=== PATIENT | female | born 1955 | race Caucasian/White ===

== ENCOUNTER 2019-10-23 09:40 | Emergency (ER) | payer OTHER, SELFPAY ==
[2019-10-23] VITALS (7 sets, daily range): BP systolic 103–131; BP diastolic 60–71; PULSE 76–98; RESP 13–20; TEMP 36.6; O2SAT 94–98; BMI 39.9
--- NOTE | 2019-10-23 09:49 | ED_ITS ---
Entered by Isatu Rivera, acting as scribe for HPI - General Adult General: Chief complaint: General Medical, Adult Stated complaint: WEIGHT GAIN Time Seen by Provider: 10/23/19 10:07 History of Present Illness: HPI narrative: 64 yo female presents with weight gain. pt states that she can't lay flat without becoming short of breath. Pt states that she has double vision that started this morning. Pt is a half-way resident at [facility]. Pt states that she has had hallucinations and that has been going on for quite awhile. Pt states that she is seeing people. Pt states that she had an increase in her lasix. Onset (ago): day(s) Associated symptoms: Reports dyspnea, malaise, nausea and short of breath; Deny chest pain, confusion, diaphoresis, headache(s), rash or vomiting Review of Systems Const: Reports: fever and malaise; Denies: chills, body aches, change in appetite, night sweats or diaphoresis Eyes: Reports: change in vision and blurry vision; Denies: eye discomfort or eye redness ENMT: Denies: throat pain, painful swallowing, hoarseness, swelling of lips /tongue, dental pain, nasal congestion, post nasal drip or facial/sinus pain Card: Reports: swelling of feet/ankles; Denies: chest pain or edema Resp: Reports: shortness of breath and productive cough; Denies: wheezing, change in phlegm color or chest congestion GI: Reports: abdominal pain and nausea; Denies: vomiting, vomiting blood, coffee grounds in vomit, difficulty swallowing, diarrhea, painful bowel movements, blood in stool or black tarry stool : Denies: flank pain, difficulty urinating, painful urination, urinary frequency, urinary urgency or blood in urine Musc: Reports: extremity swelling; Denies: neck pain, back pain, extremity pain, joint pain or joint swelling Skin/Breast: Denies: rash, itching or redness Neuro: Denies: headache, numbness in extremities, weakness in extremities, difficulty walking, frequent falls, dizziness, vertigo, confusion, slurred speech or restless legs Psych: Reports: anxiety; Denies: depression or mood swings Endo: Denies: excessive urination or excessive thirst Kristian/Lymph: Denies: easy bruising, easy bleeding or enlarged lymph nodes All/Imm: Denies: hives, throat swelling or tongue swelling PFSH ED PFSH: Statuses (acute, chronic, etc) shown below reflect problem list status as previously entered and may not be historically accurate Social History Smoking and tobacco status: former smoker Physical Exam Const: COMMON NORMALS: no apparent distress GENERAL APPEARANCE: cooperative and well kempt; not in distress ORIENTATION/CONSCIOUSNESS: Yes awake, Yes oriented to person, Yes oriented to place and Yes oriented to time HENMT: COMMON NORMALS: normocephalic, head/scalp atraumatic and hearing grossly normal bilaterally HEAD & SCALP: normocephalic and atraumatic Eye: COMMON NORMALS: PERRL and conjunctivae normal GENERAL EYE: normal appearance of both eyes VISUAL LOPEZ: Yes peripheral vision loss ALIGNMENT: Yes alignment normal PERIORBITAL: periorbital findings normal CONJUNCTIVA: Yes conjunctivae normal SCLERA: sclerae normal CORNEA: Yes corneas normal PUPIL: Yes PERRL Neck/C-Spine: COMMON NORMALS: full ROM, no lymphadenopathy, supple, no JVD and thyroid normal THYROID: thyroid normal Lymph: LYMPHATIC: no lymphadenopathy noted and no lymphedema noted Chest: COMMONS NORMALS: inspection of chest normal, palpation of chest normal and inspection of breasts normal Resp: COMMON NORMALS: normal respiratory effort, no retractions and no use of accessory muscles Cardio: COMMON NORMALS: no JVD, regular rate, regular rhythm, S1 normal heart sound and S2 normal heart sound RATE: regular rate RHYTHM: regular rhythm HEART SOUNDS: S1 normal and S2 normal GI: COMMON NORMALS: normal to inspection, nondistended, normoactive bowel sounds : COMMON NORMALS: Yes no CVA tenderness BLADDER/KIDNEY EXAM: Yes no CVA tenderness Back/Pelvis: COMMON NORMALS: no CVA tenderness THORACIC SPINE/UPPER BACK: Yes normal to inspection LUMBAR SPINE/LOWER BACK: Yes normal to inspection Extremity: COMMON NORMALS: negative for normal to inspection GENERAL: Yes edema Neuro: COMMON NORMALS: moves all extremities SENSORIUM/ORIENTATION: Yes oriented to person, Yes oriented to place and Yes oriented to time Psych: COMMON NORMALS: mental status grossly normal, thought process normal, cooperative, affect normal, speech normal and activity/motor behavior normal APPEARANCE: Yes well kempt SPEECH: Yes normal speech THOUGHT PROCESS: nor mal thought process Skin: COMMON NORMALS: no rashes or lesions noted GENERAL SKIN EXAM: no rashes or lesions noted Course ED course: Patient has significant edema and even some anasarca. In talking to her family's RN and calling Dr. Robertson her primary care doctor she has a history of some liver cirrhosis and they have been working on that he had ordered some spironolactone and metolazone this morning did not want to go up on her Lasix. She does not have any signs of congestive heart failure. Her liver enzymes are elevated but this is a known issue and is been evaluated when she was at [place] after her GI bleed and it Dr. Robertson is aware and has been following. Discussed with him he would like her to continue the spironolactone and metolazone as he recommended this morning at the half-way and recommends no other changes at this time we reviewed the labs including the hemoglobin. Per Dr. Robertson's request we will get another set set of labs ordered. She also has a mild cystitis restarted on Macrobid for [address] Robertson a follow-up with a culture. Chest x-ray shows diffuse pulmonary edema appearance. I suspect this is from her fluid overload but she is not real symptomatic of it she is actually able to lay down completely flat without significant hypoxia or shortness of breath. She is going to be started on the metolazone and spironolactone I think this will improve this. Her white count is normal and h er sats are good additionally her oxygen saturation is normal. Vital Signs: Vital signs: Vital Signs Temperature 98 F 10/23/19 09:41 Pulse Rate 80 10/23/19 13:49 Respiratory Rate 13 10/23/19 13:49 Blood Pressure 114/65 10/23/19 13:49 Pulse Oximetry 97 10/23/19 13:49 [facility] - General Adult Lab Data: Labs: Lab Results 10/23/19 10/23/19 10/23/19 Range/Units 10:02 10:02 10:02 WBC 5.6 (4.0-10.0) 10^3/ uL RBC 2.59 L (4.1-5.3) 10^6/u L Hgb 7.6 L (11.5-15.3) g/dL Hct 25.3 L (37.0-47.0) % MCV 97.7 (81-99) fL MCH 29.3 (28.0-34.0) pg MCHC 30.0 (30.0-36.0) g/dL RDW 20.7 H (12.1-15.1) % Plt Count 140 (130-400) 10^3/c mm MPV 8.7 (7.4-10.4) fL Neut % (Auto) 57.6 % Lymph % (Auto) 17.2 % [place] % (Auto) 14.7 % Eos % (Auto) 8.2 % Baso % (Auto) 1.4 % Neut # (Auto) 3.2 (1.8-7.7) 10^3/u L Lymph # (Auto) 1.0 (0.8-4.8) 10^3/u L [place] # (Auto) 0.8 (0.2-0.9) 10^3/u L Eos # (Auto) 0.5 (0.0-0.8) 10^3/u L Baso # (Auto) 0.1 (0.0-0.1) 10^3/u L Nucleated RBC % (a uto) 0 % Nucleated RBCs # 0.0 /100WBC PT (10.5-13.3) SECO NDS INR (0.8-1.2) Sodium 133 L (136-145) mmol/L Potassium 4.4 (3.5-5.1) mmol/L Chloride 95 L (98-107) mmol/L Carbon Dioxide 29 (22-29) mmol/L Anion Gap 13.4 (5-19) BUN 12 (8-23) mg/dL Creatinine 0.7 (0.5-0.9) mg/dL GFR Calculation 84.2 L (90-130) mL/min Glucose 146 H (74-106) mg/dL Lactate (0.5-2.2) mmol/L Calcium 9.3 (8.8-10.2) mg/Dl Phosphorus 2.8 (2.5-4.5) mg/dL Magnesium 1.9 (1.7-2.3) mg/dL Total Bilirubin 1.4 H (0.15-1.2) mg/dL AST 78 H (0-32) U/L ALT 36 H (0-33) U/L Alkaline Phosphata se 625 H (35-105) IU/L Ammonia (11-51) umol/L Creatine Kinase 32 (26-192) U/L Troponin T Baselin e (0-10) ng/mL Troponin T 120 Min [place] (0-10) ng/mL Delta Troponin T (0-10) ABS# NT-Pro-B Natriuret Pep 218 H (0-125) pg/mL Total Protein 6.6 (6.6-8.7) g/dL Albumin 3.2 L (3.5-5.2) g/dL Globulin 3.4 (1.3-4.6) g/dL Urine Color Yellow (Yellow) Urine Appearance Sl hazy A (CLEAR) Urine pH 5.0 (5-7) Ur Specific Gravit y 1.020 (1.005-1.030) Urine Protein Trace (Negative) Urine Glucose (UA) Norm (Normal) Urine Ketones Negative (Negative) Urine Occult Blood 3+ H (Negative) Urine Nitrate Positive H (Negative) Urine Bilirubin Neg (NEGATIVE) Urine Urobilinogen Norm (Negative) mg/dL Ur Leukocyte Adnnielle ase 2+ H (Negative) Urine RBC 10-15 H (0-2) /hpf Urine WBC 55-80 H (0-5) /hpf Ur Squamous Epith Cells 0-4 H (0-5) Calcium Oxalate Cr ystal 0-4 H /hpf Urine Bacteria 2+ H (NONE) Hyaline Casts 0-4 H Urine Mucus Trace 10/23/19 10/23/19 10/23/19 Range/Units 10:02 10:02 10:25 WBC (4.0-10.0) 10^3/ uL RBC (4.1-5.3) 10^6/u L Hgb (11.5-15.3) g/dL Hct (37.0-47.0) % MCV (81-99) fL MCH (28.0-34.0) pg MCHC (30.0-36.0) g/dL RDW (12.1-15.1) % Plt Count (130-400) 10^3/c mm MPV (7.4-10.4) fL Neut % (Auto) % Lymph % (Auto) % [place] % (Auto) % Eos % (Auto) % Baso % (Auto) % Neut # (Auto) (1.8-7.7) 10^3/u L Lymph # (Auto) (0.8-4.8) 10^3/u L [place] # (Auto) (0.2-0.9) 10^3/u L Eos # (Auto) (0.0-0.8) 10^3/u L Baso # (Auto) (0.0-0.1) 10^3/u L Nucleated RBC % (a uto) % Nucleated RBCs # /100WBC PT 15.40 H (10.5-13.3) SECO NDS INR 1.18 (0.8-1.2) Sodium (136-145) mmol/L Potassium (3.5-5.1) mmol/L Chloride (98-107) mmol/L Carbon Dioxide (22-29) mmol/L Anion Gap (5-19) BUN (8-23) mg/dL Creatinine (0.5-0.9) mg/dL GFR Calculation (90-130) mL/min Glucose (74-106) mg/dL Lactate 2.1 (0.5-2.2) mmol/L Calcium (8.8-10.2) mg/Dl Phosphorus (2.5-4.5) mg/dL Magnesium (1.7-2.3) mg/dL Total Bilirubin (0.15-1.2) mg/dL AST (0-32) U/L ALT (0-33) U/L Alkaline Phosphata se (35-105) IU/L Ammonia (11-51) umol/L Creatine Kinase (26-192) U/L Troponin T Baselin e 24 H (0-10) ng/mL Troponin T 120 Min [place] (0-10) ng/mL Delta Troponin T (0-10) ABS# NT-Pro-B Natriuret Pep (0-125) pg/mL Total Protein (6.6-8.7) g/dL Albumin (3.5-5.2) g/dL Globulin (1.3-4.6) g/dL Urine Color (Yellow) Urine Appearance (CLEAR) Urine pH (5-7) Ur Specific Gravit y (1.005-1.030) Urine Protein (Negative) Urine Glucose (UA) (Normal) Urine Ketones (Negative) Urine Occult Blood (Negative) Urine Nitrate (Negative) Urine Bilirubin (NEGATIVE) Urine Urobilinogen (Negative) mg/dL Ur Leukocyte Dannielle ase (Negative) Urine RBC (0-2) /hpf Urine WBC (0-5) /hpf Ur Squamous Epith Cells (0-5) Calcium Oxalate Cr ystal /hpf Urine Bacteria (NONE) Hyaline Casts Urine Mucus 10/23/19 10/23/19 10/23/19 Range/Units 12:13 12:13 14:10 WBC (4.0-10.0) 10^3/ uL RBC (4.1-5.3) 10^6/u L Hgb (11.5-15.3) g/dL Hct (37.0-47.0) % MCV (81-99) fL MCH (28.0-34.0) pg MCHC (30.0-36.0) g/dL RDW (12.1-15.1) % Plt Count (130-400) 10^3/c mm MPV (7.4-10.4) fL Neut % (Auto) % Lymph % (Auto) % [place] % (Auto) % Eos % (Auto) % Baso % (Auto) % Neut # (Auto) (1.8-7.7) 10^3/u L Lymph # (Auto) (0.8-4.8) 10^3/u L [place] # (Auto) (0.2-0.9) 10^3/u L Eos # (Auto) (0.0-0.8) 10^3/u L Baso # (Auto) (0.0-0.1) 10^3/u L Nucleated RBC % (a uto) % Nucleated RBCs # /100WBC PT (10.5-13.3) SECO NDS INR (0.8-1.2) Sodium (136-145) mmol/L Potassium (3.5-5.1) mmol/L Chloride (98-107) mmol/L Carbon Dioxide (22-29) mmol/L Anion Gap (5-19) BUN (8-23) mg/dL Creatinine (0.5-0.9) mg/dL GFR Calculation (90-130) mL/min Glucose (74-106) mg/dL Lactate (0.5-2.2) mmol/L Calcium (8.8-10.2) mg/Dl Phosphorus (2.5-4.5) mg/dL Magnesium (1.7-2.3) mg/dL Total Bilirubin (0.15-1.2) mg/dL AST (0-32) U/L ALT (0-33) U/L Alkaline Phosphata se (35-105) IU/L Ammonia 63 H (11-51) umol/L Creatine Kinase (26-192) U/L Troponin T Baselin e Cancelled (0-10) ng/mL Troponin T 120 Min [place] 24 H (0-10) ng/mL Delta Troponin T 0 (0-10) ABS# NT-Pro-B Natriuret Pep (0-125) pg/mL Total Protein (6.6-8.7) g/dL Albumin (3.5-5.2) g/dL Globulin (1.3-4.6) g/dL Urine Color (Yellow) Urine Appearance (CLEAR) Urine pH (5-7) Ur Specific Gravit y (1.005-1.030) Urine Protein (Negative) Urine Glucose (UA) (Normal) Urine Ketones (Negative) Urine Occult Blood (Negative) Urine Nitrate (Negative) Urine Bilirubin (NEGATIVE) Urine Urobilinogen (Negative) mg/dL Ur Leukocyte Dannielle ase (Negative) Urine RBC (0-2) /hpf Urine WBC (0-5) /hpf Ur Squamous Epith Cells (0-5) Calcium Oxalate Cr ystal /hpf Urine Bacteria (NONE) Hyaline Casts Urine Mucus Imaging Data^: Portable AP upright chest, 10/23/2019 Clinical Data: dyspnea Comparison: Portable chest, 09/06/2019. Findings: Patchy opacities are seen throughout both lungs which may represent diffuse pneumonia or unusual pulmonary edema. No nodules, masses or effusions are seen. The heart is normal. No pneumothorax is seen. Monitor leads are on the chest wall. Small opacities adjacent to the left side of the T12 vertebral body could be from surgery. XR/XR chest 1V portable [id number] Impression: 1. Patchy opacities throughout both lungs which could represent an unusual pulmonary edema or diffuse pneumonia. 2. Atherosclerosis. Dictated By: Lynda Ashley MD : Radiologist's impression: Portable AP upright chest, 10/23/2019 Clinical Data: dyspnea Comparison: Portable chest, 09/06/2019. Findings: Patchy opacities are seen throughout both lungs which may represent diffuse pneumonia or unusual pulmonary edema. No nodules, masses or effusions are seen. The heart is normal. No pneumothorax is seen. Monitor leads are on the chest wall. Small opacities adjacent to the left side of the T12 vertebral body could be from surgery. XR/XR chest 1V portable [id number] Impression: 1. Patchy opacities throughout both lungs which could represent an unusual pulmonary edema or diffuse pneumonia. 2. Atherosclerosis. Dictated By: Lynda Ashley MD CT Head: Radiologist's impression: CT scan of the head, 10/23/2019 Clinical Data: AMS/hallucinations Comparison: None. DLP: 772.[address] scans at [facility] use at least one of these dose optimization techniques: automated exposure control; mA and/or kV adjustment per patient size (includes targeted exams where dose is matched to clinical indication); or iterative reconstruction. Findings: The ventricular system is normal without shift. No recent infarct or hemorrhage is seen. There are no abnormal intracerebral masses. The cerebellum and brainstem are not remarkable. Bony windows of the skull and skull base show no fractures or erosions. The mastoid air cells, internal auditory canals, sella turcica, intraorbital contents, and paranasal sinuses are unremarka ble. CT/CT head wo con* [id number] Impression: Negative CT scan of the head The report was called to the emergency room at 1045 hours. Dictated By: Lynda Ashley MD CXR: My impression: Portable AP upright chest, 10/23/2019 Clinical Data: dyspnea Comparison: Portable chest, 09/06/2019. Findings: Patchy opacities are seen throughout both lungs which may represent diffuse pneumonia or unusual pulmonary edema. No nodules, masses or effusions are seen. The heart is normal. No pneumothorax is seen. Monitor leads are on the chest wall. Small opacities adjacent to the left side of the T12 vertebral body could be from surgery. XR/XR chest 1V portable [id number] Impression: 1. Patchy opacities throughout both lungs which could represent an unusual pulmonary edema or diffuse pneumonia. 2. Atherosclerosis. Dictated By: Lynda Ashley MD US: Radiologist's impression: Gallbladder ultrasound, 10/23/2019 Clinical Data: elevated LFTs Comparison: CT abdomen and pelvis, 09/06/2019. Findings: The gallbladder is absent. There is a small right pleural effusion. The common bile duct is 0.46 cm and there are no intrahepatic ductal abnormalities. Liver shows no cysts, masses or dilated intrahepatic ducts. It measures 16.21 cm. with slight increased density. The pancreas is obscured by overlying bowel gas but no cyst, pseudocyst, or evidence of pancreatitis is noted. Right kidney measures 4.32 x 4.93 cm and no cyst or masses can be seen. There is mild right renal pelvic dilatation The aorta was not seen but the inferior vena cava shows no vascular abnormalities. US/US gall bladder [id number] Impression: 1. Small right pleural effusion 2. Minimal right renal pelvic dilatation. 3. Minimal increased density in the liver. Dictated By: Lynda Ashley MD Discharge Plan Discharge Patient Disposition: [facility] Clinical Impression: Cirrhosis of liver, Cystitis, Anemia, Edema, peripheral, Pulmonary edema Condition: Stable Discharge Orders: Discharge Order (Routine); Ordered 10/23/19 Ordered By: Saul Anthony Referrals: Josafat Robertson MD [Primary Care Provider] - Discharge Diet: Usual diet Discharge Activity: Resume usual activity Interventions: ED Discharge Assessment Last Done: 10/23/19 13:08 Discharge Date/Time: 10/23/19 16:11 Coding Level of Care Code ED Vp [employer] for Chg Fwd Exam Problem Focused The documentation recorded by the Miguel dhillon Kialy, accurately reflects the service I personally performed and the decisions made by Gabrielle cornejo Curtis L, DO Oct 23, 2019 09:40
--- NOTE | 2019-10-23 10:07 | CT_ITS ---
WS: [id number] CT scan of the head, 10/23/2019 Clinical Data: AMS/hallucinations Comparison: None. DLP: 772.[address] scans at [facility] use at least one of these dose optimization techniques: automat ed exposure control; mA and/or kV adjustment per patient size (includes targeted exams where dose is matched to clinical indication); or iterative reconstruction. Findings: The ventricular system is normal without shift. No recent infarct or hemorrhage is seen. There are no abnormal intracerebral masses. The cerebellum and brainstem are not remarkable. Bony windows of the skull and skull base show no fractures or erosions. The mastoid air cells, investigator internal revenue al auditory canals, sella turcica, intraorbital contents, and paranasal sinuses are unremarkable. CT/CT head wo con* [id number] Impression: Negative CT scan of the head The report was called to the emergency room at 1045 hours.
--- NOTE | 2019-10-23 10:07 | XR_ITS ---
WS: [id number] Portable AP upright chest, 10/23/2019 Clinical Data: dyspnea Comparison: Portable chest, 09/06/2019. Findings: Patchy opacities are seen throughout both lungs which may represent diffuse pneumonia or un usual pulmonary edema. No nodules, masses or effusions are seen. The heart is normal. No pneumothora x is seen. Monitor leads are on the chest wall. Small opacities adjacent to the left side of the T12 vertebral body could be from surgery. XR/XR chest 1V portable [id number] Impression: 1. Patchy opacities throughout both lungs which could represent an unusual pulm onary edema or diffuse pneumonia. 2. Atherosclerosis.
[2019-10-23 10:27] LABS: Basophils # 0.1 10^3/uL (0.0-0.1); Basophils % 1.4 %; Eosinophils # 0.5 10^3/uL (0.0-0.8); Eosinophils % 8.2 %; Hematocrit 25.3 % (37.0-47.0); Hemoglobin 7.6 g/dL (11.5-15.3); Lymphocytes % 17.2 %; Mean Corpuscular Hemoglobin 29.3 pg (28.0-34.0); Mean Corpuscular Volume 97.7 fL (81-99); Mean Platelet Volume 8.7 fL (7.4-10.4); Monocytes # 0.8 10^3/uL (0.2-0.9); Monocytes % 14.7 %; Neutrophils # 3.2 10^3/uL (1.8-7.7); Neutrophils % 57.6 %; Nucleated Red Blood Cells % 0 %; Platelet Count 140 10^3/cmm (130-400); Red Blood Count 2.59 10^6/uL (4.1-5.3); Red Cell Distribution Width 20.7 % (12.1-15.1); White Blood Count 5.6 10^3/uL (4.0-10.0)
[2019-10-23 10:34] LABS: Glucose Urine UA Norm (Normal); Protein Urine Trace (Negative); Urine Appearance SL Hazy (CLEAR); Urine Color Yellow (Yellow)
[2019-10-23 10:35] LABS: Add Urine Culture? Yes; Bacteria Urine 2+; Bilirubin Urine Neg (NEGATIVE); Blood Urine 3+ (Negative); Calcium Oxalate Crystals Urine 0-4 /hpf; Hyaline Casts Urine 0-4; Ketones Urine Negative (Negative); Leukocyte Esterase Urine 2+ (Negative); Mucus Urine TRACE; Nitrate Urine Positive (Negative); Squamous Epithelial Cell Urine 0-4 (0-5); Urobilinogen Urine Norm (Negative); WBC Urine 55-80 /hpf (0-5)
[2019-10-23 10:39] LABS: Alanine Aminotransferase 36 U/L (0-33); Albumin Level 3.2 g/dL (3.5-5.2); Alkaline Phosphatase 625 IU/L (35-105); Anion Gap 13.4 (5-19); Aspartate Amino Transferase 78 U/L (0-32); Blood Urea Nitrogen 12 mg/dL (8-23); Calcium 9.3 mg/Dl (8.8-10.2); Carbon Dioxide 29 mmol/L (22-29); Chloride 95 mmol/L (98-107); Creatine Phosphokinase 32 U/L (26-192); Globulin 3.4 g/dL (1.3-4.6); Glomerular Filtration Rate 84.2 mL/min (90-130); Glucose 146 mg/dL (74-106); Magnesium 1.9 mg/dL (1.7-2.3); NT Pro B Type Natriuretic Pept 218 pg/mL (0-125); Phosphorus 2.8 mg/dL (2.5-4.5); Potassium 4.4 mmol/L (3.5-5.1); Sodium 133 mmol/L (136-145); Total Bilirubin 1.4 mg/dL (0.15-1.2); Total Protein 6.6 g/dL (6.6-8.7)
[2019-10-23 11:02] LABS: Lactate (Lactic Acid level) 2.1 mmol/L (0.5-2.2)
--- NOTE | 2019-10-23 12:20 | US_ITS ---
WS: [id number] Gallbladder ultrasound, 10/23/2019 Clinical Data: elevated LFTs Comparison: CT abdomen and pelvis, 09/06/2019. Findings: The gallbladder is absent. There is a small right pleural effusion. The common bile duct is 0.46 cm and there are no intrahepatic ductal abnormalities. Liver shows no cysts, masses or dilated intrahepatic ducts. It measures 16.21 cm. with slight increas ed density. The pancreas is obscured by overlying bowel gas but no cyst, pseudocyst, or evidence of pancreatitis is noted. Right kidney measures 4.32 x 4.93 cm and no cyst or masses can be seen. There is mild right renal pel danyel dilatation The aorta was not seen but the inferior vena cava shows no vascular abnormalities. US/US gall bladder [id number] Impression: 1. Small right pleural effusion 2. Minimal right renal pelvic dilatation. 3. Minimal increased density in the liver.
[2019-10-23 12:33] LABS: INR 1.18 (0.8-1.2)
[2019-10-23 13:41] LABS: Troponin(5th) Baseline 24 ng/mL (0-10)
[2019-10-23 13:54] LABS: Troponin 5 2HR 24 ng/mL (0-10); Troponin 5 2HR Delta 0 ABS# (0-10)
[2019-10-23 14:37] LABS: Ammonia 63 umol/L (11-51)
== END 2019-10-23 16:11 ==
PROVIDERS: Emergency Provider Family Medicine; Family Provider Family Medicine; PCP Family Medicine
DX: K74.60 Unspecified cirrhosis of liver (principal); N30.90 Cystitis, unspecified without hematuria; D64.9 Anemia, unspecified; J81.1 Chronic pulmonary edema; Z87.891 Personal history of nicotine dependence
CPT/HCPCS: 36415; 70450; 71045; 76705; 80053; 81001; 82140; 82550; 83605; 83735; 83880; 84100; 84484; 85025; 85610; 87086; 99283

== ENCOUNTER 2019-12-11 19:33 | Inpatient (IN) | payer OTHER, SELFPAY ==
[2019-12-11 19:36] VITALS: BP 116/64; PULSE 84; RESP 12; TEMP 36.3; BMI 30.9
--- NOTE | 2019-12-11 19:39 | ED_ITS ---
Entered by Zoey Mcdonald, acting as scribe for Paula Kolb MD, [facility] HPI - General Adult General: Chief complaint: Altered Mental Status Stated complaint: lethargic Time Seen by Provider: 12/11/19 19:38 Source: family Mode of arrival: wheelchair Limitations: altered mental status History of Present Illness: HPI narrative: 64 yo Female presents to ED with co mplaint of altered mental status and lethargy. Pt's caregiver states that the patient is normally able to converse but this episode started around 1400 today. Pt's caregiver states that the patient had a previous episode in August and was diagnosed with cirrhosis with bleeding varices. Pt's caregiver states that the patient doesn't drink alcohol. Pt's caregiver states that the patient is diabetic and her blood sugar was 410 earlier today when this started. Pt's caregiver states that the patient hasn't had any fever but did have vomiting starting at about 0200 this morning. Pt is able to answer questions with yes and no answers. complaint: Altered Mental Status Onset (ago): hour(s) Associated symptoms: Reports confusion, nausea, vomiting and weakness; Deny chest pain, dyspnea, fevers/chills, rash or palpitations Review of Systems General: Reports: 10 or more systems reviewed and unremarkable except in HPI and below Const: Denies: fever, chills or body aches Eyes: Denies: change in vision or blurry vision ENMT: Denies: throat pain, enlarged tonsils, painful swallowing, hoarseness, mouth pain or swelling of lips/tongue Card: Denies: chest pain, palpitations, irregular heart rhythm, edema or swelling of feet/ankles Resp: Denies: shortness of breath, productive cough or non-productive cough GI: Reports: nausea and vomiting : Denies: flank pain, difficulty urinating, painful urination, urinary frequency, urinary urgency or urinary hesitancy Musc: Denies: neck pain, back pain or extremity swelling Skin/Breast: Denies: rash, itching or redness Neuro: Reports: confusion Endo: Denies: excessive urination, excessive thirst or tired all the time PFS ED PFSH: Social History Smoking and tobacco status: former smoker Physical Exam Const: COMMON NORMALS: no apparent distress, average body habitus, no limitations, healthy appearing and well nourished HENMT: COMMON NORMALS: normocephalic, head/scalp atraumatic and moist oral mucous membranes HEAD & SCALP: normocephalic and atraumatic Eye: COMMON NORMALS: PERRL, EOMs intact bilaterally, conjunctivae normal and no scleral icterus CONJUNCTIVA: Yes conjunctivae normal PUPIL: Yes PERRL Neck/C-Spine: COMMON NORMALS: full ROM, supple, no meningeal signs, no JVD and no carotid bruits Chest: COMMONS NORMALS: inspection of chest normal and palpation of chest normal Resp: COMMON NORMALS: normal respiratory effort, no retractions, no use of accessory muscles, clear to auscultation bilaterally and percussion normal AUSCULTATION: clear to auscultation bilaterally PERCUSSION: percussion normal Cardio: COMMON NORMALS: no JVD, regular rate, regular rhythm, S1 normal heart sound, S2 normal heart sound, no gallops, no clicks, no rub and peripheral pulses 2+ throughout RATE: regular rate RHYTHM: regular rhythm HEART SOUNDS: S1 normal, S2 normal and murmur PERIPHERAL PULSES: pulses 2+ throughout GI: COMMON NORMALS: soft to palpation, no hepatosplenomegaly, no masses and no bruits PALPATION: Yes soft, Yes tender, Yes no hepatosplenomegaly and Yes hernia : COMMON NORMALS: Yes no CVA tenderness BLADDER/KIDNEY EXAM: Yes no CVA tenderness EXTERNAL FEMALE EXAM: Yes hernia Back/Pelvis: COMMON NORMALS: no CVA tenderness Extremity: COMMON NORMALS: normal to inspection, full ROM, normal capillary refill, no calf tenderness and no pedal edema Neuro: COMMON NORMALS: moves all extremities and no focal motor deficits SENSORIUM/ORIENTATION: Yes somnolent MENINGEAL SIGNS: Yes no meningeal signs Skin: COMMON NORMALS: no rashes or lesions noted, no wounds, skin turgor normal, no jaundice, no petechiae and no mottling GENERAL SKIN EXAM: no rashes or lesions noted and turgor normal Course Consultations: Consultation #1: Dr. Romano, hospitalist. She kindly accepted the patient to her service. Time: 23:30 Vital Signs: Vital signs: Vital Signs Temperature 97.4 F L 12/11/19 19:36 Pulse Rate 109 H 12/11/19 23:00 Respiratory Rate 16 12/11/19 20:00 Blood Pressure 109/54 12/11/19 23:00 Pulse Oximetry 96 12/11/19 23:00 MDM - General Adult MDM Narrative: Medical decision making narrative: Patient with a history of liver cirrhosis who presented to the ED with AMS. Evaluation in the ED showed an elevated ammonia level consistent with hepatic encephalopathy, lactic acidosis, and possible pneumonia. She is admitted to the hospital for further management and evaluation. Medical Records: Attestation: I reviewed the patient's medical records. Lab Data: Attestation: I reviewed the patient's lab results. Labs: Lab Results 12/11/19 12/11/19 12/11/19 Range/Units 19:45 19:45 20:16 WBC 7.5 (4.0-10.0) 10^3/ uL RBC 4.04 L (4.1-5.3) 10^6/u L Hgb 12.6 (11.5-15.3) g/dL Hct 38.7 (37.0-47.0) % MCV 95.8 (81-99) fL MCH 31.2 (28.0-34.0) pg MCHC 32.6 (30.0-36.0) g/dL RDW 18.4 H (12.1-15.1) % Plt Count 149 (130-400) 10^3/c mm MPV 8.9 (7.4-10.4) fL Neut % (Auto) 70.5 % Lymph % (Auto) 18.1 % Isabela % (Auto) 8.5 % Eos % (Auto) 1.6 % Baso % (Auto) 0.4 % Neut # (Auto) 5.3 (1.8-7.7) 10^3/u L Lymph # (Auto) 1.4 (0.8-4.8) 10^3/u L Isabela # (Auto) 0.6 (0.2-0.9) 10^3/u L Eos # (Auto) 0.1 (0.0-0.8) 10^3/u L Baso # (Auto) 0.0 (0.0-0.1) 10^3/u L Nucleated RBC % (a uto) 0 % Nucleated RBCs # 0.0 /100WBC Sodium 136 (136-145) mmol/L Potassium 4.3 (3.5-5.1) mmol/L Chloride 98 (98-107) mmol/L Carbon Dioxide 25 (22-29) mmol/L Anion Gap 17.3 (5-19) BUN 22 (8-23) mg/dL Creatinine 1.0 H (0.5-0.9) mg/dL GFR Calculation 55.8 L (90-130) mL/min Glucose 387 H (65-115) mg/dL Lactate 4.1 H* (0.5-2.2) mmol/L Calcium 10.8 H (8.5-10.5) mg/dL Total Bilirubin 1.3 H (0.15-1.2) mg/dL AST 59 H (0-32) U/L ALT 51 H (0-33) U/L Alkaline Phosphata se 308 H (35-105) IU/L Ammonia (11-51) umol/L Total Protein 9.1 H (6.6-8.7) g/dL Albumin 3.4 L (3.5-5.2) g/dL Globulin 5.7 H (1.3-4.6) g/dL Urine Color (Yellow) Urine Appearance (CLEAR) Urine pH (5-7) Ur Specific Gravit y (1.005-1.030) Urine Protein (Negative) Urine Glucose (UA) (Normal) Urine Ketones (Negative) Urine Blood (Negative) Urine Nitrate (Negative) Urine Bilirubin (NEGATIVE) Urine Urobilinogen (Negative) mg/dL Ur Leukocyte Dannielle ase (Negative) Urine RBC (0-2) /hpf Urine WBC (0-5) /hpf Ur Squamous Epith Cells (0-5) Urine Bacteria (NONE) 12/11/19 12/11/19 Range/Units 20:16 21:20 WBC (4.0-10.0) 10^3/ uL RBC (4.1-5.3) 10^6/u L Hgb (11.5-15.3) g/dL Hct (37.0-47.0) % MCV (81-99) fL MCH (28.0-34.0) pg MCHC (30.0-36.0) g/dL RDW (12.1-15.1) % Plt Count (130-400) 10^3/c mm MPV (7.4-10.4) fL Neut % (Auto) % Lymph % (Auto) % Isabela % (Auto) % Eos % (Auto) % Baso % (Auto) % Neut # (Auto) (1.8-7.7) 10^3/u L Lymph # (Auto) (0.8-4.8) 10^3/u L Isabela # (Auto) (0.2-0.9) 10^3/u L Eos # (Auto) (0.0-0.8) 10^3/u L Baso # (Auto) (0.0-0.1) 10^3/u L Nucleated RBC % (a uto) % Nucleated RBCs # /100WBC Sodium (136-145) mmol/L Potassium (3.5-5.1) mmol/L Chloride (98-107) mmol/L Carbon Dioxide (22-29) mmol/L Anion Gap (5-19) BUN (8-23) mg/dL Creatinine (0.5-0.9) mg/dL GFR Calculation (90-130) mL/min Glucose (65-115) mg/dL Lactate (0.5-2.2) mmol/L Calcium (8.5-10.5) mg/dL Total Bilirubin (0.15-1.2) mg/dL AST (0-32) U/L ALT (0-33) U/L Alkaline Phosphata se (35-105) IU/L Ammonia 174 H (11-51) umol/L Total Protein (6.6-8.7) g/dL Albumin (3.5-5.2) g/dL Globulin (1.3-4.6) g/dL Urine Color Dark yellow (Yellow) Urine Appearance Hazy A (CLEAR) Urine pH 5 (5-7) Ur Specific Gravit y 1.030 (1.005-1.030) Urine Protein Neg (Negative) Urine Glucose (UA) 1+ (Normal) Urine Ketones Negative (Negative) Urine Blood Trace H (Negative) Urine Nitrate Negative (Negative) Urine Bilirubin Neg (NEGATIVE) Urine Urobilinogen Norm (Negative) mg/dL Ur Leukocyte Dannielle ase Negative (Negative) Urine RBC None (0-2) /hpf Urine WBC 25-40 H (0-5) /hpf Ur Squamous Epith Cells None (0-5) Urine Bacteria 4+ H (NONE) Imaging Data^: CT Head: Radiologist's impression: [address] [address] [address] Scan Report Signed Patient: Sharon Kwan #: [id number] : 5Acct#:[id number] Age/Sex: 64 / FADM Date: 12/11/19 Loc: ERRoom/Bed: Attending Dr: Ordering Provider/Ordering MD: Paula Kolb MD, [facility] Date of Service: 12/11/19 Procedure(s): CT head wo con* [id number] Accession Number(s): [id number] Report Number: [id number] PROCEDURE INFORMATION: Exam: CT Head Without Contrast Exam date and time: 12/11/2019 8:28 PM Age: 64 years old Clinical indication: Altered mental status/memory loss; Additional info: AMS TECHNIQUE: Imaging protocol: Computed tomography of the head without contrast. Total DLP: 987.55 mGy-cm Radiation optimization: All CT scans at this facility use at least one of these dose optimization techniques: automated exposure control; mA and/or kV adjustment per patient size (includes targeted exams where dose is matched to clinical indication); or iterative reconstruction. COMPARISON: CT head wo con* [id number] 10/23/2019 10:30 AM FINDINGS: Brain: Mild atrophy and mild white matter chronic microvascular changes are noted. No hemorrhage or CT evidence of acute infarction is seen. Ventricles: Normal. No ventriculomegaly. Bones/joints: Unremarkable. No acute fracture. Sinuses: Visualized sinuses are unremarkable. No fluid levels. Mastoid air cells: Visualized mastoid air cells are well aerated. Soft tissues: Unremarkable. CT/CT head wo con* [id number] IMPRESSION: No acute intracranial abnormality. Radiation Dose CTDIVOL = (mGy): DLP = 987.55 (mGy-cm) Dictated By:Coleman Baltazar MD Signed By:Coleman Baltazar MDSigned Date/Time:12/11/192149 DD/ 47 Discharge Plan Discharge Patient Disposition: Admitted As Inpatient Clinical Impression: Acute hepatic encephalopathy, Altered mental status, Pneumonia Condition: Stable Prescriptions: No Action Zofran 4 mg Tablet 4 mg PO Q8H PRN (Reason: Nausea) RF: 0 spironolactone 25 mg Tablet 25 mg PO BID RF: 0 MagOx 400 mg (241.3 mg magnesium) Tablet 400 mg PO DAILY RF: 0 ferrous sulfate 325 mg (65 mg iron) Tablet 325 mg PO BID RF: 0 furosemide [Lasix] 40 mg Tablet 60 mg PO BID RF: 0 potassium chloride 10 mEq Tablet Extended Release 20 meq PO DAILY RF: 0 tramadol [Ultram] 50 mg Tablet 50 mg PO Q6H PRN (Reason: Pain) RF: 0 levothyroxine 50 mcg Tablet 75 mcg PO DAILY RF: 0 pantoprazole [Protonix] 40 mg Tablet,Delayed Release (Dr/Ec) 40 mg PO BID RF: 0 Humalog U-100 Insulin 100 unit/mL Cartridge See Rx Instructions .ROUTE .COMPLEX RF: 0 lactulose 10 gram/15 mL Solution 30 ml PO BID RF: 0 Xifaxan 550 mg Tablet 550 mg PO BID RF: 0 insulin detemir U-100 10 units SUBCUT BEDTIME RF: 0 Referrals: Josafat Robertson MD [Primary Care Provider] - Coding Level of Care Code ED Biology Specimen Technician for Chg Fwd Exam Comprehensive The documentation recorded by the Harry dhillon Carmen, accurately reflects the service I personally performed and the decisions made by Kennedi cornejo Adegoke I, MD, [facility] Dec 11, 2019 19:33
--- NOTE | 2019-12-11 19:53 | PC.NURSE ---
Blood glucose per finger stick upon arrival was 352
--- NOTE | 2019-12-11 19:57 | CTR_ITS ---
PROCEDURE INFORMATION: Exam: CT Head Without Contrast Exam date and time: 12/11/2019 8:28 PM Age: 64 years old Clinical indication: Altered mental status/memory loss; Additional info: AMS TECHNIQUE: Imaging protocol: Computed tomography of the head without contrast. Total DLP: 987.55 mGy-cm Radiation optimization: All CT scans at this facility use at least one of these dose optimization techniques: automated exposure control; mA and/or kV adjustment per patient size (includes targeted exams where dose is matched to clinical indication); or iterative reconstruction. COMPARISON: CT head wo con* [id number] 10/23/2019 10:30 AM FINDINGS: Brain: Mild atrophy and mild white matter chronic microvascular changes are noted. No hemorrhage or CT evidence of acute infarction is seen. Ventricles: Normal. No ventriculomegaly. Bones/joints: Unremarkable. No acute fracture. Sinuses: Visualized sinuses are unremarkable. No fluid levels. Mastoid air cells: Visualized mastoid air cells are well aerated. Soft tissues: Unremarkable. CT/CT head wo con* [id number] IMPRESSION: No acute intracranial abnormality. Radiation Dose CTDIVOL = (mGy): DLP = 987.55 (mGy-cm)
[2019-12-11 20:00] VITALS: BP 137/73; PULSE 83; RESP 16; O2SAT 97
--- NOTE | 2019-12-11 20:06 | PC.NURSE ---
bedside blood glucose 352 at time of triage
[2019-12-11 20:10] LABS: Basophils % 0.4 %; Eosinophils # 0.1 10^3/uL (0.0-0.8); Eosinophils % 1.6 %; Hematocrit 38.7 % (37.0-47.0); Hemoglobin 12.6 g/dL (11.5-15.3); Lymphocytes # 1.4 10^3/uL (0.8-4.8); Lymphocytes % 18.1 %; Mean Corpuscular HGB Conc 32.6 g/dL (30.0-36.0); Mean Corpuscular Hemoglobin 31.2 pg (28.0-34.0); Mean Corpuscular Volume 95.8 fL (81-99); Mean Platelet Volume 8.9 fL (7.4-10.4); Monocytes # 0.6 10^3/uL (0.2-0.9); Monocytes % 8.5 %; Neutrophils # 5.3 10^3/uL (1.8-7.7); Neutrophils % 70.5 %; Nucleated Red Blood Cells % 0 %; Platelet Count 149 10^3/cmm (130-400); Red Blood Count 4.04 10^6/uL (4.1-5.3); Red Cell Distribution Width 18.4 % (12.1-15.1); White Blood Count 7.5 10^3/uL (4.0-10.0)
[2019-12-11] MEDS: sodium chloride 0.9% 1,000 ML 999 ML IV (20:13)
[2019-12-11 20:21] LABS: Alanine Aminotransferase 51 U/L (0-33); Albumin Level 3.4 g/dL (3.5-5.2); Alkaline Phosphatase 308 IU/L (35-105); Anion Gap 17.3 (5-19); Aspartate Amino Transferase 59 U/L (0-32); Blood Urea Nitrogen 22 mg/dL (8-23); Calcium 10.8 mg/dL (8.5-10.5); Carbon Dioxide 25 mmol/L (22-29); Chloride 98 mmol/L (98-107); Globulin 5.7 g/dL (1.3-4.6); Glomerular Filtration Rate 55.8 mL/min (90-130); Glucose 387 mg/dL (65-115); Potassium 4.3 mmol/L (3.5-5.1); Sodium 136 mmol/L (136-145); Total Bilirubin 1.3 mg/dL (0.15-1.2); Total Protein 9.1 g/dL (6.6-8.7)
[2019-12-11] MEDS: ondansetron 2 mg/ML SDV 2 mL 4 MG IVP (20:45)
[2019-12-11 20:51] LABS: Lactate (Lactic Acid level) 4.1 mmol/L (0.5-2.2)
--- NOTE | 2019-12-11 20:53 | CTR_ITS ---
PROCEDURE INFORMATION: Exam: CT Chest With Contrast Exam date and time: 12/11/2019 9:54 PM Age: 64 years old Clinical indication: Fever; Other: AMS; Prior surgery; Surgery type: Gb, hysto, colon, kidney stone; Additional info: Sepsis TECHNIQUE: Imaging protocol: Computed tomography of the chest with intravenous contrast. Total DLP: 2327.88 mGy-cm Radiation optimization: All CT scans at this facility use at least one of these dose optimization techniques: automated exposure control; mA and/or kV adjustment per patient size (includes targeted exams where dose is matched to clinical indication); or iterative reconstruction. Contrast material: VISI 320; Contrast volume: 95 ml; Contrast route: IV; COMPARISON: CR XR chest 1V portable [id number] 10/23/2019 10:17 AM FINDINGS: Lungs: Bilateral diffuse scattered areas of ground-glass and interstitial opacities are noted. Subsegmental atelectasis is also seen in both lungs. A small calcified granuloma is present in the right upper lobe. Pleural space: Unremarkable. No pneumothorax. No pleural effusion. Heart: The heart is normal in size. Mitral annulus and coronary artery calcifications are appreciated. Mediastinum: A small hiatal hernia is noted. Aorta: Unremarkable. No aortic aneurysm. Lymph nodes: Unremarkable. No enlarged lymph nodes. Bones/joints: Unremarkable. No acute fracture. Soft tissues: Unremarkable. IMPRESSION: 1. Bilateral ground-glass and interstitial lung opacities which may be secondary to infectious (atypical, i.e. viral pneumonia) or inflammatory process. 2. Small hiatal hernia. 3. Coronary artery disease. PROCEDURE INFORMATION: Exam: CT Abdomen And Pelvis With Contrast Exam date and time: 12/11/2019 9:54 PM Age: 64 years old Clinical indication: Fever; Other: AMS; Prior surgery; Surgery type: Gb, hysto, colon, kidney stone; Additional info: Sepsis TECHNIQUE: Imaging protocol: Computed tomography of the abdomen and pelvis with intravenous contrast. Total DLP: 2327.88 mGy-cm Radiation optimization: All CT scans at this facility use at least one of these dose optimization techniques: automated exposure control; mA and/or kV adjustment per patient size (includes targeted exams where dose is matched to clinical indication); or iterative reconstruction. Contrast material: VISI 320; Contrast volume: 95 ml; Contrast route: IV; COMPARISON: CR XR chest 1V portable [id number] 10/23/2019 10:17 AM FINDINGS: Tubes, catheters and devices: A catheter is present in the urinary bladder. Liver: Normal. No mass. Gallbladder and bile ducts: The gallbladder is absent. No biliary ductal dilatation. Pancreas: Normal. No ductal dilation. Spleen: Normal. No splenomegaly. Adrenals: Normal. No mass. Kidneys and ureters: A small renal stone is present in the right kidney. The left kidney appears normal. No ureteral stone is seen. Mild right hydronephrosis is appreciated. Stomach and bowel: Multiple loops of small bowel are mildly distended in the mid to lower abdomen with apparent transition in the right lower quadrant. No intestinal wall thickening is visualized. A large amount of stool is present in the colon. Surgical changes of sigmoidectomy with anastomosis are noted. Diverticulosis coli is seen, without evidence of diverticulitis. Appendix: No evidence of appendicitis. Intraperitoneal space: Unremarkable. No free air. No significant fluid collection. Vasculature: Vascular coils are seen along the left hemidiaphragm. Mild atherosclerotic calcific changes are observed in the abdominal aorta. No aneurysm. A small calcified nonocclusive chronic thrombus is seen in the main portal vein. Multiple dilated collateral veins are seen in the retroperitoneum and in the perirectal region. Lymph nodes: Unremarkable. No enlarged lymph nodes. Bladder: Unremarkable as visualized. Reproductive: Unremarkable as visualized. Bones/joints: Bilateral L5 spondylolysis is noted. Mild anterolisthesis of L5 over S1 is appreciated. Mild to moderate degenerative changes are discovered in the lumbar spine. No acute fracture. Soft tissues: Surgical changes of a hernia repair are seen in the supraumbilical region. CT/CT chest abd pel w con* IMPRESSION: 1. Ileus versus partial small bowel obstruction. 2. Diverticulosis coli. 3. Constipation. 4. Nonobstructing right kidney renal stone. No ureteral stone is seen. Mild right hydronephrosis is noted, of undetermined cause. 5. Nonocclusive chronic portal vein thrombus. Multiple dilated collateral veins are seen in the retroperitoneum and perirectal region. Radiation Dose CTDIVOL = (mGy): DLP = 2327.88~2327.88 (mGy-cm)
[2019-12-11 20:57] LABS: Ammonia 174 umol/L (11-51)
[2019-12-11 21:00] VITALS: BP 120/69; PULSE 83; O2SAT 97
[2019-12-11] MEDS: piperacillin-tazobactam 3.375 GM in sodium chloride 0.9% (plus) 50 ML IV (21:23)
[2019-12-11 22:00] VITALS: BP 92/68; PULSE 81; O2SAT 96
[2019-12-11 22:13] LABS: Add Urine Microscopic? YES; Bilirubin Urine Neg (NEGATIVE); Blood Urine Trace (Negative); Glucose Urine UA 1+ (Normal); Ketones Urine Negative (Negative); Leukocyte Esterase Urine Negative (Negative); Nitrate Urine Negative (Negative); Protein Urine Neg (Negative); Urine Appearance Hazy (CLEAR); Urine Color Dark Yellow (Yellow); Urobilinogen Urine Norm (Negative); pH Urine 5 (5-7)
[2019-12-11 22:19] LABS: Add Urine Culture? Yes; Bacteria Urine 4+; WBC Urine 25-40 /hpf (0-5)
[2019-12-11] MEDS: iodixanol 320 mg/mL 100mL Btl 95 ML IV (22:24)
[2019-12-11 23:00] VITALS: BP 109/54; PULSE 109; O2SAT 96
[2019-12-11] MEDS: vancomycin 1,000 MG in sodium chloride 0.9% 250 ML 250 MG IV (23:00)
--- NOTE | 2019-12-11 23:04 | PC.NURSE ---
mentioned that patient does have bed at [facility] if she needs readmitted upon discharge and will provide papers if needed
[2019-12-12] VITALS (9 sets, daily range): BP systolic 105–125; BP diastolic 55–72; PULSE 61–88; RESP 16–18; TEMP 36.4–37.1; O2SAT 94–97
--- NOTE | 2019-12-12 01:00 | PC.NURSE ---
Patient arrived to the floor at this time. Patient is unresponsive except to painful stimuli. Messaged Dr. Rivera regarding patient's level of consciousness. Dr. Rivera states that is how the patient was in the ER. I am unable to complete the admission questions at this time as no family came up stairs with her.
[2019-12-12 01:28] LABS: Glucose Point of Care 278 mg/dL (70-110)
[2019-12-12] MEDS: FUROsemide 10 mg/mL SDV 2mL 20 MG IVP ×2 (01:49→14:01)
[2019-12-12] MEDS: glycerin adult supp 1 EACH PR (01:52)
[2019-12-12 02:16] LABS: Basophils % 0.5 %; Eosinophils # 0.2 10^3/uL (0.0-0.8); Eosinophils % 1.9 %; Hematocrit 33.4 % (37.0-47.0); Hemoglobin 10.8 g/dL (11.5-15.3); Lymphocytes # 1.2 10^3/uL (0.8-4.8); Mean Corpuscular HGB Conc 32.3 g/dL (30.0-36.0); Mean Platelet Volume 9.2 fL (7.4-10.4); Monocytes # 0.7 10^3/uL (0.2-0.9); Monocytes % 9.2 %; Neutrophils # 5.7 10^3/uL (1.8-7.7); Neutrophils % 73.1 %; Nucleated Red Blood Cells % 0 %; Platelet Count 130 10^3/cmm (130-400); Red Blood Count 3.48 10^6/uL (4.1-5.3); Red Cell Distribution Width 18.6 % (12.1-15.1); White Blood Count 7.7 10^3/uL (4.0-10.0)
[2019-12-12 02:31] LABS: Anion Gap 15.9 (5-19); Blood Urea Nitrogen 17 mg/dL (8-23); Calcium 10.3 mg/dL (8.5-10.5); Carbon Dioxide 26 mmol/L (22-29); Chloride 102 mmol/L (98-107); Glomerular Filtration Rate 55.8 mL/min (90-130); Glucose 296 mg/dL (65-115); Lactic Sepsis W/Reflex 3.4 mmol/L (0.5-2.2); Osmolality Calculated 297 mOsm/kg (285-295); Potassium 3.9 mmol/L (3.5-5.1); Sodium 140 mmol/L (136-145)
[2019-12-12 02:41] LABS: Thyroid Stimulating Hormone 4.42 uIU/mL (0.27-4.20)
[2019-12-12] MEDS: lactulose oral liq 20 gm/30 mL UDC 200 GM PR ×3 (03:19→19:20)
--- NOTE | 2019-12-12 03:20 | PC.NURSE ---
200 gm of Lactulose mixed in 700 mls of warm water given to patient at this time by enema. Patient tolerated well.
--- NOTE | 2019-12-12 03:43 | PM.HP ---
Providers/Chief Complaint Admitting Physician: Nicole Romano MD Primary Care Provider: Josafat Robertson MD Chief Complaint: lethargic History of Present Illness History is obtained by talking to ER physician Dr. Kolb and review of prior records. Patient is completely obtunded so unable to participate. Her family is no longer present at her bedside at the time of my evaluation. I placed multiple phone calls but did not get a response. Sharon Kwan is a 64 year old female with a past medical history of what appears to be portal hypertension and portal vein thrombosis of unclear cause, variceal bleeding in August 2019 with severe blood loss anemia and hemorrhagic shock, hypothyroidism, hypertension, bilateral lower extremity edema, diabetes mellitus, obstructive sleep apnea recommended CPAP at home, hydronephrosis, nephrolithiasis with history of urinary stenting in the past who was brought to the emergency room by her with complaints of altered mental status starting at 2 PM in the afternoon. Her blood sugar was 410 earlier today when this started. She had also been experiencing nausea and vomiting. She has a history of presumably hepatic encephalopathy has a C lactulose and rifaximin listed on her home medication list. Per report her bowel movement last may have been earlier today. Diagnostic work-up in the ED has shown a negative head CT. Hemoglobin of 12.6, significantly improved over 3.5 in August 2019, glucose of 387 improved to 296, lactate 4.1, elevated transaminases, T bili at 1.3 and ammonia levels at 174. UA is with negative nitrite negative leuk esterase 25-[address] of the chest abdomen pelvis shows ileus versus partial small bowel obstruction with apparent transition in the right lower quadrant. Large amount of stool is seen to be impacted in the colon. No intestinal wall thickening is visualized. There is nonobstructing right kidney renal stone with mild right hydronephrosis and a nonocclusive chronic portal vein thrombus with multiple dilated collateral veins in the retroperitoneum and perirectal region. CT of the chest shows bilateral groundglass interstitial lung opacities and a small hiatal hernia. She is hemodynamically stable with blood pressure of 120/70, heart rate 88, breathing comfortably at 16 bpm with O2 saturation 96% on room air. She is afebrile and has not had any history of reported fevers at home. Review of Systems General: Reports: ROS unobtainable due to medical condition and ROS unobtainable due to mental status Medications/Allergies Home Medications Medication Instructions Recorded Confirmed Last Taken Type ferrous sulfate 325 mg PO BID 12/11/19 12/11/19 Unknown History magnesium oxide [MagOx] 400 mg PO DAILY 12/11/19 12/11/19 Unknown History ondansetron HCl [Zofran] 4 mg PO Q8H PRN 12/11/19 12/11/19 Unknown History spironolactone 25 mg PO BID 12/11/19 12/11/19 Unknown History Allergies Allergy/AdvReac Type Severity Reaction Status Date / Time prednisone Allergy Unknown Verified 10/23/19 09:51 PFSH Acute PFSH: Medical History (Updated 12/12/19 @ 03:58 by Nicole Romano MD) Diabetes Hydronephrosis Hypertension Hypothyroid Nephrolithiasis Obesity Portal hypertension due to obstruction of extrahepatic portal vein Sleep apnea Transaminitis Surgical History (Updated 12/12/19 @ 03:58 by Nicole Romano MD) H/O hernia repair H/O lithotripsy History of cholecystectomy History of oophorectomy, unilateral Social History Smoking and tobacco status: former smoker Vitals/I&O/Wt Last Vital Signs Temp 97.6 F 12/12/19 01:01 Pulse 88 12/12/19 01:01 Resp 16 12/12/19 01:01 BP 120/70 12/12/19 01:01 Pulse Ox 96 12/12/19 01:01 12/11/19 12/11/19 12/12/19 14:59 22:59 06:59 Intake Total 1050 / 1050 250 / 1300 Output Total 300 / 300 Balance 1050 / 1050 -50 / 1000 Weight last 48 hrs Weight 84.368 kg Physical Exam Narrative: EXAM NARRATIVE: GEN: Lethargic, obtunded, only winces to abdominal palpation but otherwise does not respond. HEENT currently on room air breathing comfortably CVS: S1S2 N RS: CTA B/L anteriorly. Not auscultated posteriorly. 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 Urinary Catheter Management^: Bryant: Cath Placed During This Visit: yes Urethral Indwelling: Yes Reason for Continuing Indwelling Catheter: Chronic Indwelling Urinary Catheter on Admission Urinary Catheter Date of Insertion: 12/11/19 Urinary Catheter Time of Insertion: 21:28 Data : 12/12/19 02:05 12/12/19 02:05 A&P Assessment and plan (1) Sleep apnea: Status: Acute Code(s): G47.30 - Sleep apnea, unspecified (2) Obesity: Status: Acute Code(s): E66.9 - Obesity, unspecified (3) Diabetes: Status: Acute Code(s): E11.9 - Type 2 diabetes mellitus without complications (4) Hypothyroid: Status: Acute Code(s): E03.9 - Hypothyroidism, unspecified (5) Hypertension: Status: Acute Code(s): I10 - Essential (primary) hypertension (6) Transaminitis: Status: Acute Code(s): R74.0 - Nonspecific elevation of levels of transaminase and lactic acid dehydrogenase [LDH] (7) Portal hypertension due to obstruction of extrahepatic portal vein: Status: Acute Code(s): K76.6 - Portal hypertension; I81 - Portal vein thrombosis (8) Acute hepatic encephalopathy: Status: Acute Code(s): K72.00 - Acute and subacute hepatic failure without coma (9) Altered mental status: Status: Acute Qualifiers: Altered mental status type: somnolence Qualified Code(s): R40.0 - Somnolence Code(s): R41.82 - Altered mental status, unspecified Additional A&P Information Admit to [facility] as inpatient #1 altered mental status most likely secondary to hepatic encephalopathy given consistent history and elevated ammonia levels to 174. These are more than patient's previous baseline of around 60. Her home medication list includes lactulose and rifaximin however it is unclear if the patient was having bowel movements prior to arrival. There is significant impacted stool noted on her CAT scan and this makes me suspect that she was not moving her bowels well prior to coming in which may have precipitated her hepatic encephalopathy at this time. We will start her on lactulose enemas every 4 hours since she will not be able to tolerate p.o. intake given her obtunded status. Glycerin suppository now. Rifaximin 550 twice daily to resume once patient is more alert and awake and able to take p.o. intake. N.p.o. for now with aspiration precautions. Check TSH CT head negative #2 ileus versus partial SBO as noted on CT abdomen. In discussion with ER physician patient was last known to have a bowel movement this morning. She again has had minimal passage of stools after being moved to the floor. Given that she does have some degree of bowel function today continue enemas as noted above and avoid placement of NG tube at this time, however she may require down the line if ileus does not improve. #3 elevated lactate levels may be related to liver dysfunction. Will repeat in a.m. Gentle IV hydration with 50 cc/h of normal saline for now to avoid fluid overload and further third spacing. 4. Patient has been wincing on palpation of the abdomen, but given her altered mental status I am unable to a certain if this is just related to discomfort or actual pain. No significant ascites is noted on CT of the abdomen, therefore doubt spontaneous bacterial peritonitis. There is a note made of bilateral interstitial infiltrates likely to represent atypical pneumonia versus inflammatory changes on CT of her chest. In the absence of any history at this time I do not know if she has been having respiratory symptoms. At time of my examination she is not noted to be in any respiratory distress and is saturating 96% on room air. UA is without +nitrite or LA. No leukocytosis. While pursuing a sepsis work-up will start empiric antibiotic regimen with ceftriaxone and azithromycin. Hopefully once patient is more awake or her family is at bedside will be able to obtain more history to determine if sepsis is potentially a concern. 5. Diabetes mellitus: Sliding scale for now 6. Portal HTN: lasix converted to 20mg iv q12h, on hold until next lactate trend. Continue spirinolactone 7. hypothyroidism, continue levothyroxine wehen able to take po DVT ppx: SCDs, not on a/c due to extensive varices noted on CT Full code- will need to be discussed when family arrives Attestations Medical Necessity Statement*: >2MN admission for hepatic encephaolpathy Coding Level of Care Code Acute [employer] As[employer] for Chg Fwd Diagnoses Sleep apnea G47.30 Obesity E66.9 Diabetes E11.9 Hypothyroid E03.9 Hypertension I10 Transaminitis R74.0 Portal hypertension due to obstruction of extrahepatic portal vein K76.6; I81 Acute hepatic encephalopathy K72.00 Altered mental status R40.0 Altered mental status type: somnolence
[2019-12-12 03:58] LABS: Reflex Lactate Order REFLEX LACTIC ORDERD
[2019-12-12] MEDS: sodium chloride 0.9% 1,000 ML 50 ML IV ×2 (04:37→22:05)
[2019-12-12] MEDS: cefTRIAXone 1,000 MG in sodium chloride 0.9% (plus) 50 ML 100 MG IV (04:42)
[2019-12-12] MEDS: azithromycin 500 MG in sodium chloride 0.9% 250 ML 250 MG IV (06:26)
[2019-12-12 06:39] LABS: Glucose Point of Care 235 mg/dL (70-110)
[2019-12-12 06:41] LABS: Lactic Acid level (Lactate) 2.6 mmol/L (0.5-2.2)
--- NOTE | 2019-12-12 10:33 | P.PN_ITS ---
Subjective Subjective: Interval history: Chart reviewed, minimal information on record. Patient remains obtunded though hemodynamically stable. at bedside during my assessment, states that patient has been taking her lactulose and rifaximin as prescribed, last bowel movement was yesterday, has had change in mental status for approximately 2 days. She was discharged from [facility] on 12/04 and seemed to be doing well until about 2 days ago. She has had prior episodes of hepatic encephalopathy since August 2019, had a prolonged hospitalization at [facility] in [place] and [facility] in [place] for variceal bleed. 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 Unclear etiology for her liver cirrhosis as she has no history of chronic alcohol abuse or hepatitis C. Medications: Reviewed: Yes Medication Review Details: Active Medications Generic Name Dose Route Start Last Admin Trade Name Freq PRN Reason Stop Dose Admin Dextrose 25 ml 12/12/19 01:11 D50w IVP ONCE PRN hypoglycemia prot ocol Protocol Dextrose 50 ml 12/12/19 01:11 D50w IVP PRN PRN hypoglycemia prot ocol Protocol Furosemide 20 mg 12/12/19 01:11 12/12/19 01:49 Lasix IVP 20 mg Q12H GRETCHEN Administration Glucagon 1 mg 12/12/19 01:11 Glucagen IM ONCE PRN Adult Acute Hypog lycemia Prot. Protocol Dextrose 500 mls @ 100 mls /hr 12/12/19 01:11 D5w IV ONCE PRN Adult Acute Hypog lycemia Prot Protocol Ceftriaxone Sodium 1,000 mg/ 50 mls @ 100 mls/ hr 12/12/19 04:15 12/12/19 04:42 Sodium Chloride IV 100 mls/hr Q24H GRETCHEN Administration Protocol Azithromycin 500 m g/ Sodium 250 mls @ 250 mls /hr 12/12/19 04:15 12/12/19 06:26 Chloride IV 12/14/19 23:59 250 mls/hr Q24H GRETCHEN Administration Protocol Sodium Chloride 1,000 mls @ 50 ml s/hr 12/12/19 04:15 12/12/19 04:37 Sodium Chloride 0.9% IV 50 mls/hr .Q20H GRETCHEN Administration Insulin Aspart 0 unit 12/12/19 08:00 12/12/19 09:26 Novolog SUBCUT 10 unit WM&BEDTIME GRETCHEN Administration Protocol Insulin Detemir 10 unit 12/12/19 21:00 Levemir SUBCUT BEDTIME GRETCHEN Lactulose 200 gm 12/12/19 01:11 12/12/19 03:19 Constulose MN 200 gm Q6H GRETCHEN Administration Levothyroxine Sodi um 75 mcg 12/12/19 09:00 12/12/19 09:14 Synthroid PO Not Given DAILY GRETCHEN Ondansetron HCl 4 mg 12/12/19 01:11 Zofran IVP Q8H PRN vomiting, or N/V if npo Pantoprazole Sodiu m 40 mg 12/12/19 09:00 12/12/19 09:16 Protonix PO Not Given BID GRETCHEN Spironolactone 25 mg 12/12/19 09:00 12/12/19 09:18 Aldactone PO Not Given BID GRETCHEN prednisone Allergy (Verified 10/23/19 09:51) Unknown Vitals/I&O/Wt Last Vital Signs Temp 98.3 F 12/12/19 08:00 Pulse 83 12/12/19 08:51 Resp 18 12/12/19 08:00 BP 105/55 12/12/19 08:00 Pulse Ox 94 12/12/19 08:51 12/11/19 12/12/19 12/12/19 22:59 06:59 14:59 Intake Total 1050 / 1050 250 / 1300 Output Total 300 / 300 Balance 1050 / 1050 -50 / 1000 Weight last 48 hrs Weight 84.368 kg Physical Exam Const: COMMON NORMALS: no apparent distress GENERAL APPEARANCE: not in distress NUTRITIONAL APPEARANCE: obese morbidly obese ORIENTATION/CONSCIOUSNESS: Yes obtunded HENMT: COMMON NORMALS: normocephalic, head/scalp atraumatic and hearing grossly normal bilaterally HEAD & SCALP: normocephalic and atraumatic MOUTH: moist mucous membranes abnormal Details: parched Eye: COMMON NORMALS: PERRL, EOMs intact bilaterally and conjunctivae normal CONJUNCTIVA: Yes conjunctivae normal PUPIL: Yes PERRL Neck/C-Spine: COMMON NORMALS: full ROM GENERAL: Yes normal visual inspection and Yes trachea midline Resp: COMMON NORMALS: normal respiratory effort, no retractions, no use of accessory muscles and clear to auscultation bilaterally EFFORT & INSPECTION: Yes able to speak in complete sentences, Yes symmetric chest movement and No tachypneic AUSCULTATION: clear to auscultation bilaterally Cardio: COMMON NORMALS: regular rate, regular rhythm, S1 normal heart sound, S 2 normal heart sound and no murmurs RATE: regular rate RHYTHM: regular rhythm HEART SOUNDS: S1 normal and S2 normal GI: COMMON NORMALS: normal to inspection, nondistended, normoactive bowel sounds, soft to palpation and non-tender INSPECTION: Yes central obesity PALPATION: Yes soft : BLADDER/KIDNEY EXAM: Yes catheter in place Catheter type (Female): urethra l Extremity: COMMON NORMALS: normal to inspection and no clubbing, cyanosis or edema; negative for no pedal edema Neuro: OTHER: -Unable to assess due to being obtunded Psych: OTHER: Unable to assess due to obtundation Skin: COMMON NORMALS: no rashes or lesions noted, no jaundice, no petechiae and no mottling GENERAL SKIN EXAM: no rashes or lesions noted Urinary Catheter Management^: Bryant: Cath Placed During This Visit: yes Urethral Indwelling: Yes Reason for Continuing Indwelling Catheter: Chronic Indwelling Urinary Catheter on Admission Urinary Catheter Date of Insertion: 12/11/19 Urinary Catheter Time of Insertion: 21:28 Data : 12/12/19 02:05 12/12/19 02:05 Micro: Microbiology 12/12/19 05:44 Blood Culture - Preliminary Blood SPECIMEN COLLECTED 12/12/19 05:44 Blood Culture - Preliminary Blood SPECIMEN COLLECTED A&P Assessment and plan (1) Acute hepatic encephalopathy: -Noted to have altered mental status likely secondary to acute hepatic encephalopathy as evidenced by significantly increased ammonia-174. May consider NG tube placement for continued lactulose therapy to optimize response -Trend ammonia levels -Remains obtunded, continue to monitor neurological status -Fall/aspiration/seizure precautions -Continue lactulose enemas until more consistently awake Status: Acute Code(s): K72.00 - Acute and subacute hepatic failure without coma (2) Pneumonia: -evidence of lateral diffuse scattered areas of groundglass and interstitial opacities noted on CT chest, could be inflammatory versus infectious process -Continue ceftriaxone and azithromycin -No leukocytosis, afebrile, not currently requiring supplemental oxygen -Continue to monitor respiratory status Status: Acute Qualifiers: Laterality: unspecified laterality Lung location: unspecified part of lung Pneumonia type: due to unspecified organism Qualified Code(s): J18.9 - Pneumonia, unspecified organism Code(s): J18.9 - Pneumonia, unspecified organism (3) Altered mental status: -Patient presented with altered mental status, is currently obtunded, no collateral history available at this time -likely multifactorial -CT head unremarkable -noted to have elevated ammonia as noted above, abnormal UA, possible PNA on CT -neuro checks Status: Acute Qualifiers: Altered mental status type: somnolence Qualified Code(s): R40.0 - Somnolence Code(s): R41.82 - Altered mental status, unspecified (4) Transaminitis: -noted chronic transaminitis, trending down -likely secondary to liver cirrhosis -continue to monitor Status: Acute Code(s): R74.0 - Nonspecific elevation of levels of transaminase and lactic acid dehydrogenase [LDH] Additional A&P Information -Obesity: BMI-31 kg/m2 -HTN; normotensive -Chronic portal vein thrombosis; noted on imaging; no AC -hx of variceal bleed in 08/2019, presented to ED, was transferred to [facility] -Chronic macrocytic anemia; baseline Hg -Lactic acidosis; trending down (4.1->2.6) -Abnormal UA: positive for bacteria and pyuria; already on abx -Hypothyroidism -GRETTA -IDDM type II; accucheks, hypoglycemia precautions -hx of nephrolithiasis, hydronephrosis with prior ureteral stenting -hold oral meds until more consistently awake -NPO -GI ppx with PPI -DVT ppx with SCDs, no AC due to bleeding risk -Dispo: came from home; discharged from [facility] on 12/04/19 -Code status: FULL code Attestations 2 Medical Necessity Statement*: Patient requires hospitalization for continued management of acute hepatic encephalopathy, pneumonia, pending improvement in mental status. Time Spent in Patient Care: Greater than 35 minutes (>than 50% of time spent in counselling and/or direct pt care on unit) . 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
[2019-12-12 11:01] LABS: Glucose Point of Care 205 mg/dL (70-110)
[2019-12-12 16:52] LABS: Glucose Point of Care 151 mg/dL (70-110)
[2019-12-12 21:30] LABS: Glucose Point of Care 106 mg/dL (70-110)
--- NOTE | 2019-12-12 23:30 | PC.NURSE ---
Levemir bedtime does not given as patient's blood sugar is only 106 and she is only getting Normal Saline at 50mls an hour. Patient is not taking anything by mouth at this time.
[2019-12-13] VITALS (7 sets, daily range): BP systolic 121–149; BP diastolic 62–81; PULSE 63–92; RESP 8–18; TEMP 36.3–37.2; O2SAT 92–99
[2019-12-13] MEDS: FUROsemide 10 mg/mL SDV 2mL 20 MG IVP ×2 (01:16→13:25)
[2019-12-13] MEDS: lactulose oral liq 20 gm/30 mL UDC 200 GM PR ×2 (01:42→11:11)
[2019-12-13] MEDS: cefTRIAXone 1,000 MG in sodium chloride 0.9% (plus) 50 ML 100 MG IV (03:44)
[2019-12-13] MEDS: azithromycin 500 MG in sodium chloride 0.9% 250 ML 250 MG IV (04:42)
[2019-12-13 05:55] LABS: Basophils % 0.8 %; Eosinophils # 0.2 10^3/uL (0.0-0.8); Eosinophils % 4.6 %; Hematocrit 34.6 % (37.0-47.0); Hemoglobin 10.7 g/dL (11.5-15.3); Lymphocytes # 1.3 10^3/uL (0.8-4.8); Lymphocytes % 26.5 %; Mean Corpuscular HGB Conc 30.9 g/dL (30.0-36.0); Mean Corpuscular Hemoglobin 30.6 pg (28.0-34.0); Mean Corpuscular Volume 98.9 fL (81-99); Mean Platelet Volume 9.2 fL (7.4-10.4); Monocytes # 0.6 10^3/uL (0.2-0.9); Monocytes % 12.3 %; Neutrophils # 2.8 10^3/uL (1.8-7.7); Neutrophils % 55.2 %; Nucleated Red Blood Cells % 0 %; Platelet Count 112 10^3/cmm (130-400); Red Cell Distribution Width 19.2 % (12.1-15.1); White Blood Count 5.1 10^3/uL (4.0-10.0)
[2019-12-13 06:15] LABS: Alanine Aminotransferase 33 U/L (0-33); Albumin Level 2.8 g/dL (3.5-5.2); Alkaline Phosphatase 241 IU/L (35-105); Anion Gap 16.3 (5-19); Aspartate Amino Transferase 40 U/L (0-32); Blood Urea Nitrogen 22 mg/dL (8-23); Calcium 9.2 mg/dL (8.5-10.5); Carbon Dioxide 23 mmol/L (22-29); Chloride 112 mmol/L (98-107); Globulin 4.7 g/dL (1.3-4.6); Glucose 175 mg/dL (65-115); Potassium 3.3 mmol/L (3.5-5.1); Sodium 148 mmol/L (136-145); Total Bilirubin 1.1 mg/dL (0.15-1.2); Total Protein 7.5 g/dL (6.6-8.7)
[2019-12-13 06:16] LABS: Ammonia 49 umol/L (11-51)
[2019-12-13 06:33] LABS: Glucose Point of Care 154 mg/dL (70-110)
--- NOTE | 2019-12-13 12:56 | PM.PN ---
Subjective Subjective: Interval history: Had 900 mL urine output overnight. Ammonia down to 49, is more awake, LFTs improved as well. present at bedside during my assessment, patient is awake, alert, conversant, passed bedside swallow without any difficulty. Per her she is getting closer to her baseline mental status. Medications: Reviewed: Yes Medication Review Details: Active Medications Generic Name Dose Route Start Last Admin Trade Name Freq PRN Reason Stop Dose Admin Dextrose 25 ml 12/12/19 01:11 D50w IVP ONCE PRN hypoglycemia prot ocol Protocol Dextrose 50 ml 12/12/19 01:11 D50w IVP PRN PRN hypoglycemia prot ocol Protocol Furosemide 20 mg 12/12/19 01:11 12/13/19 01:16 Lasix IVP 20 mg Q12H GRETCHEN Administration Glucagon 1 mg 12/12/19 01:11 Glucagen IM ONCE PRN Adult Acute Hypog lycemia Prot. Protocol Dextrose 500 mls @ 100 mls /hr 12/12/19 01:11 D5w IV ONCE PRN Adult Acute Hypog lycemia Prot Protocol Ceftriaxone Sodium 1,000 mg/ 50 mls @ 100 mls/ hr 12/12/19 04:15 12/13/19 03:44 Sodium Chloride IV 100 mls/hr Q24H GRETCHEN Administration Protocol Azithromycin 500 m g/ Sodium 250 mls @ 250 mls /hr 12/12/19 04:15 12/13/19 04:42 Chloride IV 12/14/19 23:59 250 mls/hr Q24H GRETCHEN Administration Protocol Sodium Chloride 1,000 mls @ 50 ml s/hr 12/12/19 04:15 12/12/19 22:05 Sodium Chloride 0.9% IV 50 mls/hr .Q20H GRETCHEN Administration Insulin Aspart 0 unit 12/12/19 08:00 12/13/19 09:34 Novolog SUBCUT 6 unit WM&BEDTIME GRETCHEN Administration Protocol Insulin Detemir 10 unit 12/12/19 21:00 12/13/19 00:01 Levemir SUBCUT Not Given BEDTIME GRETCHEN Lactulose 200 gm 12/12/19 01:11 12/13/19 11:11 Constulose KS 200 gm Q6H GRETCHEN Administration Lanolin 1 applic 12/13/19 02:25 Lanolin Oint TOPICAL PRN PRN DRYNESS Levothyroxine Sodi um 75 mcg 12/12/19 09:00 12/13/19 09:36 Synthroid PO Not Given DAILY [facility] Ondansetron HCl 4 mg 12/12/19 01:11 Zofran IVP Q8H PRN vomiting, or N/V if npo Pantoprazole Sodiu m 40 mg 12/12/19 09:00 12/13/19 09:37 Protonix PO Not Given BID [facility] Spironolactone 25 mg 12/12/19 09:00 12/13/19 09:37 Aldactone PO Not Given BID [facility] prednisone Allergy (Verified 10/23/19 09:51) Unknown Vitals/I&O/Wt Last Vital Signs Temp 97.4 F L 12/13/19 08:00 Pulse 85 12/13/19 08:00 Resp 18 12/13/19 08:00 BP 145/75 12/13/19 08:00 Pulse Ox 99 12/13/19 08:00 12/12/19 12/13/19 12/13/19 22:59 06:59 14:59 Intake Total 873.333 / 1123.333 Output Total 1300 / 1300 801 / 2101 Balance -426.667 / -176.667 -801 / -977.667 Weight last 48 hrs Weight 84.368 kg Physical Exam Const: COMMON NORMALS: no apparent distress, oriented x3 and alert GENERAL APPEARANCE: not in distress NUTRITIONAL APPEARANCE: obese morbidly obese HENMT: COMMON NORMALS: normocephalic, head/scalp atraumatic and hearing grossly normal bilaterally HEAD & SCALP: normocephalic and atraumatic MOUTH: moist mucous membranes abnormal Details: parched Eye: COMMON NORMALS: PERRL, EOMs intact bilaterally and conjunctivae normal CONJUNCTIVA: Yes conjunctivae normal PUPIL: Yes PERRL Neck/C-Spine: COMMON NORMALS: full ROM GENERAL: Yes normal visual inspection and Yes trachea midline Resp: COMMON NORMALS: normal respiratory effort, no retractions, no use of accessory muscles and clear to auscultation bilaterally EFFORT & INSPECTION: Yes able to speak in complete sentences, Yes symmetric chest movement and No tachypneic AUSCULTATION: clear to auscultation bilaterally Cardio: COMMON NORMALS: regular rate, regular rhythm, S1 normal heart sound, S2 normal heart sound and no murmurs RATE: regular rate RHYTHM: regular rhythm HEART SOUNDS: S1 normal and S2 normal GI: COMMON NORMALS: normal to inspection, nondistended, normoactive bowel sounds, soft to palpation and non-tender INSPECTION: Yes central obesity PALPATION: Yes soft : BLADDER/KIDNEY EXAM: Yes catheter in place Catheter type (Female): urethral Extremity: COMMON NORMALS: normal to inspection and no clubbing, cyanosis or edema; negative for no pedal edema Neuro: COMMON NORMALS: oriented x3, moves all extremities, no focal motor deficits and no sensory deficits noted SENSORIUM/ORIENTATION: Yes alert Psych: COMMON NORMALS: mental status grossly normal, thought process normal, cooperative, affect normal and speech normal SPEECH: Yes normal speech THOUGHT PROCESS: normal thought process Skin: COMMON NORMALS: no rashes or lesions noted, no jaundice, no petechiae and no mottling GENERAL SKIN EXAM: no rashes or lesions noted Urinary Catheter Management^: Bryant: Cath Placed During This Visit: yes Urethral Indwelling: Yes Reason for Continuing Indwelling Catheter: Chronic Indwelling Urinary Catheter on Admission Urinary Catheter Date of Insertion: 12/11/19 Urinary Catheter Time of Insertion: 21:28 Data : 12/13/19 05:45 12/13/19 05:45 Micro: Microbiology 12/12/19 05:44 Blood Culture - Preliminary Blood NEGATIVE TO DATE 12/12/19 05:44 Blood Culture - Preliminary Blood NEGATIVE TO DATE A&P Assessment and plan (1) Acute hepatic encephalopathy: -Noted to have altered mental status likely secondary to acute hepatic encephalopathy as evidenced by significantly increased ammonia-174. Ammonia has normalized-49 -Is more consistently awake, alert, oriented with some intermittent grogginess, continue to monitor mental status -Fall/aspiration/seizure precautions -Will switch to oral lactulose, titrate to allow 3-4 soft BMs per day Status: Acute Code(s): K72.00 - Acute and subacute hepatic failure without coma (2) Pneumonia: -evidence of lateral diffuse scattered areas of groundglass and interstitial opacities noted on CT chest, could be inflammatory versus infectious process -Continue ceftriaxone and azithromycin -No leukocytosis, afebrile, not currently requiring supplemental oxygen -Continue to monitor respiratory status Status: Acute Qualifiers: Laterality: unspecified laterality Lung location: unspecified part of lung Pneumonia type: due to unspecified organism Qualified Code(s): J18.9 - Pneumonia, unspecified organism Code(s): J18.9 - Pneumonia, unspecified organism (3) Altered mental status: -Patient presented with altered mental status, is currently obtunded, no collateral history available at this time -likely multifactorial -CT head unremarkable -noted to have elevated ammonia as noted above, abnormal UA, possible PNA on CT -neuro checks Status: Acute Qualifiers: Altered mental status type: somnolence Qualified Code(s): R40.0 - Somnolence Code(s): R41.82 - Altered mental status, unspecified (4) Transaminitis: -noted chronic transaminitis, trending down -likely secondary to liver cirrhosis -continue to monitor Status: Acute Code(s): R74.0 - Nonspecific elevation of levels of transaminase and lactic acid dehydrogenase [LDH] Additional A&P Information -Obesity: BMI-31 kg/m2 -HTN; normotensive -Chronic portal vein thrombosis; noted on imaging; no AC -hx of variceal bleed in 08/2019, presented to ED, was transferred to [facility] -Chronic macrocytic anemia; baseline Hg -Lactic acidosis; trending down (4.1->2.6) -Abnormal UA: positive for bacteria and pyuria; already on abx -Hypothyroidism -GRETTA -IDDM type II; accucheks, hypoglycemia precautions -hx of nephrolithiasis, hydronephrosis with prior ureteral stenting -resume oral meds as more consistently awake -Passed bedside swallow, will start on GI soft diet -GI ppx with PPI -DVT ppx with SCDs, no AC due to bleeding risk -Dispo: came from home; discharged from [facility] on 12/04/19 -Code status: FULL code Attestations Medical Necessity Statement*: Patient requires hospitalization for continued treatment of acute hepatic encephalopathy, ammonia levels decreasing pending improvement in mental status and PO intake. Time Spent in Patient Care: Greater than 35 minutes (>than 50% of time spent in counselling and/or direct pt care on unit). Coding Level of Care Code Acute [facility]ile Coach for [facility] Fwd Exam Comprehensive Diagnoses Acute hepatic encephalopathy K72.00 Pneumonia J18.9 Laterality: unspecified laterality Lung location: unspecified part of lung Pneumonia type: due to unspecified organism Altered mental status R40.0 Altered mental status type: somnolence Transaminitis R74.0
[2019-12-13] MEDS: FUROsemide 40 mg Tablet PO (16:54)
--- NOTE | 2019-12-13 17:26 | XR_ITS ---
WS: [id number] XR chest 1V portable [id number] REASON FOR EXAM: follow up on progression of pneumonia FINDINGS: The patchy pneumonia throughout both lung clemente have cleared now there is increased bronch ial*markings suggesting interstitial residue. The heart is not enlarged. The hilum and apices normal. XR/XR chest 1V portable [id number] IMPRESSION: Resolved bilateral pneumonia . Diffuse reticular nodular pattern consistent with interstitial disease.
[2019-12-13] MEDS: spironolactone 25 mg Tablet PO (17:44)
[2019-12-13] MEDS: pantoprazole DR 40 mg Tablet PO (17:45)
[2019-12-13] MEDS: lactulose oral liq 20 gm/30 mL UDC PO (17:50)
[2019-12-13 17:59] LABS: Glucose Point of Care 199 mg/dL (70-110)
[2019-12-13 20:41] LABS: Glucose Point of Care 238 mg/dL (70-110)
[2019-12-14] VITALS: BP 123/70; PULSE 89; RESP 18; TEMP 37.2; O2SAT 95
[2019-12-14] MEDS: lactulose oral liq 20 gm/30 mL UDC PO ×4 (00:38→17:38)
[2019-12-14 04:00] VITALS: BP 112/63; PULSE 77; RESP 18; TEMP 37.4; O2SAT 96
[2019-12-14] MEDS: cefTRIAXone 1,000 MG in sodium chloride 0.9% (plus) 50 ML 100 MG IV (04:25)
[2019-12-14] MEDS: azithromycin 500 MG in sodium chloride 0.9% 250 ML 250 MG IV (05:08)
[2019-12-14 06:49] LABS: Glucose Point of Care 132 mg/dL (70-110)
[2019-12-14 08:00] VITALS: BP 127/68; PULSE 91; RESP 18; TEMP 37.1; O2SAT 95
[2019-12-14] MEDS: FUROsemide 40 mg Tablet PO ×2 (08:00)
[2019-12-14] MEDS: levothyroxine 150 mcg Tablet 75 MCG PO ×2 (09:00→11:54)
[2019-12-14] MEDS: pantoprazole DR 40 mg Tablet PO ×2 (09:00→11:56)
[2019-12-14] MEDS: spironolactone 25 mg Tablet PO ×2 (09:00→11:58)
--- NOTE | 2019-12-14 09:59 | PM.PN ---
Subjective Subjective: Interval history: Had 950 mL urine output overnight. Repeat CXR shows resolution of bilateral pneumonia so will d/c Azithromycin. Continue Ceftriaxone for UTI treatment, urine cx-GNRs. Patient seen and examined, resting in bed, alert, oriented to place, able to give me her date of correctly, remembers our conversation from yesterday. Has not had any bowel movements today. No complaints currently. Will discontinue Bryant catheter. Medications: Reviewed: Yes Medication Review Details: Active Medications Generic Name Dose Route Start Last Admin Trade Name Freq PRN Reason Stop Dose Admin Dextrose 25 ml 12/12/19 01:11 D50w IVP ONCE PRN hypoglycemia prot ocol Protocol Dextrose 50 ml 12/12/19 01:11 D50w IVP PRN PRN hypoglycemia prot ocol Protocol Furosemide 40 mg 12/13/19 16:00 12/13/19 16:54 Lasix PO 40 mg BID@08,16 GRETCHEN Administration Glucagon 1 mg 12/12/19 01:11 Glucagen IM ONCE PRN Adult Acute Hypog lycemia Prot. Protocol Dextrose 500 mls @ 100 mls /hr 12/12/19 01:11 D5w IV ONCE PRN Adult Acute Hypog lycemia Prot Protocol Ceftriaxone Sodium 1,000 mg/ 50 mls @ 100 mls/ hr 12/12/19 04:15 12/14/19 04:55 Sodium Chloride IV Infused Q24H GRETCHEN Infusion Protocol Insulin Aspart 0 unit 12/12/19 08:00 12/13/19 21:27 Novolog SUBCUT 10 unit WM&BEDTIME GRETCHEN Administration Protocol Insulin Detemir 10 unit 12/12/19 21:00 12/13/19 21:27 Levemir SUBCUT 10 unit BEDTIME GRETCHEN Administration Lactulose 20 gm 12/13/19 15:15 12/14/19 06:08 Constulose PO 20 gm Q6H GRETCHEN Administration Lanolin 1 applic 12/13/19 02:25 Lanolin Oint TOPICAL PRN PRN DRYNESS Levothyroxine Sodi um 75 mcg 12/12/19 09:00 12/13/19 09:36 Synthroid PO Not Given DAILY GRETCHEN Ondansetron HCl 4 mg 12/12/19 01:11 Zofran IVP Q8H PRN vomiting, or N/V if npo Pantoprazole Sodiu m 40 mg 12/12/19 09:00 12/13/19 17:45 Protonix PO 40 mg BID GRETCHEN Administration Spironolactone 25 mg 12/12/19 09:00 12/13/19 17:44 Aldactone PO 25 mg BID GRETCHEN Administration prednisone Allergy (Verified 10/23/19 09:51) Unknown Vitals/I&O/Wt Last Vital Signs Temp 98.8 F 12/14/19 08:00 Pulse 91 12/14/19 08:00 Resp 18 12/14/19 08:00 BP 127/68 12/14/19 08:00 Pulse Ox 95 12/14/19 08:00 12/13/19 12/14/19 12/14/19 22:59 06:59 14:59 Intake Total 352.5 / 1425.0 300 / 1725.0 480 / 480 Output Total 1750 / 1750 450 / 2200 Balance -1397.5 / -325.0 -150 / -475.0 480 / 480 Physical Exam Const: COMMON NORMALS: no apparent distress, oriented x3 and alert GENERAL APPEARANCE: not in distress NUTRITIONAL APPEARANCE: obese morbidly obese ORIENTATION/CONSCIOUSNESS: Yes obtunded HENMT: COMMON NORMALS: normocephalic, head/scalp atraumatic and hearing grossly normal bilaterally HEAD & SCALP: normocephalic and atraumatic MOUTH: moist mucous membranes abnormal Details: parched Eye: COMMON NORMALS: PERRL, EOMs intact bilaterally and conjunctivae normal CONJUNCTIVA: Yes conjunctivae normal PUPIL: Yes PERRL Neck/C-Spine: COMMON NORMALS: full ROM GENERAL: Yes normal visual inspection and Yes trachea midline Resp: COMMON NORMALS: normal respiratory effort, no retractions, no use of accessory muscles and clear to auscultation bilaterally EFFORT & INSPECTION: Yes able to speak in complete sentences, Yes symmetric chest movement and No tachypneic AUSCULTATION: clear to auscultation bilaterally Cardio: COMMON NORMALS: regular rate, regular rhythm, S1 normal heart sound, S2 normal heart sound and no murmurs RATE: regular rate RHYTHM: regular rhythm HEART SOUNDS: S1 normal and S2 normal GI: COMMON NORMALS: normal to inspection, nondistended, normoactive bowel sounds, soft to palpation and non-tender INSPECTION: Yes central obesity PALPATION: Yes soft : BLADDER/KIDNEY EXAM: Yes catheter in place Catheter type (Female): urethral Extremity: COMMON NORMALS: normal to inspection and no clubbing, cyanosis or edema; negative for no pedal edema Neuro: COMMON NORMALS: oriented x3, moves all extremities, no focal motor deficits and no sensory deficits noted SENSORIUM/ORIENTATION: Yes alert Psych: COMMON NORMALS: mental status grossly normal, thought process normal, cooperative, affect normal and speech normal SPEECH: Yes normal speech THOUGHT PROCESS: normal thought process Skin: COMMON NORMALS: no rashes or lesions noted, no jaundice, no petechiae and no mottling GENERAL SKIN EXAM: no rashes or lesions noted Urinary Catheter Management^: Bryant: Cath Placed During This Visit: yes Urethral Indwelling: Yes Reason for Continuing Indwelling Catheter: Chronic Indwelling Urinary Catheter on Admission Urinary Catheter Date of Insertion: 12/11/19 Urinary Catheter Time of Insertion: 21:28 Data : 12/13/19 05:45 12/13/19 05:45 Micro: Microbiology 12/11/19 21:20 Urine Culture - Preliminary Urine,Clean Catch Gram Negative Rods 12/12/19 05:44 Blood Culture - Preliminary Blood NEGATIVE TO DATE 12/12/19 05:44 Blood Culture - Preliminary Blood NEGATIVE TO DATE A&P Assessment and plan (1) Acute hepatic encephalopathy: -Noted to have altered mental status likely secondary to acute hepatic encephalopathy as evidenced by significantly increased ammonia-174. Ammonia has normalized-49 -Is more consistently awake, alert, oriented with some intermittent grogginess, continue to monitor mental status -Fall/aspiration/seizure precautions -On oral lactulose, titrate to allow 3-4 soft BMs per day Status: Acute Code(s): K72.00 - Acute and subacute hepatic failure without coma (2) Pneumonia: -evidence of lateral diffuse scattered areas of groundglass and interstitial opacities noted on CT chest, could be inflammatory versus infectious process -repeat CXR (12/13): resolution of bilateral pneumonia -Continue ceftriaxone and d/c azithromycin -No leukocytosis, afebrile, not currently requiring supplemental oxygen -Continue to monitor respiratory status Status: Resolved Qualifiers: Laterality: unspecified laterality Lung location: unspecified part of lung Pneumonia type: due to unspecified organism Qualified Code(s): J18.9 - Pneumonia, unspecified organism Code(s): J18.9 - Pneumonia, unspecified organism (3) Altered mental status: -Patient presented with altered mental status, with improving mental status following resolution of hyperammonemia -CT head unremarkable -noted to have elevated ammonia which has since normalized as noted above, abnormal UA, possible PNA on CT -can d/c neuro checks Status: Resolved Qualifiers: Altered mental status type: somnolence Qualified Code(s): R40.0 - Somnolence Code(s): R41.82 - Altered mental status, unspecified (4) Transaminitis: -noted chronic transaminitis, trending down -likely secondary to liver cirrhosis -continue to monitor Status: Acute Code(s): R74.0 - Nonspecific elevation of levels of transaminase and lactic acid dehydrogenase [LDH] Additional A&P Information -Obesity: BMI-31 kg/m2 -HTN; normotensive -Chronic portal vein thrombosis; noted on imaging; no AC -hx of variceal bleed in 08/2019, presented to ED, was transferred to [facility] -Chronic macrocytic anemia; baseline Hg -Lactic acidosis; trending down (4.1->2.6) -Abnormal UA: positive for bacteria and pyuria; already on abx. urine cx-GNRs, pending ID & sensitivity -Hypothyroidism; on levothyroxine -GRETTA -IDDM type II; accucheks, hypoglycemia precautions -hx of nephrolithiasis, hydronephrosis with prior ureteral stenting -Passed bedside swallow, tolerating GI soft diet -GI ppx with PPI -DVT ppx with SCDs, no AC due to bleeding risk -change activity level to up with assist, PT eval ordered -Dispo: came from home; discharged from [facility] on 12/04/19 -Code status: FULL code Attestations Medical Necessity Statement*: Patient requires hospitalization for continued IV antibiotic treatment pending urine culture results as well as PT evaluation now that she is more alert. Time Spent in Patient Care: Greater than 35 minutes (>than 50% of time spent in counselling and/or direct pt care on unit). Coding Level of Care Code Acute Hand Iii Cutter for [facility] Fwd Diagnoses Acute hepatic encephalopathy K72.00 Pneumonia J18.9 Laterality: unspecified laterality Lung location: unspecified part of lung Pneumonia type: due to unspecified organism Altered mental status R40.0 Altered mental status type: somnolence Transaminitis R74.0
[2019-12-14 12:00] VITALS: BP 116/67; PULSE 80; RESP 18; TEMP 36.8; O2SAT 96
[2019-12-14 16:00] VITALS: BP 110/54; PULSE 90; RESP 18; TEMP 36.8; O2SAT 98
[2019-12-14 16:53] LABS: Glucose Point of Care 493 mg/dL (70-110)
--- NOTE | 2019-12-14 19:03 | PC.NURSE ---
Pt up in chair x2 assist to bsc and back to bed. cont of urine per care per staff.
[2019-12-14 19:59] VITALS: BP 130/64; PULSE 92; RESP 20; TEMP 37.3; O2SAT 98
[2019-12-14 20:24] LABS: Glucose Point of Care 440 mg/dL (70-110)
--- NOTE | 2019-12-14 21:13 | PC.NURSE ---
up to bsc x1 assist voided without difficulty and tiny amount of stool soft formed.
[2019-12-14 23:05] LABS: Glucose Point of Care 249 mg/dL (70-110)
[2019-12-15] VITALS: BP 121/69; PULSE 96; RESP 24; TEMP 37.4; O2SAT 95
[2019-12-15] MEDS: lactulose oral liq 20 gm/30 mL UDC PO ×5 (00:02→23:55)
[2019-12-15 04:00] VITALS: BP 104/63; PULSE 92; RESP 20; TEMP 37.9; O2SAT 94
[2019-12-15 05:46] LABS: Anion Gap 13.4 (5-19); Blood Urea Nitrogen 16 mg/dL (8-23); Calcium 8.8 mg/dL (8.5-10.5); Carbon Dioxide 25 mmol/L (22-29); Chloride 105 mmol/L (98-107); Creatinine Clr Calc Pharmacy 76.2047; Glomerular Filtration Rate 72.2 mL/min (90-130); Glucose 136 mg/dL (65-115); Osmolality Calculated 288 mOsm/kg (285-295); Potassium 3.4 mmol/L (3.5-5.1); Sodium 140 mmol/L (136-145)
--- NOTE | 2019-12-15 06:28 | PC.NURSE ---
pt with small soft formed bm up to bcs
[2019-12-15 06:36] LABS: Glucose Point of Care 131 mg/dL (70-110)
[2019-12-15 08:00] VITALS: BP 94/63; PULSE 85; RESP 16; TEMP 36.9; O2SAT 93
[2019-12-15] MEDS: FUROsemide 40 mg Tablet PO ×2 (08:43→16:05)
[2019-12-15] MEDS: pantoprazole DR 40 mg Tablet PO ×2 (08:43→17:34)
[2019-12-15] MEDS: spironolactone 25 mg Tablet PO ×2 (08:43→17:34)
[2019-12-15] MEDS: ciprofloxacin 500 mg Tablet 250 MG PO ×2 (08:43→17:34)
[2019-12-15 11:17] VITALS: BP 104/64; PULSE 82; RESP 18; TEMP 36.9; O2SAT 94
[2019-12-15 11:20] LABS: Glucose Point of Care 332 mg/dL (70-110)
--- NOTE | 2019-12-15 11:34 | PM.PN ---
Subjective Subjective: Interval history: Patient seen and examined, sitting in chair, no apparent distress, no acute overnight events reported. Has had multiple BMs and has been voiding without difficulty since removal of Bryant catheter. She is ok with either going home with HH vs. SNF. Will discuss this further with her . Medications: Reviewed: Yes Medication Review Details: Active Medications Generic Name Dose Route Start Last Admin Trade Name Freq PRN Reason Stop Dose Admin Ciprofloxacin HCl 250 mg 12/15/19 09:00 12/15/19 08:43 Cipro PO 250 mg BID GRETCHEN Administration Protocol Dextrose 25 ml 12/12/19 01:11 D50w IVP ONCE PRN hypoglycemia prot ocol Protocol Dextrose 50 ml 12/12/19 01:11 D50w IVP PRN PRN hypoglycemia prot ocol Protocol Furosemide 40 mg 12/13/19 16:00 12/15/19 08:43 Lasix PO 40 mg BID@08,16 GRETCHEN Administration Glucagon 1 mg 12/12/19 01:11 Glucagen IM ONCE PRN Adult Acute Hypog lycemia Prot. Protocol Dextrose 500 mls @ 100 mls /hr 12/12/19 01:11 D5w IV ONCE PRN Adult Acute Hypog lycemia Prot Protocol Insulin Aspart 0 unit 12/12/19 08:00 12/15/19 08:42 Novolog SUBCUT Not Given WM&BEDTIME GRETCHEN Protocol Insulin Detemir 10 unit 12/12/19 21:00 12/13/19 21:27 Levemir SUBCUT 10 unit BEDTIME GRETCHEN Administration Insulin Detemir 10 unit 12/14/19 21:00 12/14/19 20:59 Levemir SUBCUT 10 unit BEDTIME GRETCHEN Administration Lactulose 20 gm 12/13/19 15:15 12/15/19 06:16 Constulose PO 20 gm Q6H GRETCHEN Administration Lanolin 1 applic 12/13/19 02:25 Lanolin Oint TOPICAL PRN PRN DRYNESS Levothyroxine Sodi um 75 mcg 12/12/19 09:00 12/14/19 11:54 Synthroid PO 75 mcg DAILY GRETCHEN Administration Ondansetron HCl 4 mg 12/12/19 01:11 Zofran IVP Q8H PRN vomiting, or N/V if npo Pantoprazole Sodiu m 40 mg 12/12/19 09:00 12/15/19 08:43 Protonix PO 40 mg BID GRETCHEN Administration Spironolactone 25 mg 12/12/19 09:00 12/15/19 08:43 Aldactone PO 25 mg BID GRETCHEN Administration prednisone Allergy (Verified 10/23/19 09:51) Unknown Vitals/I&O/Wt Last Vital Signs Temp 98.4 F 12/15/19 11:17 Pulse 82 12/15/19 11:17 Resp 18 12/15/19 11:17 BP 104/64 12/15/19 11:17 Pulse Ox 94 12/15/19 11:17 12/14/19 12/15/19 12/15/19 22:59 06:59 14:59 Intake Total 150 / 870 240 / 1110 480 / 480 Output Total 700 / 700 500 / 1200 Balance -550 / 170 -260 / -90 480 / 480 Physical Exam Const: COMMON NORMALS: no apparent distress, oriented x3 and alert GENERAL APPEARANCE: not in distress NUTRITIONAL APPEARANCE: obese morbidly obese ORIENTATION/CONSCIOUSNESS: Yes obtunded HENMT: COMMON NORMALS: normocephalic, head/scalp atraumatic and hearing grossly normal bilaterally HEAD & SCALP: normocephalic and atraumatic MOUTH: moist mucous membranes abnormal Details: parched Eye: COMMON NORMALS: PERRL, EOMs intact bilaterally and conjunctivae normal CONJUNCTIVA: Yes conjunctivae normal PUPIL: Yes PERRL Neck/C-Spine: COMMON NORMALS: full ROM GENERAL: Yes normal visual inspection and Yes trachea midline Resp: COMMON NORMALS: normal respiratory effort, no retractions, no use of accessory muscles and clear to auscultation bilaterally EFFORT & INSPECTION: Yes able to speak in complete sentences, Yes symmetric chest movement and No tachypneic AUSCULTATION: clear to auscultation bilaterally Cardio: COMMON NORMALS: regular rate, regular rhythm, S1 normal heart sound, S2 normal heart sound and no murmurs RATE: regular rate RHYTHM: regular rhythm HEART SOUNDS: S1 normal and S2 normal GI: COMMON NORMALS: normal to inspection, nondistended, normoactive bowel sounds, soft to palpation and non-tender INSPECTION: Yes central obesity PALPATION: Yes soft : BLADDER/KIDNEY EXAM: Yes catheter in place Catheter type (Female): urethral Extremity: COMMON NORMALS: normal to inspection and no clubbing, cyanosis or edema; negative for no pedal edema Neuro: COMMON NORMALS: oriented x3, moves all extremities, no focal motor deficits and no sensory deficits noted SENSORIUM/ORIENTATION: Yes alert Psych: COMMON NORMALS: mental status grossly normal, thought process normal, cooperative, affect normal and speech normal SPEECH: Yes normal speech THOUGHT PROCESS: normal thought process Skin: COMMON NORMALS: no rashes or lesions noted, no jaundice, no petechiae and no mottling GENERAL SKIN EXAM: no rashes or lesions noted Urinary Catheter Management^: Bryant: Cath Placed During This Visit: yes, but has since been removed by the nurse Urethral Indwelling: Yes Reason for Continuing Indwelling Catheter: Decision to DC Catheter Urinary Catheter Date of Insertion: 12/11/19 Urinary Catheter Time of Insertion: 21:28 Date Urinary Catheter Removed: 12/14/19 Time Urinary Catheter Discontinued: 10:20 Data : 12/13/19 05:45 12/15/19 05:07 Micro: Microbiology 12/11/19 21:20 Urine Culture - Final Urine,Clean Catch Klebsiella oxytoca A&P Assessment and plan (1) Acute hepatic encephalopathy: -Noted to have altered mental status likely secondary to acute hepatic encephalopathy as evidenced by significantly increased ammonia-174. Ammonia has normalized-49 -Is more consistently awake, alert, oriented, continue to monitor mental status -Fall/aspiration/seizure precautions -On oral lactulose, titrate to allow 3-4 soft BMs per day Status: Resolved Code(s): K72.00 - Acute and subacute hepatic failure without coma (2) Pneumonia: -evidence of lateral diffuse scattered areas of groundglass and interstitial opacities noted on CT chest, could be inflammatory versus infectious process -repeat CXR (12/13): resolution of bilateral pneumonia -off ceftriaxone and azithromycin -No leukocytosis, afebrile, not currently requiring supplemental oxygen -Continue to monitor respiratory status Status: Resolved Qualifiers: Laterality: unspecified laterality Lung location: unspecified part of lung Pneumonia type: due to unspecified organism Qualified Code(s): J18.9 - Pneumonia, unspecified organism Code(s): J18.9 - Pneumonia, unspecified organism (3) Altered mental status: -Patient presented with altered mental status, with improving mental status following resolution of hyperammonemia -CT head unremarkable -noted to have elevated ammonia which has since normalized as noted above, abnormal UA, possible PNA on CT -can d/c neuro checks Status: Resolved Qualifiers: Altered mental status type: somnolence Qualified Code(s): R40.0 - Somnolence Code(s): R41.82 - Altered mental status, unspecified (4) Transaminitis: -noted chronic transaminitis, trending down -likely secondary to liver cirrhosis -continue to monitor Status: Acute Code(s): R74.0 - Nonspecific elevation of levels of transaminase and lactic acid dehydrogenase [LDH] Additional A&P Information -Obesity: BMI-31 kg/m2 -HTN; normotensive -Chronic portal vein thrombosis; noted on imaging; no AC -hx of variceal bleed in 08/2019, presented to ED, was transferred to [facility] -Chronic macrocytic anemia; baseline Hg -Lactic acidosis; trending down (4.1->2.6) -Abnormal UA: positive for bacteria and pyuria; urine cx-Klebsiella oxytoca, on Ciprofloxacin per sensitivity profile -Hypothyroidism; on levothyroxine -GRETTA -IDDM type II; accucheks, hypoglycemia precautions -hx of nephrolithiasis, hydronephrosis with prior ureteral stenting -Passed bedside swallow, tolerating GI soft diet -GI ppx with PPI -DVT ppx with SCDs, no AC due to bleeding risk -change activity level to up with assist, PT eval appreciated: HH vs. SNF -Dispo: came from home; discharged from [facility] on 12/04/19; home with vs. SNF -Code status: FULL code Attestations Medical Necessity Statement*: Patient requires hospitalization for continued treatment of UTI, hepatic encephalopathy, pending appropriate disposition. Time Spent in Patient Care: Greater than 35 minutes (>than 50% of time spent in counselling and/or direct pt care on unit). Coding Level of Care Code Acute [employer] for [facility] Fwd Diagnoses Acute hepatic encephalopathy K72.00 Pneumonia J18.9 Laterality: unspecified laterality Lung location: unspecified part of lung Pneumonia type: due to unspecified organism Altered mental status R40.0 Altered mental status type: somnolence Transaminitis R74.0
[2019-12-15 15:32] VITALS: BP 110/58; PULSE 74; RESP 16; TEMP 36.8; O2SAT 95
[2019-12-15 16:47] LABS: Glucose Point of Care 317 mg/dL (70-110)
[2019-12-15 20:00] VITALS: BP 112/67; PULSE 75; RESP 20; TEMP 36.8; O2SAT 96
[2019-12-15 21:01] LABS: Glucose Point of Care 369 mg/dL (70-110)
[2019-12-16] VITALS: BP 119/55; PULSE 95; RESP 20; TEMP 37.3; O2SAT 96
[2019-12-16 03:50] VITALS: BP 111/66; PULSE 79; RESP 28; TEMP 37.5; O2SAT 79
--- NOTE | 2019-12-16 05:25 | PC.NURSE ---
has not voided at 5 am this morning
[2019-12-16] MEDS: lactulose oral liq 20 gm/30 mL UDC PO ×3 (06:17→17:34)
[2019-12-16 06:59] LABS: Glucose Point of Care 226 mg/dL (70-110)
[2019-12-16 07:59] VITALS: BP 110/62; PULSE 77; RESP 18; TEMP 37.9; O2SAT 95
[2019-12-16] MEDS: ciprofloxacin 500 mg Tablet 250 MG PO ×2 (09:04→17:34)
[2019-12-16] MEDS: levothyroxine 150 mcg Tablet 75 MCG PO (09:04)
[2019-12-16] MEDS: spironolactone 25 mg Tablet PO ×2 (09:05→17:34)
[2019-12-16] MEDS: pantoprazole DR 40 mg Tablet PO ×2 (09:05→17:34)
[2019-12-16] MEDS: FUROsemide 40 mg Tablet PO ×2 (09:07→17:35)
[2019-12-16 10:00] VITALS: BMI 34.8
[2019-12-16 11:11] LABS: Glucose Point of Care 331 mg/dL (70-110)
[2019-12-16 11:45] VITALS: BP 112/64; PULSE 90; RESP 16; TEMP 37.1; O2SAT 94
[2019-12-16 15:40] VITALS: BP 116/70; PULSE 72; RESP 16; TEMP 36.5; O2SAT 97
[2019-12-16 17:12] LABS: Glucose Point of Care 335 mg/dL (70-110)
--- NOTE | 2019-12-16 17:49 | P.PN_ITS ---
Subjective Subjective: Interval history: Continues to have 2-3 BMs/day. Waiting on insurance approval for transition to [facility]. Had low grade temp of 100.2 F overnight and this AM. Sitting up in bed, no complaints, no acute overnight events reported, angeline Lin Medications: Reviewed: Yes Medication Review Details: Active Medications Generic Name Dose Route Start Last Admin Trade Name Freq PRN Reason Stop Dose Admin Ciprofloxacin HCl 250 mg 12/15/19 09:00 12/16/19 17:34 Cipro PO 250 mg BID GRETCHEN Administration Protocol Dextrose 25 ml 12/12/19 01:11 D50w IVP ONCE PRN hypoglycemia prot ocol Protocol Dextrose 50 ml 12/12/19 01:11 D50w IVP PRN PRN hypoglycemia prot ocol Protocol Furosemide 40 mg 12/13/19 16:00 12/16/19 17:35 Lasix PO 40 mg BID@08,16 GRETCHEN Administration Glucagon 1 mg 12/12/19 01:11 Glucagen IM ONCE PRN Adult Acute Hypog lycemia Prot. Protocol Dextrose 500 mls @ 100 mls /hr 12/12/19 01:11 D5w IV ONCE PRN Adult Acute Hypog lycemia Prot Protocol Insulin Aspart 0 unit 12/12/19 08:00 12/16/19 17:35 Novolog SUBCUT 14 unit WM&BEDTIME GRETCHEN Administration Protocol Insulin Detemir 10 unit 12/12/19 21:00 12/15/19 21:24 Levemir SUBCUT 10 unit BEDTIME GRETCHEN Administration Insulin Detemir 10 unit 12/14/19 21:00 12/15/19 22:09 Levemir SUBCUT Not Given BEDTIME GRETCHEN Lactulose 20 gm 12/13/19 15:15 12/16/19 17:34 Constulose PO 20 gm Q6H GRETCHEN Administration Lanolin 1 applic 12/13/19 02:25 Lanolin Oint TOPICAL PRN PRN DRYNESS Levothyroxine Sodi um 75 mcg 12/12/19 09:00 12/16/19 09:04 Synthroid PO 75 mcg DAILY GRETCHEN Administration Ondansetron HCl 4 mg 12/12/19 01:11 Zofran IVP Q8H PRN vomiting, or N/V if npo Pantoprazole Sodiu m 40 mg 12/12/19 09:00 12/16/19 17:34 Protonix PO 40 mg BID GRETCHEN Administration Spironolactone 25 mg 12/12/19 09:00 12/16/19 17:34 Aldactone PO 25 mg BID GRETCHEN Administration prednisone Allergy (Verified 10/23/19 09:51) Unknown Vitals/I&O/Wt Last Vital Signs Temp 97.7 F 12/16/19 15:40 Pulse 72 12/16/19 15:40 Resp 16 12/16/19 15:40 BP 116/70 12/16/19 15:40 Pulse Ox 97 12/16/19 15:40 12/16/19 12/16/19 12/16/19 06:59 14:59 22:59 Intake Total 600 / 600 Balance 600 / 600 Weight last 48 hrs Weight 94.886 kg Weight 94.886 kg Physical Exam Const: COMMON NORMALS: no apparent distress, oriented x3 and alert GENERAL APPEARANCE: not in distress NUTRITIONAL APPEARANCE: obese morbidly obese ORIENTATION/CONSCIOUSNESS: Yes obtunded HENMT: COMMON NORMALS: normocephalic, head/scalp atraumatic and hearing grossly normal bilaterally HEAD & SCALP: normocephalic and atraumatic MOUTH: moist mucous membranes abnormal Details: parched Eye: COMMON NORMALS: PERRL, EOMs intact bilaterally and conjunctivae normal CONJUNCTIVA: Yes conjunctivae normal PUPIL: Yes PERRL Neck/C-Spine: COMMON NORMALS: full ROM GENERAL: Yes normal visual inspection and Yes trachea midline Resp: COMMON NORMALS: normal respiratory effort, no retractions, no use of accessory muscles and clear to auscultation bilaterally EFFORT & INSPECTION: Yes able to speak in complete sentences, Yes symmetric chest movement and No tachypneic AUSCULTATION: clear to auscultation bilaterally Cardio: COMMON NORMALS: regular rate, regular rhythm, S1 normal heart sound, S2 normal heart sound and no murmurs RATE: regular rate RHYTHM: regular rhythm HEART SOUNDS: S1 normal and S2 normal GI: COMMON NORMALS: normal to inspection, nondistended, normoactive bowel soun ds, soft to palpation and non-tender INSPECTION: Yes central obesity PALPATION: Yes soft : BLADDER/KIDNEY EXAM: Yes catheter in place Catheter type (Female): urethral Extremity: COMMON NORMALS: normal to inspection and no clubbing, cyanosis or edema; negative for no pedal edema Neuro: COMMON NORMALS: oriented x3, moves all extremities, no focal motor deficits and no sensory deficits noted SENSORIUM/ORIENTATION: Yes alert Psych: COMMON NORMALS: mental status grossly normal, thought process normal, cooperative, affect normal and speech normal SPEECH: Yes normal speech THOUGHT PROCESS: normal thought process Skin: COMMON NORMALS: no rashes or lesions noted, no jaundice, no petechiae and no mottling GENERAL SKIN EXAM: no rashes or lesions noted Urinary Catheter Management^: Bryant: Cath Placed During This Visit: yes, but has since been removed by the nurse Urethral Indwelling: Yes Reason for Continuing Indwelling Catheter: Decision to DC Catheter Urinary Catheter Date of Insertion: 12/11/19 Urinary Catheter Time of Insertion: 21:28 Date Urinary Catheter Removed: 12/14/19 Time Urinary Catheter Discontinued: 10:20 Data : 12/13/19 05:45 12/15/19 05:07 A&P Assessment and plan (1) Acute hepatic encephalopathy: -Noted to have altered mental status likely secondary to acute hepatic encephalopathy as evidenced by significantly increased ammonia-174. Ammonia has normalized-49 -Is more consistently awake, alert, oriented, continue to monitor mental status -Fall/aspiration/seizure precautions -On oral lactulose, titrate to allow 3-4 soft BMs per day Status: Resolved Code(s): K72.00 - Acute and subacute hepatic failure without coma (2) Pneumonia: -evidence of lateral diffuse scattered areas of groundglass and interstitial opacities noted on CT chest, could be inflammatory versus infectious process -repeat CXR (12/13): resolution of bilateral pneumonia -off ceftriaxone and azithromycin -No leukocytosis, afebrile, not currently requiring supplemental oxygen -Continue to monitor respiratory status Status: Resolved Qualifiers: Laterality: unspecified laterality Lung location: unspecified part of lung Pneumonia type: due to unspecified organism Qualified Code(s): J18.9 - Pneumonia, unspecified organism Code(s): J18.9 - Pneumonia, unspecified organism (3) Altered mental status: -Patient presented with altered mental status, with improving mental status following resolution of hyperammonemia -CT head unremarkable -noted to have elevated ammonia which has since normalized as noted above, abnormal UA, possible PNA on CT -can d/c neuro checks Status: Resolved Qualifiers: Altered mental status type: somnolence Qualified Code(s): R40.0 - Somnolence Code(s): R41.82 - Altered mental status, unspecified (4) Transaminitis: -noted chronic transaminitis, trending down -likely secondary to liver cirrhosis -continue to monitor Status: Acute Code(s): R74.0 - Nonspecific elevation of levels of transaminase and lactic acid dehydrogenase [LDH] Additional A&P Information -Obesity: BMI-31 kg/m2 -HTN; normotensive -Chronic portal vein thrombosis; noted on imaging; no AC -hx of variceal bleed in 08/2019, presented to ED, was transferred to [facility] -Chronic macrocytic anemia; baseline Hg -Lactic acidosis; trending down (4.1->2.6) -Abnormal UA: positive for bacteria and pyuria; urine cx-Klebsiella oxytoca, on Ciprofloxacin per sensitivity profile -Hypothyroidism; on levothyroxine -GRETTA -IDDM type II; accucheks, hypoglycemia precautions -hx of nephrolithiasis, hydronephrosis with prior ureteral stenting -Passed bedside swallow, tolerating GI soft diet -GI ppx with PPI -DVT ppx with SCDs, no AC due to bleeding risk -change activity level to up with assist, PT eval appreciated: HH vs. SNF -Dispo: came from home; discharged from [facility] on 12/04/19; would like to return there, waiting on insurance approval. She needs 14/05 supervision and works full-time so cannot provide appropriate care at home at this time. -Code status: FULL code Attestations Medical Necessity Statement*: Patient requires hospitalization for continued care pending appropriate disposition. 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
[2019-12-16 19:13] VITALS: BP 97/61; PULSE 88; RESP 20; TEMP 36.9; O2SAT 97
[2019-12-16 21:31] LABS: Glucose Point of Care 361 mg/dL (70-110)
--- NOTE | 2019-12-16 21:31 | P.EN_ITS ---
Event Note Event Note: Called to clarify levemir dosing. Had 2 orders for 10units subq at bedtime ordered on different days. Suspect duplication in orders. I stopped on. On review of blood sugars, and in case the intention was to increase levemir dosing, I increased to 12 units at hs. Sugars have been 226- 369 since 12/15 midday. I also changed the sliding scale to include a bedtime scale a bit lower given lower range bs in the mornings.
[2019-12-17] VITALS: BP 109/56; PULSE 93; RESP 20; TEMP 37.3; O2SAT 95
[2019-12-17] MEDS: lactulose oral liq 20 gm/30 mL UDC PO (00:24)
[2019-12-17 04:00] VITALS: BP 115/64; PULSE 97; RESP 20; TEMP 37.3; O2SAT 94
[2019-12-17] MEDS: ondansetron 2 mg/ML SDV 2 mL 4 MG IVP (04:48)
[2019-12-17 04:59] LABS: Glucose Point of Care 214 mg/dL (70-110)
[2019-12-17 06:29] LABS: Glucose Point of Care 255 mg/dL (70-110)
[2019-12-17 07:44] VITALS: BP 125/68; PULSE 80; RESP 18; TEMP 37.1; O2SAT 94
[2019-12-17] MEDS: ciprofloxacin 500 mg Tablet 250 MG PO (08:25)
[2019-12-17] MEDS: spironolactone 25 mg Tablet PO (08:26)
[2019-12-17] MEDS: FUROsemide 40 mg Tablet PO (08:26)
[2019-12-17] MEDS: pantoprazole DR 40 mg Tablet PO (08:27)
[2019-12-17] MEDS: levothyroxine 150 mcg Tablet 75 MCG PO (08:27)
--- NOTE | 2019-12-17 08:35 | P.DS_ITS ---
Discharge Providers Date of Admission: 12/11/19 23:27 Date of Discharge: December 17, 2019 Attending Provider at Admission: Nicole Romano MD Attending Provider at Discharge: Brea Watkins MD Primary Care Provider: Josafat Robertson MD Diagnoses at Discharge Discharge Diagnosis (1) Acute hepatic encephalopathy: Status: Resolved Problem details: -Noted to have altered mental status likely secondary to acute hepatic encephalopathy as evidenced by significantly increased ammonia-174. Ammonia has normalized-49 -Is more consistently awake, alert, oriented, continue to monitor mental status -Fall/aspiration/seizure precautions -On oral lactulose, titrate to allow 3-4 soft BMs per day (2) Pneumonia: Status: Resolved Problem details: -evidence of lateral diffuse scattered areas of groundglass and interstitial opacities noted on CT chest, could be inflammatory versus infectious process -repeat CXR (12/13): resolution of bilateral pneumonia -off ceftriaxone and azithromycin -No leukocytosis, afebrile, not currently requiring supplemental oxygen -Continue to monitor respiratory status Qualifiers: Laterality: unspecified laterality Lung location: unspecified part of lung Pneumonia type: due to unspecified organism Qualified Code(s): J18.9 - Pneumonia, unspecified organism (3) Altered mental status: Status: Resolved Problem details: -Patient presented with altered mental status, with improving mental status following resolution of hyperammonemia -CT head unremarkable -noted to have elevated ammonia which has since normalized as noted above, abnormal UA, possible PNA on CT -can d/c neuro checks Qualifiers: Altered mental status type: somnolence Qualified Code(s): R40.0 - Somnolence (4) Transaminitis: Status: Acute Problem details: -noted chronic transaminitis, trending down -likely secondary to liver cirrhosis -continue to monitor Other Information Additional DC diagnoses/information: -Morbid obesity: BMI-34 kg/m2 -HTN; normotensive -Chronic portal vein thrombosis; noted on imaging; no AC -hx of variceal bleed in 08/2019, presented to ED, was transferred to [facility] -Chronic macrocytic anemia; baseline Hg -Lactic acidosis; trending down (4.1->2.6) -Abnormal UA: positive for bacteria and pyuria; urine cx-Klebsiella oxytoca, on Ciprofloxacin per sensitivity profile -Hypothyroidism; on levothyroxine -GRETTA -IDDM type II; accucheks, hypoglycemia precautions -hx of nephrolithiasis, hydronephrosis with prior ureteral stenting Reason for Visit 2 Reason for Visit: Reason For Visit: lethargic Hospital Course Hospital Course: Patient was initially admitted to the medical surgical floor and started on lactulose enemas given elevated ammonia levels. She was completely obtunded for the first 24 hours. She had a Bryant catheter placed in the ER secondary to mental status changes. She gradually improved and once more consistently awake was switched to lactulose by mouth. Ammonia has normalized and she has continued to have soft bowel movements. Mentation has returned to baseline. She was also found to have a UTI secondary to Enterococcus faecalis. She had initially been started on broad-spectrum antibiotics due to concern for pneumonia on initial imaging. Follow-up chest x-ray showed resolution so broad- spectrum antibiotics were discontinued and I started her on ciprofloxacin per sensitivity profile from urine cultures. With improvement in her mental status and ability to meet with assistance a Bryant catheter was discontinued and she has been able to void independently without difficulty. [facility] and agreed to [facility], and had recently been discharged from the same facility. She requires 24/7 supervision which has been is unable to provide at home at this time. She has been hemodynamically stable, afebrile and tolerating oral intake without difficulty. She will be discharged to [facility] this afternoon. Discharge Summary: -Patient to follow up with primary care provider within 1 week Physical Exam Const: COMMON NORMALS: no apparent distress, oriented x3 and alert GENERAL APPEARANCE: not in distress NUTRITIONAL APPEARANCE: obese morbidly obese ORIENTATION/CONSCIOUSNESS: Yes awake HENMT: COMMON NORMALS: normocephalic, head/scalp atraumatic, hearing grossly normal bilaterally and moist oral mucous membranes HEAD & SCALP: normocephalic and atraumatic MOUTH: moist mucous membranes abnormal Details: parched Eye: COMMON NORMALS: PERRL, EOMs intact bilaterally and conjunctivae normal CONJUNCTIVA: Yes conjunctivae normal PUPIL: Yes PERRL Neck/C-Spine: COMMON NORMALS: full ROM GENERAL: Yes normal visual inspection and Yes trachea midline Resp: COMMON NORMALS: normal respiratory effort, no retractions, no use of accessory muscles and clear to auscultation bilaterally EFFORT & INSPECTION: Yes able to speak in complete sentences, Yes symmetric chest movement and No tachypneic AUSCULTATION: clear to auscultation bilaterally Cardio: COMMON NORMALS: regular rate, regular rhythm, S1 normal heart sound, S2 normal heart sound and no murmurs RATE: regular rate RHYTHM: regular rhythm HEART SOUNDS: S1 normal and S2 normal GI: COMMON NORMALS: normal to inspection, nondistended, normoactive bowel sounds, soft to palpation and non-tender INSPECTION: Yes central obesity PALPATION: Yes soft Extremity: COMMON NORMALS: normal to inspection and no clubbing, cyanosis or edema; negative for no pedal edema Neuro: COMMON NORMALS: oriented x3, moves all extremities, no focal motor deficits and no sensory deficits noted SENSORIUM/ORIENTATION: Yes alert Psych: COMMON NORMALS: mental status grossly normal, thought process normal, cooperative, affect normal and speech normal SPEECH: Yes normal speech THOUGHT PROCESS: normal thought process Skin: COMMON NORMALS: no rashes or lesions noted, no jaundice, no petechiae and no mottling GENERAL SKIN EXAM: no rashes or lesions noted Urinary Catheter Management^: Bryant: Cath Placed During This Visit: yes, but has since been removed by the nurse Urethral Indwelling: Yes Reason for Continuing Indwelling Catheter: Decision to DC Catheter Urinary Catheter Date of Insertion: 12/11/19 Urinary Catheter Time of Insertion: 21:28 Date Urinary Catheter Removed: 12/14/19 Time Urinary Catheter Discontinued: 10:20 Discharge Data Data Completed and Pending: Completed Studies During Hospitalization Category Date Time Status CT chest abd pel w con* Urgent Cat Scan 12/11/19 20:[address] head wo con* 7 0450 Urgent Cat Scan 12/11/19 19:57 Completed XR chest 1V george ble 21200 Routine Exams 12/13/19 17:26 Completed Labs from last 24 hours 12/17/19 12/17/19 12/16/19 06:24 04:56 21:28 POC Glucose 255 214 361 12/16/19 12/16/19 16:57 11:06 POC Glucose 335 331 Vitals: Last Vital Signs Temp 98.7 F 12/17/19 07:44 Pulse 80 12/17/19 07:44 Resp 18 12/17/19 07:44 BP 125/68 12/17/19 07:44 Pulse Ox 94 12/17/19 07:44 Discharge Plan Discharge Patient Disposition: [facility] Condition: Stable Prescriptions: New ciprofloxacin HCl 500 mg Tablet 250 mg PO BID 5 Days Qty: 5 RF: 0 Levemir U-100 Insulin 100 unit/mL Solution 12 unit SUBCUT BEDTIME Qty: 1 RF: 0 lactulose 20 gram/30 mL Solution 20 g PO Q6H Qty: 237 RF: 0 Continued Zofran 4 mg Tablet 4 mg PO Q8H PRN (Reason: Nausea) Qty: 30 RF: 0 potassium chloride 10 mEq Tablet Extended Release 20 meq PO DAILY 30 Days Qty: 60 RF: 0 Ultram 50 mg Tablet 50 mg PO Q6H PRN (Reason: Pain) Qty: 30 RF: 0 spironolactone 25 mg Tablet 25 mg PO BID 30 Days Qty: 60 RF: 0 MagOx 400 mg (241.3 mg magnesium) Tablet 400 mg PO DAILY 30 Days Qty: 30 RF: 0 levothyroxine 50 mcg Tablet 75 mcg PO DAILY 30 Days Qty: 30 RF: 0 Protonix 40 mg Tablet,Delayed Release (Dr/Ec) 40 mg PO BID 30 Days Qty: 60 RF: 0 ferrous sulfate 325 mg (65 mg iron) Tablet 325 mg PO BID 30 Days Qty: 60 RF: 0 Humalog U-100 Insulin 100 unit/mL Cartridge See Rx Instructions .ROUTE .COMPLEX Qty: 1 RF: 0 Xifaxan 550 mg Tablet 550 mg PO BID 30 Days Qty: 60 RF: 0 Changed Lasix 40 mg Tablet 40 mg PO BID 30 Days Qty: 60 RF: 0 Discontinued lactulose 10 gram/15 mL Solution 30 ml PO BID RF: 0 insulin detemir U-100 10 units SUBCUT BEDTIME RF: 0 Discharge Orders: Discharge Order (Routine); Ordered 12/17/19 Ordered By: Brea Watkins Referrals: Josafat Robertson MD [Primary Care Provider] - 12/23/19 9:45 am (Post-hospital discharge follow up. Treated for acute hepatic encephalopathy and UTI. ) Discharge Diet: Regular Discharge Activity: Increase activity as tolerated Discharge Attestations Time Spent in Discharge Care*: greater than 30 min Specific Discharge Activities: Specific discharge activities: educating patient, educating and/or supporting family/caregiver, discussing with field case manager/social workers/dc planners, documenting/other paperwork and evaluating patient/reviewing data Status at Discharge: Cognitive status at discharge: cognitively intact , Behavioral status at discharge: cooperative , Functional status at discharge: other assisted ambulation Overall status at discharge: patient is back to [facility] Quality Metrics Clinical Quality Measures During this hospital stay, did patient experience: None Coding Level of Care Code Acute Director Speech for [facility] Fwd Diagnoses Acute hepatic encephalopathy K72.00 Pneumonia J18.9 Laterality: unspecified laterality Lung location: unspecified part of lung Pneumonia type: due to unspecified organism Altered mental status R40.0 Altered mental status type: somnolence Transaminitis R74.0
[2019-12-17 11:29] VITALS: BP 110/69; PULSE 75; RESP 19; TEMP 36.6; O2SAT 96
[2019-12-17 11:31] LABS: Glucose Point of Care 273 mg/dL (70-110)
[2019-12-17 12:56] VITALS: BP 110/69; PULSE 75; RESP 19; TEMP 36.6; O2SAT 96
== END 2019-12-17 12:00 | disposition skilled nursing facility (03) | DRG 441 ==
LOC: ER 23:41 → MEDSURG 12-12 00:02
PROVIDERS: Admitting Provider Student in an Organized Health Care Education/Training Program; Emergency Provider Family Medicine; Family Provider Family Medicine; PCP Family Medicine; Visit Provider Family Medicine
DX: K72.00 Acute and subacute hepatic failure without coma (principal); I81 Portal vein thrombosis; J18.9 Pneumonia, unspecified organism; K76.6 Portal hypertension; N13.2 Hydronephrosis with renal and ureteral calculous obstruction; E87.2 Acidosis; N39.0 Urinary tract infection, site not specified; E03.9 Hypothyroidism, unspecified; I10 Essential (primary) hypertension; E11.649 Type 2 diabetes mellitus with hypoglycemia without coma; G47.33 Obstructive sleep apnea (adult) (pediatric); Z87.442 Personal history of urinary calculi; K44.9 Diaphragmatic hernia without obstruction or gangrene; E66.9 Obesity, unspecified; Z68.34 Body mass index [BMI] 34.0-34.9, adult; Z87.891 Personal history of nicotine dependence; R41.82 Altered mental status, unspecified; K74.60 Unspecified cirrhosis of liver; Z79.4 Long term (current) use of insulin; B96.1 Klebsiella pneumoniae [K. pneumoniae] as the cause of diseases classified elsewhere; D64.9 Anemia, unspecified
CPT/HCPCS: 12345; 36415; 36416; 51702; 70450; 71045; 71260; 74177; 80048; 80053; 81001; 82140; 82962; 83605; 84443; 85025; 87040; 87077; 87086; 87186; 96372; 96375; 97110; 97116; 97162; 97530; 99283; J0456; J0696; J1815; J1940; J2405; J2543; J3370; J7030; J7050; Q9967

== ENCOUNTER 2020-04-16 08:23 | Inpatient (IN) | payer OTHER, SELFPAY ==
[2020-04-16] VITALS (14 sets, daily range): BP systolic 98–121; BP diastolic 35–66; PULSE 62–85; RESP 14–20; TEMP 36.4–36.8; O2SAT 95–98
--- NOTE | 2020-04-16 08:41 | ED_ITS ---
Documented by User: Jaqueline Sims 04/16/20 14:45 HPI - Altered Mental Status General: Chief Complaint: Altered Mental Status Stated Complaint: AMS Time Seen by Provider: 04/16/20 08:26 Source: EMS Mode of arrival: EMS Limitations: altered mental status History of Present Illness: HPI narrative: pt is altered; family found at home in floor. No trauma to report but pt is confused to place and time. MD complaint: altered mental status and confusion Onset (ago): unknown Review of Systems General: Reports: ROS unobtainable due to mental status Neuro: Reports: confusion and difficulty communicating thoughts PFSH ED PFSH: Medical History Diabetes Hydronephrosis Hypertension Hypothyroid Nephrolithiasis Obesity Portal hypertension due to obstruction of extrahepatic portal vein Sleep apnea Transaminitis -noted chronic transaminitis, trending down -likely secondary to liver cirrhosis -continue to monitor Surgical History H/O hernia repair H/O lithotripsy History of cholecystectomy History of oophorectomy, unilateral Social History Smoking and tobacco status: former smoker Physical Exam Const: COMMON NORMALS: alert GENERAL APPEARANCE: cooperative and comfortable ORIENTATION/CONSCIOUSNESS: Yes oriented to person HENMT: COMMON NORMALS: normocephalic, atraumatic, external ears normal, EAC's normal, TM's normal bilaterally and Normal external nose present HEAD & SCALP: normal to inspection, normocephalic and atraumatic FACE & SINUS: normal facial exam, sinuses nontender and face symmetric NOSE: Normal external nose present, Normal nares present and No nasal discharge present EXTERNAL EAR: Yes external ears normal EXTERNAL AUDITORY CANAL: EAC's normal TYMPANIC MEMBRANE: TM's normal bilaterally MOUTH: Normal oral and palatal mucosa present, lip normal and tongue normal THROAT: posterior oropharynx normal, tonsils normal and uvula midline Eye: COMMON NORMALS: Equal, round and reactive pupils present, EOMs intact bilaterally and conjunctivae normal GENERAL EYE: appearance normal, both eyes and all related structures and normal light reflex EYELID: eyelids normal CONJUNCTIVA: Yes conjunctivae normal PUPIL: Yes Equal, round and reactive pupils present EOM: Yes EOM abnormal DIRECT OPHTHALMOSCOPY: Yes normal light reflex Neck/C-Spine: COMMON NORMALS: full ROM, no lymphadenopathy, supple, no meningeal signs, no JVD and Thyroid normal GENERAL: Yes normal visual inspection THYROID: Thyroid normal CERVICAL SPINE: Yes cervical ROM normal and Yes normal cervical lordosis Lymph: LYMPHATIC: no lymphadenopathy noted Chest: COMMONS NORMALS: normal inspection of the chest and normal palpation of entire chest wall Resp: COMMON NORMALS: normal respiratory effort, No retractions and clear to auscultation bilaterally AUSCULTATION: clear to auscultation bilaterally Cardio: COMMON NORMALS: no JVD, regular rate, regular rhythm, S1 normal heart sound present, S2 normal heart sound present, No gallops present (Cardio), No clicks present (Cardio), No murmurs present (Cardio), No rub (Cardio) and Peripheral pulses 2+ throughout RATE: regular rate RHYTHM: regular rhythm HEART SOUNDS: S1 normal heart sound present and S2 normal heart sound present PERIPHERAL PULSES: Peripheral pulses 2+ throughout GI: COMMON NORMALS: Normal to inspection, nondistended, normoactive bowel sounds present, Soft to palpation, non-tender and no masses PALPATION: Yes Soft to palpation : COMMON NORMALS: Yes no CVA tenderness and Yes normal external appearance BLADDER/KIDNEY EXAM: Yes no CVA tenderness Back/Pelvis: COMMON NORMALS: no CVA tenderness, thoracic and lumbar spine normal to inspection, no thoracic nor lumbar tenderness and thoraco-lumbar ROM normal Extremity: COMMON NORMALS: full ROM GENERAL: Yes edema (bilateral 2+) Neuro: [place] COMA SCALE: document GCS findings [place] coma scale eye opening: Spontaneous [place] coma scale verbal response: Confused [place] coma scale motor response: Normal flexion [place] coma scale total score: 12 COMMON NORMALS: moves all extremities SENSORIUM/ORIENTATION: Yes alert, Yes oriented to person and Yes Orientation impaired MENINGEAL SIGNS: Yes no meningeal signs CRANIAL NERVES: Yes pupillary reactivity/size GAIT: Yes Unable to assess gait PUPIL EXAM: Normal pupillary reactivity/response: bilateral and Pinpoint: bilateral Psych: COMMON NORMALS: mental status grossly normal, Normal thought process present, cooperative, normal affect, speech normal and activity/motor behavior normal SPEECH: Yes normal speech THOUGHT PROCESS: Normal thought process present Skin: COMMON NORMALS: no rashes or lesions noted, no wounds and turgor normal GENERAL SKIN EXAM: no rashes or lesions noted and turgor normal LESIONS: lesion noted (right ear lobe ; erythema surrounding small pin point lesion) Course ED course: Pt presents to ER via EMS after being found by family in floor for unknown amount of time. She is disoriented to place and time. She is aware of person. She does not have any notable deformities. Pt has hx of liver failure and this presentation is usually indicative of her ammonia levels being elevated. CT head ordered as head trauma is not able to be ruled out Reevaluation(s): Reevaluation #1: Pt labs resulted and discussed with Dr. Anthony. Further testing advised with ABG and CPK. Unremarkable. Care transferred to Dr. Anthony and CXR was ordered; pt has pneumonia and will be admitted to hospital. Time: 12:45 Vital Signs: Vital signs: Vital Signs Temperature 97.6 F 04/16/20 15:41 Pulse Rate 72 04/16/20 16:32 Respiratory Rate 16 04/16/20 16:32 Blood Pressure 100/58 04/16/20 15:41 Pulse Oximetry 98 04/16/20 16:32 MDM - Altered Mental Status Lab Data: Labs: Lab Results 04/16/20 04/16/20 04/16/20 Range/Units 08:55 09:06 09:06 WBC 4.4 (4.0-10.0) 10^3/ uL RBC 3.26 L (4.1-5.3) 10^6/u L Hgb 11.0 L (11.5-15.3) g/dL Hct 33.8 L (37.0-47.0) % MCV 103.7 H (81-99) fL MCH 33.7 (28.0-34.0) pg MCHC 32.5 (30.0-36.0) g/dL RDW 13.8 (12.1-15.1) % Plt Count 108 L (130-400) 10^3/c mm MPV 8.8 (7.4-10.4) fL Neut % (Auto) 61.4 % Lymph % (Auto) 13.1 % [place] % (Auto) 10.6 % Eos % (Auto) 13.3 % Baso % (Auto) 0.9 % Neut # (Auto) 2.7 (1.8-7.7) 10^3/u L Lymph # (Auto) 0.6 L (0.8-4.8) 10^3/u L [place] # (Auto) 0.5 (0.2-0.9) 10^3/u L Eos # (Auto) 0.6 (0.0-0.8) 10^3/u L Baso # (Auto) 0.0 (0.0-0.1) 10^3/u L Nucleated RBC % (a uto) 0 % Nucleated RBCs # 0.0 /100WBC Specimen Type Sample Site ABG pH (7.35-7.45) ABG pCO2 (35-45) mmHg ABG pO2 (80.0-100.0) mmH g ABG HCO3 (22-26) mmol/L ABG O2 Saturation ABG Base Excess (-2.0-2.0) mmol/ L Waqar Test A-a O2 Gradient (5-10) mmHg Hematocrit (37-47) % Hgb O2 Saturation (95-100) % Carboxyhemoglobin (0.4-20.1) %THgb Methemoglobin (0.4-1.5) % Total Hemoglobin (12-16) g/dL Ionized Calcium (1.1-1.4) mmol/L O2 Delivery Device FiO2 % Hoop Maker Helper Machine ID Sodium 135 L (136-145) mmol/L Potassium 3.9 (3.5-5.1) mmol/L Chloride 96 L (98-107) mmol/L Carbon Dioxide 24 (22-29) mmol/L Anion Gap 18.9 (5-19) BUN 38 H (8-23) mg/dL Creatinine 1.2 H (0.5-0.9) mg/dL GFR Calculation 45.2 L (90-130) mL/min Glucose 209 H (65-115) mg/dL Calculated Osmolal ity 284 L (285-295) mOsm/k g Calcium 10.4 (8.5-10.5) mg/dL Total Bilirubin 1.0 (0.15-1.2) mg/dL AST 49 H (0-32) U/L ALT 48 H (0-33) U/L Alkaline Phosphata se 226 H (35-105) IU/L Ammonia (11-51) umol/L Creatine Kinase (26-192) U/L Total Protein 7.6 (6.6-8.7) g/dL Albumin 4.0 (3.5-5.2) g/dL Globulin 3.6 (1.3-4.6) g/dL Urine Color Yellow (Yellow) Urine Appearance Sl hazy (CLEAR) Urine pH 5 (5-7) Ur Specific Gravit y 1.015 (1.005-1.030) Urine Protein Neg (Negative) Urine Glucose (UA) Norm (Normal) Urine Ketones Negative (Negative) Urine Blood Neg (Negative) Urine Nitrate Negative (Negative) Urine Bilirubin Neg (NEGATIVE) Urine Urobilinogen Norm (Negative) mg/dL Ur Leukocyte Dannielle ase Negative (Negative) Urine RBC None (0-2) /hpf Urine WBC Rare (0-5) /hpf Ur Squamous Epith Cells 5-10 H (0-5) Amorphous Sediment Not Reportable Urine Bacteria 1+ H (NONE) 04/16/20 04/16/20 04/16/20 Range/Units 09:06 09:06 11:21 WBC (4.0-10.0) 10^3/ uL RBC (4.1-5.3) 10^6/u L Hgb (11.5-15.3) g/dL Hct (37.0-47.0) % MCV (81-99) fL MCH (28.0-34.0) pg MCHC (30.0-36.0) g/dL RDW (12.1-15.1) % Plt Count (130-400) 10^3/c mm MPV (7.4-10.4) fL Neut % (Auto) % Lymph % (Auto) % [place] % (Auto) % Eos % (Auto) % Baso % (Auto) % Neut # (Auto) (1.8-7.7) 10^3/u L Lymph # (Auto) (0.8-4.8) 10^3/u L [place] # (Auto) (0.2-0.9) 10^3/u L Eos # (Auto) (0.0-0.8) 10^3/u L Baso # (Auto) (0.0-0.1) 10^3/u L Nucleated RBC % (a uto) % Nucleated RBCs # /100WBC Specimen Type Arterial Sample Site Radial, right ABG pH 7.42 (7.35-7.45) ABG pCO2 38.0 (35-45) mmHg ABG pO2 93.2 (80.0-100.0) mmH g ABG HCO3 24.6 (22-26) mmol/L ABG O2 Saturation 98.0 ABG Base Excess 0.2 (-2.0-2.0) mmol/ L Waqar Test Pos A-a O2 Gradient 8.7 (5-10) mmHg Hematocrit 35.2 L (37-47) % Hgb O2 Saturation 95.9 (95-100) % Carboxyhemoglobin 1.4 (0.4-20.1) %THgb Methemoglobin 0.7 (0.4-1.5) % Total Hemoglobin 11.5 L (12-16) g/dL Ionized Calcium 1.2 (1.1-1.4) mmol/L O2 Delivery Device None FiO2 21.0 % Hoop Maker Helper Machine ID ed Sodium 141.0 (136-145) mmol/L Potassium 4.0 (3.5-5.1) mmol/L Chloride (98-107) mmol/L Carbon Dioxide (22-29) mmol/L Anion Gap (5-19) BUN (8-23) mg/dL Creatinine (0.5-0.9) mg/dL GFR Calculation (90-130) mL/min Glucose 199.0 H (65-115) mg/dL Calculated Osmolal ity (285-295) mOsm/k g Calcium (8.5-10.5) mg/dL Total Bilirubin (0.15-1.2) mg/dL AST (0-32) U/L ALT (0-33) U/L Alkaline Phosphata se (35-105) IU/L Ammonia 69 H (11-51) umol/L Creatine Kinase 69 (26-192) U/L Total Protein (6.6-8.7) g/dL Albumin (3.5-5.2) g/dL Globulin (1.3-4.6) g/dL Urine Color (Yellow) Urine Appearance (CLEAR) Urine pH (5-7) Ur Specific Gravit y (1.005-1.030) Urine Protein (Negative) Urine Glucose (UA) (Normal) Urine Ketones (Negative) Urine Blood (Negative) Urine Nitrate (Negative) Urine Bilirubin (NEGATIVE) Urine Urobilinogen (Negative) mg/dL Ur Leukocyte Dannielle ase (Negative) Urine RBC (0-2) /hpf Urine WBC (0-5) /hpf Ur Squamous Epith Cells (0-5) Amorphous Sediment Urine Bacteria (NONE) Imaging Data^: CT Head: Radiologist's impression: [facility] [address] [place] [address] CT Scan Report Signed Patient: Sharon Kwan Unit #: [id number] : [id number] Age/Sex: 64 / F ADM Date: 04/16/20 Loc: ER Room/Bed: Attending Dr: Ordering Provider/Ordering MD: Jaqueline Sims NP Date of Service: 04/16/20 Procedure(s): CT head wo con* [id number] Accession Number(s): [id number] Report Number: [id number] WS: [id number] CT HEAD NONCONTRAST HISTORY: confusion TECHNIQUE: Contiguous axial imaging performed through the brain in 2.5 mm imaging. Bone and soft tissue windows. Sagittal and coronal reformats reviewed. All CT scans at [facility] use at least one of these dose optimization techniques: automated exposure control; mA and/or kV adjustment per patient size (includes targeted exams where dose is matched to clinical indication); or iterative reconstruction. DLP: 636.18 mGy.cm COMPARISON: 12/11/2019 No acute intracranial hemorrhage, midline shift or mass effect. Mild atrophy and mild chronic microvascular ischemic disease. No progression since the prior examination. Small lacunar infarct posterior limb of the RIGHT internal capsule. Ventricles: Normal size with no hydrocephalus. Mild atherosclerosis of the intracranial carotid arteries. Paranasal sinuses: As visualized are clear. Mastoid air cells: Well pneumatized. Calvarium and scalp: Skull is intact with no soft tissue edema or swelling. CT/CT head wo con* [id number] IMPRESSION: 1. No acute intracranial hemorrhage. 2. Mild atrophy and mild chronic microvascular ischemic disease. Dictated By: Lyric Lucas DO Signed By: Lyric Lucas DO Signed Date/Time: 04/16/20 1002 DD/ 0927 Discharge Plan Discharge Patient Disposition: Admitted As Inpatient Admit Provider: Adam Suarez Clinical Impression: Hepatic encephalopathy, Portal vein thrombosis, Transaminitis, Left lower lobe pneumonia, Delirium due to general medical condition Condition: Stable Interventions: ED Discharge Assessment Last Done: 04/16/20 14:59 ED Charges Last Done: 04/16/20 14:59 Discharge Date/Time: 04/16/20 15:08 Coding Level of Care Code ED Delivery Rn for Chg Fwd Exam Comprehensive Documented by User: Saul Anthony DO 04/16/20 17:56 HPI - Altered Mental Status 2 General: Chief Complaint: Altered Mental Status Stated Complaint: AMS Time Seen by Provider: 04/16/20 08:26 History of Present Illness: HPI narrative: 64-year-old female initially seen by the midlevel. She has some dried blood on the lips she is somnolent I come in the room I get her to answer a few questions she knows where she is at she really is not oriented to person or time. Cannot really get much history from her at all she denies any chest pain or dyspnea denies any abdominal pain denies any shortness of breath denies any dysuria urgency or frequency. There is no family here with the patient report through the nurse from EMS was that she was found at home with her who is her caregiver had slid out of the chair last known well seem to be yesterday. She does have a history of hepatic encephalopathy. He also has a history of hydronephrosis urosepsis and GI bleed from esophageal varices. She is not had any vomiting of bloody emesis here in the emergency room. MD complaint: altered mental status and confusion Onset (ago): hour(s) Timing confirmed by: spouse and caregiver Severity: severe Consistency of symptoms: Getting Worse Context: history of similar presentation and liver disease Associated symptoms: Reports no associated symptoms; Deny auditory hallucinations, visual hallucinations, depression, homicidal ideation or suicidal ideation Review of Systems General: Reports: ROS unobtainable due to mental status (This time I seen the patient she is able to give very minimal review of systems see above. Reviewing the PA she did give a little more full review of systems.) Const: Denies: fever(s), chills, body aches, change in appetite, fatigue or malaise Eyes: Denies: change in vision or blurry vision ENMT: Denies: throat pain, ear or mastoid pain, nasal discharge or nasal congestion Card: Denies: chest pain, edema, dyspnea on exertion or orthopnea Resp: Denies: dyspnea, productive cough or non-productive cough GI: Denies: abdominal pain, nausea, vomiting, hematemesis, coffee ground emesis, diarrhea, constipation, bloating, hematochezia or melena : Denies: flank pain, difficulty voiding, dysuria, urinary frequency or urinary urgency Musc: Denies: neck pain, back pain, extremity pain, extremity swelling, joint pain or joint swelling Skin/Breast: Denies: rash or pruritus Psych: Denies: anxiety, depression, loss of interest, visual hallucinations, a uditory hallucinations, suicidal ideation or homicidal ideation Endo: Denies: polyuria, polydipsia, tired all the time or cold intolerance Kristian/Lymph: Denies: easy bruising, easy bleeding, petechiae, enlarged lymph nodes or tender lymph nodes PFSH ED PFSH: Medical History Diabetes Hydronephrosis Hypertension Hypothyroid Nephrolithiasis Obesity Portal hypertension due to obstruction of extrahepatic portal vein Sleep apnea Transaminitis -noted chronic transaminitis, trending down -likely secondary to liver cirrhosis -continue to monitor Surgical History H/O hernia repair H/O lithotripsy History of cholecystectomy History of oophorectomy, unilateral Social History Smoking and tobacco status: former smoker Physical Exam Const: COMMON NORMALS: no acute distress GENERAL APPEARANCE: cooperative and comfortable HENMT: COMMON NORMALS: normocephalic, atraumatic, hearing grossly normal bilaterally and external ears normal HEAD & SCALP: normocephalic and atraumatic EXTERNAL EAR: Yes external ears normal Eye: COMMON NORMALS: Equal, round and reactive pupils present, EOMs intact bilaterally, conjunctivae normal and no scleral icterus CONJUNCTIVA: Yes conjunctivae normal PUPIL: Yes Equal, round and reactive pupils present Neck/C-Spine: COMMON NORMALS: full ROM, no lymphadenopathy, supple and no JVD Lymph: LYMPHATIC: no lymphadenopathy noted and no lymphedema noted Resp: COMMON NORMALS: normal respiratory effort, No retractions, No use of accessory muscles and clear to auscultation bilaterally AUSCULTATION: clear to auscultation bilaterally Cardio: COMMON NORMALS: no JVD, regular rate, regular rhythm and No murmurs present (Cardio) RATE: regular rate RHYTHM: regular rhythm GI: COMMON NORMALS: Soft to palpation and No hepatosplenomegaly present AUSCULTATION: Yes normoactive bowel sounds PALPATION: Yes Soft to palpation, No Tenderness to palpation present (GI), No Guarding due to palpation present (GI) and Yes No hepatosplenomegaly present Extremity: COMMON NORMALS: normal to inspection, capillary refill normal, no clubbing, cyanosis or edema, no calf tenderness and no pedal edema Skin: COMMON NORMALS: no rashes or lesions noted GENERAL SKIN EXAM: no rashes or lesions noted Course Vital Signs: Vital signs: Vital Signs Temperature 97.6 F 04/16/20 15:41 Pulse Rate 72 04/16/20 16:32 Respiratory Rate 16 04/16/20 16:32 Blood Pressure 100/58 04/16/20 15:41 Pulse Oximetry 98 04/16/20 16:32 MDM - Altered Mental Status MDM Narrative: Medical decision making narrative: Chart chest x-ray reviewed and patient has a left lower lobe pneumonia. She is not having a sign of upper GI bleeds her abdominal abdomen is nontender is mildly anemic her ammonia level is slightly elevated but very minimally so. Discussed with Dr. Young he asked for a CT of the abdomen will admit for the pneumonia and encephalopathy. Her respiratory rate and sats are normal I do not think that that is the cause of her encephalopathy at this time. Lab Data: Attestation: I reviewed the patient's lab results. Labs: Lab Results 04/16/20 04/16/20 04/16/20 Range/Units 08:55 09:06 09:06 WBC 4.4 (4.0-10.0) 10^3/ uL RBC 3.26 L (4.1-5.3) 10^6/u L Hgb 11.0 L (11.5-15.3) g/dL Hct 33.8 L (37.0-47.0) % MCV 103.7 H (81-99) fL MCH 33.7 (28.0-34.0) pg MCHC 32.5 (30.0-36.0) g/dL RDW 13.8 (12.1-15.1) % Plt Count 108 L (130-400) 10^3/c mm MPV 8.8 (7.4-10.4) fL Neut % (Auto) 61.4 % Lymph % (Auto) 13.1 % [place] % (Auto) 10.6 % Eos % (Auto) 13.3 % Baso % (Auto) 0.9 % Neut # (Auto) 2.7 (1.8-7.7) 10^3/u L Lymph # (Auto) 0.6 L (0.8-4.8) 10^3/u L [place] # (Auto) 0.5 (0.2-0.9) 10^3/u L Eos # (Auto) 0.6 (0.0-0.8) 10^3/u L Baso # (Auto) 0.0 (0.0-0.1) 10^3/u L Nucleated RBC % (a uto) 0 % Nucleated RBCs # 0.0 /100WBC Specimen Type Sample Site ABG pH (7.35-7.45) ABG pCO2 (35-45) mmHg ABG pO2 (80.0-100.0) mmH g ABG HCO3 (22-26) mmol/L ABG O2 Saturation ABG Base Excess (-2.0-2.0) mmol/ L Waqar Test A-a O2 Gradient (5-10) mmHg Hematocrit (37-47) % Hgb O2 Saturation (95-100) % Carboxyhemoglobin (0.4-20.1) %THgb Methemoglobin (0.4-1.5) % Total Hemoglobin (12-16) g/dL Ionized Calcium (1.1-1.4) mmol/L O2 Delivery Device FiO2 % Hoop Maker Helper Machine ID Sodium 135 L (136-145) mmol/L Potassium 3.9 (3.5-5.1) mmol/L Chloride 96 L (98-107) mmol/L Carbon Dioxide 24 (22-29) mmol/L Anion Gap 18.9 (5-19) BUN 38 H (8-23) mg/dL Creatinine 1.2 H (0.5-0.9) mg/dL GFR Calculation 45.2 L (90-130) mL/min Glucose 209 H (65-115) mg/dL Calculated Osmolal ity 284 L (285-295) mOsm/k g Calcium 10.4 (8.5-10.5) mg/dL Total Bilirubin 1.0 (0.15-1.2) mg/dL AST 49 H (0-32) U/L ALT 48 H (0-33) U/L Alkaline Phosphata se 226 H (35-105) IU/L Ammonia (11-51) umol/L Creatine Kinase (26-192) U/L Total Protein 7.6 (6.6-8.7) g/dL Albumin 4.0 (3.5-5.2) g/dL Globulin 3.6 (1.3-4.6) g/dL Urine Color Yellow (Yellow) Urine Appearance Sl hazy (CLEAR) Urine pH 5 (5-7) Ur Specific Gravit y 1.015 (1.005-1.030) Urine Protein Neg (Negative) Urine Glucose (UA) Norm (Normal) Urine Ketones Negative (Negative) Urine Blood Neg (Negative) Urine Nitrate Negative (Negative) Urine Bilirubin Neg (NEGATIVE) Urine Urobilinogen Norm (Negative) mg/dL Ur Leukocyte Dannielle ase Negative (Negative) Urine RBC None (0-2) /hpf Urine WBC Rare (0-5) /hpf Ur Squamous Epith Cells 5-10 H (0-5) Amorphous Sediment Not Reportable Urine Bacteria 1+ H (NONE) 04/16/20 04/16/20 04/16/20 Range/Units 09:06 09:06 11:21 WBC (4.0-10.0) 10^3/ uL RBC (4.1-5.3) 10^6/u L Hgb (11.5-15.3) g/dL Hct (37.0-47.0) % MCV (81-99) fL MCH (28.0-34.0) pg MCHC (30.0-36.0) g/dL RDW (12.1-15.1) % Plt Count (130-400) 10^3/c mm MPV (7.4-10.4) fL Neut % (Auto) % Lymph % (Auto) % [place] % (Auto) % Eos % (Auto) % Baso % (Auto) % Neut # (Auto) (1.8-7.7) 10^3/u L Lymph # (Auto) (0.8-4.8) 10^3/u L [place] # (Auto) (0.2-0.9) 10^3/u L Eos # (Auto) (0.0-0.8) 10^3/u L Baso # (Auto) (0.0-0.1) 10^3/u L Nucleated RBC % (a uto) % Nucleated RBCs # /100WBC Specimen Type Arterial Sample Site Radial, right ABG pH 7.42 (7.35-7.45) ABG pCO2 38.0 (35-45) mmHg ABG pO2 93.2 (80.0-100.0) mmH g ABG HCO3 24.6 (22-26) mmol/L ABG O2 Saturation 98.0 ABG Base Excess 0.2 (-2.0-2.0) mmol/ L Waqar Test Pos A-a O2 Gradient 8.7 (5-10) mmHg Hematocrit 35.2 L (37-47) % Hgb O2 Saturation 95.9 (95-100) % Carboxyhemoglobin 1.4 (0.4-20.1) %THgb Methemoglobin 0.7 (0.4-1.5) % Total Hemoglobin 11.5 L (12-16) g/dL Ionized Calcium 1.2 (1.1-1.4) mmol/L O2 Delivery Device None FiO2 21.0 % Hoop Maker Helper Machine ID ed Sodium 141.0 (136-145) mmol/L Potassium 4.0 (3.5-5.1) mmol/L Chloride (98-107) mmol/L Carbon Dioxide (22-29) mmol/L Anion Gap (5-19) BUN (8-23) mg/dL Creatinine (0.5-0.9) mg/dL GFR Calculation (90-130) mL/min Glucose 199.0 H (65-115) mg/dL Calculated Osmolal ity (285-295) mOsm/k g Calcium (8.5-10.5) mg/dL Total Bilirubin (0.15-1.2) mg/dL AST (0-32) U/L ALT (0-33) U/L Alkaline Phosphata se (35-105) IU/L Ammonia 69 H (11-51) umol/L Creatine Kinase 69 (26-192) U/L Total Protein (6.6-8.7) g/dL Albumin (3.5-5.2) g/dL Globulin (1.3-4.6) g/dL Urine Color (Yellow) Urine Appearance (CLEAR) Urine pH (5-7) Ur Specific Gravit y (1.005-1.030) Urine Protein (Negative) Urine Glucose (UA) (Normal) Urine Ketones (Negative) Urine Blood (Negative) Urine Nitrate (Negative) Urine Bilirubin (NEGATIVE) Urine Urobilinogen (Negative) mg/dL Ur Leukocyte Dannielle ase (Negative) Urine RBC (0-2) /hpf Urine WBC (0-5) /hpf Ur Squamous Epith Cells (0-5) Amorphous Sediment Urine Bacteria (NONE) Discharge Plan Discharge Patient Disposition: Admitted As Inpatient Admit Provider: Adam Suarez Clinical Impression: Hepatic encephalopathy, Portal vein thrombosis, Transaminitis, Left lower lobe pneumonia, Delirium due to general medical condition Condition: Stable Interventions: ED Discharge Assessment Last Done: 04/16/20 14:59 ED Charges Last Done: 04/16/20 14:59 Discharge Date/Time: 04/16/20 15:08 Coding Level of Care Code ED Delivery Rn for g Fwd Exam Comprehensive
--- NOTE | 2020-04-16 08:47 | CT_ITS ---
WS: [id number] CT HEAD NONCONTRAST HISTORY: confusion TECHNIQUE: Contiguous axial imaging performed through the brain in 2.5 mm imaging. Bone and soft tiss ue windows. Sagittal and coronal reformats reviewed. All CT scans at [facility] use at ast one of these dose optimization techniques: automated exposure control; mA and/or kV adjustment pe r patient size (includes targeted exams where dose is matched to clinical indication); or iterative r econstruction. DLP: 636.18 mGy.cm COMPARISON: 12/11/2019 No acute intracranial hemorrhage, midline shift or mass effect. Mild atrophy and mild chronic microvascular ischemic disease. No progression since the prior examinat ion. Small lacunar infarct posterior limb of the RIGHT internal capsule. Ventricles: Normal size with no hydrocephalus. Mild atherosclerosis of the intracranial carotid arteries. Paranasal sinuses: As visualized are clear. Mastoid air cells: Well pneumatized. Calvarium and scalp: Skull is intact with no soft tissue edema or swelling. CT/CT head wo con* [id number] IMPRESSION: 1. No acute intracranial hemorrhage. 2. Mild atrophy and mild chronic microvascular ischemic disease.
--- NOTE | 2020-04-16 08:47 | ECG_ITS ---
[facility] Test Date: 2020-04-16 Pat Name: Sharon Kwan Department: Room: Gender: Female [employer]: : 1955 Requested By: Jaqueline Sims Order Number: [id number] Aurelio MD: Ning Celaya M.D. Measurements Intervals [place] Rate: 69 P: 59 UT: 172 QRS: -3 QRSD: 149 T: 24 QT: 463 QTc: 496 Interpretive Statements SINUS RHYTHM WITH SINUS ARRHYTHMIA INTRAVENTRICULAR CONDUCTION DELAY [130+ ms QRS DURATION] ANTEROLATERAL MYOCARDIAL INFARCTION , PROBABLY OLD [40+ ms Q WAVE IN I/aVL/V3-V6] Compared to ECG 09/06/2019 17:22:32 Short UT interval no longer present Myocardial infarct finding still present Electronically Signed On 04-16-2020 21:51:12 CDT by Ning Celaya M.D. [id number]
[2020-04-16 09:17] LABS: Basophils % 0.9 %; Eosinophils # 0.6 10^3/uL (0.0-0.8); Eosinophils % 13.3 %; Hematocrit 33.8 % (37.0-47.0); Lymphocytes # 0.6 10^3/uL (0.8-4.8); Lymphocytes % 13.1 %; Mean Corpuscular HGB Conc 32.5 g/dL (30.0-36.0); Mean Corpuscular Hemoglobin 33.7 pg (28.0-34.0); Mean Corpuscular Volume 103.7 fL (81-99); Mean Platelet Volume 8.8 fL (7.4-10.4); Monocytes # 0.5 10^3/uL (0.2-0.9); Monocytes % 10.6 %; Neutrophils # 2.7 10^3/uL (1.8-7.7); Neutrophils % 61.4 %; Nucleated Red Blood Cells % 0 %; Platelet Count 108 10^3/cmm (130-400); Red Blood Count 3.26 10^6/uL (4.1-5.3); Red Cell Distribution Width 13.8 % (12.1-15.1); White Blood Count 4.4 10^3/uL (4.0-10.0)
[2020-04-16 09:23] LABS: Add Urine Microscopic? YES; Bilirubin Urine Neg (NEGATIVE); Blood Urine Neg (Negative); Glucose Urine UA Norm (Normal); Ketones Urine Negative (Negative); Leukocyte Esterase Urine Negative (Negative); Nitrate Urine Negative (Negative); Protein Urine Neg (Negative); Specific Gravity, Urine 1.015 (1.005-1.030); Urine Appearance SL Hazy (CLEAR); Urine Color Yellow (Yellow); Urobilinogen Urine Norm (Negative); pH Urine 5 (5-7)
[2020-04-16 09:24] LABS: Add Urine Culture? No; Bacteria Urine 1+; WBC Urine RARE /hpf (0-5)
[2020-04-16 09:30] LABS: Alanine Aminotransferase 48 U/L (0-33); Alkaline Phosphatase 226 IU/L (35-105); Ammonia 69 umol/L (11-51); Anion Gap 18.9 (5-19); Aspartate Amino Transferase 49 U/L (0-32); Blood Urea Nitrogen 38 mg/dL (8-23); Calcium 10.4 mg/dL (8.5-10.5); Carbon Dioxide 24 mmol/L (22-29); Chloride 96 mmol/L (98-107); Globulin 3.6 g/dL (1.3-4.6); Glomerular Filtration Rate 45.2 mL/min (90-130); Glucose 209 mg/dL (65-115); Osmolality Calculated 284 mOsm/kg (285-295); Potassium 3.9 mmol/L (3.5-5.1); Sodium 135 mmol/L (136-145); Total Protein 7.6 g/dL (6.6-8.7)
[2020-04-16] MEDS: sodium chloride 0.9% 1,000 ML 100 ML IV ×2 (09:31→23:39)
[2020-04-16 11:32] LABS: ABG PH Result 7.42 (7.35-7.45); Alveolar-Arterial Oxygen Gradi 8.7 mmHg (5-10); Arterial Blood Gas Hematocrit 35.2 % (37-47); Base Excess ABG 0.2 mmol/L (-2.0-2.0); Blood Gas Allen Test Pos; Blood Gas Sample Site Radial, right; Blood Gas Sample Type Arterial; Carboxyhemoglobin 1.4 %THgb (0.4-20.1); HCO3 ABG 24.6 mmol/L (22-26); HGB O2 Sat 95.9 % (95-100); Ionized Calcium Level - ABG 1.2 mmol/L (1.1-1.4); Methemoglobin 0.7 % (0.4-1.5); PO2 ABG 93.2 mmHg (80.0-100.0); Total Hemoglobin 11.5 g/dL (12-16)
[2020-04-16 11:48] LABS: Creatine Phosphokinase 69 U/L (26-192)
--- NOTE | 2020-04-16 12:59 | XRR_ITS ---
PROCEDURE INFORMATION: Exam: XR Chest, 1 View Exam date and time: 04/16/2020 1:15 PM Age: 64 years old Clinical indication: Condition or disease; Other: Ams/found on floor; Additional info: Dyspnea/cough TECHNIQUE: Imaging protocol: XR of the chest Views: 1 view. COMPARISON: CR XR chest 1V portable [id number] 12/13/2019 6:18 PM FINDINGS: Lungs: Patchy parenchymal densities are seen in the left lower lobe consistent with pneumonia. This finding is new since prior examination. Pleural space: Unremarkable. No pleural effusion. No pneumothorax. Heart/Mediastinum: Unremarkable. No cardiomegaly. Bones/joints: Unremarkable. XR/XR chest 1V portable [id number] IMPRESSION: 1. Left lower lobe pneumonia 2. Otherwise negative chest examination
--- NOTE | 2020-04-16 13:00 | CTR_ITS ---
PROCEDURE INFORMATION: Exam: CT Abdomen And Pelvis With Contrast Exam date and time: 04/16/2020 1:58 PM Age: 64 years old Clinical indication: Prior surgery; Surgery type: Gb. Hysterectomy. Colon. ; Patient HX: AMS. History of liver disease. ; Additional info: Abd pain TECHNIQUE: Imaging protocol: Computed tomography of the abdomen and pelvis with intravenous contrast. Radiation optimization: All CT scans at this facility use at least one of these dose optimization techniques: automated exposure control; mA and/or kV adjustment per patient size (includes targeted exams where dose is matched to clinical indication); or iterative reconstruction. Contrast material: VISI 320; Contrast volume: 95 ml; Contrast route: INTRAVENOUS (IV); COMPARISON: CT chest abd pel w con* 12/11/2019 10:35 PM RADIATION DOSE METRICS: Total DLP (mGy-cm): 1759.06 FINDINGS: Liver: Normal. No mass. Gallbladder and bile ducts: Normal. No calcified stones. No ductal dilation. Pancreas: Normal. No ductal dilation. Spleen: Calcified splenic granulomas. Adrenals: Normal. No mass. Kidneys and ureters: Stable [id number] right hydronephrosis with dilated proximal right ureter with no ureteral stone. Stomach and bowel: Probable anastomosis near the junction of the rectum and sigmoid colon with moderate retained feces in the rectosigmoid colon. Moderate focal diverticulosis the left lower quadrant near the junction of the descending colon and sigmoid colon. Appendix: No evidence of appendicitis. Intraperitoneal space: Unremarkable. No free air. No significant fluid collection. Vasculature: Stable metallic coiling of aneurysm or metallic postoperative change near the left debbie, between the left renal vein and the left adrenal gland. Calcification of the abdominal aorta and/or iliac arteries consistent with atherosclerotic vessel disease. Lymph nodes: Unremarkable. No enlarged lymph nodes. Bladder: Bryant balloon catheter in the urinary bladder. Reproductive: Air within the vaginal cavity and endometrial cavity suggesting possible infectious process versus other etiology. I cannot exclude occult fistula between the rectum and vagina . Bones/joints: Grade 1 anterior spondylolytic spondylolisthesis of L5 on S1. Soft tissues: Anterior abdominal wall mesh consistent with previous surgery. Other findings: Levoscoliosis. CT/CT abdomen pelvis w con* [id number] IMPRESSION: 1. Anterior abdominal wall mesh consistent with previous surgery. 2. Bryant balloon catheter in the urinary bladder. 3. Probable anastomosis near the junction of the rectum and sigmoid colon with moderate retained feces in the rectosigmoid colon. 4. Moderate focal diverticulosis the left lower quadrant near the junction of the descending colon and sigmoid colon. 5. Stable ddkw-sa-llapahol right hydronephrosis with dilated proximal right ureter with no ureteral stone. 6. Air within the vaginal cavity and endometrial cavity suggesting possible infectious process versus other etiology. I cannot exclude occult fistula between the rectum and vagina . Radiation Dose CTDIVOL = (mGy): DLP = 1759.06 (mGy-cm)
[2020-04-16] MEDS: iodixanol 320 mg/mL 100mL Btl IV (14:21)
--- NOTE | 2020-04-16 14:48 | PC.NURSE ---
Tried to call and give report. 2nd floor reported there was no nurse available to accept report from ER.
--- NOTE | 2020-04-16 15:13 | P.HP_ITS ---
Providers/Chief Complaint Admitting Physician: Adam Suarez MD Primary Care Provider: Josafat Robertson MD Chief Complaint: ams/ found on floor History of Present Illness Sharon Kwan is a 64 year old female with a past medical history of liver cirrhosis, hepatic encephalopathy on lactulose and rifaximin, portal hypertension, incomplete portal vein thrombosis, variceal bleed, history of severe blood loss anemia and hemorrhagic shock associated with variceal bleed, insulin-dependent type 2 diabetes mellitus, hypothyroidism, hypertension, bilateral extreme edema, obstructive sleep apnea, history of right-sided hydronephrosis, history of nephrolithiasis status post stenting, who presents to [facility] due to complaints of altered mental status. When asked patient why she is here she states that my old man brought me here then proceeded to [facility], she has no complaints, she does not know she is here, has no complaints, no complaints of chest pain, no shortness of breath, no lightheadedness, dizziness, no cough, no fevers, no abdominal pain, no diarrhea, no falls, no injury, no back pain, no joint pain, does complain of a headache, no blurry vision, no complaints of slurring of her speech, no facial droop, no focal neurologic deficits reported. I spoke to patient's over the phone, patient has a history of liver cirrhosis and hepatic encephalopathy, he says that typically when her ammonia levels get this high, she becomes confused, and that is why he brought her to the hospital. No recent fevers, cough, chills, no exposure to COVID-19, no recent travel, no chest pain complaints, no shortness of breath complaints, no recent falls, no recent injuries, no head trauma, no facial droop, no paralysis, slurring of her speech, no focal neur ologic deficits. Patient has been states that she has history of portal hypertension, she sees a Dr. Soto at [facility], the etiology of her cirrhosis is unclear, she is set to see a physician in [place] on May 08. Currently patient is alert oriented x2, knows her name, knows date and time, does not know where she is, remembers all her kids names, grandkids names, follows instructions. Review of Systems Const: Denies: fever(s), chills, fatigue or malaise Eyes: Denies: change in vision or blurry vision ENMT: Denies: nasal congestion Resp: Denies: dyspnea, productive cough, non-productive cough or wheezing GI: Denies: abdominal pain, nausea, vomiting, hematemesis, diarrhea, constipation, hematochezia or melena : Denies: flank pain, dysuria or urinary frequency Musc: Denies: neck pain or back pain Skin/Breast: Denies: rash Neuro: Denies: headache(s), dizziness or vertigo Psych: Denies: anxiety or depression Endo: Denies: polyuria or polydipsia Medications/Allergies Home Medications Medication Instructions Recorded Confirmed Last Taken Type Humalog U-100 Insulin See Rx Instructions .ROUTE 12/17/19 04/16/20 04/15/20 Rx .COMPLEX #1 ml Xifaxan 550 mg PO BID 30 Days #60 tab 12/17/19 04/16/20 04/15/20 Rx ferrous sulfate 325 mg PO BID 30 Days #60 tab 12/17/19 04/16/20 04/15/20 Rx insulin detemir U-100 [Levemir 12 unit SUBCUT BEDTIME #1 ml 12/17/19 04/16/20 04/15/20 Rx U-100 Insulin] lactulose 20 g PO Q6H #237 ml 12/17/19 04/16/20 04/16/20 Rx magnesium oxide [MagOx] 400 mg PO DAILY 30 Days #30 tab 12/17/19 04/16/20 04/15/20 Rx ondansetron HCl [Zofran] 4 mg PO Q8H PRN #30 tab 12/17/19 04/16/20 Unknown Rx pantoprazole [Protonix] 40 mg PO BID 30 Days #60 tab 12/17/19 04/16/20 04/15/20 Rx potassium chloride 20 meq PO DAILY 30 Days #60 tab 12/17/19 04/16/20 04/15/20 Rx tramadol [Ultram] 50 mg PO Q6H PRN #30 tab 12/17/19 04/16/20 Unknown Rx Lasix 60 mg PO BID 04/16/20 04/16/20 04/15/20 History levothyroxine 88 mcg PO DAILY 04/16/20 04/16/20 04/15/20 History metolazone 2.5 mg PO DAILY 04/16/20 04/16/20 04/15/20 History spironolactone 50 mg PO BID 04/16/20 04/16/20 04/16/20 History Allergies Allergy/AdvReac Type Severity Reaction Status Date / Time prednisone Allergy Unknown Verified 10/23/19 09:51 PFSH Acute PFSH: Medical History Diabetes Hydronephrosis Hypertension Hypothyroid Nephrolithiasis Obesity Portal hypertension due to obstruction of extrahepatic portal vein Sleep apnea Transaminitis -noted chronic transaminitis, trending down -likely secondary to liver cirrhosis -continue to monitor Surgical History H/O hernia repair H/O lithotripsy History of cholecystectomy History of oophorectomy, unilateral Social History Smoking and tobacco status: former smoker Vitals/I&O/Wt Last Vital Signs Temp 98 F 04/16/20 08:26 Pulse 73 04/16/20 14:59 Resp 18 04/16/20 14:59 BP 116/43 04/16/20 14:59 Pulse Ox 96 04/16/20 14:59 Weight last 48 hrs Weight 112.491 kg Physical Exam Const: COMMON NORMALS: no acute distress and alert GENERAL APPEARANCE: cooperative and comfortable NUTRITIONAL APPEARANCE: obese HENMT: COMMON NORMALS: normocephalic HEAD & SCALP: normocephalic Eye: COMMON NORMALS: Equal, round and reactive pupils present and EOMs intact bilaterally GENERAL EYE: appearance normal, both eyes and all related structures PUPIL: Yes Equal, round and reactive pupils present DIRECT OPHTHALMOSCOPY: Yes no papilledema Neck/C-Spine: COMMON NORMALS: full ROM, no lymphadenopathy, no JVD and Thyroid normal THYROID: Thyroid normal Lymph: LYMPHATIC: no lymphadenopathy noted Resp: COMMON NORMALS: normal respiratory effort, No retractions, No use of accessory muscles and clear to auscultation bilaterally AUSCULTATION: clear to auscultation bilaterally Cardio: COMMON NORMALS: no JVD, regular rate, regular rhythm, S1 normal heart sound present, S2 normal heart sound present, No gallops present (Cardio), No clicks present (Cardio) and No murmurs present (Cardio) RATE: regular rate RHYTHM: regular rhythm HEART SOUNDS: S1 normal heart sound present and S2 normal heart sound present GI: COMMON NORMALS: Normal to inspection, nondistended, normoactive bowel sounds present, Soft to palpation, non-tender and No hepatosplenomegaly present PALPATION: Yes Soft to palpation and Yes No hepatosplenomegaly present Extremity: COMMON NORMALS: normal to inspection, full ROM and no pedal edema Neuro: COMMON NORMALS: CN's II-XII intact bilaterally, moves all extremities and no focal motor deficits SENSORIUM/ORIENTATION: Yes alert, Yes oriented to person and Yes oriented to time Psych: COMMON NORMALS: mental status grossly normal, Normal thought process present and cooperative THOUGHT PROCESS: Normal thought process present Urinary Catheter Management^: Bryant: Cath Placed During This Visit: yes Urinary Catheter Date of Insertion: 04/16/20 Urinary Catheter Time of Insertion: 11:10 Data : 04/16/20 09:06 04/16/20 09:06 A&P Assessment and plan (1) Hepatic encephalopathy: -Ammonia levels 69 -Patient is already on lactulose, and Xifaxan, according to patient's she takes it religiously -Continue lactulose and Xifaxan, monitor lactate levels, neurochecks, aspiration precautions seizure precautions Status: Acute (2) Left lower lobe pneumonia: -No fevers, no chills, no significant leukocytosis, pro-Ronnie, CRP pending -Chest x-ray showed left lower lobe infiltrate concerning for pneumonia -Given concerns for altered mental status, started on Rocephin azithromycin, urine cultures, blood cultures, sputum cultures Status: Acute (3) Hydronephrosis: -X-ray shows stable mild to moderate right hydronephrosis with a dilated proximal right ureter with no ureteral stone Status: Acute (4) Sleep apnea: Status: Acute (5) Obesity: Status: Acute (6) Insulin dependent type 2 diabetes mellitus: -Continue home Levemir 12 units at bedtime, insulin sliding scale low-dose Status: Acute (7) Transaminitis: -AST 49, ALT 48, alk phos 226, about at baseline -Liver normal, no mass, gallbladder normal, no stones, no ductal dilatation, pancreas normal, no ductal dilatation -Continue to monitor Status: Acute (8) Portal hypertension due to obstruction of extrahepatic portal vein: Status: Acute (9) Portal vein thrombosis: Status: Acute Additional A&P Information CT scan does show air within the vaginal cavity and endometrial cavity suggesting possible infectious process versus other etiology? 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
[2020-04-16] MEDS: acetaminophen 325 mg Tablet 650 MG PO (16:04)
[2020-04-16] MEDS: lactulose oral liq 20 gm/30 mL UDC PO ×2 (16:05→21:45)
[2020-04-16] MEDS: cefTRIAXone 1,000 MG in sodium chloride 0.9% (plus) 50 ML 100 MG IV (16:05)
[2020-04-16 16:06] LABS: INR 1.25 (0.8-1.2)
[2020-04-16 16:17] LABS: Chol HDL Ratio 2.69 mg/dL (0.0-4.40); Cholesterol 202 mg/dL (0-200); HDL Cholesterol 75 mg/dL (60-100); LDL Cholesterol Calculated 116 mg/dL (50-129); LDL HDL Ratio 1.55 RATIO (0.00-3.22); Triglycerides 55 mg/dL (0-150)
[2020-04-16 16:28] LABS: Procalcitonin 0.26 ng/mL (0-0.5)
[2020-04-16] MEDS: ipratropium-albuterol 3 mL Neb INHALATION (16:30)
[2020-04-16 16:39] LABS: C Reactive Protein 3.5 mg/L (0.0-4.9)
[2020-04-16 16:42] LABS: Estmated Average Glucose 157; Hemoglobin A1C 7.1 % (4.0-6.0)
[2020-04-16] MEDS: azithromycin 500 MG in sodium chloride 0.9% 250 ML 250 MG IV (16:58)
[2020-04-16 17:30] LABS: Glucose Point of Care 203 mg/dL (70-110)
[2020-04-16] MEDS: pantoprazole DR 40 mg Tablet PO (17:45)
[2020-04-16] MEDS: ferrous sulfate EC 325 mg Tablet PO (17:45)
[2020-04-16] MEDS: ondansetron 2 mg/ML SDV 2 mL 4 MG IVP (17:51)
[2020-04-16] MEDS: TRAMadol 50 mg Tablet PO (17:52)
--- NOTE | 2020-04-16 17:53 | PC.NURSE ---
physician notified due to pt blood pressure 100/52 with lasix and spironalactone due at 1800. Dr Suarez ordered for meds to be held this dose.
[2020-04-16 21:10] LABS: Thyroid Stimulating Hormone 6.91 uIU/mL (0.27-4.20)
[2020-04-16 21:24] LABS: Glucose Point of Care 169 mg/dL (70-110)
[2020-04-17] VITALS (7 sets, daily range): BP systolic 107–130; BP diastolic 58–72; PULSE 62–80; RESP 17–20; TEMP 36.8–37.1; O2SAT 94–95
[2020-04-17] MEDS: lactulose oral liq 20 gm/30 mL UDC PO ×2 (04:08→09:04)
--- NOTE | 2020-04-17 06:00 | USR_ITS ---
PROCEDURE INFORMATION: Exam: US Pelvis Complete, Transabdominal and US Pelvis, Transvaginal Exam date and time: 04/17/2020 9:00 AM Age: 64 years old Clinical indication: Abnormal findings; Abnormal imaging test; Additional info: Air in vaginal cavity and enometrial cavity TECHNIQUE: Imaging protocol: Real-time transabdominal and transvaginal pelvic ultrasound (complete) with image documentation. Transvaginal imaging was used for better evaluation of the endometrium and adnexa. COMPARISON: CT abdomen pelvis w con* [id number] 04/16/2020 2:11 PM FINDINGS: Limitations: Technically limited study due to patient discomfort. Uterus/cervix: The uterus measures 5.8 x 4.1 x 4.6 cm. Bulky contour of the uterus. Exophytic fibroid in the anterior myometrium measuring 1.8 x 1.8 x 2.3 cm. Limited visualization of the endometrium. Echogenic foci with posterior shadowing in the endometrium. There are echogenic foci with posterior shadowing in the endometrium, likely corresponding to air noted on the previous CT scan (previous CT scan also showed air within the vaginal canal). Right adnexa: The right ovary is not definitely visualized, not an expected in a postmenopausal female. This is likely due to ovarian atrophy. No abnormal adnexal masses. Left adnexa: The left ovary is not definitely visualized, not an expected in a postmenopausal female. This is likely due to ovarian atrophy. No abnormal adnexal masses. Free fluid: No free fluid in the pelvis. Bladder: Bladder is partially decompressed by a Bryant catheter. US/US pelvic with transvaginal IMPRESSION: 1. Limited visualization of the endometrium. Echogenic foci with posterior shadowing the endometrium. There are echogenic foci with posterior shadowing in the endometrium, likely corresponding to air noted on the previous CT scan (previous CT scan also showed air within the vaginal canal). Differential diagnosis includes endometritis/vaginitis versus air secondary to recent pelvic exam. Recommend clinical correlation. 2. Exophytic fibroid in the anterior myometrium. 3. Incidental/nonacute findings are listed in the report.
[2020-04-17 07:15] LABS: Glucose Point of Care 134 mg/dL (70-110)
[2020-04-17 07:20] LABS: Basophils # 0.1 10^3/uL (0.0-0.1); Eosinophils # 0.7 10^3/uL (0.0-0.8); Eosinophils % 13.8 %; Hematocrit 31.4 % (37.0-47.0); Hemoglobin 10.1 g/dL (11.5-15.3); Lymphocytes # 0.7 10^3/uL (0.8-4.8); Lymphocytes % 13.4 %; Mean Corpuscular HGB Conc 32.2 g/dL (30.0-36.0); Mean Corpuscular Hemoglobin 34.1 pg (28.0-34.0); Mean Corpuscular Volume 106.1 fL (81-99); Monocytes # 0.5 10^3/uL (0.2-0.9); Monocytes % 10.8 %; Neutrophils % 60.8 %; Nucleated Red Blood Cells % 0 %; Platelet Count 110 10^3/cmm (130-400); Red Blood Count 2.96 10^6/uL (4.1-5.3); Red Cell Distribution Width 14.2 % (12.1-15.1)
[2020-04-17 07:44] LABS: Ammonia 68 umol/L (11-51)
[2020-04-17 07:51] LABS: Magnesium 2.6 mg/dL (1.7-2.3); Phosphorus 4.2 mg/dL (2.5-4.5)
[2020-04-17 07:52] LABS: Alanine Aminotransferase 42 U/L (0-33); Albumin Level 3.5 g/dL (3.5-5.2); Alkaline Phosphatase 203 IU/L (35-105); Anion Gap 18.6 (5-19); Aspartate Amino Transferase 45 U/L (0-32); Blood Urea Nitrogen 34 mg/dL (8-23); Calcium 9.6 mg/dL (8.5-10.5); Carbon Dioxide 24 mmol/L (22-29); Chloride 103 mmol/L (98-107); Globulin 3.3 g/dL (1.3-4.6); Glucose 122 mg/dL (65-115); Osmolality Calculated 291 mOsm/kg (285-295); Potassium 4.6 mmol/L (3.5-5.1); Sodium 141 mmol/L (136-145); Total Bilirubin 0.9 mg/dL (0.15-1.2); Total Protein 6.8 g/dL (6.6-8.7)
[2020-04-17] MEDS: FUROsemide 40 mg Tablet 60 MG PO (09:03)
[2020-04-17] MEDS: potassium chloride ER 10 mEq Tablet 20 MEQ PO (09:03)
[2020-04-17] MEDS: ferrous sulfate EC 325 mg Tablet PO (09:03)
[2020-04-17] MEDS: pantoprazole DR 40 mg Tablet PO (09:03)
[2020-04-17] MEDS: magnesium oxide 400 mg tablet PO (09:03)
[2020-04-17] MEDS: spironolactone 25 mg Tablet 50 MG PO (09:03)
[2020-04-17] MEDS: metOLazone 5 MG Tablet 2.5 MG PO (09:03)
[2020-04-17] MEDS: sodium chloride 0.9% 1,000 ML 100 ML IV (09:04)
[2020-04-17] MEDS: levothyroxine 88 mcg Tablet PO (09:04)
[2020-04-17 10:41] LABS: Glucose Point of Care 199 mg/dL (70-110)
[2020-04-17] MEDS: ondansetron 2 mg/ML SDV 2 mL 4 MG IVP (10:54)
--- NOTE | 2020-04-17 12:38 | PM.DCS ---
Discharge Providers Date of Admission: 04/16/20 13:07 Date of Discharge: April 17, 2020 Attending Provider at Admission: Adam Suarez MD Attending Provider at Discharge: Adam Suarez MD Primary Care Provider: Josafat Robertson MD Diagnoses at Discharge Discharge Diagnosis (1) Hepatic encephalopathy: Status: Acute (2) Left lower lobe pneumonia: Status: Acute (3) Hydronephrosis: Status: Acute (4) Sleep apnea: Status: Acute (5) Obesity: Status: Acute (6) Insulin dependent type 2 diabetes mellitus: Status: Acute (7) Transaminitis: Status: Acute Problem details: -noted chronic transaminitis, trending down -likely secondary to liver cirrhosis -continue to monitor (8) Portal hypertension due to obstruction of extrahepatic portal vein: Status: Acute (9) Portal vein thrombosis: Status: Acute Reason for Visit Reason for Visit: ams/ found on floor Hospital Course Discharge Summary: Sharon Kwan is a 64 year old female with a past medical history of liver cirrhosis, hepatic encephalopathy on lactulose and rifaximin, portal hypertension, incomplete portal vein thrombosis, variceal bleed, history of severe blood loss anemia and hemorrhagic shock associated with variceal bleed, insulin-dependent type 2 diabetes mellitus, hypothyroidism, hypertension, bilateral extreme edema, obstructive sleep apnea, history of right-sided hydronephrosis, history of nephrolithiasis status post stenting, who presents to [facility] due to complaints of altered mental status. Patient was admitted to [facility] for altered mental status secondary to hepatic encephalopathy, ammonia on admission was 69, immediately when I arrived in the emergency room, patient was alert oriented x3, answering most questions appropriately, during her inpatient stay she received lactulose and rifaximin, her mentation was back to baseline, had no significant complaints. Patient was discharged on increased dose of lactulose to 30 g every 6 hours, to titrate to 2-3 bowel movements a day. Discharged to home rifaximin. In addition patient was advised to follow-up with her primary teacher for schedule appointment in [place] in April Also on admission, patient was found to have a possible left lower lobe infiltrate concerning for pneumonia, no fevers, no significant leukocytosis, pro-Ronnie within normal limits, she was afebrile, did not require any oxygen. Given her altered mental status, she was treated with azithromycin and Rocephin Rocephin, and discharged on Levaquin for 5 remaining days. Patient was advised to follow-up with her primary care physician in 1 week. Physical Exam Const: COMMON NORMALS: no acute distress and patient oriented x3 HENMT: COMMON NORMALS: normocephalic HEAD & SCALP: normocephalic Neck/C-Spine: COMMON NORMALS: no JVD Resp: COMMON NORMALS: normal respiratory effort, No retractions, No use of accessory muscles and clear to auscultation bilaterally AUSCULTATION: clear to auscultation bilaterally Cardio: COMMON NORMALS: no JVD, regular rate, regular rhythm, S1 normal heart sound present and S2 normal heart sound present RATE: regular rate RHYTHM: regular rhythm HEART SOUNDS: S1 normal heart sound present and S2 normal heart sound present GI: COMMON NORMALS: Normal to inspection, nondistended, normoactive bowel sounds present, Soft to palpation, non-tender, No hepatosplenomegaly present, no masses and no bruits PALPATION: Yes Soft to palpation and Yes No hepatosplenomegaly present Extremity: COMMON NORMALS: capillary refill normal, no clubbing, cyanosis or edema, no calf tenderness and no pedal edema Neuro: COMMON NORMALS: patient oriented x3 Psych: COMMON NORMALS: mental status grossly normal Urinary Catheter Management^: Bryant: Cath Placed During This Visit: yes Reason for Continuing Indwelling Catheter: Other Urinary Catheter Date of Insertion: 04/16/20 Urinary Catheter Time of Insertion: 11:10 Discharge Data Data Completed and Pending: Completed Studies During Hospitalization Category Date Time Status CT abdomen pelvis w con* [id number] Stat Cat Scan 04/16/20 13:[address] head wo con* [id number] Urgent Cat Scan 04/16/20 08:47 Completed XR chest 1V george ble [id number] Stat Exams 04/16/20 12:59 Completed US pelvic with tr ansvaginal Routine Ultrasound 04/17/20 06:00 Completed Pending at discharge Category Date Time Status Ammonia AM LABS Lab 04/18/20 04:00 Ordered Ammonia AM LABS Lab 04/19/20 04:00 Ordered Blood Culture Sta t Lab 04/16/20 15:36 Results Magnesium AM LABS Lab 04/18/20 04:00 Ordered Magnesium AM LABS Lab 04/19/20 04:00 Ordered Phosphorus AM LAB S Lab 04/18/20 04:00 Ordered Phosphorus AM LAB S Lab 04/19/20 04:00 Ordered Sputum Culture an d Gram Stain Stat Lab 04/16/20 15:18 Uncollected Urine Culture Sta t Lab 04/16/20 15:18 Received Labs from last 24 hours 04/17/20 04/17/20 04/17/20 10:29 07:08 06:58 WBC RBC Hgb Hct MCV MCH MCHC RDW Plt Count MPV Neut % (Auto) Lymph % (Auto) [place] % (Auto) Eos % (Auto) Baso % (Auto) Neut # (Auto) Lymph # (Auto) [place] # (Auto) Eos # (Auto) Baso # (Auto) Nucleated RBC % (a uto) Nucleated RBCs # PT INR Sodium Potassium Chloride Carbon Dioxide Anion Gap BUN Creatinine GFR Calculation Glucose POC Glucose 199 134 Estimat Average Gl ucose Hemoglobin A1c Calculated Osmolal ity Calcium Phosphorus Magnesium Total Bilirubin AST ALT Alkaline Phosphata se Ammonia 68 H C-Reactive Protein Total Protein Albumin Globulin Triglycerides Cholesterol LDL Cholesterol, C alc HDL Cholesterol LDL/HDL Ratio Cholesterol/HDL Ra elvis Procalcitonin TSH 04/17/20 04/17/20 04/17/20 06:58 06:58 06:58 WBC 5.0 RBC 2.96 L Hgb 10.1 L Hct 31.4 L MCV 106.1 H MCH 34.1 H MCHC 32.2 RDW 14.2 Plt Count 110 L MPV 9.0 Neut % (Auto) 60.8 Lymph % (Auto) 13.4 [place] % (Auto) 10.8 Eos % (Auto) 13.8 Baso % (Auto) 1.0 Neut # (Auto) 3.0 Lymph # (Auto) 0.7 L [place] # (Auto) 0.5 Eos # (Auto) 0.7 Baso # (Auto) 0.1 Nucleated RBC % (a uto) 0 Nucleated RBCs # 0.0 PT INR Sodium 141 Potassium 4.6 Chloride 103 Carbon Dioxide 24 Anion Gap 18.6 BUN 34 H Creatinine 1.1 H GFR Calculation 50.0 L Glucose 122 H POC Glucose Estimat Average Gl ucose Hemoglobin A1c Calculated Osmolal ity 291 Calcium 9.6 Phosphorus 4.2 Magnesium 2.6 H Total Bilirubin 0.9 AST 45 H ALT 42 H Alkaline Phosphata se 203 H Ammonia C-Reactive Protein Total Protein 6.8 Albumin 3.5 Globulin 3.3 Triglycerides Cholesterol LDL Cholesterol, C alc HDL Cholesterol LDL/HDL Ratio Cholesterol/HDL Ra elvis Procalcitonin TSH 04/16/20 04/16/20 04/16/20 20:58 17:25 15:30 WBC RBC Hgb Hct MCV MCH MCHC RDW Plt Count MPV Neut % (Auto) Lymph % (Auto) [place] % (Auto) Eos % (Auto) Baso % (Auto) Neut # (Auto) Lymph # (Auto) [place] # (Auto) Eos # (Auto) Baso # (Auto) Nucleated RBC % (a uto) Nucleated RBCs # PT INR Sodium Potassium Chloride Carbon Dioxide Anion Gap BUN Creatinine GFR Calculation Glucose POC Glucose 169 203 Estimat Average Gl ucose Hemoglobin A1c Calculated Osmolal ity Calcium Phosphorus Magnesium Total Bilirubin AST ALT Alkaline Phosphata se Ammonia C-Reactive Protein 3.5 Total Protein Albumin Globulin Triglycerides Cholesterol LDL Cholesterol, C alc HDL Cholesterol LDL/HDL Ratio Cholesterol/HDL Ra elvis Procalcitonin 0.26 TSH 04/16/20 04/16/20 04/16/20 15:30 15:30 15:30 WBC RBC Hgb Hct MCV MCH MCHC RDW Plt Count MPV Neut % (Auto) Lymph % (Auto) [place] % (Auto) Eos % (Auto) Baso % (Auto) Neut # (Auto) Lymph # (Auto) [place] # (Auto) Eos # (Auto) Baso # (Auto) Nucleated RBC % (a uto) Nucleated RBCs # PT 16.10 H INR 1.25 H Sodium Potassium Chloride Carbon Dioxide Anion Gap BUN Creatinine GFR Calculation Glucose POC Glucose Estimat Average Gl ucose 157 Hemoglobin A1c 7.1 H Calculated Osmolal ity Calcium Phosphorus Magnesium Total Bilirubin AST ALT Alkaline Phosphata se Ammonia C-Reactive Protein Total Protein Albumin Globulin Triglycerides 55 Cholesterol 202 H LDL Cholesterol, C alc 116 HDL Cholesterol 75 LDL/HDL Ratio 1.55 Cholesterol/HDL Ra elvis 2.69 Procalcitonin TSH 6.91 H Vitals: Last Vital Signs Temp 98.4 F 04/17/20 11:23 Pulse 74 04/17/20 11:23 Resp 18 04/17/20 11:23 BP 107/58 04/17/20 11:23 Pulse Ox 95 04/17/20 11:23 Discharge Plan Discharge Patient Disposition: Home, Self-Care Condition: Stable Prescriptions: New levofloxacin [Levaquin] 750 mg tablet 750 mg PO DAILY 5 Days Qty: 5 RF: 0 Continued Levemir U-100 Insulin 100 unit/mL Solution 12 unit SUBCUT BEDTIME Qty: 1 RF: 0 ondansetron HCl [Zofran] 4 mg Tablet 4 mg PO Q8H PRN (Reason: Nausea) Qty: 30 RF: 0 potassium chloride 10 mEq Tablet Extended Release 20 meq PO DAILY 30 Days Qty: 60 RF: 0 tramadol [Ultram] 50 mg Tablet 50 mg PO Q6H PRN (Reason: Pain) Qty: 30 RF: 0 magnesium oxide [MagOx] 400 mg (241.3 mg magnesium) Tablet 400 mg PO DAILY 30 Days Qty: 30 RF: 0 pantoprazole [Protonix] 40 mg Tablet,Delayed Release (Dr/Ec) 40 mg PO BID 30 Days Qty: 60 RF: 0 ferrous sulfate 325 mg (65 mg iron) Tablet 325 mg PO BID 30 Days Qty: 60 RF: 0 Humalog U-100 Insulin 100 unit/mL Cartridge See Rx Instructions .ROUTE .COMPLEX Qty: 1 RF: 0 Xifaxan 550 mg Tablet 550 mg PO BID 30 Days Qty: 60 RF: 0 Lasix 40 mg tablet 60 mg PO BID RF: 0 spironolactone 25 mg tablet 50 mg PO BID RF: 0 levothyroxine 50 mcg tablet 88 mcg PO DAILY RF: 0 metolazone 2.5 mg Tablet 2.5 mg PO DAILY RF: 0 Changed lactulose 20 gram/30 mL Solution 30 g PO Q6H Qty: 237 RF: 0 Discharge Orders: Discharge Order (Routine); Ordered 04/17/20 Ordered By: Adam Suarez Other Ambulatory Orders: Ammonia (Routine) Timeframe: 1 Week Facility: [facility] - Location: Lab - Main Lab Ordered By: Adam Suarez Complete Blood Count w/Auto (Routine) Timeframe: 1 Week Location: Determined by Patient Ordered By: Adam Suarez Comprehensive Metabolic Panel (Routine) Timeframe: 1 Week Facility: [facility] - Location: Lab - Main Lab Ordered By: Adam Suarez Referrals: Josafat Robertson MD [Primary Care Provider] - 1 week Discharge Diet: Cardiac Discharge Activity: Resume usual activity Patient Instructions: Hepatic Encephalopathy (DC), Community-acquired Pneumonia (GEN) Activity Restrictions/Additional Instructions: -I have increased her dose of lactulose to 30 g every 6 hours for hepatic encephalopathy -You can reduce the dose of lactulose down to 20 g every 6 hours if you have 2-3 bowel movements a day consistently for a week -Continue Levaquin for pneumonia -Follow-up with primary care in 1 week Discharge Attestations Time Spent in Discharge Care*: less than 30 min Status at Discharge: Cognitive status at discharge: cognitively intact, Behavioral status at discharge: cooperative, Quality Metrics Clinical Quality Measures During this hospital stay, did patient experience: None Coding Level of Care Code Acute Final Tester for Chg Fwd Diagnoses Hepatic encephalopathy K72.90 Left lower lobe pneumonia J18.9 Hydronephrosis N13.30 Sleep apnea G47.30 Obesity E66.9 Insulin dependent type 2 diabetes mellitus E11.9; Z79.4 Transaminitis R74.0 Portal hypertension due to obstruction of extrahepatic portal vein K76.6; I81 Portal vein thrombosis I81
--- NOTE | 2020-04-17 14:28 | PC.CHAP ---
Pastoral Care Encounter/Spiritual Assessment Type of Contact [] Declined retail commission sales associate visit [] Patient/Family/Request visit [] Outpatient visit [] Follow-up visit [] Physician referral [] Code/Alert [X] Routine visit [] Staff referral [] Actively dying [] Patient sleeping [] Family support [] [] Out of room [] Palliative care [] [] Receiving care in room [] Pre-surgical visit [] Trauma [] Long length of stay [] ICU visit [] Other: Relational/Emotional Strength [] Patient feels connected with others/family/visitors/staff [] Distress [] Loneliness/isolation [] Abandonment Spirituality of Patient [] Person of Leti [] Attends Quaker of their Leti [] Believes in Prayer [] Reads Bible or Nondenominational materials [] There are Spiritual issues to be addressed 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 Interventions [] Prayer [] Active listening [] Non-anxious presence [] Spiritual/emotional support [] Crisis/trauma care [] Spiritual counseling [] Bereavement support [] Provided bereavement packet [] Provided Bible/devotional materials [] Provided toy/stuffed animal, coloring book to patient or family member [] Provided Communion [] Anointing/[place] [] Salvation [] Completed spiritual assessment [] Other: Impact on Illness or Injury [] Angry [] Fearful [] Anxious [] Often cries [] Exhaustion [] Unable to work [] Unable to attend adventism [] Unable to walk/stand [] Unable to read [] Unable to drive [] Unable to eat/drink [] Unable to sleep [] Unable to be with family [] Patient intubated [] Other: Summary Time spent with patient
== END 2020-04-17 16:33 | disposition home or self-care (01) | DRG 441 ==
LOC: ER 12:21 → MEDSURG 14:08
PROVIDERS: Family Medicine; Nurse Practitioner Family; Admitting Provider Family Medicine; PCP Family Medicine; Visit Provider Family Medicine
DX: K72.90 Hepatic failure, unspecified without coma (principal); J18.9 Pneumonia, unspecified organism; K76.6 Portal hypertension; Z68.41 Body mass index [BMI] 40.0-44.9, adult; N13.30 Unspecified hydronephrosis; D25.9 Leiomyoma of uterus, unspecified; Z79.4 Long term (current) use of insulin; E11.9 Type 2 diabetes mellitus without complications; E66.9 Obesity, unspecified; I10 Essential (primary) hypertension; E03.9 Hypothyroidism, unspecified; G47.33 Obstructive sleep apnea (adult) (pediatric); Z87.891 Personal history of nicotine dependence
CPT/HCPCS: 12345; 36415; 36416; 36600; 51702; 70450; 71045; 74177; 76830; 76856; 80051; 80053; 80061; 81001; 82140; 82550; 82810; 82962; 83036; 83735; 83986; 84100; 84145; 84443; 85025; 85610; 86140; 87040; 87086; 93005; 94664; 96372; 96375; 97161; 97166; 97530; 99284; J0456; J0696; J1815; J2405; J7030; J7050; Q9967

== ENCOUNTER 2020-05-25 12:28 | Observation (INO) | payer OTHER, SELFPAY ==
[2020-05-25] VITALS (8 sets, daily range): BP systolic 99–151; BP diastolic 60–99; PULSE 75–95; RESP 13–20; TEMP 36.6; O2SAT 95–97; BMI 29.1
--- NOTE | 2020-05-25 12:36 | XRR_ITS ---
PROCEDURE INFORMATION: Exam: XR Chest, 1 View Exam date and time: 05/25/2020 12:47 PM Age: 64 years old Clinical indication: Cough and dyspnea; Patient HX: C/O dyspnea and cough; . Confusion; Additional info: Dyspnea/cough TECHNIQUE: Imaging protocol: XR of the chest Views: 1 view. COMPARISON: CR XR chest 1V portable [id number] 04/16/2020 1:00 PM FINDINGS: Lungs: Unremarkable. No consolidation. Pleural space: Unremarkable. No pleural effusion. No pneumothorax. Heart/Mediastinum: Unremarkable. No cardiomegaly. Bones/joints: Unremarkable. Similar findings seen comparing to prior examination XR/XR chest 1V portable [id number] IMPRESSION: No acute findings.
--- NOTE | 2020-05-25 12:37 | ECG_ITS ---
[facility] Test Date: 2020-05-25 Pat Name: Sharon Kwan Department: Room: Gender: Female Content Developer: : 1955 Requested By: Saul Fitzpatrick Order Number: [id number] Aurelio MD: Imelda Peraza M.D. Measurements Intervals [place] Rate: 85 P: 52 MD: 136 QRS: -48 QRSD: 134 T: 30 QT: 398 QTc: 475 Interpretive Statements SINUS RHYTHM WITH MARKED SINUS ARRHYTHMIA RIGHT BUNDLE BRANCH BLOCK LEFT ANTERIOR FASCICULAR BLOCK PROBABLE SEPTAL MYOCARDIAL INFARCTION , OF INDETERMINATE AGE Compared to ECG 04/16/2020 08:47:40 Right bundle-branch block now present Left anterior fascicular block now present Intraventricular conduction delay no longer present Myocardial infarct finding still present Electronically Signed On 05-25-2020 21:45:14 CDT by Imelda Peraza M.D. [email or web address] [email or web address] health st[email or web address].[email or web address]/store/[id number]
--- NOTE | 2020-05-25 12:43 | ED_ITS ---
HPI - Altered Mental Status General: Chief Complaint: Altered Mental Status Stated Complaint: AMS N/V Time Seen by Provider: 05/25/20 12:36 History of Present Illness: HPI narrative: 64-year-old female [facility] with altered mental status. He has had hepatic encephalopathy in the past. She is not able to provide any history to me in the ER. She answers questions she is awake she is aware where she is at but cannot provide any meaningful history at all there is no family members present Report we got from EMS that she was increasingly confused today. MD complaint: altered mental status Onset (ago): hour(s) Severity: moderate Consistency of symptoms: Getting Worse Review of Systems General: Reports: ROS unobtainable due to mental status PFSH ED PFSH: Medical History Diabetes Hydronephrosis Hypertension Hypothyroid Nephrolithiasis Obesity Portal hypertension due to obstruction of extrahepatic portal vein Sleep apnea Transaminitis -noted chronic transaminitis, trending down -likely secondary to liver cirrhosis -continue to monitor Surgical History H/O hernia repair H/O lithotripsy History of cholecystectomy History of oophorectomy, unilateral Social History Smoking and tobacco status: former smoker Physical Exam Const: COMMON NORMALS: average body habitus, patient oriented x3 and alert GENERAL APPEARANCE: cooperative, comfortable and well kempt ORIENTATION/CONSCIOUSNESS: Yes oriented to person and Yes oriented to place HENMT: COMMON NORMALS: normocephalic and atraumatic HEAD & SCALP: normocephalic and atraumatic Eye: COMMON NORMALS: Equal, round and reactive pupils present, EOMs intact bilaterally, conjunctivae normal and no scleral icterus CONJUNCTIVA: Yes conjunctivae normal PUPIL: Yes Equal, round and reactive pupils present Neck/C-Spine: COMMON NORMALS: full ROM, no lymphadenopathy, supple, no meningeal signs and Thyroid normal THYROID: Thyroid normal and asymmetrical Lymph: LYMPHATIC: no lymphadenopathy noted Resp: COMMON NORMALS: normal respiratory effort, No retractions, No use of accessory muscles and clear to auscultation bilaterally AUSCULTATION: clear to auscultation bilaterally Cardio: COMMON NORMALS: regular rate and regular rhythm RATE: regular rate RHYTHM: regular rhythm HEART SOUNDS: no murmurs GI: COMMON NORMALS: Normal to inspection, nondistended, normoactive bowel sounds present, Soft to palpation and No hepatosplenomegaly present PALPATION: Yes Soft to palpation and Yes No hepatosplenomegaly present : COMMON NORMALS: Yes no CVA tenderness BLADDER/KIDNEY EXAM: Yes no CVA tenderness Back/Pelvis: COMMON NORMALS: no CVA tenderness LUMBAR SPINE/LOWER BACK: Yes normal to inspection Extremity: COMMON NORMALS: no clubbing, cyanosis or edema, no calf tenderness and no pedal edema Neuro: COMMON NORMALS: patient oriented x3 SENSORIUM/ORIENTATION: Yes alert, Yes oriented to person and Yes oriented to place MENINGEAL SIGNS: Yes no meningeal signs Psych: APPEARANCE: Yes well kempt Skin: COMMON NORMALS: no rashes or lesions noted and turgor normal GENERAL SKIN EXAM: no rashes or lesions noted and turgor normal Course Vital Signs: Vital signs: Vital Signs Temperature 98.7 F 05/27/20 16:03 Pulse Rate 66 05/27/20 16:03 Respiratory Rate 16 05/27/20 16:03 Blood Pressure 96/58 05/27/20 16:03 Pulse Oximetry 97 05/27/20 16:03 MDM - Altered Mental Status MDM Narrative: Medical decision making narrative: Admit for altered mental status. Her ammonia is elevated her states she missed her last 2 doses of lactulose suspect this will resolve relatively quickly discussed with Dr. jack sanchez Lab Data: Labs: Lab Results 05/25/20 05/25/20 05/25/20 Range/Units 12:58 12:59 12:59 WBC (4.0-10.0) 10^3/ uL RBC (4.1-5.3) 10^6/u L Hgb (11.5-15.3) g/dL Hct (37.0-47.0) % MCV (81-99) fL MCH (28.0-34.0) pg MCHC (30.0-36.0) g/dL RDW (12.1-15.1) % Plt Count (130-400) 10^3/c mm MPV (7.4-10.4) fL Neut % (Auto) % Lymph % (Auto) % Haralson % (Auto) % Eos % (Auto) % Baso % (Auto) % Neut # (Auto) (1.8-7.7) 10^3/u L Lymph # (Auto) (0.8-4.8) 10^3/u L [place]on # (Auto) (0.2-0.9) 10^3/u L Eos # (Auto) (0.0-0.8) 10^3/u L Baso # (Auto) (0.0-0.1) 10^3/u L Nucleated RBC % (a uto) % Nucleated RBCs # /100WBC Specimen Type Arterial Sample Site Radial, right ABG pH 7.47 H (7.35-7.45) ABG pCO2 34.4 L (35-45) mmHg ABG pO2 81.5 (80.0-100.0) mmH g ABG HCO3 25.0 (22-26) mmol/L ABG O2 Saturation 96.8 ABG Base Excess 1.8 (-2.0-2.0) mmol/ L Waqar Test Pos A-a O2 Gradient 3.3 L (5-10) mmHg Hematocrit 47.2 H (37-47) % Hgb O2 Saturation 94.7 L (95-100) % Carboxyhemoglobin 1.3 (0.4-20.1) %THgb Methemoglobin 0.8 (0.4-1.5) % Total Hemoglobin 15.4 (12-16) g/dL Sodium 140.0 (131-143) mmol/L Potassium 4.6 (3.5-5.0) mmol/L Glucose 276.0 H (70-115) mg/dL Ionized Calcium 1.2 (1.1-1.4) mmol/L O2 Delivery Device Room air Desizing Machine Back Tender ID [place] Chloride (98-107) mmol/L Carbon Dioxide (22-29) mmol/L Anion Gap (5-19) BUN (8-23) mg/dL Creatinine (0.5-0.9) mg/dL GFR Calculation (90-130) mL/min Calculated Osmolal ity (285-295) mOsm/k g Lactic Acid 2.8 H (0.5-2.2) mmol/L Lactic Acid (Sepsi s) (0.5-2.2) mmol/L Calcium (8.5-10.5) mg/dL Total Bilirubin (0.15-1.2) mg/dL AST (0-32) U/L ALT (0-33) U/L Alkaline Phosphata se (35-105) IU/L Ammonia 71 H (11-51) umol/L Creatine Kinase (26-192) U/L Troponin T Baselin e (0-10) ng/L Troponin T 120 Min [place] (0-10) ng/L Delta Troponin T (0-10) ABS# Total Protein (6.6-8.7) g/dL Albumin (3.5-5.2) g/dL Globulin (1.3-4.6) g/dL Lipase (13-60) U/L Urine Color (Yellow) Urine Appearance (CLEAR) Urine pH (5-7) Ur Specific Gravit y (1.005-1.030) Urine Protein (Negative) Urine Glucose (UA) (Normal) Urine Ketones (Negative) Urine Blood (Negative) Urine Nitrate (Negative) Urine Bilirubin (NEGATIVE) Urine Urobilinogen (Negative) mg/dL Ur Leukocyte Dannielle ase (Negative) Serum Ketones (Negative) 05/25/20 05/25/20 05/25/20 Range/Units 12:59 12:59 12:59 WBC 4.9 (4.0-10.0) 10^3/ uL RBC 4.53 (4.1-5.3) 10^6/u L Hgb 15.1 (11.5-15.3) g/dL Hct 45.0 (37.0-47.0) % MCV 99.3 H (81-99) fL MCH 33.3 (28.0-34.0) pg MCHC 33.6 (30.0-36.0) g/dL RDW 12.4 (12.1-15.1) % Plt Count 111 L (130-400) 10^3/c mm MPV 9.1 (7.4-10.4) fL Neut % (Auto) 68.0 % Lymph % (Auto) 15.3 % Haralson % (Auto) 10.1 % Eos % (Auto) 5.6 % Baso % (Auto) 0.8 % Neut # (Auto) 3.30 (1.8-7.7) 10^3/u L Lymph # (Auto) 0.7 L (0.8-4.8) 10^3/u L [place]on # (Auto) 0.5 (0.2-0.9) 10^3/u L Eos # (Auto) 0.3 (0.0-0.8) 10^3/u L Baso # (Auto) 0.0 (0.0-0.1) 10^3/u L Nucleated RBC % (a uto) 0 % Nucleated RBCs # 0.0 /100WBC Specimen Type Sample Site ABG pH (7.35-7.45) ABG pCO2 (35-45) mmHg ABG pO2 (80.0-100.0) mmH g ABG HCO3 (22-26) mmol/L ABG O2 Saturation ABG Base Excess (-2.0-2.0) mmol/ L Waqar Test A-a O2 Gradient (5-10) mmHg Hematocrit (37-47) % Hgb O2 Saturation (95-100) % Carboxyhemoglobin (0.4-20.1) %THgb Methemoglobin (0.4-1.5) % Total Hemoglobin (12-16) g/dL Sodium 133 L (131-143) mmol/L Potassium 4.7 (3.5-5.0) mmol/L Glucose 280 H (70-115) mg/dL Ionized Calcium (1.1-1.4) mmol/L O2 Delivery Device Desizing Machine Back Tender ID Chloride 96 L (98-107) mmol/L Carbon Dioxide 25 (22-29) mmol/L Anion Gap 16.7 (5-19) BUN 40 H (8-23) mg/dL Creatinine 1.8 H (0.5-0.9) mg/dL GFR Calculation 28.3 L (90-130) mL/min Calculated Osmolal ity 284 L (285-295) mOsm/k g Lactic Acid (0.5-2.2) mmol/L Lactic Acid (Sepsi s) (0.5-2.2) mmol/L Calcium 10.0 (8.5-10.5) mg/dL Total Bilirubin 1.7 H (0.15-1.2) mg/dL AST 81 H (0-32) U/L ALT 77 H (0-33) U/L Alkaline Phosphata se 237 H (35-105) IU/L Ammonia (11-51) umol/L Creatine Kinase 47 (26-192) U/L Troponin T Baselin e (0-10) ng/L Troponin T 120 Min [place] (0-10) ng/L Delta Troponin T (0-10) ABS# Total Protein 8.8 H (6.6-8.7) g/dL Albumin 3.9 (3.5-5.2) g/dL Globulin 4.9 H (1.3-4.6) g/dL Lipase 46 (13-60) U/L Urine Color (Yellow) Urine Appearance (CLEAR) Urine pH (5-7) Ur Specific Gravit y (1.005-1.030) Urine Protein (Negative) Urine Glucose (UA) (Normal) Urine Ketones (Negative) Urine Blood (Negative) Urine Nitrate (Negative) Urine Bilirubin (NEGATIVE) Urine Urobilinogen (Negative) mg/dL Ur Leukocyte Dannielle ase (Negative) Serum Ketones Negative (Negative) 05/25/20 05/25/20 05/25/20 Range/Units 12:59 13:20 15:19 WBC (4.0-10.0) 10^3/ uL RBC (4.1-5.3) 10^6/u L Hgb (11.5-15.3) g/dL Hct (37.0-47.0) % MCV (81-99) fL MCH (28.0-34.0) pg MCHC (30.0-36.0) g/dL RDW (12.1-15.1) % Plt Count (130-400) 10^3/c mm MPV (7.4-10.4) fL Neut % (Auto) % Lymph % (Auto) % [place] % (Auto) % Eos % (Auto) % Baso % (Auto) % Neut # (Auto) (1.8-7.7) 10^3/u L Lymph # (Auto) (0.8-4.8) 10^3/u L [place] # (Auto) (0.2-0.9) 10^3/u L Eos # (Auto) (0.0-0.8) 10^3/u L Baso # (Auto) (0.0-0.1) 10^3/u L Nucleated RBC % (a uto) % Nucleated RBCs # /100WBC Specimen Type Sample Site ABG pH (7.35-7.45) ABG pCO2 (35-45) mmHg ABG pO2 (80.0-100.0) mmH g ABG HCO3 (22-26) mmol/L ABG O2 Saturation ABG Base Excess (-2.0-2.0) mmol/ L Waqar Test A-a O2 Gradient (5-10) mmHg Hematocrit (37-47) % Hgb O2 Saturation (95-100) % Carboxyhemoglobin (0.4-20.1) %THgb Methemoglobin (0.4-1.5) % Total Hemoglobin (12-16) g/dL Sodium (131-143) mmol/L Potassium (3.5-5.0) mmol/L Glucose (70-115) mg/dL Ionized Calcium (1.1-1.4) mmol/L O2 Delivery Device Desizing Machine Back Tender ID Chloride (98-107) mmol/L Carbon Dioxide (22-29) mmol/L Anion Gap (5-19) BUN (8-23) mg/dL Creatinine (0.5-0.9) mg/dL GFR Calculation (90-130) mL/min Calculated Osmolal ity (285-295) mOsm/k g Lactic Acid (0.5-2.2) mmol/L Lactic Acid (Sepsi s) (0.5-2.2) mmol/L Calcium (8.5-10.5) mg/dL Total Bilirubin (0.15-1.2) mg/dL AST (0-32) U/L ALT (0-33) U/L Alkaline Phosphata se (35-105) IU/L Ammonia (11-51) umol/L Creatine Kinase (26-192) U/L Troponin T Baselin e 41 H (0-10) ng/L Troponin T 120 Min [place] 40.59 H (0-10) ng/L Delta Troponin T -0.41 L (0-10) ABS# Total Protein (6.6-8.7) g/dL Albumin (3.5-5.2) g/dL Globulin (1.3-4.6) g/dL Lipase (13-60) U/L Urine Color Yellow (Yellow) Urine Appearance Clear (CLEAR) Urine pH 6 (5-7) Ur Specific Gravit y 1.015 (1.005-1.030) Urine Protein Neg (Negative) Urine Glucose (UA) Norm (Normal) Urine Ketones Negative (Negative) Urine Blood Neg (Negative) Urine Nitrate Negative (Negative) Urine Bilirubin Neg (NEGATIVE) Urine Urobilinogen Neg (Negative) mg/dL Ur Leukocyte Dannielle ase Negative (Negative) Serum Ketones (Negative) 05/25/20 Range/Units 15:57 WBC (4.0-10.0) 10^3/ uL RBC (4.1-5.3) 10^6/u L Hgb (11.5-15.3) g/dL Hct (37.0-47.0) % MCV (81-99) fL MCH (28.0-34.0) pg MCHC (30.0-36.0) g/dL RDW (12.1-15.1) % Plt Count (130-400) 10^3/c mm MPV (7.4-10.4) fL Neut % (Auto) % Lymph % (Auto) % [place] % (Auto) % Eos % (Auto) % Baso % (Auto) % Neut # (Auto) (1.8-7.7) 10^3/u L Lymph # (Auto) (0.8-4.8) 10^3/u L [place] # (Auto) (0.2-0.9) 10^3/u L Eos # (Auto) (0.0-0.8) 10^3/u L Baso # (Auto) (0.0-0.1) 10^3/u L Nucleated RBC % (a uto) % Nucleated RBCs # /100WBC Specimen Type Sample Site ABG pH (7.35-7.45) ABG pCO2 (35-45) mmHg ABG pO2 (80.0-100.0) mmH g ABG HCO3 (22-26) mmol/L ABG O2 Saturation ABG Base Excess (-2.0-2.0) mmol/ L Waqar Test A-a O2 Gradient (5-10) mmHg Hematocrit (37-47) % Hgb O2 Saturation (95-100) % Carboxyhemoglobin (0.4-20.1) %THgb Methemoglobin (0.4-1.5) % Total Hemoglobin (12-16) g/dL Sodium (131-143) mmol/L Potassium (3.5-5.0) mmol/L Glucose (70-115) mg/dL Ionized Calcium (1.1-1.4) mmol/L O2 Delivery Device Desizing Machine Back Tender ID Chloride (98-107) mmol/L Carbon Dioxide (22-29) mmol/L Anion Gap (5-19) BUN (8-23) mg/dL Creatinine (0.5-0.9) mg/dL GFR Calculation (90-130) mL/min Calculated Osmolal ity (285-295) mOsm/k g Lactic Acid (0.5-2.2) mmol/L Lactic Acid (Sepsi s) 2.5 H (0.5-2.2) mmol/L Calcium (8.5-10.5) mg/dL Total Bilirubin (0.15-1.2) mg/dL AST (0-32) U/L ALT (0-33) U/L Alkaline Phosphata se (35-105) IU/L Ammonia (11-51) umol/L Creatine Kinase (26-192) U/L Troponin T Baselin e (0-10) ng/L Troponin T 120 Min [place] (0-10) ng/L Delta Troponin T (0-10) ABS# Total Protein (6.6-8.7) g/dL Albumin (3.5-5.2) g/dL Globulin (1.3-4.6) g/dL Lipase (13-60) U/L Urine Color (Yellow) Urine Appearance (CLEAR) Urine pH (5-7) Ur Specific Gravit y (1.005-1.030) Urine Protein (Negative) Urine Glucose (UA) (Normal) Urine Ketones (Negative) Urine Blood (Negative) Urine Nitrate (Negative) Urine Bilirubin (NEGATIVE) Urine Urobilinogen (Negative) mg/dL Ur Leukocyte Dannielle ase (Negative) Serum Ketones (Negative) Discharge Plan Discharge Patient Disposition: Admitted As Inpatient Admit Provider: Nicole Romano Clinical Impression: Hepatic encephalopathy, Portal hypertension due to obstruction of extrahepatic portal vein, Portal vein thrombosis, Hypertension, Hypothyroid, Diabetes, Obesity Condition: Stable Discharge Diet: Usual diet and Diabetic Discharge Activity: Resume usual activity Interventions: ED Discharge Assessment Last Done: 05/25/20 18:53 ED Charges Last Done: 05/25/20 18:53 Discharge Date/Time: 05/25/20 18:54 Coding Level of Care Code ED Conservation Scientist for Chg Fwd Exam Comprehensive
[2020-05-25 13:05] LABS: Basophils % 0.8 %; Eosinophils # 0.3 10^3/uL (0.0-0.8); Eosinophils % 5.6 %; Hemoglobin 15.1 g/dL (11.5-15.3); Lymphocytes # 0.7 10^3/uL (0.8-4.8); Lymphocytes % 15.3 %; Mean Corpuscular HGB Conc 33.6 g/dL (30.0-36.0); Mean Corpuscular Hemoglobin 33.3 pg (28.0-34.0); Mean Corpuscular Volume 99.3 fL (81-99); Mean Platelet Volume 9.1 fL (7.4-10.4); Monocytes # 0.5 10^3/uL (0.2-0.9); Monocytes % 10.1 %; Nucleated Red Blood Cells % 0 %; Platelet Count 111 10^3/cmm (130-400); Red Blood Count 4.53 10^6/uL (4.1-5.3); Red Cell Distribution Width 12.4 % (12.1-15.1); White Blood Count 4.9 10^3/uL (4.0-10.0)
[2020-05-25 13:12] LABS: ABG PCO2 34.4 mmHg (35-45); ABG PH Result 7.47 (7.35-7.45); Alveolar-Arterial Oxygen Gradi 3.3 mmHg (5-10); Arterial Blood Gas Hematocrit 47.2 % (37-47); Base Excess ABG 1.8 mmol/L (-2.0-2.0); Blood Gas Allen Test Pos; Blood Gas Operator Identificat MONRO; Blood Gas Sample Site Radial, right; Blood Gas Sample Type Arterial; Carboxyhemoglobin 1.3 %THgb (0.4-20.1); HGB O2 Sat 94.7 % (95-100); Ionized Calcium Level - ABG 1.2 mmol/L (1.1-1.4); Methemoglobin 0.8 % (0.4-1.5); Oxygen Device ROOM AIR; Oxygen Saturation ABG 96.8; PO2 ABG 81.5 mmHg (80.0-100.0); Potassium Level - ABG 4.6 mmol/L (3.5-5.0); Total Hemoglobin 15.4 g/dL (12-16)
[2020-05-25 13:22] LABS: Alanine Aminotransferase 77 U/L (0-33); Albumin Level 3.9 g/dL (3.5-5.2); Alkaline Phosphatase 237 IU/L (35-105); Anion Gap 16.7 (5-19); Aspartate Amino Transferase 81 U/L (0-32); Blood Urea Nitrogen 40 mg/dL (8-23); Carbon Dioxide 25 mmol/L (22-29); Chloride 96 mmol/L (98-107); Creatine Phosphokinase 47 U/L (26-192); Globulin 4.9 g/dL (1.3-4.6); Glomerular Filtration Rate 28.3 mL/min (90-130); Glucose 280 mg/dL (65-115); Lipase 46 U/L (13-60); Osmolality Calculated 284 mOsm/kg (285-295); Potassium 4.7 mmol/L (3.5-5.1); Sodium 133 mmol/L (136-145); Total Bilirubin 1.7 mg/dL (0.15-1.2); Total Protein 8.8 g/dL (6.6-8.7)
[2020-05-25 13:23] LABS: Ammonia 71 umol/L (11-51); Lactic Sepsis W/Reflex 2.8 mmol/L (0.5-2.2)
[2020-05-25 13:25] LABS: Troponin(5th) Baseline 41 ng/L (0-10)
[2020-05-25 13:33] LABS: Ketone (Acetest) Serum Negative (Negative)
[2020-05-25 13:37] LABS: Add Urine Microscopic? NO
[2020-05-25 13:42] LABS: Bilirubin Urine Neg (NEGATIVE); Blood Urine Neg (Negative); Glucose Urine UA Norm (Normal); Ketones Urine Negative (Negative); Leukocyte Esterase Urine Negative (Negative); Nitrate Urine Negative (Negative); Protein Urine Neg (Negative); Specific Gravity, Urine 1.015 (1.005-1.030); Urine Appearance Clear (CLEAR); Urine Color Yellow (Yellow); Urobilinogen Urine Neg (Negative); pH Urine 6 (5-7)
--- NOTE | 2020-05-25 14:31 | CT_ITS ---
WS: [id number] CT HEAD NONCONTRAST HISTORY: altered mental status TECHNIQUE: Contiguous axial imaging performed through the brain in 2.5 mm imaging. Bone and soft tiss ue windows. Sagittal and coronal reformats reviewed. All CT scans at [facility] use at ast one of these dose optimization techniques: automated exposure control; mA and/or kV adjustment pe r patient size (includes targeted exams where dose is matched to clinical indication); or iterative r econstruction. DLP: 663.22 mGy.cm COMPARISON: 04/16/2020 No acute intracranial hemorrhage, midline shift or mass effect. Very mild atrophy and chronic microvascular ischemic disease. No prior infarcts. Ventricles: Normal size with no hydrocephalus. Mildly ectatic intracranial carotid arteries, greatest on the RIGHT cavernous sinuses. Paranasal sinuses: As visualized are clear. Mastoid air cells: Well pneumatized. Calvarium and scalp: Skull is intact with no soft tissue edema or swelling. CT/CT head wo con* [id number] IMPRESSION: No acute intracranial hemorrhage or edema. Stable noncontrast head CT.
--- NOTE | 2020-05-25 14:37 | ECG_ITS ---
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 Measurements Intervals [place] Rate: 84 P: 61 AL: 144 QRS: -50 QRSD: 131 T: 34 QT: 399 QTc: 472 Interpretive Statements SINUS RHYTHM WITH MARKED SINUS ARRHYTHMIA RIGHT BUNDLE BRANCH BLOCK LEFT ANTERIOR FASCICULAR BLOCK [QRS AXIS <= -45, QR IN I, RS IN II] POSSIBLE SEPTAL MYOCARDIAL INFARCTION , OF INDETERMINATE AGE [30 ms Q WAVE IN V1/V2] Compared to ECG 05/25/2020 13:00:51 No significant changes Electronically Signed On 05-25-2020 21:46:22 CDT by Imelda Peraza M.D. [id number]
[2020-05-25 14:49] LABS: Reflex Lactate Order REFLEX LACTIC ORDERD
--- NOTE | 2020-05-25 15:16 | CTR_ITS ---
PROCEDURE INFORMATION: Exam: CT Abdomen And Pelvis Without Contrast Exam date and time: 05/25/2020 4:49 PM Age: 64 years old Clinical indication: Bloating; Abdominal pain; Prior surgery; Surgery type: Bowel resection; Additional info: Abd pain TECHNIQUE: Imaging protocol: Computed tomography of the abdomen and pelvis without contrast. Radiation optimization: All CT scans at this facility use at least one of these dose optimization techniques: automated exposure control; mA and/or kV adjustment per patient size (includes targeted exams where dose is matched to clinical indication); or iterative reconstruction. COMPARISON: 1. CT abdomen pelvis w con* [id number] 04/16/2020 2:[address] chest abd pel w con* 12/11/2019 10:35:23 PM RADIATION DOSE METRICS: Total DLP (mGy-cm): 1181.03 FINDINGS: Limitations: The absence of intravenous contrast lessens the sensitivity of this study for solid organ abnormalities. Mediastinal space: There is a small hiatal hernia. Liver: There is no focal abnormality within the liver. Gallbladder and bile ducts: Normal. No calcified stones. No ductal dilation. Pancreas: The pancreas is normal. Spleen: The spleen demonstrates punctate calcifications, consistent with remote granulomatous organism exposure. Adrenals: The adrenal glands are normal. Kidneys and ureters: There is a right renal collecting system calcification. There is mild right hydronephrosis. The right hydronephrosis is increased compared with previous. There is mild dilatation proximal right ureter. There is no stone along the course of either ureter. The left kidney is normal. Stomach and bowel: There is moderate amount of feces throughout the colon which could represent some constipation. Please correlate with the clinical findings. Appendix: Not identifiedThere is no evidence of colitis/diverticulitis. Intraperitoneal space: Unremarkable. No free air. No significant fluid collection. Vasculature: The aorta demonstrates mild atherosclerotic calcification. There is no evidence of an abdominal aortic aneurysm. Lymph nodes: Unremarkable. No enlarged lymph nodes. Bladder: Urinary bladder is drained by Bryant catheter. Reproductive: Unremarkable as visualized. Bones/joints: The lumbar spine demonstrates moderate degenerative changes at multiple levels. There is mild lumbar scoliosis concave to the right and there is chronic appearing compression deformity of the inferior endplate L2 not significantly changed. There is bilateral L5 spondylolysis and grade 1 spondylolisthesis at L5-S1. Soft tissues: Unremarkable. Other findings: There are stable postoperative changes. CT/CT abdomen pelvis wo con [id number] IMPRESSION: 1. Question of constipation. 2. Right nephrolithiasis. 3. Mild right hydronephrosis. 4. Old granulomatous disease. 5. Stable postoperative findings. Radiation Dose CTDIVOL = (mGy): DLP = 1181.03 (mGy-cm)
[2020-05-25] MEDS: sodium chloride 0.9% 1,000 ML 999 ML IV (15:28)
[2020-05-25 15:47] LABS: Troponin 5 2HR 40.59 ng/L (0-10); Troponin 5 2HR Delta -0.41 ABS# (0-10)
[2020-05-25 16:20] LABS: Lactic Acid level (Lactate) 2.5 mmol/L (0.5-2.2)
[2020-05-25] MEDS: lactulose oral liq 20 gm/30 mL UDC 30 GM PO (18:30)
--- NOTE | 2020-05-25 18:37 | ECG_ITS ---
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 Measurements Intervals [place] Rate: 84 P: 76 NE: 167 QRS: -56 QRSD: 131 T: 47 QT: 394 QTc: 467 Interpretive Statements SINUS RHYTHM WITH marked sinus arrhythmia RIGHT BUNDLE BRANCH BLOCK [120+ ms QRS DURATION, UPRIGHT V1, 40+ ms S IN I/aVL/V4/V5/V6] LEFT ANTERIOR FASCICULAR BLOCK [QRS AXIS <= -45, QR IN I, RS IN II] POSSIBLE SEPTAL MYOCARDIAL INFARCTION , OF INDETERMINATE AGE [30 ms Q WAVE IN V1/V2] Compared to ECG 05/25/2020 14:49:44 No significant changes Electronically Signed On 05-26-2020 18:15:31 CDT by Raad Escobar M.D. [id number]
--- NOTE | 2020-05-25 19:12 | PM.HP ---
Providers/Chief Complaint Admitting Physician: Nicole Romano MD Primary Care Provider: Josafat Robertson MD Chief Complaint: AMS N/V History of Present Illness Sharon Kwan is a 64 year old female with a past medical history of liver cirrhosis, hepatic encephalopathy on lactulose and rifaximin, portal hypertension, incomplete portal vein thrombosis, variceal bleed, history of severe blood loss anemia and hemorrhagic shock associated with variceal bleed, insulin-dependent type 2 diabetes mellitus, hypothyroidism, hypertension, bilateral extreme edema, obstructive sleep apnea, history of right-sided hydronephrosis, history of nephrolithiasis status post stenting, recently admitted for AMS in march 2020. She presents to [facility] today due to complaints of altered mental status, noted increasing in the NH. Unclear if she was able to get rifaximin or lactulose recently. Ammonia today is 71, she complains of some abdominal discomfort but otherwise unable to provide much history. Review of Systems General: Reports: 10 or more systems reviewed and unremarkable except in HPI and below Const: Denies: fever(s), chills or body aches Eyes: Denies: change in vision, blurry vision or photophobia ENMT: Reports: hoarseness; Denies: throat pain, enlarged tonsils, odynophagia or nasal congestion Card: Denies: chest pain, palpitations, irregular heart rhythm, edema, swelling of feet/ankles, lightheadedness, pre-syncope, dyspnea on exertion or orthopnea Resp: Denies: dyspnea, productive cough, non-productive cough, wheezing, stridor, pain on inspiration, change in phlegm color, hemoptysis or chest congestion GI: Denies: abdominal pain, nausea, vomiting, hematemesis, coffee ground emesis, dysphagia, heartburn, diarrhea, constipation, GI cramping, change in stool character, hematochezia or melena : Denies: flank pain, difficulty voiding, dysuria, urinary frequency, urinary urgency, urinary hesitancy or hematuria Musc: Denies: neck pain, back pain, extremity pain, joint swelling, joint warmth or deformity Neuro: Denies: headache(s), numbness in extremities, weakness in extremities, sensory changes, difficulty walking, frequent falls, dizziness, vertigo, behavioral changes, Slurred speech present or seizure-like activity Psych: Denies: anxiety, depression, suicidal ideation or homicidal ideation Endo: Denies: polyuria, polydipsia, tired all the time, cold intolerance or hot flashes Kristian/Lymph: Denies: easy bruising or easy bleeding Medications/Allergies Home Medications Medication Instructions Recorded Confirmed Last Taken Type Xifaxan 550 mg PO BID 30 Days #60 tab 12/17/19 05/25/20 05/25/20 Rx ferrous sulfate 325 mg PO BID 30 Days #60 tab 12/17/19 05/25/20 05/25/20 Rx magnesium oxide [MagOx] 400 mg PO DAILY 30 Days #30 tab 12/17/19 05/25/20 05/25/20 Rx pantoprazole [Protonix] 40 mg PO BID 30 Days #60 tab 12/17/19 05/25/20 05/25/20 Rx furosemide [Lasix] 60 mg PO BID 04/16/20 05/25/20 05/25/20 History metolazone 2.5 mg PO DAILY 04/16/20 05/25/20 05/25/20 History spironolactone 50 mg PO BID 04/16/20 05/25/20 05/25/20 History Zofran 4 mg PO QID PRN 05/25/20 05/25/20 Unknown History insulin detemir U-100 [Levemir 14 unit SUBCUT BEDTIME 05/25/20 05/25/20 05/24/20 History FlexTouch U-100 Insuln] insulin lispro [Humalog KwikPen See Rx Instructions .ROUTE .COMPLEX 05/25/20 05/25/20 Unknown History Insulin] insulin lispro [Humalog KwikPen See Rx Instructions .ROUTE .COMPLEX 05/25/20 05/25/20 05/25/20 History Insulin] 4 units lactulose 40 ml PO QID 05/25/20 05/25/20 05/25/20 History levothyroxine 88 mcg PO DAILY 05/25/20 05/25/20 05/25/20 History lidocaine HCl See Rx Instructions .ROUTE .COMPLEX 05/25/20 05/25/20 Unknown History [id number] See Rx Instructions .ROUTE .COMPLEX 05/25/20 05/25/20 Unknown History [Triple Antibiotic] potassium chloride 40 meq PO DAILY 05/25/20 05/25/20 05/25/20 History Allergies Allergy/AdvReac Type Severity Reaction Status Date / Time prednisone Allergy Unknown Verified 05/25/20 12:36 PFSH Acute PFSH: Medical History Diabetes Hydronephrosis Hypertension Hypothyroid Nephrolithiasis Obesity Portal hypertension due to obstruction of extrahepatic portal vein Sleep apnea Transaminitis -noted chronic transaminitis, trending down -likely secondary to liver cirrhosis -continue to monitor Surgical History H/O hernia repair H/O lithotripsy History of cholecystectomy History of oophorectomy, unilateral Social History Smoking and tobacco status: former smoker Vitals/I&O/Wt Last Vital Signs Temp 97.9 F 05/25/20 12:29 Pulse 84 05/25/20 18:53 Resp 16 05/25/20 18:53 BP 151/99 05/25/20 18:53 Pulse Ox 95 05/25/20 18:53 05/25/20 05/25/20 05/25/20 06:59 14:59 22:59 Intake Total 1000 / 1000 Balance 1000 / 1000 Weight last 48 hrs Weight 79.379 kg Physical Exam Narrative: EXAM NARRATIVE: GEN: Awake, disoriented CVS: S1S2 N RS: CTA B/L Abd: Soft, nt/nd , bs+ 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 Urinary Catheter Management^: Bryant: Cath Placed During This Visit: yes Urinary Catheter Date of Insertion: 05/25/20 Urinary Catheter Time of Insertion: 13:34 Data : 05/25/20 12:59 05/25/20 12:59 A&P Assessment and plan (1) Insulin dependent type 2 diabetes mellitus: Status: Acute (2) Sleep apnea: Status: Acute Qualifiers: Sleep apnea type: unspecified type Qualified Code(s): G47.30 - Sleep apnea, unspecified (3) Hypothyroid: Status: Acute Qualifiers: Hypothyroidism type: unspecified Qualified Code(s): E03.9 - Hypothyroidism, unspecified (4) Hypertension: Status: Acute Qualifiers: Hypertension type: essential hypertension Qualified Code(s): I10 - Essential (primary) hypertension (5) Portal hypertension due to obstruction of extrahepatic portal vein: Status: Acute (6) Portal vein thrombosis: Status: Acute (7) Hepatic encephalopathy: Status: Acute Additional A&P Information Admit to observation Altered mental status - CT head with no acute changes -ABG without hypercarbia - No fever, no neck stiffness, low suspicion for meningoencephalitis -UA without signs of UTI - likely related to hepatic encephalopathy - start lactulose + rifaximin - DM: insulin sliding scale - monitor off abx for now , CT abdomen without acute changes, known R hydronephrosis, no obstructung stone, no overt signs of sepsis otherwise. No significant ascites Full code DVT ppx: SCDs for now given h/o variceal bleeding Attestations Medical Necessity Statement*: less than 2 midnight anticipated Coding Level of Care Code Acute Quantitative Software Engineer for Chg Fwd Diagnoses Insulin dependent type 2 diabetes mellitus E11.9; Z79.4 Sleep apnea G47.30 Sleep apnea type: unspecified type Hypothyroid E03.9 Hypothyroidism type: unspecified Hypertension I10 Hypertension type: essential hypertension Portal hypertension due to obstruction of extrahepatic portal vein K76.6; I81 Portal vein thrombosis I81 Hepatic encephalopathy K72.90
[2020-05-25 19:48] LABS: Troponin 5 6HR 38.02 ng/L (0-10)
[2020-05-25 19:53] LABS: Troponin 5 6HR Delta -2.98 ng/L (0-12)
[2020-05-25 20:21] LABS: Glucose Point of Care 328 mg/dL (70-110)
[2020-05-25] MEDS: sodium chloride 0.9% 1,000 ML 50 ML IV (21:55)
[2020-05-25] MEDS: lactulose oral liq 20 gm/30 mL UDC 26.66666 GM PO (21:56)
[2020-05-26] VITALS (8 sets, daily range): BP systolic 112–128; BP diastolic 63–77; PULSE 74–93; RESP 16–20; TEMP 36.6–37.2; O2SAT 94–97
[2020-05-26 03:52] LABS: Basophils # 0.1 10^3/uL (0.0-0.1); Basophils % 1.2 %; Eosinophils # 0.3 10^3/uL (0.0-0.8); Eosinophils % 6.3 %; Hemoglobin 13.2 g/dL (11.5-15.3); Lymphocytes # 1.1 10^3/uL (0.8-4.8); Mean Platelet Volume 9.5 fL (7.4-10.4); Monocytes # 0.6 10^3/uL (0.2-0.9); Monocytes % 12.4 %; Neutrophils # 2.96 10^3/uL (1.8-7.7); Neutrophils % 57.9 %; Nucleated Red Blood Cells % 0 %; Platelet Count 108 10^3/cmm (130-400); Red Cell Distribution Width 12.4 % (12.1-15.1); White Blood Count 5.1 10^3/uL (4.0-10.0)
[2020-05-26 04:26] LABS: Alanine Aminotransferase 62 U/L (0-33); Albumin Level 3.5 g/dL (3.5-5.2); Alkaline Phosphatase 206 IU/L (35-105); Aspartate Amino Transferase 62 U/L (0-32); Blood Urea Nitrogen 38 mg/dL (8-23); Carbon Dioxide 24 mmol/L (22-29); Chloride 105 mmol/L (98-107); Globulin 3.8 g/dL (1.3-4.6); Glomerular Filtration Rate 37.9 mL/min (90-130); Glucose 200 mg/dL (65-115); Osmolality Calculated 289 mOsm/kg (285-295); Sodium 138 mmol/L (136-145); Total Bilirubin 1.3 mg/dL (0.15-1.2); Total Protein 7.3 g/dL (6.6-8.7)
[2020-05-26 06:29] LABS: Glucose Point of Care 174 mg/dL (70-110)
[2020-05-26] MEDS: levothyroxine 88 mcg Tablet PO (08:19)
[2020-05-26] MEDS: metOLazone 5 MG Tablet 2.5 MG PO (08:19)
[2020-05-26] MEDS: spironolactone 25 mg Tablet 50 MG PO ×2 (08:20→18:32)
[2020-05-26] MEDS: FUROsemide 40 mg Tablet 60 MG PO ×2 (08:20→18:32)
[2020-05-26] MEDS: pantoprazole DR 40 mg Tablet PO ×2 (08:20→18:32)
[2020-05-26] MEDS: lactulose oral liq 20 gm/30 mL UDC 26.66666 GM PO ×3 (08:21→18:31)
--- NOTE | 2020-05-26 08:22 | PC.CHAP ---
Pastoral Care Encounter/Spiritual Assessment Type of Contact [] Declined date puller visit [] Patient/Family/Request visit [] Outpatient visit [] Follow-up visit [] Physician referral [] Code/Alert [x] Routine visit [] Staff referral [] Actively dying [] Patient sleeping [] Family support [] [] Out of room [] Palliative care [] [] Receiving care in room [] Pre-surgical visit [] Trauma [] Long length of stay [] ICU visit [] Other: Relational/Emotional Strength [] Patient feels connected with others/family/visitors/staff [] Distress [] Loneliness/isolation [] Abandonment Spirituality of Patient [] Person of Leti [] Attends Scientologist of their Leti [] Believes in Prayer [] Reads Bible or Confucianist materials [] There are Spiritual issues to be addressed Security Rover Interventions [x] Prayer [x] Active listening [x] Non-anxious presence [x] Spiritual/emotional support [] Crisis/trauma care [] Spiritual counseling [] Bereavement support [] Provided bereavement packet [] Provided Bible/devotional materials [] Provided toy/stuffed animal, coloring book to patient or family member [] Provided Communion [] Anointing/[place] [] Salvation [x] Completed spiritual assessment [] Other: Impact on Illness or Injury [] Angry [] Fearful [] Anxious [] Often cries [] Exhaustion [] Unable to work [] Unable to attend gnosticism [] Unable to walk/stand [] Unable to read [] Unable to drive [] Unable to eat/drink [] Unable to sleep [] Unable to be with family [] Patient intubated [] Other: Summary patient resting well. requested new body, instead we prayed for a rebuilt one Time spent with patient 10 min
[2020-05-26 10:42] LABS: Glucose Point of Care 355 mg/dL (70-110)
--- NOTE | 2020-05-26 14:33 | PM.PN ---
Subjective Subjective: Interval history: Mental status improving today. She is able to correctly tell me her name, place, does not recall events leading up to hospital admissions. Overnight had 1 large bowel movement with the lactulose. 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: no focal neuro deficits Urinary Catheter Management^: Bryant: Cath Placed During This Visit: yes Reason for Continuing Indwelling Catheter: Other Urinary Catheter Date of Insertion: 05/25/20 Urinary Catheter Time of Insertion: 13:34 Data : 05/26/20 03:37 05/26/20 03:37 A&P Assessment and plan (1) Hepatic encephalopathy: Status: Acute (2) Insulin dependent type 2 diabetes mellitus: Status: Acute (3) Sleep apnea: Status: Acute Qualifiers: Sleep apnea type: unspecified type Qualified Code(s): G47.30 - Sleep apnea, unspecified (4) Hypothyroid: Status: Acute Qualifiers: Hypothyroidism type: unspecified Qualified Code(s): E03.9 - Hypothyroidism, unspecified (5) Hypertension: Status: Acute Qualifiers: Hypertension type: essential hypertension Qualified Code(s): I10 - Essential (primary) hypertension (6) Portal hypertension due to obstruction of extrahepatic portal vein: Status: Acute (7) Portal vein thrombosis: Status: Acute Additional A&P Information Altered mental status which appears to be currently improving likely secondary to being given lactulose now and having bowel movements. - CT head with no acute changes -ABG without hypercarbia - No fever, no neck stiffness, low suspicion for meningoencephalitis -Per nurse pulled off a tick of her back today. This tick was not noted to be engorged. Patient has had no fever. We will hold off on adding any antibiotics at this present time -UA without signs of UTI - likely related to hepatic encephalopathy -continue lactulose + rifaximin, mental status is improving today -PT OT evaluation to assess for return to [facility] facility - DM: insulin sliding scale - monitor off abx for now , CT abdomen without acute changes, known R hydronephrosis, no obstructung stone, no overt signs of sepsis otherwise. No significant ascites Full code DVT ppx: SCDs for now given h/o variceal bleeding Attestations Medical Necessity Statement*: Mental status continues to improve. Ongoing need for further lactulose to ensure she is having bowel movements. PT assessment prior to discharge back to assisted living. Coding Level of Care Code Acute Fender Mechanic Apprentice for Graceg Pérezd Diagnoses Hepatic encephalopathy K72.90 Insulin dependent type 2 diabetes mellitus E11.9; Z79.4 Sleep apnea G47.30 Sleep apnea type: unspecified type Hypothyroid E03.9 Hypothyroidism type: unspecified Hypertension I10 Hypertension type: essential hypertension Portal hypertension due to obstruction of extrahepatic portal vein K76.6; I81 Portal vein thrombosis I81
[2020-05-26] MEDS: sodium chloride 0.9% 1,000 ML 50 ML IV (14:38)
[2020-05-26 17:09] LABS: Glucose Point of Care 441 mg/dL (70-110); Glucose Point of Care 490 mg/dL (70-110)
--- NOTE | 2020-05-26 18:43 | PC.NURSE ---
PT HAS BEEN ALERT AND ORIENTED X4 ALL DAY, NO COMPLAINTS OF PAIN OR DISCOMFORT. PT WORKED WITH PT AND DONE WELL WITH WALKER WALKING DOWN THE ADAMES AND TO THE BATHROOM WITH JUST A SMALL AMOUNT OF ASSISTANCE STANDING. PT HAD A LARGE BM AND HAS DARK TEA COLORED URINE THAT DR ALFORD IS AWARE OF. PT ALSO HAD A LARGE TICK REMOVED FROM RIGHT UPPER BACK, DR DEE MADE AWARE OF THIS WELL. SPOKE WITH THIS EVENING DURING VISITOR HOURS WHO STATED HE FEELS THOUGH SHE IS BACK TO HER NORMAL . PT HAS HAD A BLOOD SUGAR OF 441 FOR DINNER AND NOTIF[address] DR ALFORD, SHE RECEIVED 16 UNITS PER SLIDING SCALE.
[2020-05-26 20:48] LABS: Glucose Point of Care 355 mg/dL (70-110)
[2020-05-27] VITALS (7 sets, daily range): BP systolic 96–119; BP diastolic 58–73; PULSE 64–68; RESP 16–19; TEMP 36.6–37.1; O2SAT 96–97
[2020-05-27] MEDS: lactulose oral liq 20 gm/30 mL UDC 26.66666 GM PO ×3 (00:15→14:04)
[2020-05-27 05:51] LABS: Basophils # 0.1 10^3/uL (0.0-0.1); Basophils % 1.4 %; Eosinophils # 0.4 10^3/uL (0.0-0.8); Hematocrit 40.1 % (37.0-47.0); Hemoglobin 13.2 g/dL (11.5-15.3); Lymphocytes # 1.2 10^3/uL (0.8-4.8); Lymphocytes % 25.4 %; Mean Corpuscular HGB Conc 32.9 g/dL (30.0-36.0); Mean Corpuscular Hemoglobin 32.8 pg (28.0-34.0); Mean Corpuscular Volume 99.8 fL (81-99); Mean Platelet Volume 9.4 fL (7.4-10.4); Monocytes # 0.6 10^3/uL (0.2-0.9); Monocytes % 11.7 %; Neutrophils # 2.56 10^3/uL (1.8-7.7); Neutrophils % 52.3 %; Nucleated Red Blood Cells % 0 %; Platelet Count 96 10^3/cmm (130-400); Red Blood Count 4.02 10^6/uL (4.1-5.3); Red Cell Distribution Width 12.3 % (12.1-15.1); White Blood Count 4.9 10^3/uL (4.0-10.0)
[2020-05-27 06:21] LABS: Glucose Point of Care 289 mg/dL (70-110)
[2020-05-27 06:28] LABS: Alanine Aminotransferase 70 U/L (0-33); Albumin Level 3.2 g/dL (3.5-5.2); Alkaline Phosphatase 210 IU/L (35-105); Anion Gap 12.3 (5-19); Aspartate Amino Transferase 75 U/L (0-32); Blood Urea Nitrogen 35 mg/dL (8-23); Calcium 9.5 mg/dL (8.5-10.5); Carbon Dioxide 27 mmol/L (22-29); Chloride 96 mmol/L (98-107); Globulin 3.5 g/dL (1.3-4.6); Glomerular Filtration Rate 37.9 mL/min (90-130); Glucose 243 mg/dL (65-115); Osmolality Calculated 277 mOsm/kg (285-295); Potassium 4.3 mmol/L (3.5-5.1); Sodium 131 mmol/L (136-145); Total Bilirubin 1.2 mg/dL (0.15-1.2); Total Protein 6.7 g/dL (6.6-8.7)
[2020-05-27] MEDS: metOLazone 5 MG Tablet 2.5 MG PO (08:43)
[2020-05-27] MEDS: pantoprazole DR 40 mg Tablet PO (08:44)
[2020-05-27] MEDS: FUROsemide 40 mg Tablet 60 MG PO (08:44)
[2020-05-27] MEDS: levothyroxine 88 mcg Tablet PO (08:44)
[2020-05-27] MEDS: spironolactone 25 mg Tablet 50 MG PO (08:44)
[2020-05-27 11:11] LABS: Glucose Point of Care 401 mg/dL (70-110)
--- NOTE | 2020-05-27 13:16 | P.DS_ITS ---
Discharge Providers Date of Admission: 05/25/20 17:58 Date of Discharge: May 27, 2020 Attending Provider at Admission: Nicole Romano MD Attending Provider at Discharge: Nicole Romano MD Primary Care Provider: Josafat Robertson MD Diagnoses at Discharge Discharge Diagnosis (1) Hepatic encephalopathy: Status: Acute (2) Insulin dependent type 2 diabetes mellitus: Status: Acute (3) Sleep apnea: Status: Acute Qualifiers: Sleep apnea type: unspecified type Qualified Code(s): G47.30 - Sleep apnea, unspecified (4) Hypothyroid: Status: Acute Qualifiers: Hypothyroidism type: unspecified Qualified Code(s): E03.9 - Hypothyroidism, unspecified (5) Hypertension: Status: Acute Qualifiers: Hypertension type: essential hypertension Qualified Code(s): I10 - Essential (primary) hypertension (6) Portal hypertension due to obstruction of extrahepatic portal vein: Status: Acute (7) Portal vein thrombosis: Status: Acute Reason for Visit Reason for Visit: AMS N/V Hospital Course Discharge Summary: Sharon Kwan is a 64 year old female with a past medica l history of liver cirrhosis, hepatic encephalopathy on lactulose and rifaximin, portal hypertension, incomplete portal vein thrombosis, variceal bleed, history of severe blood loss anemia and hemorrhagic shock associated with variceal bleed, insulin-dependent type 2 diabetes mellitus, hypothyroidism, hypertension, bilateral extreme edema, obstructive sleep apnea, history of right-sided hydronephrosis, history of nephrolithiasis status post stenting, recently admitted for AMS in march 2020. She presents to [facility] today due to complaints of altered mental status, noted increasing in the NH. Unclear if she was able to get rifaximin or lactulose recently. She was initially confused and disoriented upon exam. Overall impression was that consistent with hepatic encephalopathy for which she received lactulose and had multiple bowel movements during the course of her admission here. Since yesterday patient has been alert awake and oriented. She is ambulating within the room to the bathroom with minimal assistance. She is able to correctly state her name age date of , where she lives her 's address and tear etc. 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 MAKER: no focal neuro deficits Urinary Catheter Management^: Bryant: Cath Placed During This Visit: yes, but has since been removed by the nurse Reason for Continuing Indwelling Catheter: Other Urinary Catheter Date of Insertion: 05/25/20 Urinary Catheter Time of Insertion: 13:34 Date Urinary Catheter Removed: 05/26/20 Time Urinary Catheter Discontinued: 19:00 Discharge Data Data Completed and Pending: Completed Studies During Hospitalization Category Date Time Status CT abdomen pelvis wo con [id number] Stat Cat Scan 05/25/20 15:[address] head wo con* 7 [id number] Stat Cat Scan 05/25/20 14:31 Completed XR chest 1V george ble [id number] Stat Exams 05/25/20 12:36 Completed Pending at discharge Category Date Time Status Complete Blood Co unt w/Auto AM LABS Lab 05/28/20 04:00 Ordered Comprehensive Met abolic Panel AM LA BS Lab 05/28/20 04:00 Ordered Labs from last 24 hours 05/27/20 05/27/20 05/27/20 11:06 06:17 05:10 WBC RBC Hgb Hct MCV MCH MCHC RDW Plt Count MPV Neut % (Auto) Lymph % (Auto) Riley % (Auto) Eos % (Auto) Baso % (Auto) Neut # (Auto) Lymph # (Auto) Riley # (Auto) Eos # (Auto) Baso # (Auto) Nucleated RBC % (a uto) Nucleated RBCs # Sodium 131 L Potassium 4.3 Chloride 96 L Carbon Dioxide 27 Anion Gap 12.3 BUN 35 H Creatinine 1.4 H GFR Calculation 37.9 L Glucose 243 H POC Glucose 401 289 Calculated Osmolal ity 277 L Calcium 9.5 Total Bilirubin 1.2 AST 75 H ALT 70 H Alkaline Phosphata se 210 H Total Protein 6.7 Albumin 3.2 L Globulin 3.5 05/27/20 05/26/20 05/26/20 05:10 20:44 16:55 WBC 4.9 RBC 4.02 L Hgb 13.2 Hct 40.1 MCV 99.8 H MCH 32.8 MCHC 32.9 RDW 12.3 Plt Count 96 L MPV 9.4 Neut % (Auto) 52.3 Lymph % (Auto) 25.4 Riley % (Auto) 11.7 Eos % (Auto) 9.0 Baso % (Auto) 1.4 Neut # (Auto) 2.56 Lymph # (Auto) 1.2 Riley # (Auto) 0.6 Eos # (Auto) 0.4 Baso # (Auto) 0.1 Nucleated RBC % (a uto) 0 Nucleated RBCs # 0.0 Sodium Potassium Chloride Carbon Dioxide Anion Gap BUN Creatinine GFR Calculation Glucose POC Glucose 355 441 Calculated Osmolal ity Calcium Total Bilirubin AST ALT Alkaline Phosphata se Total Protein Albumin Globulin 05/26/20 16:55 WBC RBC Hgb Hct MCV MCH MCHC RDW Plt Count MPV Neut % (Auto) Lymph % (Auto) Riley % (Auto) Eos % (Auto) Baso % (Auto) Neut # (Auto) Lymph # (Auto) Riley # (Auto) Eos # (Auto) Baso # (Auto) Nucleated RBC % (a uto) Nucleated RBCs # Sodium Potassium Chloride Carbon Dioxide Anion Gap BUN Creatinine GFR Calculation Glucose POC Glucose 490 Calculated Osmolal ity Calcium Total Bilirubin AST ALT Alkaline Phosphata se Total Protein Albumin Globulin Vitals: Last Vital Signs Temp 98.0 F 05/27/20 11:36 Pulse 64 05/27/20 11:36 Resp 16 05/27/20 11:36 BP 107/66 05/27/20 11:36 Pulse Ox 97 05/27/20 11:36 Discharge Plan Discharge Patient Disposition: Home Condition: Stable Prescriptions: Continued magnesium oxide [MagOx] 400 mg (241.3 mg magnesium) Tablet 400 mg PO DAILY 30 Days Qty: 30 RF: 0 pantoprazole [Protonix] 40 mg Tablet,Delayed Release (Dr/Ec) 40 mg PO BID 30 Days Qty: 60 RF: 0 ferrous sulfate 325 mg (65 mg iron) Tablet 325 mg PO BID 30 Days Qty: 60 RF: 0 Xifaxan 550 mg Tablet 550 mg PO BID 30 Days Qty: 60 RF: 0 furosemide [Lasix] 40 mg tablet 60 mg PO BID RF: 0 spironolactone 25 mg tablet 50 mg PO BID RF: 0 metolazone 2.5 mg Tablet 2.5 mg PO DAILY RF: 0 Triple Antibiotic 3.5mg-400 unit- 5,000 unit/gram Ointment See Rx Instructions .ROUTE .COMPLEX RF: 0 lidocaine HCl 2 % Jelly See Rx Instructions .ROUTE .COMPLEX RF: 0 levothyroxine 88 mcg Tablet 88 mcg PO DAILY RF: 0 lactulose 10 gram/15 mL Solution 40 ml PO QID RF: 0 Levemir FlexTouch U-100 Insuln 100 unit/mL (3 mL) Insulin Pen 14 unit SUBCUT BEDTIME RF: 0 potassium chloride 20 mEq Tablet Extended Release 40 meq PO DAILY RF: 0 Zofran 4 mg tablet 4 mg PO QID PRN (Reason: Nausea) RF: 0 Humalog KwikPen Insulin 100 unit/mL Insulin Pen See Rx Instructions .ROUTE .COMPLEX RF: 0 Humalog KwikPen Insulin 100 unit/mL Insulin Pen See Rx Instructions .ROUTE .COMPLEX RF: 0 Discharge Orders: Discharge Order (Routine); Ordered 05/27/20 Ordered By: Nicole Romano Referrals: Josafat Robertson MD [Primary Care Provider] - 4-7 days Discharge Diet: Usual diet and Diabetic Discharge Activity: Resume usual activity Discharge Attestations Time Spent in Discharge Care*: less than 30 min Status at Discharge: Cognitive status at discharge: cognitively intact , Behavioral status at discharge: cooperative , Quality Metrics Clinical Quality Measures During this hospital stay, did patient experience: None Coding Level of Care Code Acute Upper Trimmer for g Fwd Diagnoses Hepatic encephalopathy K72.90 Insulin dependent type 2 diabetes mellitus E11.9; Z79.4 Sleep apnea G47.30 Sleep apnea type: unspecified type Hypothyroid E03.9 Hypothyroidism type: unspecified Hypertension I10 Hypertension type: essential hypertension Portal hypertension due to obstruction of extrahepatic portal vein K76.6; I81 Portal vein thrombosis I81
== END 2020-05-27 15:30 | disposition home or self-care (01) ==
LOC: ER 15:52 → MEDSURG 18:47
PROVIDERS: Family Medicine; Admitting Provider Student in an Organized Health Care Education/Training Program; PCP Family Medicine; Visit Provider Student in an Organized Health Care Education/Training Program
DX: K72.90 Hepatic failure, unspecified without coma (principal); E11.9 Type 2 diabetes mellitus without complications; Z79.4 Long term (current) use of insulin; G47.30 Sleep apnea, unspecified; E03.9 Hypothyroidism, unspecified; I10 Essential (primary) hypertension; K76.6 Portal hypertension; I81 Portal vein thrombosis; E66.9 Obesity, unspecified; Z68.29 Body mass index [BMI] 29.0-29.9, adult; Z87.891 Personal history of nicotine dependence; I45.10 Unspecified right bundle-branch block
CPT/HCPCS: 12345; 36415; 36416; 36600; 51702; 70450; 71045; 74176; 80051; 80053; 81003; 82009; 82140; 82550; 82810; 82962; 83605; 83690; 83986; 84484; 85025; 93005; 93010; 96360; 96361; 96372; 97110; 97116; 97161; 97530; 99284; 99285; G0378; J1815; J7030

== ENCOUNTER 2020-05-29 22:19 | Inpatient (IN) | payer OTHER, SELFPAY ==
[2020-05-29 22:34] VITALS: BP 126/50; PULSE 82; RESP 16; TEMP 37.2; O2SAT 96; BMI 33.4
--- NOTE | 2020-05-29 22:38 | CTR_ITS ---
PROCEDURE INFORMATION: Exam: CT Head Without Contrast Exam date and time: 05/29/2020 10:48 PM Age: 64 years old Clinical indication: Alteration of consciousness and altered mental status/memory loss; Stupor; Confusion or disorientation; Patient HX: Ams/lethargy n/v TECHNIQUE: Imaging protocol: Computed tomography of the head without contrast. Radiation optimization: All CT scans at this facility use at least one of these dose optimization techniques: automated exposure control; mA and/or kV adjustment per patient size (includes targeted exams where dose is matched to clinical indication); or iterative reconstruction. COMPARISON: No relevant prior studies available. RADIATION DOSE METRICS: Total DLP (mGy-cm): 1425.27 FINDINGS: Brain: Normal. No hemorrhage. Unremarkable white matter. No mass effect. Ventricles: Normal. No ventriculomegaly. Bones/joints: Unremarkable. No acute fracture. Sinuses: Visualized sinuses are unremarkable. No fluid levels. Mastoid air cells: Visualized mastoid air cells are well aerated. Soft tissues: Unremarkable. CT/CT head wo con* [id number] IMPRESSION: Negative for intracranial hemorrhage or mass effect. Radiation Dose CTDIVOL = (mGy): DLP = 1425.27 (mGy-cm)
[2020-05-29 22:42] VITALS: BP 122/47; PULSE 82; RESP 16; O2SAT 95
[2020-05-29] MEDS: ondansetron 2 mg/ML SDV 2 mL 4 MG IVP (22:50)
--- NOTE | 2020-05-29 22:51 | PC.NURSE ---
patient to CT
[2020-05-29 22:54] LABS: Basophils % 0.6 %; Eosinophils # 0.2 10^3/uL (0.0-0.8); Eosinophils % 3.2 %; Hematocrit 41.6 % (37.0-47.0); Hemoglobin 13.9 g/dL (11.5-15.3); Lymphocytes # 0.8 10^3/uL (0.8-4.8); Lymphocytes % 15.3 %; Mean Corpuscular HGB Conc 33.4 g/dL (30.0-36.0); Mean Corpuscular Hemoglobin 32.8 pg (28.0-34.0); Mean Corpuscular Volume 98.1 fL (81-99); Mean Platelet Volume 9.6 fL (7.4-10.4); Monocytes # 0.6 10^3/uL (0.2-0.9); Monocytes % 10.4 %; Neutrophils % 70.1 %; Nucleated Red Blood Cells % 0 %; Platelet Count 125 10^3/cmm (130-400); Red Blood Count 4.24 10^6/uL (4.1-5.3); Red Cell Distribution Width 12.4 % (12.1-15.1); White Blood Count 5.3 10^3/uL (4.0-10.0)
--- NOTE | 2020-05-29 22:57 | XRR_ITS ---
PROCEDURE INFORMATION: Exam: XR Abdomen, 2 Views Exam date and time: 05/30/2020 12:36 AM Age: 64 years old Clinical indication: Constipation; Prior surgery; Surgery date: 6+ months; Surgery type: Gb, hyst, colon; Additional info: AMS, constipation TECHNIQUE: Imaging protocol: XR of the abdomen. Views: 2 Views. COMPARISON: No relevant prior studies available. FINDINGS: Gastrointestinal tract: Normal. No bowel dilation. Intraperitoneal space: Normal. No free air. Bones/joints: Unremarkable for age. XR/XR acute abdomen series [id number] IMPRESSION: Negative for infiltrate
[2020-05-29 23:09] LABS: Alanine Aminotransferase 72 U/L (0-33); Albumin Level 3.6 g/dL (3.5-5.2); Alkaline Phosphatase 245 IU/L (35-105); Anion Gap 17.9 (5-19); Aspartate Amino Transferase 72 U/L (0-32); Blood Urea Nitrogen 39 mg/dL (8-23); Calcium 10.2 mg/dL (8.5-10.5); Carbon Dioxide 22 mmol/L (22-29); Chloride 97 mmol/L (98-107); Globulin 3.9 g/dL (1.3-4.6); Glomerular Filtration Rate 32.5 mL/min (90-130); Glucose 340 mg/dL (65-115); Osmolality Calculated 285 mOsm/kg (285-295); Potassium 4.9 mmol/L (3.5-5.1); Sodium 132 mmol/L (136-145); Total Bilirubin 1.4 mg/dL (0.15-1.2); Total Protein 7.5 g/dL (6.6-8.7)
[2020-05-29 23:32] VITALS: BP 105/58; PULSE 79; RESP 19; O2SAT 96
[2020-05-29 23:34] LABS: Glucose Point of Care 320 mg/dL (70-110)
[2020-05-29] MEDS: sodium chloride 0.9% 1,000 ML 999 ML IV (23:35)
[2020-05-29 23:38] LABS: Ammonia 269 umol/L (11-51)
[2020-05-29 23:48] LABS: Add Urine Microscopic? YES; Amphetamines Screen Urine Negative (Negative); Barbiturates Screen Urine Negative (Negative); Benzodiazepines Screen Urine Negative (Negative); Bilirubin Urine Neg (NEGATIVE); Blood Urine 3+ (Negative); Cocaine Screen Urine Negative (Negative); Glucose Urine UA Norm (Normal); Ketones Urine Negative (Negative); Leukocyte Esterase Urine 1+ (Negative); Nitrate Urine Negative (Negative); Opiate Screen Urine Negative (Negative); PCP Screen Urine Negative (Negative); Protein Urine Neg (Negative); Specific Gravity, Urine 1.015 (1.005-1.030); THC Screen Urine Negative (Negative); Urine Color Yellow (Yellow); Urobilinogen Urine Norm (Negative); pH Urine 5 (5-7)
[2020-05-29 23:50] LABS: Add Urine Culture? Yes; Amorphous Sediment Urine 1+; Bacteria Urine 4+; RBC Urine 15-25 /hpf (0-2); Squamous Epithelial Cell Urine 0-4 (0-5); WBC Urine 55-80 /hpf (0-5)
[2020-05-29 23:53] LABS: Lactate (Lactic Acid level) 4.4 mmol/L (0.5-2.2)
[2020-05-30] VITALS (23 sets, daily range): BP systolic 89–127; BP diastolic 39–97; PULSE 71–100; RESP 11–23; TEMP 36.4–37.3; O2SAT 92–98
[2020-05-30 00:12] LABS: ABG PCO2 33.7 mmHg (35-45); ABG PH Result 7.44 (7.35-7.45); Base Excess ABG -0.6 mmol/L (-2.0-2.0); Blood Gas Allen Test Pos; Blood Gas Sample Site Radial, right; Blood Gas Sample Type Arterial; HCO3 ABG 22.9 mmol/L (22-26); Oxygen Device ROOM AIR; PO2 ABG 92.1 mmHg (80.0-100.0)
--- NOTE | 2020-05-30 00:21 | P.HP_ITS ---
Providers/Chief Complaint Primary Care Provider: Josafat Robertson MD Chief Complaint: UNRESPONSIVE History of Present Illness ELINA BOCANEGRA is a 64 year old female that presents from the nursing facility, [facility] with history of decreased responsiveness today. She was lethargic and they were not able to give her lactulose. She had a previous hospital stay for similar presentation. There is no history of fever. Patient herself cannot give a history. Recently discharged from the hospital May 27. When I spoke to nursing staff at the facility, they report there was some issues getting the rifaximin filled but she had been taking it the last day. She did not take any of her lactulose today secondary to her mental status being decreased. Review of Systems General: Reports: ROS unobtainable due to mental status (Secondary to lethargy from hepatic encephalopathy) Medications/Allergies Home Medications Medication Instructions Recorded Confirmed Last Taken Type Xifaxan 550 mg PO BID 30 Days #60 tab 12/17/19 05/25/20 05/25/20 Rx ferrous sulfate 325 mg PO BID 30 Days #60 tab 12/17/19 05/25/20 05/25/20 Rx magnesium oxide [MagOx] 400 mg PO DAILY 30 Days #30 tab 12/17/19 05/25/20 05/25/20 Rx pantoprazole [Protonix] 40 mg PO BID 30 Days #60 tab 12/17/19 05/25/20 05/25/20 Rx furosemide [Lasix] 60 mg PO BID 04/16/20 05/25/20 05/25/20 History metolazone 2.5 mg PO DAILY 04/16/20 05/25/20 05/25/20 History spironolactone 50 mg PO BID 04/16/20 05/25/20 05/25/20 History Humalog KwikPen Insulin See Rx Instructions .ROUTE .COMPLEX 05/25/20 05/25/20 Unknown History Humalog KwikPen Insulin See Rx Instructions .ROUTE .COMPLEX 05/25/20 05/25/20 05/25/20 History 4 units Levemir FlexTouch U-100 Insuln 14 unit SUBCUT BEDTIME 05/25/20 05/25/20 05/24/20 History Triple Antibiotic See Rx Instructions .ROUTE .COMPLEX 05/25/20 05/25/20 Unknown History Zofran 4 mg PO QID PRN 05/25/20 05/25/20 Unknown History lactulose 40 ml PO QID 05/25/20 05/25/20 05/25/20 History levothyroxine 88 mcg PO DAILY 05/25/20 05/25/20 05/25/20 History lidocaine HCl See Rx Instructions .ROUTE .COMPLEX 05/25/20 05/25/20 Unknown History potassium chloride 40 meq PO DAILY 05/25/20 05/25/20 05/25/20 History Allergies Allergy/AdvReac Type Severity Reaction Status Date / Time prednisone Allergy Unknown Verified 05/25/20 12:36 steroids Allergy Unknown Uncoded 05/29/20 22:33 PFSH Acute PFSH: Medical History (Updated 05/30/20 @ 03:30 by Momo Barnett MD) Cirrhosis Diabetes Esophageal varices Hydronephrosis Hypertension Hypothyroid Nephrolithiasis Obesity Portal hypertension due to obstruction of extrahepatic portal vein Sleep apnea Transaminitis -noted chronic transaminitis, trending down -likely secondary to liver cirrhosis -continue to monitor Surgical History H/O hernia repair H/O lithotripsy History of cholecystectomy History of oophorectomy, unilateral Social History Smoking and tobacco status: former smoker Supplemental PFSH Information: Unable secondary to mental status to obtain family history and social history from the patient. confirms that she no longer smokes and no longer drinks. He is not for sure regarding her family history. Has been also describes a surgical procedure done at [place]. This may have been a transjugular intrahepatic portacaval shunt Vitals/I&O/Wt Last Vital Signs Temp 98.9 F 05/29/20 22:34 Pulse 79 05/29/20 23:32 Resp 19 H 05/29/20 23:32 BP 105/58 05/29/20 23:32 Pulse Ox 96 05/29/20 23:32 Weight last 48 hrs Weight 99.79 kg Physical Exam Narrative: EXAM NARRATIVE: General exam lethargic female, who will move spontaneously HEENT: Pupils equally round. Oropharynx clear. Has some dark staining around the mouth which reports was an iron pill he tried to get her to take Neck is supple no lymphadenopathy or thyromegaly Cardiovascular regular rate and rhythm without murmur, no S3 or S4 Lungs clear no wheezing or crackles Abdomen is soft, positive bowel sounds. No obvious fluid wave but body habitus makes it difficult to tell was deferred Extremities 1+ edema bilaterally. Right is slightly more swollen than the left. Skin no rash. Neuro no focal deficits but patient lethargic. Data : 05/29/20 22:45 05/29/20 22:45 Other data: pH 7.44, PCO2, PO2 92 on room air Lactate 4.4 Bilirubin 1.4, alk phos 245, AST and ALT 72, ammonia level 269 Urine with 55-80 whites, 15-25 reds Abdominal series showed no obvious infiltrate on chest x-ray, some increased stool by my read, otherwise normal CT head negative Recent CT abdomen pelvis mild right hydro-with no obstruction May 25 A&P Assessment and plan (1) Hepatic encephalopathy: May be secondary to difficulty getting rifaximin. She has quite a bit of stool on her KUB and may not have been having effective bowel movements with the lactulose therapy. At this point she is lethargic enough that lactulose enemas will be started. These can be converted to lactulose by mouth, and her rifaximin can be restarted when she is able to take p.o. She is somewhat more responsive when I see her in the ICU for follow-up after evaluating her in the ER. At this point I do not think she needs intubated secondary to her lethargy. Presumably UTI could have triggered hepatic encephalopathy as well, or possibly SBP. Will check limited ultrasound to see if significant ascitic fluid is noted. I will be starting Zosyn for possible UTI as t well until we can see what her clinical response and studies show Status: Acute (2) Acute kidney injury: Hydration. Hold diuretics currently. Close follow-up Recent CT demonstrated no ureterolithiasis causing mild hydronephrosis Status: Acute (3) UTI (urinary tract infection): Initiate Zosyn Urine culture Status: Acute Additional A&P Information Type 2 diabetes. Sliding scale insulin. Hypertension. Hold medications currently, including diuretics Underlying cirrhosis. reports that exact etiology of her cirrhosis is unknown Hypothyroidism, start home medications when she is able to take p.o. Check TSH. Other medical problems as noted in her past medical history History of GERD. Continue Protonix. Full code SCDs for DVT prophylaxis. Secondary to past history of esophageal varices and major bleeding anticoagulation will be withheld currently. Attestations Medical Necessity Statement*: Will need greater than 2 midnight stay for treatment and evaluation of hepatic encephalopathy. Time Spent in Patient Care: Greater than 35 minutes Coding Level of Care Code Acute Developmental Electronics Assembler for Chg Fwd Diagnoses Hepatic encephalopathy K72.90 Acute kidney injury N17.9 UTI (urinary tract infection) N39.0
[2020-05-30] MEDS: sodium chloride 0.9% 1,000 ML 999 ML IV (00:43)
[2020-05-30] MEDS: piperacillin-tazobactam 3.375 GM in sodium chloride 0.9% (plus) 50 ML IV ×3 (00:43→18:16)
[2020-05-30] MEDS: lactulose oral liq 20 gm/30 mL UDC 200 GM PR ×2 (01:09→08:12)
--- NOTE | 2020-05-30 01:21 | W.ED.AMS ---
HPI - Altered Mental Status General: Chief Complaint: Altered Mental Status Stated Complaint: AMS Time Seen by Provider: 05/29/20 22:34 History of Present Illness: HPI narrative: 64-year-old female with a history of liver disease presenting from a fdc with altered mental status. Evidently she has been increasingly lethargic to the point of obtundation there. Evidently she would say some words with stimulus to touch there. She mumbles with noxious stimuli here. She did open her eyes at times. She was nonverbal, and therefore a poor historian otherwise. MD complaint: altered mental status and decreased responsiveness Onset (ago): hour(s) Timing confirmed by: caregiver Severity: moderate Consistency of symptoms: Getting Worse Context: history of similar presentation and liver disease Review of Systems General: Reports: ROS unobtainable due to mental status Physical Exam Const: GENERAL APPEARANCE: ill appearing ORIENTATION/CONSCIOUSNESS: Yes patient obtunded; not oriented to person, not oriented to place and not oriented to time HENMT: COMMON NORMALS: normocephalic, external ears normal and Normal external nose present HEAD & SCALP: normocephalic FACE & SINUS: normal facial exam NOSE: Normal external nose present and No nasal discharge present EXTERNAL EAR: Yes external ears normal MOUTH: tongue normal THROAT: posterior oropharynx normal; no peritonsillar mass Eye: COMMON NORMALS: Equal, round and reactive pupils present, EOMs intact bilaterally and conjunctivae normal EYELID: eyelids normal CONJUNCTIVA: Yes conjunctivae normal PUPIL: Yes Equal, round and reactive pupils present Neck/C-Spine: GENERAL: No tracheal deviation Chest: COMMONS NORMALS: normal inspection of the chest CHEST: No tenderness Resp: COMMON NORMALS: clear to auscultation bilaterally EFFORT & INSPECTION: No tachypneic, No respiratory distress, No retractions, No uses accessory muscles and No tracheal deviation AUSCULTATION: clear to auscultation bilaterally, no rhonchi, no wheezes and lung sounds not diminished Cardio: COMMON NORMALS: regular rate and regular rhythm RATE: regular rate RHYTHM: regular rhythm HEART SOUNDS: no murmurs PERIPHERAL PULSES: radial pulses present GI: INSPECTION: No abdominal distension AUSCULTATION: No Hyperactive bowel sounds present and No Hypoactive bowel sounds present PALPATION: No Guarding due to palpation present (GI) and No Rigid due to palpation PERCUSSION: no dullness to percussion and no tympanic to percussion Neuro: SENSORIUM/ORIENTATION: No oriented to person, No oriented to place and No oriented to time Skin: COMMON NORMALS: no rashes or lesions noted GENERAL SKIN EXAM: no rashes or lesions noted Course Consultations: Consultation #1: Anibal Vital Signs: Vital signs: Vital Signs Temperature 98.9 F 05/29/20 22:34 Pulse Rate 77 05/30/20 00:44 Respiratory Rate 15 05/30/20 00:44 Blood Pressure 99/61 05/30/20 00:44 Pulse Oximetry 95 05/30/20 00:44 MDM - Altered Mental Status MDM Narrative: Medical decision making narrative: 64-year-old lady with history of liver disease. Her shows up at the end of my exam, and tells me that she was recently hospitalized with high ammonia levels and a similar presentation, only this appears somewhat worse. She has had high ammonia levels in the past. She has been increasingly unable to take her lactulose in the fdc. He notes when this happens she gets significant mental status change. She is breathing, and moves to noxious stimuli. She opens her eyes at times. Her white blood cell count is 5.3. Platelet count 125. Her ammonia level is very high, in the 260s she is hyperglycemic. She is not acidotic. Her lactic acid however is 4.4 she has a urinary tract infection by in and out cath urine. She is placed on Zosyn here in the ER. She is given 2 L of IV fluid. She will receive lactulose rectally here in the ER as well. She will go to the ICU. Spoke with hospitalist who agrees Lab Data: Labs: Lab Results 05/29/20 05/29/20 05/29/20 Range/Units 22:45 22:45 23:10 WBC 5.3 (4.0-10.0) 10^3/ uL RBC 4.24 (4.1-5.3) 10^6/u L Hgb 13.9 (11.5-15.3) g/dL Hct 41.6 (37.0-47.0) % MCV 98.1 (81-99) fL MCH 32.8 (28.0-34.0) pg MCHC 33.4 (30.0-36.0) g/dL RDW 12.4 (12.1-15.1) % Plt Count 125 L (130-400) 10^3/c mm MPV 9.6 (7.4-10.4) fL Neut % (Auto) 70.1 % Lymph % (Auto) 15.3 % [place] % (Auto) 10.4 % Eos % (Auto) 3.2 % Baso % (Auto) 0.6 % Neut # (Auto) 3.70 (1.8-7.7) 10^3/u L Lymph # (Auto) 0.8 (0.8-4.8) 10^3/u L [place] # (Auto) 0.6 (0.2-0.9) 10^3/u L Eos # (Auto) 0.2 (0.0-0.8) 10^3/u L Baso # (Auto) 0.0 (0.0-0.1) 10^3/u L Nucleated RBC % (a uto) 0 % Nucleated RBCs # 0.0 /100WBC Specimen Type Sample Site ABG pH (7.35-7.45) ABG pCO2 (35-45) mmHg ABG pO2 (80.0-100.0) mmH g ABG HCO3 (22-26) mmol/L ABG Base Excess (-2.0-2.0) mmol/ L Waqar Test Hematocrit (37-47) % O2 Delivery Device FiO2 % Home Care Assistant ID Sodium 132 L (136-145) mmol/L Potassium 4.9 (3.5-5.1) mmol/L Chloride 97 L (98-107) mmol/L Carbon Dioxide 22 (22-29) mmol/L Anion Gap 17.9 (5-19) BUN 39 H (8-23) mg/dL Creatinine 1.6 H (0.5-0.9) mg/dL GFR Calculation 32.5 L (90-130) mL/min Glucose 340 H (65-115) mg/dL POC Glucose (70-110) mg/dL Calculated Osmolal ity 285 (285-295) mOsm/k g Lactate 4.4 H* (0.5-2.2) mmol/L Calcium 10.2 (8.5-10.5) mg/dL Total Bilirubin 1.4 H (0.15-1.2) mg/dL AST 72 H (0-32) U/L ALT 72 H (0-33) U/L Alkaline Phosphata se 245 H (35-105) IU/L Ammonia (11-51) umol/L Total Protein 7.5 (6.6-8.7) g/dL Albumin 3.6 (3.5-5.2) g/dL Globulin 3.9 (1.3-4.6) g/dL Urine Color (Yellow) Urine Appearance (CLEAR) Urine pH (5-7) Ur Specific Gravit y (1.005-1.030) Urine Protein (Negative) Urine Glucose (UA) (Normal) Urine Ketones (Negative) Urine Blood (Negative) Urine Nitrate (Negative) Urine Bilirubin (NEGATIVE) Urine Urobilinogen (Negative) mg/dL Ur Leukocyte Dannielle ase (Negative) Urine RBC (0-2) /hpf Urine WBC (0-5) /hpf Ur Squamous Epith Cells (0-5) Amorphous Sediment Urine Bacteria (NONE) Urine Opiates Scre en (Negative) ng/mL Ur Barbiturates Sc reen (Negative) ng/mL Ur Phencyclidine S crn (Negative) ng/mL Ur Amphetamines Sc reen (Negative) ng/mL U Benzodiazepines Scrn (Negative) ng/mL Urine Cocaine Scre en (Negative) ng/mL U Marijuana (THC) Screen (Negative) ng/mL 05/29/20 05/29/20 05/29/20 Range/Units 23:10 23:12 23:31 WBC (4.0-10.0) 10^3/ uL RBC (4.1-5.3) 10^6/u L Hgb (11.5-15.3) g/dL Hct (37.0-47.0) % MCV (81-99) fL MCH (28.0-34.0) pg MCHC (30.0-36.0) g/dL RDW (12.1-15.1) % Plt Count (130-400) 10^3/c mm MPV (7.4-10.4) fL Neut % (Auto) % Lymph % (Auto) % [place] % (Auto) % Eos % (Auto) % Baso % (Auto) % Neut # (Auto) (1.8-7.7) 10^3/u L Lymph # (Auto) (0.8-4.8) 10^3/u L [place] # (Auto) (0.2-0.9) 10^3/u L Eos # (Auto) (0.0-0.8) 10^3/u L Baso # (Auto) (0.0-0.1) 10^3/u L Nucleated RBC % (a uto) % Nucleated RBCs # /100WBC Specimen Type Sample Site ABG pH (7.35-7.45) ABG pCO2 (35-45) mmHg ABG pO2 (80.0-100.0) mmH g ABG HCO3 (22-26) mmol/L ABG Base Excess (-2.0-2.0) mmol/ L Waqar Test Hematocrit (37-47) % O2 Delivery Device FiO2 % Home Care Assistant ID Sodium (136-145) mmol/L Potassium (3.5-5.1) mmol/L Chloride (98-107) mmol/L Carbon Dioxide (22-29) mmol/L Anion Gap (5-19) BUN (8-23) mg/dL Creatinine (0.5-0.9) mg/dL GFR Calculation (90-130) mL/min Glucose (65-115) mg/dL POC Glucose 320 (70-110) mg/dL Calculated Osmolal ity (285-295) mOsm/k g Lactate (0.5-2.2) mmol/L Calcium (8.5-10.5) mg/dL Total Bilirubin (0.15-1.2) mg/dL AST (0-32) U/L ALT (0-33) U/L Alkaline Phosphata se (35-105) IU/L Ammonia 269 H (11-51) umol/L Total Protein (6.6-8.7) g/dL Albumin (3.5-5.2) g/dL Globulin (1.3-4.6) g/dL Urine Color Yellow (Yellow) Urine Appearance Sl cloudy A (CLEAR) Urine pH 5 (5-7) Ur Specific Gravit y 1.015 (1.005-1.030) Urine Protein Neg (Negative) Urine Glucose (UA) Norm (Normal) Urine Ketones Negative (Negative) Urine Blood 3+ H (Negative) Urine Nitrate Negative (Negative) Urine Bilirubin Neg (NEGATIVE) Urine Urobilinogen Norm (Negative) mg/dL Ur Leukocyte Dannielle ase 1+ H (Negative) Urine RBC 15-25 H (0-2) /hpf Urine WBC 55-80 H (0-5) /hpf Ur Squamous Epith Cells 0-4 H (0-5) Amorphous Sediment 1+ Urine Bacteria 4+ H (NONE) Urine Opiates Scre en (Negative) ng/mL Ur Barbiturates Sc reen (Negative) ng/mL Ur Phencyclidine S crn (Negative) ng/mL Ur Amphetamines Sc reen (Negative) ng/mL U Benzodiazepines Scrn (Negative) ng/mL Urine Cocaine Scre en (Negative) ng/mL U Marijuana (THC) Screen (Negative) ng/mL 05/29/20 05/30/20 Range/Units 23:31 00:09 WBC (4.0-10.0) 10^3/ uL RBC (4.1-5.3) 10^6/u L Hgb (11.5-15.3) g/dL Hct (37.0-47.0) % MCV (81-99) fL MCH (28.0-34.0) pg MCHC (30.0-36.0) g/dL RDW (12.1-15.1) % Plt Count (130-400) 10^3/c mm MPV (7.4-10.4) fL Neut % (Auto) % Lymph % (Auto) % [place] % (Auto) % Eos % (Auto) % Baso % (Auto) % Neut # (Auto) (1.8-7.7) 10^3/u L Lymph # (Auto) (0.8-4.8) 10^3/u L [place] # (Auto) (0.2-0.9) 10^3/u L Eos # (Auto) (0.0-0.8) 10^3/u L Baso # (Auto) (0.0-0.1) 10^3/u L Nucleated RBC % (a uto) % Nucleated RBCs # /100WBC Specimen Type Arterial Sample Site Radial, right ABG pH 7.44 (7.35-7.45) ABG pCO2 33.7 L (35-45) mmHg ABG pO2 92.1 (80.0-100.0) mmH g ABG HCO3 22.9 (22-26) mmol/L ABG Base Excess -0.6 (-2.0-2.0) mmol/ L Waqar Test Pos Hematocrit 45.0 (37-47) % O2 Delivery Device Room air FiO2 21.0 % Home Care Assistant ID vossa Sodium (136-145) mmol/L Potassium (3.5-5.1) mmol/L Chloride (98-107) mmol/L Carbon Dioxide (22-29) mmol/L Anion Gap (5-19) BUN (8-23) mg/dL Creatinine (0.5-0.9) mg/dL GFR Calculation (90-130) mL/min Glucose (65-115) mg/dL POC Glucose (70-110) mg/dL Calculated Osmolal ity (285-295) mOsm/k g Lactate (0.5-2.2) mmol/L Calcium (8.5-10.5) mg/dL Total Bilirubin (0.15-1.2) mg/dL AST (0-32) U/L ALT (0-33) U/L Alkaline Phosphata se (35-105) IU/L Ammonia (11-51) umol/L Total Protein (6.6-8.7) g/dL Albumin (3.5-5.2) g/dL Globulin (1.3-4.6) g/dL Urine Color (Yellow) Urine Appearance (CLEAR) Urine pH (5-7) Ur Specific Gravit y (1.005-1.030) Urine Protein (Negative) Urine Glucose (UA) (Normal) Urine Ketones (Negative) Urine Blood (Negative) Urine Nitrate (Negative) Urine Bilirubin (NEGATIVE) Urine Urobilinogen (Negative) mg/dL Ur Leukocyte Dannielle ase (Negative) Urine RBC (0-2) /hpf Urine WBC (0-5) /hpf Ur Squamous Epith Cells (0-5) Amorphous Sediment Urine Bacteria (NONE) Urine Opiates Scre en Negative (Negative) ng/mL Ur Barbiturates Sc reen Negative (Negative) ng/mL Ur Phencyclidine S crn Negative (Negative) ng/mL Ur Amphetamines Sc reen Negative (Negative) ng/mL U Benzodiazepines Scrn Negative (Negative) ng/mL Urine Cocaine Scre en Negative (Negative) ng/mL U Marijuana (THC) Screen Negative (Negative) ng/mL Discharge Plan Discharge Admit Provider: Momo Barnett Coding Level of Care Code ED Batt Machine Operator for Leeroy Rolon
--- NOTE | 2020-05-30 02:58 | PC.NURSE ---
Admit Note Patient admitted from ER. Admission completed. Assisted patient into ICU 11 bed. Patient is non-responsive with a GCS of 7. Respirations even and vitals are within normal limits. Rectal tube in place for lactulose administration and fecal drainage. Bryant cath to gravity and working properly. Patient is on room air and in no distress. IV to Left AC flushes properly/clean/dry.
--- NOTE | 2020-05-30 03:19 | USR_ITS ---
PROCEDURE INFORMATION: Exam: US Duplex Lower Extremity Veins, Bilateral Exam date and time: 05/30/2020 3:20 AM Age: 64 years old Clinical indication: Edema, localized; Lower extremity, bilateral TECHNIQUE: Imaging protocol: Real-time duplex ultrasound of the extremities with 2-D nicole scale, color Doppler flow and spectral waveform analysis with image documentation. Complete exam focused on the bilateral lower extremity veins. COMPARISON: No relevant prior studies available. FINDINGS: Right deep veins: No deep venous thrombosis in the visualized right common femoral, profunda femoris, superficial femoral, popliteal, or posterior tibial veins. Right superficial veins: Saphenofemoral junction is patent without thrombus. Left deep veins: No deep venous thrombosis in the visualized left common femoral, profunda femoris, superficial femoral, popliteal, or posterior tibial veins. Left superficial veins: Saphenofemoral junction is patent without thrombus. Soft tissues: Unremarkable. US/CV venous duplex [facility] [id number] IMPRESSION: No deep venous thrombosis in the visualized bilateral lower extremities.
--- NOTE | 2020-05-30 03:19 | USR_ITS ---
PROCEDURE INFORMATION: Exam: US Abdomen; Limited Exam date and time: 05/30/2020 8:48 AM Age: 64 years old Clinical indication: Bloating and constipation; Additional info: Check for ascites TECHNIQUE: Imaging protocol: US abdomen. Real time ultrasound with image documentation. Limited exam focused on the region of clinical interest. COMPARISON: US gall bladder [id number] 10/23/2019 12:36 PM FINDINGS: Intraperitoneal space:. No intraperitoneal fluid in the incompletely visualized abdomen. Soft tissues: The abdominal and pelvic viscera were not evaluated on the examination performed. US/US abdomen limited [id number] IMPRESSION: No intraperitoneal fluid in the incompletely visualized abdomen.
[2020-05-30] MEDS: sodium chloride 0.9% 1,000 ML 100 ML IV ×3 (03:22→21:48)
[2020-05-30] MEDS: pantoprazole 40 mg SDV IVP ×2 (03:22→12:54)
[2020-05-30 03:27] LABS: Thyroid Stimulating Hormone 1.92 uIU/mL (0.27-4.20)
[2020-05-30 04:13] LABS: Ammonia 91 umol/L (11-51)
[2020-05-30 04:15] LABS: Alanine Aminotransferase 68 U/L (0-33); Albumin Level 3.4 g/dL (3.5-5.2); Alkaline Phosphatase 224 IU/L (35-105); Anion Gap 16.5 (5-19); Aspartate Amino Transferase 67 U/L (0-32); Blood Urea Nitrogen 38 mg/dL (8-23); Calcium 9.9 mg/dL (8.5-10.5); Carbon Dioxide 22 mmol/L (22-29); Chloride 102 mmol/L (98-107); Globulin 3.6 g/dL (1.3-4.6); Glomerular Filtration Rate 30.3 mL/min (90-130); Glucose 335 mg/dL (65-115); Magnesium 2.6 mg/dL (1.7-2.3); Osmolality Calculated 293 mOsm/kg (285-295); Potassium 4.5 mmol/L (3.5-5.1); Sodium 136 mmol/L (136-145); Total Bilirubin 1.4 mg/dL (0.15-1.2)
[2020-05-30 07:32] LABS: Glucose Point of Care 274 mg/dL (70-110)
--- NOTE | 2020-05-30 11:16 | PC.NURSE ---
discussed with doctor switching to oral lactose and she agreed. 60 cc administered orally.
[2020-05-30] MEDS: lactulose oral liq 20 gm/30 mL UDC PO ×3 (11:25→21:48)
[2020-05-30 11:32] LABS: Glucose Point of Care 254 mg/dL (70-110)
--- NOTE | 2020-05-30 12:08 | PM.PN ---
Subjective Subjective: Interval history: Patient is much more alert and is able to tell me her name, place, 's name. She is unable to recall the events leading up to hospitalization. With much prompting she is able to tell me the name of her assisted living facility. She remains hemodynamically stable. Afebrile. She has had good bowel movements after being given the rectal enemas, transition to p.o. today. Medications: Reviewed: Yes Vitals/I&O/Wt Last Vital Signs Temp 97.9 F 05/30/20 09:00 Pulse 80 05/30/20 09:00 Resp 14 05/30/20 09:00 BP 117/56 05/30/20 09:00 Pulse Ox 97 05/30/20 08:00 05/29/20 05/30/20 05/30/20 22:59 06:59 14:59 Intake Total 1050 / 1050 Output Total 1800 / 1800 Balance -750 / -750 Weight last 48 hrs Weight 99.79 kg Physical Exam Narrative: EXAM NARRATIVE: GEN: Awake, alert and oriented, no acute distress CVS: S1S2 N RS: CTA B/L Abd: Soft, nt/nd , bs+ RETAIL ASSISTANT STORE MANAGER: no focal neuro deficits Urinary Catheter Management^: Bryant: Cath Placed During This Visit: yes Reason for Continuing Indwelling Catheter: Accurate Measurement of Urinary Output in Critically Ill Patients Urinary Catheter Date of Insertion: 05/30/20 Urinary Catheter Time of Insertion: 00:00 Data : 05/29/20 22:45 05/30/20 03:42 Micro: Microbiology 05/29/20 23:10 Blood Culture - Preliminary Blood SPECIMEN COLLECTED 05/29/20 23:10 Blood Culture - Preliminary Blood SPECIMEN COLLECTED A&P Assessment and plan (1) Hepatic encephalopathy: May be secondary to difficulty getting rifaximin. Per discussion with staff at the assisted living facility, it is possible that she vomited out some of her oral lactulose as well. They usually do not have a nurse over the weekend and if there are therefore unable to titrate her lactulose dosing. Since getting the rectal lactulose, her constipation is resolved. She is having a good amount of stool output at this present time. Had an extensive discussion with her that this is likely to be a recurrent process. He says he is working with the assisted-living staff educated that she needs at least 4-6 bowel movements a day. She last followed with her office helper Dr. De La Rosa in [place] about a week ago, at which time she was felt to be at her baseline. No further changes were recommended to her current regimen. She has quite a bit of stool on her KUB and may not have been having effective bowel movements with the lactulose therapy. We will discontinue the enemas at this present time and switch her over to oral lactulose with a goal to titrate to at least 4-6 bowel movements a day. We will also resume her oral rifaximin. She is more responsive today. Ultrasound of the abdomen did not show any intraperitoneal fluid, therefore less likely to be SBP. No DVT noted in bilateral lower extremities. Head CT was otherwise unchanged. Her transaminitis is at baseline. Status: Acute (2) Acute kidney injury: Hydration. Hold diuretics currently. Close follow-up Recent CT on May 25 demonstrated no ureterolithiasis causing mild hydronephrosis, this finding was also present in November 2019. We will repeat ultrasound to follow-up on hydronephrosis. Status: Acute (3) UTI (urinary tract infection): Continue Zosyn Urine culture Status: Acute Additional A&P Information Type 2 diabetes. Sliding scale insulin. Hypertension. Hold medications currently, including diuretics Underlying cirrhosis. reports that exact etiology of her cirrhosis is unknown. Last follow-up with office helper 1 week ago Hypothyroidism, start home medications when she is able to take p.o. TSH within range History of GERD. Continue Protonix. Full code SCDs for DVT prophylaxis. Secondary to past history of esophageal varices and major bleeding anticoagulation will be withheld currently. Attestations Medical Necessity Statement*: hepatic encephalopathy, needs lactulose titration Coding Level of Care Code Acute Costume Technician for Chg Fwd Diagnoses Hepatic encephalopathy K72.90 Acute kidney injury N17.9 UTI (urinary tract infection) N39.0
[2020-05-30 12:14] LABS: Lactate (Lactic Acid level) 3.7 mmol/L (0.5-2.2)
[2020-05-30 16:51] LABS: Glucose Point of Care 126 mg/dL (70-110)
[2020-05-30 21:13] LABS: Glucose Point of Care 315 mg/dL (70-110)
[2020-05-31 00:29] VITALS: BP 119/64; PULSE 83; RESP 20; TEMP 37.2; O2SAT 97
[2020-05-31] MEDS: pantoprazole 40 mg SDV IVP ×2 (02:35→14:46)
[2020-05-31 04:00] VITALS: BP 95/56; PULSE 77; RESP 20; TEMP 36.9; O2SAT 97
[2020-05-31] MEDS: piperacillin-tazobactam 3.375 GM in sodium chloride 0.9% (plus) 50 ML IV ×3 (04:05→18:00)
[2020-05-31] MEDS: lactulose oral liq 20 gm/30 mL UDC PO ×4 (04:06→23:42)
[2020-05-31 06:27] LABS: Basophils # 0.1 10^3/uL (0.0-0.1); Basophils % 1.2 %; Eosinophils # 0.3 10^3/uL (0.0-0.8); Eosinophils % 5.5 %; Hematocrit 37.3 % (37.0-47.0); Hemoglobin 12.3 g/dL (11.5-15.3); Lymphocytes # 1.2 10^3/uL (0.8-4.8); Lymphocytes % 23.9 %; Mean Platelet Volume 9.8 fL (7.4-10.4); Monocytes # 0.7 10^3/uL (0.2-0.9); Monocytes % 13.7 %; Neutrophils # 2.71 10^3/uL (1.8-7.7); Neutrophils % 55.5 %; Nucleated Red Blood Cells % 0 %; Platelet Count 100 10^3/cmm (130-400); Red Blood Count 3.62 10^6/uL (4.1-5.3); Red Cell Distribution Width 12.7 % (12.1-15.1); White Blood Count 4.9 10^3/uL (4.0-10.0)
[2020-05-31 06:37] LABS: Glucose Point of Care 180 mg/dL (70-110)
[2020-05-31 06:46] LABS: Alanine Aminotransferase 59 U/L (0-33); Albumin Level 2.9 g/dL (3.5-5.2); Alkaline Phosphatase 179 IU/L (35-105); Anion Gap 11.9 (5-19); Aspartate Amino Transferase 44 U/L (0-32); Blood Urea Nitrogen 24 mg/dL (8-23); Calcium 8.2 mg/dL (8.5-10.5); Carbon Dioxide 22 mmol/L (22-29); Chloride 104 mmol/L (98-107); Globulin 3.7 g/dL (1.3-4.6); Glomerular Filtration Rate 45.2 mL/min (90-130); Glucose 195 mg/dL (65-115); Osmolality Calculated 280 mOsm/kg (285-295); Potassium 3.9 mmol/L (3.5-5.1); Sodium 134 mmol/L (136-145); Total Bilirubin 1.6 mg/dL (0.15-1.2); Total Protein 6.6 g/dL (6.6-8.7)
[2020-05-31 07:32] VITALS: BP 101/59; PULSE 74; RESP 16; TEMP 37.1; O2SAT 98
[2020-05-31 07:47] LABS: Blood Gas CCRB Time 1255
[2020-05-31] MEDS: sodium chloride 0.9% 1,000 ML 100 ML IV (07:57)
--- NOTE | 2020-05-31 10:18 | PC.CHAP ---
Pastoral Care Encounter/Spiritual Assessment Type of Contact [] Declined abstract manager visit [] Patient/Family/Request visit [] Outpatient visit [] Follow-up visit [] Physician referral [] Code/Alert [x] Routine visit [] Staff referral [] Actively dying [] Patient sleeping [] Family support [] [] Out of room [] Palliative care [] [] Receiving care in room [] Pre-surgical visit [] Trauma [] Long length of stay [] ICU visit [] Other: Relational/Emotional Strength [] Patient feels connected with others/family/visitors/staff [] Distress [] Loneliness/isolation [] Abandonment Spirituality of Patient [] Person of Leti [] Attends Synagogue of their Leti [] Believes in Prayer [] Reads Bible or Quaker materials [] There are Spiritual issues to be addressed Single Fold Machine Operator Interventions [x] Prayer [x] Active listening [x] Non-anxious presence [x] Spiritual/emotional support [] Crisis/trauma care [] Spiritual counseling [] Bereavement support [] Provided bereavement packet [] Provided Bible/devotional materials [] Provided toy/stuffed animal, coloring book to patient or family member [] Provided Communion [] Anointing/[place] [] Salvation [x Completed spiritual assessment [] Other: Impact on Illness or Injury [] Angry [] Fearful [] Anxious [] Often cries [] Exhaustion [] Unable to work [] Unable to attend adventist [] Unable to walk/stand [] Unable to read [] Unable to drive [] Unable to eat/drink [] Unable to sleep [] Unable to be with family [] Patient intubated [] Other: Summary Patient wants to be well. Gentle lady Time spent with patient 15 min
--- NOTE | 2020-05-31 10:51 | P.PN_ITS ---
Subjective Subjective: Interval history: She is oriented x3 during my visit, although earlier reported thought it was April. Reports that at assisted living she usually gets around by wheelchair, but sometimes uses a walker. Reports that sometimes she gets behind on her lactulose. Discussed with her concern that she needs to stay on top of her medications to avoid recurrence of hepatic encephalopathy which may risk, and possibly even . She verbalized understanding. Says she usually takes her medications as prescribed, and most of the time has about 4 bowel movements per day. She feels she is doing well at assisted living. Vitals/I&O/Wt Last Vital Signs Temp 98.8 F 05/31/20 07:32 Pulse 74 05/31/20 07:32 Resp 16 05/31/20 07:32 BP 101/59 05/31/20 07:32 Pulse Ox 98 05/31/20 07:32 05/30/20 05/31/20 05/31/20 22:59 06:59 14:59 Intake Total 990 / 2443.333 1290 / 1290 Output Total 1400 / 3000 450 / 450 Balance 990 / 843.333 -1400 / -556.667 840 / 840 Weight last 48 hrs Weight 99.79 kg Physical Exam Const: COMMON NORMALS: no acute distress and patient oriented x3 OTHER: Somewhat delayed responses. Falls asleep easily. HENMT: OTHER: Broken R upper incisor. Neck/C-Spine: COMMON NORMALS: no JVD Resp: COMMON NORMALS: normal respiratory effort and clear to auscultation bilaterally AUSCULTATION: clear to auscultation bilaterally Cardio: COMMON NORMALS: no JVD, regular rhythm, S1 normal heart sound present, S2 normal heart sound present and No murmurs present (Cardio) RHYTHM: regular rhythm HEART SOUNDS: S1 normal heart sound present and S2 normal heart sound present GI: COMMON NORMALS: Normal to inspection, nondistended, normoactive bowel sounds present, Soft to palpation and non-tender PALPATION: Yes Soft to palpation Extremity: COMMON NORMALS: no joint enlargement and no pedal edema Neuro: COMMON NORMALS: patient oriented x3 and moves all extremities Skin: COMMON NORMALS: no rashes or lesions noted GENERAL SKIN EXAM: no rashes or lesions noted Urinary Catheter Management^: Bryant: Cath Placed During This Visit: yes Reason for Continuing Indwelling Catheter: Other Urinary Catheter Date of Insertion: 05/30/20 Urinary Catheter Time of Insertion: 00:00 Data : 05/31/20 05:41 05/31/20 05:41 Micro: Microbiology 05/29/20 23:31 Urine Culture - Preliminary Urine,Clean Catch Gram Negative Rods 05/29/20 23:10 Blood Culture - Preliminary Blood NEGATIVE TO DATE 05/29/20 23:10 Blood Culture - Preliminary Blood NEGATIVE TO DATE A&P Assessment and plan (1) Hepatic encephalopathy: Appears to still have some encephalopathy today, although baseline is not clear. Earlier today was thinking is April. She is awake during my visit, but when not speaking did easily fall asleep. When asking her if she is close to her baseline still says she is feeling off . At this time continue lactulose, rifaximin. Will recheck ammonia level. She is tolerating oral medications. She has been producing stool. Currently has a rectal tube. May try to remove rectal tube, Bryant catheter. Mobilize. Will get PT and OT assessment. Recently she feels that for the most part she is doing well at the assisted living. She says she is tries to stay on top of her medications but, but sometimes does not get behind on lactulose. She does say that most days she has 4 bowel movements and takes medication as prescribed. Tried but could not reach her over the phone for an update on her condition and to confirm baseline mental status. is working with the assisted-living staff to make sure she has at least 4-6 bowel movements a day. She last followed with her stockroom clerk Dr. De La Rosa in [place] about a week ago, at which time she was felt to be at her baseline. No further changes were recommended to her current regimen. Ultrasound of the abdomen did not show any intraperitoneal fluid, therefore less likely to be SBP. No DVT noted in bilateral lower extremities. Head CT was otherwise unchanged. Her transaminitis is at baseline. Status: Acute (2) Acute kidney injury: Improving. Appears to be near baseline. Will discontinue IV fluid and monitor. Hold diuretics currently. Recent CT on May 25 demonstrated no ureterolithiasis causing mild hydronephrosis, this finding was also present in November 2019. Ultrasound abdomen done for ascites check did not include urinary structures. Will need to repeat ultrasound of kidneys and bladder to follow-up on hydronephrosis. Status: Acute (3) UTI (urinary tract infection): Continue Zosyn Urine culture so far with gram-negative rods. Pending identification and sensitivity. Status: Acute Additional A&P Information Type 2 diabetes. Glucose is better. Sliding scale insulin. Hypertension. Hold medications currently, including diuretics Underlying cirrhosis. reports that exact etiology of her cirrhosis is unknown. Last follow-up with stockroom clerk 1 week ago Hypothyroidism, resume levothyroxine. TSH within range History of GERD. Continue Protonix. SCDs for DVT prophylaxis. Secondary to past history of esophageal varices and major bleeding anticoagulation withheld. Attestations Medical Necessity Statement*: Continue admission for assessment management of acute encephalopathy, hepatic encephalopathy, urinary tract infection. Coding Level of Care Code Acute Appeals [employer] Associate Justice for [facility] Fwd Diagnoses Hepatic encephalopathy K72.90 Acute kidney injury N17.9 UTI (urinary tract infection) N39.0
--- NOTE | 2020-05-31 11:02 | US_ITS ---
WS: [id number] ULTRASOUND RENAL TECHNIQUE: Ultrasound examination of both kidneys. Technically difficult examination due to body habi tus. Patient difficulty tolerating exam. CLINICAL INFORMATION: hydronephrosis? COMPARISON: None. FINDINGS: RIGHT: Mild right hydronephrosis with dilatation of the right renal pelvis and proximal ureter appears stabl e since May 25, 2020. Difficulty visualizing the right kidney. Echogenicity: Normal. Cortical thickness: 1.3 cm; Normal. Hydronephrosis: Mild Perinephric fluid: None. Right kidney measures: 8.8 cm x 4.8 cm x 5.0 cm. LEFT: Left kidney is normal in size and appearance. Echogenicity: Normal. Cortical thickness: 1.7 cm; Normal. Hydronephrosis: None. Perinephric fluid: None. Left kidney measures: 10.8 cm x 4.3 cm x 5.3 cm. Normal visualized aorta. Bryant catheter. US/US renal BI with bladder IMPRESSION: 1. Technically difficult examination due to body habitus. Patient difficulty t olerating exam. 2. Mild dilatation of the right proximal ureter and renal pelvis appears uncha nged since May 25, 2020 3. No hydronephrosis left kidney.
[2020-05-31 11:24] LABS: Glucose Point of Care 261 mg/dL (70-110)
[2020-05-31 12:00] VITALS: BP 107/69; PULSE 90; RESP 17; TEMP 36.9; O2SAT 95
[2020-05-31 12:02] LABS: Ammonia 39 umol/L (11-51)
[2020-05-31 15:57] VITALS: BP 100/48; PULSE 90; RESP 17; TEMP 36.9; O2SAT 99
[2020-05-31 17:15] LABS: Glucose Point of Care 350 mg/dL (70-110)
[2020-05-31 19:38] VITALS: BP 99/60; PULSE 71; RESP 20; TEMP 37.1; O2SAT 98
[2020-05-31 21:14] LABS: Glucose Point of Care 298 mg/dL (70-110)
[2020-06-01] VITALS (7 sets, daily range): BP systolic 92–100; BP diastolic 50–63; PULSE 66–70; RESP 16–18; TEMP 36.7–37.2; O2SAT 95–98
[2020-06-01] MEDS: piperacillin-tazobactam 3.375 GM in sodium chloride 0.9% (plus) 50 ML IV ×2 (02:00→10:46)
[2020-06-01] MEDS: pantoprazole 40 mg SDV IVP (02:00)
[2020-06-01] MEDS: lactulose oral liq 20 gm/30 mL UDC PO ×2 (04:50→10:46)
[2020-06-01 05:29] LABS: Basophils # 0.1 10^3/uL (0.0-0.1); Basophils % 1.1 %; Eosinophils # 0.3 10^3/uL (0.0-0.8); Eosinophils % 7.6 %; Hematocrit 34.7 % (37.0-47.0); Hemoglobin 11.5 g/dL (11.5-15.3); Lymphocytes # 1.1 10^3/uL (0.8-4.8); Lymphocytes % 24.6 %; Mean Corpuscular HGB Conc 33.1 g/dL (30.0-36.0); Mean Corpuscular Hemoglobin 33.5 pg (28.0-34.0); Mean Corpuscular Volume 101.2 fL (81-99); Mean Platelet Volume 9.8 fL (7.4-10.4); Monocytes # 0.5 10^3/uL (0.2-0.9); Monocytes % 12.2 %; Neutrophils # 2.36 10^3/uL (1.8-7.7); Neutrophils % 54.3 %; Nucleated Red Blood Cells % 0 %; Platelet Count 100 10^3/cmm (130-400); Red Blood Count 3.43 10^6/uL (4.1-5.3); Red Cell Distribution Width 12.6 % (12.1-15.1); White Blood Count 4.4 10^3/uL (4.0-10.0)
[2020-06-01 05:54] LABS: Alanine Aminotransferase 47 U/L (0-33); Albumin Level 2.8 g/dL (3.5-5.2); Alkaline Phosphatase 181 IU/L (35-105); Anion Gap 11.3 (5-19); Aspartate Amino Transferase 56 U/L (0-32); Blood Urea Nitrogen 21 mg/dL (8-23); Calcium 8.8 mg/dL (8.5-10.5); Carbon Dioxide 24 mmol/L (22-29); Chloride 105 mmol/L (98-107); Globulin 3.1 g/dL (1.3-4.6); Glomerular Filtration Rate 45.2 mL/min (90-130); Glucose 212 mg/dL (65-115); Magnesium 2.2 mg/dL (1.7-2.3); Osmolality Calculated 285 mOsm/kg (285-295); Potassium 4.3 mmol/L (3.5-5.1); Sodium 136 mmol/L (136-145); Total Bilirubin 1.3 mg/dL (0.15-1.2); Total Protein 5.9 g/dL (6.6-8.7)
[2020-06-01 06:30] LABS: Glucose Point of Care 229 mg/dL (70-110)
[2020-06-01] MEDS: levothyroxine 88 mcg Tablet PO (08:02)
[2020-06-01 11:08] LABS: Glucose Point of Care 388 mg/dL (70-110)
--- NOTE | 2020-06-01 13:31 | PM.DCS ---
Discharge Providers Date of Admission: 05/30/20 00:56 Date of Discharge: June 01, 2020 Attending Provider at Admission: Momo Barnett MD Attending Provider at Discharge: Dom Stone Primary Care Provider: Josafat Robertson MD Diagnoses at Discharge Discharge Diagnosis (1) Hepatic encephalopathy: Status: Acute (2) Acute kidney injury: Status: Acute (3) UTI (urinary tract infection): Status: Acute Reason for Visit Reason for Visit: UNRESPONSIVE Hospital Course Hospital Course: Pleasant 64-year-old lady with liver cirrhosis and recurrent hepatic encephalopathy, HTN, HLD, DM 2, GRETTA, was admitted due to decreased responsiveness, with concern of missed doses of lactulose, as well as difficulties obtaining refill of rifaximin. On presentation found to have hepatic encephalopathy with elevated ammonia, also urinary tract infection and acute kidney injury. Diuretics were held during hospitalization, with resolution of acute kidney injury. For UTI received treatment with Zosyn, subsequently growing Enterobacter originates in urine resistant to Augmentin, Unasyn, cefuroxime and nitrofurantoin. Initially did require lactulose enemas due to acute encephalopathy, however, subsequently mental status improved, and has been tolerating oral medications well. Today ammonia is back to normal. She is feeling much better. She is persistently awake and alert. With good insight. She had done reasonably well with PT and OT, although would benefit from continued therapy which will be ordered for her with home health. We will also request additional assistance with medications to make sure she is taking her lactulose, Xifaxan and does not miss doses due to recurrent hepatic encephalopathy. She had recently seen her asphalt mixing machine operator in [place], and should continue follow-up with them, if possible would benefit from seeing them sooner, perhaps within the next month or so due to recurrent episodes of hepatic encephalopathy. She is stating is feeling back to her baseline and is ready for discharge. Her has been aware of discharge and has been wanting her to return to assisted living. I tried to call him several times to update her on his condition and for instructions but could not reach him. Physical Exam Const: COMMON NORMALS: no acute distress and patient oriented x3 OTHER: Awake, alert. HENMT: OTHER: Broken R upper incisor. Neck/C-Spine: COMMON NORMALS: no JVD Resp: COMMON NORMALS: normal respiratory effort and clear to auscultation bilaterally AUSCULTATION: clear to auscultation bilaterally Cardio: COMMON NORMALS: no JVD, regular rhythm, S1 normal heart sound present, S2 normal heart sound present and No murmurs present (Cardio) RHYTHM: regular rhythm HEART SOUNDS: S1 normal heart sound present and S2 normal heart sound present GI: COMMON NORMALS: Normal to inspection, nondistended, normoactive bowel sounds present, Soft to palpation and non-tender PALPATION: Yes Soft to palpation Extremity: COMMON NORMALS: no joint enlargement and no pedal edema Neuro: COMMON NORMALS: patient oriented x3 and moves all extremities Skin: COMMON NORMALS: no rashes or lesions noted GENERAL SKIN EXAM: no rashes or lesions noted Urinary Catheter Management^: Bryant: Cath Placed During This Visit: yes Reason for Continuing Indwelling Catheter: Other (Requested removal prior to DC.) Urinary Catheter Date of Insertion: 05/30/20 Urinary Catheter Time of Insertion: 00:00 Discharge Data Data Completed and Pending: Completed Studies During Hospitalization Category Date Time Status CT head wo con* 7 0450 Urgent Cat Scan 05/29/20 22:38 Completed XR acute abdomen series [id number] Stat Exams 05/29/20 22:57 [place] [id number] Routin e Ultrasound 05/30/20 03:19 Completed US abdomen limite d [id number] Routine Ultrasound 05/30/20 03:19 Completed US renal BI with bladder Routine Ultrasound 05/31/20 11:02 Completed Pending at discharge Category Date Time Status Blood Culture Sta t Lab 05/30/20 00:32 Results Complete Blood Co unt w/Auto AM LABS Lab 06/02/20 04:00 Ordered Labs from last 24 hours 06/01/20 06/01/20 06/01/20 11:05 06:08 05:00 WBC RBC Hgb Hct MCV MCH MCHC RDW Plt Count MPV Neut % (Auto) Lymph % (Auto) [place] % (Auto) Eos % (Auto) Baso % (Auto) Neut # (Auto) Lymph # (Auto) [place] # (Auto) Eos # (Auto) Baso # (Auto) Nucleated RBC % (a uto) Nucleated RBCs # Sodium 136 Potassium 4.3 Chloride 105 Carbon Dioxide 24 Anion Gap 11.3 BUN 21 Creatinine 1.2 H GFR Calculation 45.2 L Glucose 212 H POC Glucose 388 229 Calculated Osmolal ity 285 Calcium 8.8 Magnesium 2.2 Total Bilirubin 1.3 H AST 56 H ALT 47 H Alkaline Phosphata se 181 H Total Protein 5.9 L Albumin 2.8 L Globulin 3.1 06/01/20 05/31/20 05/31/20 05:00 20:56 17:01 WBC 4.4 RBC 3.43 L Hgb 11.5 Hct 34.7 L MCV 101.2 H MCH 33.5 MCHC 33.1 RDW 12.6 Plt Count 100 L MPV 9.8 Neut % (Auto) 54.3 Lymph % (Auto) 24.6 [place] % (Auto) 12.2 Eos % (Auto) 7.6 Baso % (Auto) 1.1 Neut # (Auto) 2.36 Lymph # (Auto) 1.1 [place] # (Auto) 0.5 Eos # (Auto) 0.3 Baso # (Auto) 0.1 Nucleated RBC % (a uto) 0 Nucleated RBCs # 0.0 Sodium Potassium Chloride Carbon Dioxide Anion Gap BUN Creatinine GFR Calculation Glucose POC Glucose 298 350 Calculated Osmolal ity Calcium Magnesium Total Bilirubin AST ALT Alkaline Phosphata se Total Protein Albumin Globulin Vitals: Last Vital Signs Temp 98.0 F 06/01/20 11:53 Pulse 66 06/01/20 11:53 Resp 18 06/01/20 11:53 BP 97/59 06/01/20 11:53 Pulse Ox 97 06/01/20 11:00 Discharge Plan Discharge Patient Disposition: Home Health Service Condition: Stable Prescriptions: New ciprofloxacin HCl 500 mg tablet 500 mg PO BID Qty: 14 RF: 0 Continued magnesium oxide [MagOx] 400 mg (241.3 mg magnesium) Tablet 400 mg PO DAILY 30 Days Qty: 30 RF: 0 pantoprazole [Protonix] 40 mg Tablet,Delayed Release (Dr/Ec) 40 mg PO BID 30 Days Qty: 60 RF: 0 ferrous sulfate 325 mg (65 mg iron) Tablet 325 mg PO BID 30 Days Qty: 60 RF: 0 Xifaxan 550 mg Tablet 550 mg PO BID 30 Days Qty: 60 RF: 0 furosemide [Lasix] 40 mg tablet 60 mg PO BID RF: 0 spironolactone 25 mg tablet 50 mg PO BID RF: 0 metolazone 2.5 mg Tablet 2.5 mg PO DAILY RF: 0 Triple Antibiotic 3.5mg-400 unit- 5,000 unit/gram Ointment See Rx Instructions .ROUTE .COMPLEX RF: 0 lidocaine HCl 2 % Jelly See Rx Instructions .ROUTE .COMPLEX RF: 0 levothyroxine 88 mcg Tablet 88 mcg PO DAILY RF: 0 lactulose 10 gram/15 mL Solution 40 ml PO QID RF: 0 Levemir FlexTouch U-100 Insuln 100 unit/mL (3 mL) Insulin Pen 14 unit SUBCUT BEDTIME RF: 0 potassium chloride 20 mEq Tablet Extended Release 40 meq PO DAILY RF: 0 ondansetron HCl [Zofran] 4 mg tablet 4 mg PO QID PRN (Reason: Nausea) RF: 0 insulin lispro [Humalog KwikPen Insulin] 100 unit/mL Insulin Pen See Rx Instructions .ROUTE .COMPLEX RF: 0 insulin lispro [Humalog KwikPen Insulin] 100 unit/mL Insulin Pen See Rx Instructions .ROUTE .COMPLEX RF: 0 Discharge Orders: Discharge Order (Routine); Ordered 06/01/20 Ordered By: Dom Stone Referrals: Your, asphalt mixing machine operator [Other] - 2 weeks [facility] [Outside] Josafat Robertson MD [Primary Care Provider] - 4-7 days (Recurrent hepatic encephalopathy. UTI.) Discharge Diet: Cardiac and Diabetic Discharge Activity: Increase activity as tolerated Patient Instructions: Ciprofloxacin (By mouth), Acute Kidney Injury (DC), Urinary Tract Infection in Women (DC), Hepatic Encephalopathy (DC) Activity Restrictions/Additional Instructions: Please continue lactulose, Xifaxan at home, continue to target about 4-6 bowel movements per day. Please follow-up with your asphalt mixing machine operator Dr. De La Rosa within the next month or so due to recurrent hepatic encephalopathy episodes. A kidney injury seen on presentation is currently resolved, however, please avoid any NSAIDs at home, medications like ibuprofen, Aleve, etc. If you are having difficulties managing her medications, or difficulties with any activities of daily living at the assisted living, consider discussing higher level of care with your primary care provider. Discharge Attestations Time Spent in Discharge Care*: greater than 30 min Status at Discharge: Cognitive status at discharge: cognitively intact, Behavioral status at discharge: cooperative, Quality Metrics Clinical Quality Measures During this hospital stay, did patient experience: None Coding Level of Care Code Acute Net Lead Developer for g Fwd Diagnoses Hepatic encephalopathy K72.90 Acute kidney injury N17.9 UTI (urinary tract infection) N39.0
== END 2020-06-01 14:49 | disposition home health service (06) | DRG 442 ==
LOC: ER 23:07 → ICU 05-30 01:05 → MEDSURG 05-30 15:57
PROVIDERS: Emergency Medicine; Student in an Organized Health Care Education/Training Program; Admitting Provider Internal Medicine; PCP Family Medicine; Visit Provider Internal Medicine
DX: K72.00 Acute and subacute hepatic failure without coma (principal); N39.0 Urinary tract infection, site not specified; N17.9 Acute kidney failure, unspecified; Z16.29 Resistance to other single specified antibiotic; K74.60 Unspecified cirrhosis of liver; E11.9 Type 2 diabetes mellitus without complications; E03.9 Hypothyroidism, unspecified; I10 Essential (primary) hypertension; Z87.442 Personal history of urinary calculi; E66.09 Other obesity due to excess calories; Z68.32 Body mass index [BMI] 32.0-32.9, adult; G47.33 Obstructive sleep apnea (adult) (pediatric); Z87.891 Personal history of nicotine dependence; F10.21 Alcohol dependence, in remission; R60.0 Localized edema; K21.9 Gastro-esophageal reflux disease without esophagitis; Z91.14 Patient's other noncompliance with medication regimen; B96.89 Other specified bacterial agents as the cause of diseases classified elsewhere; K59.00 Constipation, unspecified; Z79.4 Long term (current) use of insulin
CPT/HCPCS: 12345; 36415; 36416; 36600; 51702; 70450; 74022; 76705; 76770; 76857; 80053; 80306; 81001; 82140; 82803; 82962; 83605; 83735; 84443; 85025; 87040; 87077; 87086; 87186; 93970; 96372; 96375; 97110; 97116; 97162; 97166; 97530; 97535; 99284; C9113; J1815; J2405; J2543; J7030

== ENCOUNTER → 2020-11-22 08:09 | Outpatient (BNVA) | payer OTHER, SELFPAY | PROVIDERS: PCP Family Medicine; Visit Provider Family Medicine | DX: R60.1 Generalized edema (principal) | CPT/HCPCS: 80053 ==

== ENCOUNTER → 2021-03-29 10:22 | Outpatient (BNVA) | payer OTHER, SELFPAY | PROVIDERS: PCP Family Medicine; Visit Provider Nurse Practitioner | DX: I10 Essential (primary) hypertension (principal); R60.9 Edema, unspecified; E11.9 Type 2 diabetes mellitus without complications; Z79.4 Long term (current) use of insulin; E03.9 Hypothyroidism, unspecified | CPT/HCPCS: 80053; 80061; 83036; 83735; 83880; 84443; 85025 ==

== ENCOUNTER 2021-04-04 14:05 | Inpatient (IN) | payer OTHER, MEDICARE, SELFPAY ==
[2021-04-04] VITALS (7 sets, daily range): BP systolic 92–127; BP diastolic 44–60; PULSE 73–82; RESP 12–18; TEMP 36.5–36.7; O2SAT 96–98; BMI 38.3
--- NOTE | 2021-04-04 14:23 | ECG_ITS ---
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 Measurements Intervals [place]att Rate: 74 P: 55 WA: 149 QRS: 21 QRSD: 130 T: 52 QT: 402 QTc: 448 Interpretive Statements SINUS RHYTHM WITH MARKED SINUS ARRHYTHMIA LATERAL MYOCARDIAL INFARCTION [40+ ms Q WAVE AND/OR ST/T ABNORMALITY IN I/aVL/V5/V6], OF INDETERMINATE AGE Compared to ECG 05/25/2020 18:57:05 Right bundle-branch block no longer present Left anterior fascicular block no longer present Myocardial infarct finding still present Electronically Signed On 04-04-2021 22:46:49 CDT by Imelda Peraza M.D. [email or web address]/[id number] f
--- NOTE | 2021-04-04 14:23 | XR_ITS ---
WS: [id number] Exam: XR chest 1V portable [id number] Date/Time of Exam: 04/04/2021 2:30 PM Reason For Exam: increased leg edema-history of heart failure Comparison 05/25/2020. The lungs are clear and fully expanded. Unremarkable cardiomediastinal structures for technique. Bony elements are intact. No pleural effusions. XR/XR chest 1V portable [id number] IMPRESSION: 1. No acute process noted. No change.
--- NOTE | 2021-04-04 14:33 | W.ED.EXTPRO ---
Documented by User: TYLER Waters 04/05/21 07:41 HPI - Extremity Problem General: Chief complaint: Extremity Problem,Nontraumatic Stated complaint: EDEMA Time Seen by Provider: 04/04/21 14:11 History of Present Illness: HPI Narrative: Patient is a 65-year-old female comes to the ED with bilateral lower extremity edema. Patient resides at [facility]. Patient has a history of diabetes, hypertension, cirrhosis, hypothyroid and heart failure. Patient saw her PCP Allen Myers on March 31 and she increased her diuretic due to lower extremity edema. Patient started taking increased dose of Lasix on Sunday. today she woke up with worse swelling and pain. Patient says she has put on 3 pounds in the last 2 days. She denies any chest pain, shortness of breath, abdominal pain, nausea/vomiting. Associated symptoms: Deny chest pain, fever(s) or rash Review of Systems Const: Denies: fever(s), chills or fatigue Eyes: Denies: change in vision or eye discomfort ENMT: Denies: throat pain, odynophagia, nasal discharge or nasal congestion Card: Denies: chest pain, palpitations, edema, swelling of feet/ankles, dyspnea on exertion or orthopnea Resp: Denies: dyspnea, productive cough or non-productive cough GI: Denies: abdominal pain, nausea, vomiting, diarrhea, constipation or hematochezia : Denies: flank pain, dysuria or hematuria Musc: Reports: extremity swelling (Bilateral lower extremity edema.); Denies: neck pain or back pain Skin/Breast: Denies: rash or new lesions Neuro: Denies: headache(s), numbness in extremities or weakness in extremities PFSH ED PFSH: Medical History Cirrhosis Esophageal varices Hydronephrosis Hypertension Hypothyroid Insulin dependent type 2 diabetes mellitus Nephrolithiasis Obesity Portal hypertension due to obstruction of extrahepatic portal vein Sleep apnea Surgical History H/O hernia repair H/O lithotripsy History of cholecystectomy History of oophorectomy, unilateral Family History Mother Lung disease Father Cardiovascular disease Denies family history of Diabetes Cancer Social History Smoking and tobacco status: former smoker Caregiver/support person: Yes Lives independently: No Housing: Assisted Living Facility Marital status: Marital status details: Dayne Current occupational status: retired Physical Exam Const: COMMON NORMALS: no acute distress, patient oriented x3 and alert GENERAL APPEARANCE: cooperative and comfortable HENMT: COMMON NORMALS: normocephalic HEAD & SCALP: normocephalic MOUTH: Normal oral and palatal mucosa present THROAT: posterior oropharynx normal and uvula midline Eye: COMMON NORMALS: Equal, round and reactive pupils present PUPIL: Yes Equal, round and reactive pupils present Neck/C-Spine: COMMON NORMALS: supple GENERAL: Yes normal visual inspection Resp: COMMON NORMALS: normal respiratory effort, No retractions, No use of accessory muscles and clear to auscultation bilaterally AUSCULTATION: clear to auscultation bilaterally Cardio: COMMON NORMALS: regular rate, regular rhythm, S1 normal heart sound present, S2 normal heart sound present, No gallops present (Cardio), No clicks present (Cardio) and Peripheral pulses 2+ throughout RATE: regular rate RHYTHM: regular rhythm HEART SOUNDS: S1 normal heart sound present, S2 normal heart sound present and Murmur heart sound present systolic Location: apex Intensity: III/ Characteristics: blowing Timing: early PERIPHERAL PULSES: Peripheral pulses 2+ throughout GI: COMMON NORMALS: Normal to inspection, nondistended, normoactive bowel sounds present, Soft to palpation, non-tender and no masses PALPATION: Yes Soft to palpation : COMMON NORMALS: Yes no CVA tenderness BLADDER/KIDNEY EXAM: Yes no CVA tenderness Back/Pelvis: COMMON NORMALS: no CVA tenderness Extremity: GENERAL: Yes normal exam except as noted and Yes edema (Bilateral lower extremity 3+ pitting edema.) Neuro: COMMON NORMALS: patient oriented x3 and moves all extremities SENSORIUM/ORIENTATION: Yes alert Skin: GENERAL SKIN EXAM: dry skin Course Vital Signs: Vital signs: Vital Signs Temperature 97.4 F L 04/05/21 03:36 Pulse Rate 82 04/05/21 06:00 Respiratory Rate 18 04/05/21 03:36 Blood Pressure 102/66 04/05/21 03:36 Pulse Oximetry 96 04/05/21 03:36 MDM - Extremity (Nontraumatic) Lab Data: Attestation: I reviewed the patient's lab results. Labs: Lab Results 04/04/21 04/04/21 04/04/21 Range/Units 15:20 15:20 15:20 WBC 7.3 (4.0-10.0) 10^3/ uL RBC 2.95 L (4.1-5.3) 10^6/u L Hgb 10.3 L (11.5-15.3) g/dL Hct 31.6 L (37.0-47.0) % MCV 107.1 H (81-99) fL MCH 34.9 H (28.0-34.0) pg MCHC 32.6 (30.0-36.0) g/dL RDW 15.9 H (12.1-15.1) % Plt Count 118 L (130-400) 10^3/c mm MPV 9.3 (7.4-10.4) fL Neut % (Auto) 55.8 % Lymph % (Auto) 12.5 % [place] % (Auto) 10.3 % Eos % (Auto) 19.1 % Baso % (Auto) 1.5 % Neut # (Auto) 4.07 (1.8-7.7) 10^3/u L Lymph # (Auto) 0.9 (0.8-4.8) 10^3/u L [place] # (Auto) 0.8 (0.2-0.9) 10^3/u L Eos # (Auto) 1.4 H (0.0-0.8) 10^3/u L Baso # (Auto) 0.1 (0.0-0.1) 10^3/u L Nucleated RBC % (a uto) 0 % Nucleated RBCs # 0.0 /100WBC Sodium 135 L (136-145) mmol/L Potassium 4.7 (3.5-5.1) mmol/L Chloride 98 (98-107) mmol/L Carbon Dioxide 26 (22-29) mmol/L Anion Gap 15.7 (5-19) BUN 37 H (8-23) mg/dL Creatinine 1.5 H (0.5-0.9) mg/dL GFR Calculation 34.9 L (90-130) mL/min Glucose 221 H (65-115) mg/dL Calculated Osmolal ity 295 (285-295) mOsm/k g Calcium 8.6 (8.5-10.5) mg/dL Total Bilirubin 1.2 (0.15-1.2) mg/dL AST 46 H (0-32) U/L ALT 39 H (0-33) U/L Alkaline Phosphata se 348 H (35-105) IU/L Troponin T Baselin e 42 H (0-10) ng/L Troponin T 120 Min [place] (0-10) ng/L Delta Troponin T (0-10) ABS# NT-Pro-B Natriuret Pep 458 H (0-125) pg/mL Total Protein 6.4 L (6.6-8.7) g/dL Albumin 3.3 L (3.5-5.2) g/dL Globulin 3.1 (1.3-4.6) g/dL 04/04/21 Range/Units 17:42 WBC (4.0-10.0) 10^3/ uL RBC (4.1-5.3) 10^6/u L Hgb (11.5-15.3) g/dL Hct (37.0-47.0) % MCV (81-99) fL MCH (28.0-34.0) pg MCHC (30.0-36.0) g/dL RDW (12.1-15.1) % Plt Count (130-400) 10^3/c mm MPV (7.4-10.4) fL Neut % (Auto) % Lymph % (Auto) % [place] % (Auto) % Eos % (Auto) % Baso % (Auto) % Neut # (Auto) (1.8-7.7) 10^3/u L Lymph # (Auto) (0.8-4.8) 10^3/u L [place] # (Auto) (0.2-0.9) 10^3/u L Eos # (Auto) (0.0-0.8) 10^3/u L Baso # (Auto) (0.0-0.1) 10^3/u L Nucleated RBC % (a uto) % Nucleated RBCs # /100WBC Sodium (136-145) mmol/L Potassium (3.5-5.1) mmol/L Chloride (98-107) mmol/L Carbon Dioxide (22-29) mmol/L Anion Gap (5-19) BUN (8-23) mg/dL Creatinine (0.5-0.9) mg/dL GFR Calculation (90-130) mL/min Glucose (65-115) mg/dL Calculated Osmolal ity (285-295) mOsm/k g Calcium (8.5-10.5) mg/dL Total Bilirubin (0.15-1.2) mg/dL AST (0-32) U/L ALT (0-33) U/L Alkaline Phosphata se (35-105) IU/L Troponin T Baselin e (0-10) ng/L Troponin T 120 Min [place] 40.31 H (0-10) ng/L Delta Troponin T -1.69 L (0-10) ABS# NT-Pro-B Natriuret Pep (0-125) pg/mL Total Protein (6.6-8.7) g/dL Albumin (3.5-5.2) g/dL Globulin (1.3-4.6) g/dL Imaging Data^: CXR: Attestation: I personally reviewed and interpreted this imaging study as follows: Radiologist's impression: [address] [id number] ReportSigned Patient: Sharon Kwan #: [id number]: 5Acct#:[id number]/Sex: 65 / FADM Date: 04/04/21Loc: ERRoom/Bed:Attending Dr: Ordering Provider/Ordering MD: Maynor Singleton Date of Service: 04/04/21 Procedure(s): XR chest 1V portable [id number] Accession Number(s): [id number] Report Number: [id number] WS: [id number] Exam: XR chest 1V portable [id number] Date/Time of Exam: 04/04/2021 2:30 PM Reason For Exam: increased leg edema-history of heart failure Comparison 05/25/2020. The lungs are clear and fully expanded. Unremarkable cardiomediastinal structures for technique. Bony elements are intact. No pleural effusions. XR/XR chest 1V portable [id number] IMPRESSION: 1. No acute process noted. No change. Dictated By:Addie Almaraz By:Addie Almaraz Date/Time:04/04/21 1439DD/ 1438 EKG Data^: EKG 1: Attestation: I personally reviewed and interpreted this EKG as follows: EKG interpretation date: 04/04/21 Interpretation: Sinus rhythm with marked sinus arrhythmia. 74 bpm, no ST segment elevation or depression noted. Discharge Plan Discharge Patient Disposition: Placed in Observation Admit Provider: Jonathan Sullivan Clinical Impression: Lower extremity edema Sign Out Sign Out Data: Patient Sign Out occurred on 04/04/21 at 17:19. Patient's care was discussed, and care was transferred from TYLER Waters to Leon Han. Sign Out Comment: Patient is a 65-year-old female comes to the ED with lower extremity edema. Patient has a history of heart failure and just upped her Lasix dose 2 days ago. Chest xray clear. EKG showed no st segment elevation or depression. She is having increasing leg edema. Labs pending. start IV Lasix once creatinine lab is back. Maynor Singleton PA-C Last updated by Maynor Singleton PA at 04/04/21 17:08 Coding Level of Care Code ED Streetcar Motorman for Chg Fwd Exam Comprehensive Documented by User: GARRET Curry 04/04/21 17:50 HPI - Extremity Problem General: Chief complaint: Extremity Problem,Nontraumatic Stated complaint: EDEMA Time Seen by Provider: 04/04/21 14:11 PFS ED PFSH: Medical History Cirrhosis Esophageal varices Hydronephrosis Hypertension Hypothyroid Insulin dependent type 2 diabetes mellitus Nephrolithiasis Obesity Portal hypertension due to obstruction of extrahepatic portal vein Sleep apnea Surgical History H/O hernia repair H/O lithotripsy History of cholecystectomy History of oophorectomy, unilateral Family History Mother Lung disease Father Cardiovascular disease Denies family history of Diabetes Cancer Social History Smoking and tobacco status: former smoker Caregiver/support person: Yes Lives independently: No Housing: Assisted Living Facility Marital status: Marital status details: Dayne Current occupational status: retired Course ED course: 1709, received patient from Maynor Singleton PA-C. Patient was being seen for increased redness and swelling to bilateral lower extremities. Patient has a history of CHF, diabetes mellitus, and liver failure. Patient was seen on Sunday and was increasing her dose of Bumex and spironolactone for improvement of diuresis of lower extremity. Patient has had no improvement and increased swelling. Laboratory values noted a creatinine 1.5 which was along the lines of patient's normal. Potassium was 4.7. Hemoglobin adequate was 10 and 31. Glucose was 223. 1730, reviewed with Dr. Mtz who agreed to see patient and consider for admission after family request. Vital Signs: Vital signs: Vital Signs Temperature 97.4 F L 04/05/21 03:36 Pulse Rate 82 04/05/21 06:00 Respiratory Rate 18 04/05/21 03:36 Blood Pressure 102/66 04/05/21 03:36 Pulse Oximetry 96 04/05/21 03:36 MDM - Extremity (Nontraumatic) MDM Narrative: Medical decision making narrative: Today for concerns of increased weight gain another 3 pounds from Sunday with increasing redness and swelling to bilateral lower extremities. Patient was seen at PCP office on Sunday and was adjusted for diuretics. Family brought her in today due to worsening symptoms. On exam patient has bilateral lower extremity edema with edema starting about mid thigh on the way down. Pulses are palpable in the distal extremity. Patient does have some significant erythema. Vital signs are regular rate at 78 bpm, blood pressure runs 110s over 50s, respirations are normal, and patient is afebrile. Oxygen saturation is 96% on room air. Patient does have a pansystolic murmur. Differential diagnosis congestive heart failure, cirrhosis, hypertension, diabetes type 2, portal vein thrombosis, chronic kidney disease. Laboratory values noted some mild anemia, creatinine is 1.5, glucose 223, chest x-ray was clear. Discussed with family treating with IV Lasix and discharging back to residential center they would prefer that patient be admitted due to her chronic illnesses and guarded condition. I reviewed this with Dr. Saunders who agreed to see patient and consider placement into hospital for failed outpatient treatment. Lab Data: Labs: Lab Results 04/04/21 04/04/21 04/04/21 Range/Units 15:20 15:20 15:20 WBC 7.3 (4.0-10.0) 10^3/ uL RBC 2.95 L (4.1-5.3) 10^6/u L Hgb 10.3 L (11.5-15.3) g/dL Hct 31.6 L (37.0-47.0) % MCV 107.1 H (81-99) fL MCH 34.9 H (28.0-34.0) pg MCHC 32.6 (30.0-36.0) g/dL RDW 15.9 H (12.1-15.1) % Plt Count 118 L (130-400) 10^3/c mm MPV 9.3 (7.4-10.4) fL Neut % (Auto) 55.8 % Lymph % (Auto) 12.5 % [place] % (Auto) 10.3 % Eos % (Auto) 19.1 % Baso % (Auto) 1.5 % Neut # (Auto) 4.07 (1.8-7.7) 10^3/u L Lymph # (Auto) 0.9 (0.8-4.8) 10^3/u L [place] # (Auto) 0.8 (0.2-0.9) 10^3/u L Eos # (Auto) 1.4 H (0.0-0.8) 10^3/u L Baso # (Auto) 0.1 (0.0-0.1) 10^3/u L Nucleated RBC % (a uto) 0 % Nucleated RBCs # 0.0 /100WBC Sodium 135 L (136-145) mmol/L Potassium 4.7 (3.5-5.1) mmol/L Chloride 98 (98-107) mmol/L Carbon Dioxide 26 (22-29) mmol/L Anion Gap 15.7 (5-19) BUN 37 H (8-23) mg/dL Creatinine 1.5 H (0.5-0.9) mg/dL GFR Calculation 34.9 L (90-130) mL/min Glucose 221 H (65-115) mg/dL Calculated Osmolal ity 295 (285-295) mOsm/k g Calcium 8.6 (8.5-10.5) mg/dL Total Bilirubin 1.2 (0.15-1.2) mg/dL AST 46 H (0-32) U/L ALT 39 H (0-33) U/L Alkaline Phosphata se 348 H (35-105) IU/L Troponin T Baselin e 42 H (0-10) ng/L Troponin T 120 Min [place] (0-10) ng/L Delta Troponin T (0-10) ABS# NT-Pro-B Natriuret Pep 458 H (0-125) pg/mL Total Protein 6.4 L (6.6-8.7) g/dL Albumin 3.3 L (3.5-5.2) g/dL Globulin 3.1 (1.3-4.6) g/dL 04/04/21 Range/Units 17:42 WBC (4.0-10.0) 10^3/ uL RBC (4.1-5.3) 10^6/u L Hgb (11.5-15.3) g/dL Hct (37.0-47.0) % MCV (81-99) fL MCH (28.0-34.0) pg MCHC (30.0-36.0) g/dL RDW (12.1-15.1) % Plt Count (130-400) 10^3/c mm MPV (7.4-10.4) fL Neut % (Auto) % Lymph % (Auto) % [place] % (Auto) % Eos % (Auto) % Baso % (Auto) % Neut # (Auto) (1.8-7.7) 10^3/u L Lymph # (Auto) (0.8-4.8) 10^3/u L [place] # (Auto) (0.2-0.9) 10^3/u L Eos # (Auto) (0.0-0.8) 10^3/u L Baso # (Auto) (0.0-0.1) 10^3/u L Nucleated RBC % (a uto) % Nucleated RBCs # /100WBC Sodium (136-145) mmol/L Potassium (3.5-5.1) mmol/L Chloride (98-107) mmol/L Carbon Dioxide (22-29) mmol/L Anion Gap (5-19) BUN (8-23) mg/dL Creatinine (0.5-0.9) mg/dL GFR Calculation (90-130) mL/min Glucose (65-115) mg/dL Calculated Osmolal ity (285-295) mOsm/k g Calcium (8.5-10.5) mg/dL Total Bilirubin (0.15-1.2) mg/dL AST (0-32) U/L ALT (0-33) U/L Alkaline Phosphata se (35-105) IU/L Troponin T Baselin e (0-10) ng/L Troponin T 120 Min [place] 40.31 H (0-10) ng/L Delta Troponin T -1.69 L (0-10) ABS# NT-Pro-B Natriuret Pep (0-125) pg/mL Total Protein (6.6-8.7) g/dL Albumin (3.5-5.2) g/dL Globulin (1.3-4.6) g/dL Discharge Plan Discharge Patient Disposition: Placed in Observation Admit Provider: Jonathan Sullivan Clinical Impression: Lower extremity edema Sign Out Sign Out Data: Patient Sign Out occurred on 04/04/21 at 17:19. Patient's care was discussed, and care was transferred from TYLER Waters to Leon Han. Sign Out Comment: Patient is a 65-year-old female comes to the ED with lower extremity edema. Patient has a history of heart failure and just upped her Lasix dose 2 days ago. Chest xray clear. EKG showed no st segment elevation or depression. She is having increasing leg edema. Labs pending. start IV Lasix once creatinine lab is back. Maynor Singleton PA-C Last updated by Maynor Singleton PA at 04/04/21 17:08 Coding Level of Care Code ED Street[employer] Motorman for Chg Fwd Exam Comprehensive Documented by User: Francis Saunders MD 04/04/21 23:10 HPI - Extremity Problem General: Chief complaint: Extremity Problem,Nontraumatic Stated complaint: EDEMA Time Seen by Provider: 04/04/21 14:11 PFSH ED PFSH: Medical History Cirrhosis Esophageal varices Hydronephrosis Hypertension Hypothyroid Insulin dependent type 2 diabetes mellitus Nephrolithiasis Obesity Portal hypertension due to obstruction of extrahepatic portal vein Sleep apnea Surgical History H/O hernia repair H/O lithotripsy History of cholecystectomy History of oophorectomy, unilateral Family History Mother Lung disease Father Cardiovascular disease Denies family history of Diabetes Cancer Social History Smoking and tobacco status: former smoker Caregiver/support person: Yes Lives independently: No Housing: Assisted Living Facility Marital status: Marital status details: Dayne Current occupational status: retired Course Vital Signs: Vital signs: Vital Signs Temperature 97.4 F L 04/05/21 03:36 Pulse Rate 82 04/05/21 06:00 Respiratory Rate 18 04/05/21 03:36 Blood Pressure 102/66 04/05/21 03:36 Pulse Oximetry 96 04/05/21 03:36 MDM - Extremity (Nontraumatic) MDM Narrative: Medical decision making narrative: Smith: She has failed outpatient diuresis. Discussed with Dr. Sullivan who accepts for observation. Ultrasound negative for DVT Lab Data: Labs: Lab Results 04/04/21 04/04/21 04/04/21 Range/Units 15:20 15:20 15:20 WBC 7.3 (4.0-10.0) 10^3/ uL RBC 2.95 L (4.1-5.3) 10^6/u L Hgb 10.3 L (11.5-15.3) g/dL Hct 31.6 L (37.0-47.0) % MCV 107.1 H (81-99) fL MCH 34.9 H (28.0-34.0) pg MCHC 32.6 (30.0-36.0) g/dL RDW 15.9 H (12.1-15.1) % Plt Count 118 L (130-400) 10^3/c mm MPV 9.3 (7.4-10.4) fL Neut % (Auto) 55.8 % Lymph % (Auto) 12.5 % [place] % (Auto) 10.3 % Eos % (Auto) 19.1 % Baso % (Auto) 1.5 % Neut # (Auto) 4.07 (1.8-7.7) 10^3/u L Lymph # (Auto) 0.9 (0.8-4.8) 10^3/u L [place] # (Auto) 0.8 (0.2-0.9) 10^3/u L Eos # (Auto) 1.4 H (0.0-0.8) 10^3/u L Baso # (Auto) 0.1 (0.0-0.1) 10^3/u L Nucleated RBC % (a uto) 0 % Nucleated RBCs # 0.0 /100WBC Sodium 135 L (136-145) mmol/L Potassium 4.7 (3.5-5.1) mmol/L Chloride 98 (98-107) mmol/L Carbon Dioxide 26 (22-29) mmol/L Anion Gap 15.7 (5-19) BUN 37 H (8-23) mg/dL Creatinine 1.5 H (0.5-0.9) mg/dL GFR Calculation 34.9 L (90-130) mL/min Glucose 221 H (65-115) mg/dL Calculated Osmolal ity 295 (285-295) mOsm/k g Calcium 8.6 (8.5-10.5) mg/dL Total Bilirubin 1.2 (0.15-1.2) mg/dL AST 46 H (0-32) U/L ALT 39 H (0-33) U/L Alkaline Phosphata se 348 H (35-105) IU/L Troponin T Baselin e 42 H (0-10) ng/L Troponin T 120 Min [place] (0-10) ng/L Delta Troponin T (0-10) ABS# NT-Pro-B Natriuret Pep 458 H (0-125) pg/mL Total Protein 6.4 L (6.6-8.7) g/dL Albumin 3.3 L (3.5-5.2) g/dL Globulin 3.1 (1.3-4.6) g/dL 04/04/21 Range/Units 17:42 WBC (4.0-10.0) 10^3/ uL RBC (4.1-5.3) 10^6/u L Hgb (11.5-15.3) g/dL Hct (37.0-47.0) % MCV (81-99) fL MCH (28.0-34.0) pg MCHC (30.0-36.0) g/dL RDW (12.1-15.1) % Plt Count (130-400) 10^3/c mm MPV (7.4-10.4) fL Neut % (Auto) % Lymph % (Auto) % [place] % (Auto) % Eos % (Auto) % Baso % (Auto) % Neut # (Auto) (1.8-7.7) 10^3/u L Lymph # (Auto) (0.8-4.8) 10^3/u L [place] # (Auto) (0.2-0.9) 10^3/u L Eos # (Auto) (0.0-0.8) 10^3/u L Baso # (Auto) (0.0-0.1) 10^3/u L Nucleated RBC % (a uto) % Nucleated RBCs # /100WBC Sodium (136-145) mmol/L Potassium (3.5-5.1) mmol/L Chloride (98-107) mmol/L Carbon Dioxide (22-29) mmol/L Anion Gap (5-19) BUN (8-23) mg/dL Creatinine (0.5-0.9) mg/dL GFR Calculation (90-130) mL/min Glucose (65-115) mg/dL Calculated Osmolal ity (285-295) mOsm/k g Calcium (8.5-10.5) mg/dL Total Bilirubin (0.15-1.2) mg/dL AST (0-32) U/L ALT (0-33) U/L Alkaline Phosphata se (35-105) IU/L Troponin T Baselin e (0-10) ng/L Troponin T 120 Min [place] 40.31 H (0-10) ng/L Delta Troponin T -1.69 L (0-10) ABS# NT-Pro-B Natriuret Pep (0-125) pg/mL Total Protein (6.6-8.7) g/dL Albumin (3.5-5.2) g/dL Globulin (1.3-4.6) g/dL Discharge Plan Discharge Patient Disposition: Placed in Observation Admit Provider: Jonathan Sullivan Clinical Impression: Lower extremity edema Sign Out Sign Out Data: Patient Sign Out occurred on 04/04/21 at 17:19. Patient's care was discussed, and care was transferred from TYLER Waters to Leon Han. Sign Out Comment: Patient is a 65-year-old female comes to the ED with lower extremity edema. Patient has a history of heart failure and just upped her Lasix dose 2 days ago. Chest xray clear. EKG showed no st segment elevation or depression. She is having increasing leg edema. Labs pending. start IV Lasix once creatinine lab is back. Maynor Singleton PA-C Last updated by Maynor Singleton PA at 04/04/21 17:08 Coding Level of Care Code ED Streetcar Motorman for Graceg Fwd Exam Comprehensive
--- NOTE | 2021-04-04 16:23 | ECG_ITS ---
[facility] Test Date: 2021-04-04 Pat Name: Sharon Kwan Department: Room: Gender: Female Cloth Shader: : 1955 Requested By: Maynor Singleton Order Number: [id number] Carey MD: Imelda Peraza M.D. Measurements Intervals [place] Rate: 78 P: 8 IA: 155 QRS: 40 QRSD: 126 T: 0 QT: 389 QTc: 444 Interpretive Statements SINUS RHYTHM WITH OCCASIONAL VENTRICULAR PREMATURE COMPLEXES Compared to ECG 04/04/2021 15:26:01 Ventricular premature complex(es) now present Sinus arrhythmia no longer present Myocardial infarct finding no longer present Electronically Signed On 04-04-2021 22:54:49 CDT by Imelda Peraza M.D. [id number]
[2021-04-04 16:49] LABS: Basophils # 0.1 10^3/uL (0.0-0.1); Basophils % 1.5 %; Eosinophils # 1.4 10^3/uL (0.0-0.8); Eosinophils % 19.1 %; Hematocrit 31.6 % (37.0-47.0); Hemoglobin 10.3 g/dL (11.5-15.3); Lymphocytes # 0.9 10^3/uL (0.8-4.8); Lymphocytes % 12.5 %; Mean Corpuscular HGB Conc 32.6 g/dL (30.0-36.0); Mean Corpuscular Hemoglobin 34.9 pg (28.0-34.0); Mean Corpuscular Volume 107.1 fL (81-99); Mean Platelet Volume 9.3 fL (7.4-10.4); Monocytes # 0.8 10^3/uL (0.2-0.9); Monocytes % 10.3 %; Neutrophils # 4.07 10^3/uL (1.8-7.7); Neutrophils % 55.8 %; Nucleated Red Blood Cells % 0 %; Platelet Count 118 10^3/cmm (130-400); Red Blood Count 2.95 10^6/uL (4.1-5.3); Red Cell Distribution Width 15.9 % (12.1-15.1); White Blood Count 7.3 10^3/uL (4.0-10.0)
[2021-04-04 17:04] LABS: Troponin(5th) Baseline 42 ng/L (0-10)
[2021-04-04 17:12] LABS: Alanine Aminotransferase 39 U/L (0-33); Albumin Level 3.3 g/dL (3.5-5.2); Alkaline Phosphatase 348 IU/L (35-105); Anion Gap 15.7 (5-19); Aspartate Amino Transferase 46 U/L (0-32); Blood Urea Nitrogen 37 mg/dL (8-23); Calcium 8.6 mg/dL (8.5-10.5); Carbon Dioxide 26 mmol/L (22-29); Chloride 98 mmol/L (98-107); Globulin 3.1 g/dL (1.3-4.6); Glomerular Filtration Rate 34.9 mL/min (90-130); Glucose 221 mg/dL (65-115); NT Pro B Type Natriuretic Pept 458 pg/mL (0-125); Osmolality Calculated 295 mOsm/kg (285-295); Potassium 4.7 mmol/L (3.5-5.1); Sodium 135 mmol/L (136-145); Total Bilirubin 1.2 mg/dL (0.15-1.2); Total Protein 6.4 g/dL (6.6-8.7)
[2021-04-04] MEDS: FUROsemide 10 mg/mL SDV 4mL 40 MG IVP (17:53)
[2021-04-04] MEDS: TRAMadol 50 mg Tablet PO (18:02)
--- NOTE | 2021-04-04 18:19 | USR_ITS ---
PROCEDURE INFORMATION: Exam: US Duplex Lower Extremity Veins, Bilateral Exam date and time: 04/04/2021 6:19 PM Age: 65 years old Clinical indication: Swelling (edema) of limb; Lower extremity, bilateral; Additional info: Leg swelling/ edema TECHNIQUE: Imaging protocol: Real-time duplex ultrasound of the extremities with 2-D nicole scale, color Doppler flow and spectral waveform analysis with image documentation. Complete exam focused on the bilateral lower extremity veins. COMPARISON: US ROR venous duplex [facility] 11/18/2020 10:40 AM FINDINGS: Right deep veins: Unremarkable. The common femoral, femoral, proximal profunda femoral and popliteal veins are patent without thrombus. Normal Doppler waveforms. Normal compressibility and/or augmentation response. Right superficial veins: Saphenofemoral junction is patent without thrombus. Left deep veins: Unremarkable. The common femoral, femoral, proximal profunda femoral and popliteal veins are patent without thrombus. Normal Doppler waveforms. Normal compressibility and/or augmentation response. Left superficial veins: Saphenofemoral junction is patent without thrombus. Soft tissues: Mild subcutaneous soft tissue edema in the lower legs. US/CV venous duplex [facility] [id number] IMPRESSION: 1. No evidence for deep vein thrombosis. 2. Mild subcutaneous soft tissue edema in the lower legs.
[2021-04-04 18:26] LABS: Troponin 5 2HR 40.31 ng/L (0-10)
[2021-04-04 18:29] LABS: Troponin 5 2HR Delta -1.69 ABS# (0-10)
--- NOTE | 2021-04-04 20:46 | PM.HP ---
Providers/Chief Complaint Admitting Physician: Jonathan Sullivan Primary Care Provider: Josafat Robertson MD Chief Complaint: EDEMA History of Present Illness 65-year-old female with a past medical history significant for insulin-dependent diabetes mellitus, hypertension, hypothyroidism, obstructive sleep apnea, chronic stage 3 kidney disease with a creatinine of 1.2 on 03/29/2021 and liver cirrhosis with hepatic encephalopathy and chronic bilateral lower extremity venous stasis who is presenting to ER with increase in bilateral LE edema. Patient is on bumex 1 mg PO BID and metalazone. Patient was a very poor historian at the time of my eval with poor insight in to her conditions. She did however deny any chest pain or dyspnea. Also denied any recent fever, chills, nausea or vomiting. Also no abd pain, diarrhea or constipation. Upon arrival laboratory workup showed a WBC of 7.3, hemoglobin 10.3, hematocrit 31.6 and a platelet count of 118 sodium 135, potassium 4.7, chloride 98, bicarb 26, BUN 37 and creatinine 1.5. AST of 46, ALT of 39, ALP of 348. Delta troponin T of -1.69, -3.87, pro BNP of 458. Imaging studies included a chest x-ray which did not show any acute abnormality and venous duplex which did not show any evidence of DVT. In Er patient was given lasix 40 mg IV x1 and tramadol. Review of Systems General: Reports: 10 or more systems reviewed and unremarkable except in HPI and below Medications/Allergies Home Medications Medication Instructions Recorded Confirmed Last Taken Type insulin lispro [Humalog KwikPen See Rx Instructions .ROUTE .COMPLEX 05/25/20 04/04/21 Unknown History Insulin] lactulose 40 ml PO QID PRN 05/25/20 04/04/21 05/25/20 History levothyroxine 88 mcg PO DAILY@06 05/25/20 04/04/21 04/04/21 History ondansetron HCl [Zofran] 4 mg PO QID PRN 05/25/20 04/04/21 Unknown History blood sugar diagnostic 03/28/21 04/04/21 Unknown History bumetanide 1 mg tablet 1 mg PO BID@,14 tab 03/28/21 04/04/21 04/04/21 History docusate sodium 100 mg capsule 100 mg PO BID@03/28/21 04/04/21/14/21 History insulin glargine 100 unit/mL 25 unit SUBCUT BEDTIME ml 03/28/21 04/04/21 04/03/21 History subcutaneous solution insulin lispro 100 unit/mL See Rx Instructions SUBCUT .COMPLEX 03/28/21 04/04/21 04/04/21 History subcutaneous pen lancets 03/28/21 04/04/21 Unknown History lidocaine 5 % topical patch 1 patch TOPICAL DAILY #30 ea 03/28/21 04/04/21 04/04/21 Rx nystatin 100,000 unit/gram topical 1 applic TOPICAL BID 03/28/21 04/04/21 Unknown History cream potassium chloride 20 mEq 80 meq PO DAILY@0800 tab 03/28/21 04/04/21 04/04/21 History tablet,extended release spironolactone 50 mg tablet 50 mg PO BID@08,20 03/28/21 04/04/21 04/04/21 History tramadol 50 mg tablet 50 mg PO Q8H PRN 03/28/21 04/04/21 Unknown History Xifaxan 550 mg PO BID@08,20 04/04/21 04/04/21 04/04/21 History ferrous sulfate 325 mg PO TID@,,04/04/21 04/04/21 04/04/21 History magnesium oxide [MagOx] 400 mg PO DAILY@0800 04/04/21 04/04/21 04/04/21 History metolazone 5 mg PO DAILY@0800 04/04/21 04/04/21 04/04/21 History pantoprazole [Protonix] 40 mg PO BID@08,20 04/04/21 04/04/21 04/04/21 History Allergies Allergy/AdvReac Type Severity Reaction Status Date / Time prednisone Allergy Unknown Verified 04/04/21 14:18 steroids Allergy Unknown Uncoded 04/04/21 14:18 PFSH Acute PFSH: Medical History Cirrhosis Esophageal varices Hydronephrosis Hypertension Hypothyroid Insulin dependent type 2 diabetes mellitus Nephrolithiasis Obesity Portal hypertension due to obstruction of extrahepatic portal vein Sleep apnea Surgical History H/O hernia repair H/O lithotripsy History of cholecystectomy History of oophorectomy, unilateral Family History Mother Lung disease Father Cardiovascular disease Denies family history of Diabetes Cancer Social History Smoking and tobacco status: former smoker Caregiver/support person: Yes Lives independently: No Housing: Assisted Living Facility Marital status: Marital status details: [place] Current occupational status: retired Vitals/I&O/Wt Last Vital Signs Temp 97.7 F 04/04/21 14:14 Pulse 82 04/04/21 20:29 Resp 17 04/04/21 20:29 BP 92/58 04/04/21 20:29 Pulse Ox 96 04/04/21 20:29 Weight last 48 hrs Weight 111.13 kg Data : 04/04/21 15:20 04/04/21 15:20 A&P Assessment and plan (1) Lower extremity edema: Status: Acute (2) Cirrhosis: Status: Chronic (3) Insulin dependent type 2 diabetes mellitus: Status: Chronic (4) Sleep apnea: Status: Acute Qualifiers: Sleep apnea type: unspecified type Qualified Code(s): G47.30 - Sleep apnea, unspecified (5) Hypothyroid: Status: Chronic (6) Hypertension: Status: Chronic Bilateral Lower extremity edema Will continue bumex 1 mg IV BID Continue metalazone Less likely infectious process Keep legs elevated Echo Daily weight PT consult Acute on Chronic stage 3 kidney disease Baseline creatinine around 1.2-1.4 Creatinine slightly increased to 1.5 Component of hepatorenal Monitor u/o Renal dosing Liver cirrhosis with hepatic encephalopathy / Esophageal varies / portal hypertension Trend LFTs Check ammonia Continue Xifaxan, lactulose Additional Medical Problems Diabetes mellitus Hypertension Hyperlipidemia Obstructive sleep apnea DVT ppx SCDs only due to hx of esophageal varices Verify home meds and resume in a.m. Attestations Medical Necessity Statement*: Will require less than 2 midnight stay in hospital for evaluation and treatment Time Spent in Patient Care: Greater than 35 minutes (>than 50% of time spent in counselling and/or direct pt care on unit). Coding Level of Care Code Acute Processing Specialist for [facility]er[facility] Diagnoses Lower extremity edema R60.0 Cirrhosis K74.60 Insulin dependent type 2 diabetes mellitus E11.9; Z79.4 Sleep apnea G47.30 Sleep apnea type: unspecified type Hypothyroid E03.9 Hypertension I10
[2021-04-04 22:22] LABS: Troponin 5 6HR 38.13 ng/L (0-10); Troponin 5 6HR Delta -3.87 ng/L (0-12)
[2021-04-04] MEDS: insulin glargine 100 units/1 mL 10 UNIT SUBCUT (23:20)
[2021-04-05] VITALS (12 sets, daily range): BP systolic 95–117; BP diastolic 53–79; PULSE 63–86; RESP 16–19; TEMP 36.2–36.7; O2SAT 94–96
[2021-04-05] MEDS: lanolin oint 7 gm 1 APPLIC TOPICAL (02:06)
[2021-04-05] MEDS: levothyroxine 88 mcg Tablet PO (05:34)
[2021-04-05] MEDS: bumetanide 0.25 mg/mL SDV 4 mL 1 MG IV ×3 (05:46→21:35)
[2021-04-05 06:01] LABS: Basophils # 0.1 10^3/uL (0.0-0.1); Basophils % 1.4 %; Eosinophils # 1.5 10^3/uL (0.0-0.8); Eosinophils % 23.8 %; Hematocrit 28.1 % (37.0-47.0); Hemoglobin 9.1 g/dL (11.5-15.3); Lymphocytes # 0.8 10^3/uL (0.8-4.8); Lymphocytes % 12.5 %; Mean Corpuscular HGB Conc 32.4 g/dL (30.0-36.0); Mean Corpuscular Hemoglobin 34.6 pg (28.0-34.0); Mean Corpuscular Volume 106.8 fL (81-99); Mean Platelet Volume 9.5 fL (7.4-10.4); Monocytes # 0.7 10^3/uL (0.2-0.9); Monocytes % 11.1 %; Neutrophils # 3.27 10^3/uL (1.8-7.7); Neutrophils % 50.4 %; Nucleated Red Blood Cells % 0 %; Platelet Count 105 10^3/cmm (130-400); Red Blood Count 2.63 10^6/uL (4.1-5.3); Red Cell Distribution Width 15.8 % (12.1-15.1); White Blood Count 6.5 10^3/uL (4.0-10.0)
[2021-04-05 06:34] LABS: Procalcitonin 0.35 ng/mL (0-0.5)
[2021-04-05 06:38] LABS: Ammonia 85 umol/L (11-51)
[2021-04-05 06:46] LABS: Alanine Aminotransferase 30 U/L (0-33); Alkaline Phosphatase 307 IU/L (35-105); Anion Gap 13.7 (5-19); Aspartate Amino Transferase 35 U/L (0-32); Blood Urea Nitrogen 36 mg/dL (8-23); Carbon Dioxide 26 mmol/L (22-29); Chloride 100 mmol/L (98-107); Globulin 2.8 g/dL (1.3-4.6); Glomerular Filtration Rate 34.9 mL/min (90-130); Glucose 140 mg/dL (65-115); Magnesium 2.4 mg/dL (1.7-2.3); Osmolality Calculated 291 mOsm/kg (285-295); Potassium 4.7 mmol/L (3.5-5.1); Sodium 135 mmol/L (136-145); Total Bilirubin 1.1 mg/dL (0.15-1.2); Total Protein 5.8 g/dL (6.6-8.7)
--- NOTE | 2021-04-05 08:44 | USCV_ITS ---
Aquiles Sharon Age: 65 Gender: F : 1955 Exam Date: 04/05/2021 13:33 Ordering Phys: Adam Suarez MD Technologist: TALYA Exam Location: [facility] – [place] Indication: EDEMA BP: 105 / 61 HR: 79 Rhythm: Sinus Technical Quality: Adequate MEASUREMENTS (Male / Female) Normal Values 2D ECHO LV Diastolic Diameter PLAX 4.7 cm 4.2 - 5.9 / 3.9 - 5.3 cm LV Systolic Diameter PLAX 2.5 cm LV Chamber Size 5.0 cm IVS Diastolic Thickness 1.0 cm 0.6 - 1.0 / 0.6 - 0.9 cm IVS Systolic Thickness 1.5 cm LVPW Diastolic Thickness 1.0 cm 0.6 - 1.0 / 0.6 - 0.9 cm LVPW Systolic Thickness 1.2 cm RV Chamber Size 3.3 cm LVOT Diameter 2.0 cm LV Ejection Fraction 2D Teich 77.9 % LV Ejection Fraction MOD 2C 52.9 % LV Ejection Fraction 2C AL 53.1 % LA Diameter 3.7 cm LA Width 4.1 cm LA Height 5.7 cm RA Width 3.1 cm RA Height 4.7 cm Aorta at Sinotubular Diameter 3.2 cm M-MODE LV Diastolic Diameter MM 5.7 cm 4.2 - 5.9 / 3.9 - 5.3 cm LV Systolic Diameter MM 3.3 cm LV Ejection Fraction MM Teich 72.6 % IVS Diastolic Thickness MM 0.7 cm 0.6 - 1.0 / 0.6 - 0.9 cm IVS Systolic Thickness MM 1.3 cm LVPW Diastolic Thickness MM 1.1 cm 0.6 - 1.0 / 0.6 - 0.9 cm LVPW Systolic Thickness MM 1.2 cm Aortic Annulus Diameter 3.4 cm LA Ao Ratio MM 1.2 MV E Point Septal Separation 0.3 cm DOPPLER AV Peak Velocity 280.0 cm/s LVOT Peak Velocity 138.0 cm/s AV Area Cont Eq vti 1.9 cm squared AV Area Cont Eq pk 1.6 cm squared MV Area PHT 2.4 cm squared Mitral E to A Ratio 1.0 MV E' Velocity 75.5 cm/s Mitral E to MV E' Ratio 16.7 Mitral E to LV E' Lateral Ratio 16.3 Mitral E to LV E' Septal Ratio 17.1 TR Peak Velocity 302.6 cm/s TR Peak Gradient 36.6 mmHg TR Mean Velocity 205.8 cm/s TR Mean Gradient 21.2 mmHg TR Velocity Time Integral 90.0 cm TV Peak E Velocity 110.0 cm/s Right Atrial Pressure 3.0 mmHg Pulmonary Artery Systolic Pressu 39.6 mmHg PV Peak Velocity 166.0 cm/s RV Acceleration Time 0.1 s RV Ejection Time 0.3 s RV AcT/ET 0.4 FINDINGS Left Ventricle Normal left ventricular size. LV systolic function is normal with EF of 55-60%. No regional wall motion abnormalities. Right Ventricle The right ventricle is normal in size and function. Right Atrium Not well visualized Left Atrium The left atrium is dilated Mitral Valve Thickened mitral valve. Moderate mitral annular calcification. Aortic Valve Thickened aortic valve. Mild aortic stenosis is needed. By continuity equation, aortic valve area is 1.8cm2 and mean gradient across the aortic valve is 15mmHg. Tricuspid Valve Structurally normal tricuspid valve without significant stenosis. Mild tricuspid regurgitation. RVSP is 35-40mmHg. This is consistent with mild pulmonary hypertension Pulmonic Valve Structurally normal pulmonic valve without significant stenosis. There is no pulmonic regurgitation. Pericardium Normal pericardium without effusion. Aorta Normal ascending aorta dimension. CONCLUSIONS This is a technically limited study because of poor ultrasonic windows. LV systolic function is normal with EF of 55 to 60%. No regional wall motion abnormalities are seen. Left atrium is dilated. Moderate mitral annular calcification seen. Thickened aortic valve with mild aortic stenosis. Mean gradient across aortic valve is 15 mmHg. Mild tricuspid regurgitation. Mild pulmonary hypertension. Compared to prior echocardiogram from 12/20/2018, no significant changes are noted. Raad Escobar MD (Electronically Signed) Final Date: 05 April 2021 18:37 S
[2021-04-05] MEDS: spironolactone 25 mg Tablet 50 MG PO ×2 (09:09→20:17)
[2021-04-05] MEDS: pantoprazole DR 40 mg Tablet PO ×2 (09:09→20:17)
[2021-04-05] MEDS: metOLazone 5 MG Tablet PO (09:10)
[2021-04-05] MEDS: lactulose oral liq 20 gm/30 mL UDC 30 GM PO ×3 (09:11→20:16)
[2021-04-05 09:22] LABS: Glucose Point of Care 192 mg/dL (70-110)
[2021-04-05 10:19] LABS: C Reactive Protein 10.3 mg/L (0.0-4.9)
[2021-04-05] MEDS: ferrous sulfate EC 325 mg Tablet PO ×3 (10:22→20:14)
[2021-04-05 10:33] LABS: Add Urine Microscopic? YES; Bilirubin Urine Neg (Negative); Blood Urine Neg (Negative); Glucose Urine UA Norm (Normal); Ketones Urine Negative (Negative); Leukocyte Esterase Urine 1+ (Negative); Nitrate Urine Negative (Negative); Protein Urine Neg (Negative); Urine Appearance SL Hazy (CLEAR); Urine Color Straw (Yellow); Urobilinogen Urine Norm (Negative); pH Urine 5 (5-7)
[2021-04-05 10:47] LABS: RBC Urine 0-4 /hpf (0-2)
[2021-04-05 10:55] LABS: Erythrocyte Sedimentation Rate 60 mm/hr (0-15)
[2021-04-05 11:10] LABS: Add Urine Culture? No
[2021-04-05 11:11] LABS: Bacteria Urine TRACE /hpf
--- NOTE | 2021-04-05 14:05 | PC.NURSE ---
Pt had an ultrasound on abd but US was unable to see anything because of gas and pain. Asked to be placed on NPO to repeat US in the morning.
--- NOTE | 2021-04-05 14:57 | P.PN_ITS ---
Subjective Subjective: Interval history: Patient tells me that she lives at [facility], she normally ambulates in a walker or in a wheelchair, but recently more in a wheelchair, given her worsening bilateral lower extreme edema, she tells me she is here because the worsening swelling in her legs, she tells me that her abdomen is also slightly swollen, no chest pain, no shortness of breath, no nausea, no vomiting, no fevers, denies any falls, Vitals/I&O/Wt Last Vital Signs Temp 98.1 F 04/05/21 12:00 Pulse 69 04/05/21 12:00 Resp 18 04/05/21 12:00 BP 112/70 04/05/21 12:00 Pulse Ox 95 04/05/21 12:00 04/04/21 04/05/21 04/05/21 22:59 06:59 14:59 Intake Total 120 / 120 360 / 360 Output Total 600 / 600 Balance -480 / -480 360 / 360 Weight last 48 hrs Weight 116.301 kg Weight 111.13 kg Physical Exam Const: COMMON NORMALS: no acute distress and patient oriented x3 Resp: COMMON NORMALS: normal respiratory effort, No retractions, No use of accessory muscles and clear to auscultation bilaterally AUSCULTATION: clear to auscultation bilaterally Cardio: COMMON NORMALS: regular rate, regular rhythm, S1 normal heart sound present and S2 normal heart sound present RATE: regular rate RHYTHM: regular rhythm HEART SOUNDS: S1 normal heart sound present and S2 normal heart sound present GI: COMMON NORMALS: Normal to inspection, nondistended, normoactive bowel sounds present and Soft to palpation INSPECTION: Yes Anasarca and Yes abdominal distension PALPATION: Yes Soft to palpation Extremity: NARRATIVE EXTREMITY EXAM: 3+ pitting edema bilateral Neuro: COMMON NORMALS: patient oriented x3 Psych: COMMON NORMALS: mental status grossly normal Skin: NARRATIVE SKIN EXAM: Multiple macular nodular throughout lower extremities, chest and abdomen rash Data : 04/05/21 04:54 04/05/21 04:54 Micro: Microbiology 04/05/21 10:36 Blood Culture - Preliminary Blood SPECIMEN COLLECTED 04/05/21 10:32 Blood Culture - Preliminary Blood SPECIMEN COLLECTED A&P Assessment and plan (1) Lower extremity edema: Status: Acute (2) Cirrhosis: Status: Chronic (3) Insulin dependent type 2 diabetes mellitus: Status: Chronic (4) Sleep apnea: Status: Acute Qualifiers: Sleep apnea type: unspecified type Qualified Code(s): G47.30 - Sleep apnea, unspecified (5) Hypothyroid: Status: Chronic (6) Hypertension: Status: Chronic (7) Anemia: Status: Acute (8) Portal hypertension due to obstruction of extrahepatic portal vein: Status: Acute (9) Esophageal varices: Status: Acute (10) Thrombocytopenia: Status: Acute Bilateral Lower extremity edema Etiology likely secondary to CHF, type unknown, but likely diastolic CHF, and a component related to her liver cirrhosis and hypoalbuminemia Increase Bumex to 1 mg every 8 hours Continue metalazone Continue spironolactone 50 mg twice daily Given abdominal distention will order ultrasound of the abdomen pelvis to evaluate for ascites Monitor creatinine, monitor potassium She does have erythema on bilateral shins, no fevers, no significant leukocytosis, pro-Ronnie within normal limits, CRP within normal limits, hold off on antibiotics Venous ultrasound negative for DVT Keep legs elevated Cardiac echocardiogram Fluid restrictions 1500 cc Daily weight PT consult Acute on Chronic stage 3 kidney disease Baseline creatinine around 1.2-1.4 Creatinine slightly increased to 1.5 Component of hepatorenal, cardiorenal Monitor u/o Renal dosing Liver cirrhosis with hepatic encephalopathy / Esophageal varies / portal hypertension Trend LFTs Check ammonia Continue Xifaxan, lactulose Anemia, macrocytic, B12, folate, iron studies Thrombocytopenia, likely secondary liver failure, continue to monitor, anticoagulation contraindicated Additional Medical Problems Diabetes mellitus, insulin sliding scale, glargine 10 units at bedtime Hypertension Hyperlipidemia Hypothyroidism Obstructive sleep apnea DVT ppx SCDs only due to hx of esophageal varices Plan for today, increase diuresis, monitor urine output, Attestations Medical Necessity Statement*: Patient requires hospitalization, inpatient, greater than 2 midnights, for bilateral edema secondary to cirrhosis, CHF Coding Level of Care Code Acute Manager Universal for g [employer] Diagnoses Lower extremity edema R60.0 Cirrhosis K74.60 Insulin dependent type 2 diabetes mellitus E11.9; Z79.4 Sleep apnea G47.30 Sleep apnea type: unspecified type Hypothyroid E03.9 Hypertension I10 Anemia D64.9 Portal hypertension due to obstruction of extrahepatic portal vein K76.6; I81 Esophageal varices I85.00 Thrombocytopenia D69.6
[2021-04-05 16:00] LABS: LAB Peripheral Smear Sent for Review
[2021-04-05 16:03] LABS: Reticulocyte % 3.1 % (0.5-2.0)
[2021-04-05 16:20] LABS: Iron 150 ug/dL (37-145)
[2021-04-05 16:35] LABS: Vitamin B12 701 pg/mL (232-1245)
[2021-04-05 16:36] LABS: Ferritin 1282 ng/mL (15-150); Folate Level 17.6 ng/mL (4.8-37.3)
[2021-04-05 17:28] LABS: Glucose Point of Care 160 mg/dL (70-110)
[2021-04-05] MEDS: cefTRIAXone 1,000 MG in sodium chloride 0.9% (plus) 50 ML 100 MG IV (17:31)
[2021-04-05 21:08] LABS: Glucose Point of Care 182 mg/dL (70-110)
[2021-04-05] MEDS: insulin glargine 100 units/1 mL 10 UNIT SUBCUT (21:36)
[2021-04-06] VITALS (10 sets, daily range): BP systolic 96–117; BP diastolic 54–77; PULSE 71–89; RESP 15–20; TEMP 36.5–36.9; O2SAT 94–96
[2021-04-06] MEDS: levothyroxine 88 mcg Tablet PO (05:31)
[2021-04-06] MEDS: bumetanide 0.25 mg/mL SDV 4 mL 1 MG IV ×3 (05:32→21:39)
--- NOTE | 2021-04-06 06:00 | US_ITS ---
WS: [id number] ULTRASOUND ABDOMEN LIMITED CLINICAL INFORMATION: ascites, liver cirhosis COMPARISON: None. FINDINGS: No significant free fluid or ascites. US/US abdomen limited [id number] IMPRESSION: No significant free fluid or ascites.
--- NOTE | 2021-04-06 06:21 | PC.NURSE ---
Shift summary Patient has done well during this shift, no complaints of pain. Pt is NPO due to having ultra sound of her abdomen schedule for today. Patient was a little anxious about not being able to have anything to drink. This nurse went in and explained to patient why she is NPO and patient verbalized understanding.
[2021-04-06 06:30] LABS: Glucose Point of Care 134 mg/dL (70-110)
[2021-04-06 06:30] LABS: Basophils # 0.1 10^3/uL (0.0-0.1); Basophils % 1.1 %; Eosinophils # 1.8 10^3/uL (0.0-0.8); Eosinophils % 22.6 %; Hematocrit 28.9 % (37.0-47.0); Hemoglobin 9.4 g/dL (11.5-15.3); Lymphocytes % 12.8 %; Mean Corpuscular HGB Conc 32.5 g/dL (30.0-36.0); Mean Corpuscular Hemoglobin 34.8 pg (28.0-34.0); Mean Platelet Volume 9.2 fL (7.4-10.4); Monocytes # 0.9 10^3/uL (0.2-0.9); Monocytes % 11.2 %; Neutrophils # 4.13 10^3/uL (1.8-7.7); Neutrophils % 51.3 %; Nucleated Red Blood Cells % 0 %; Platelet Count 122 10^3/cmm (130-400); Red Cell Distribution Width 15.8 % (12.1-15.1); White Blood Count 8.1 10^3/uL (4.0-10.0)
[2021-04-06 06:56] LABS: Alanine Aminotransferase 31 U/L (0-33); Albumin Level 2.8 g/dL (3.5-5.2); Alkaline Phosphatase 299 IU/L (35-105); Anion Gap 12.3 (5-19); Aspartate Amino Transferase 34 U/L (0-32); Blood Urea Nitrogen 42 mg/dL (8-23); Calcium 8.6 mg/dL (8.5-10.5); Carbon Dioxide 28 mmol/L (22-29); Chloride 100 mmol/L (98-107); Globulin 3.2 g/dL (1.3-4.6); Glomerular Filtration Rate 32.3 mL/min (90-130); Glucose 126 mg/dL (65-115); Magnesium 2.5 mg/dL (1.7-2.3); NT Pro B Type Natriuretic Pept 538 pg/mL (0-125); Osmolality Calculated 294 mOsm/kg (285-295); Phosphorus 3.7 mg/dL (2.5-4.5); Potassium 4.3 mmol/L (3.5-5.1); Sodium 136 mmol/L (136-145); Total Bilirubin 0.9 mg/dL (0.15-1.2)
[2021-04-06 07:10] LABS: INR 1.26 (0.8-1.2)
--- NOTE | 2021-04-06 10:37 | PC.CHAP ---
Pastoral Care Encounter/Spiritual Assessment Type of Contact [] Declined saddle stitching machine operator visit [] Patient/Family/Request visit [] Outpatient visit [] Follow-up visit [] Physician referral [] Code/Alert [x] Routine visit [] Staff referral [] Actively dying [] Patient sleeping [] Family support [] [] Out of room [] Palliative care [] [] Receiving care in room [] Pre-surgical visit [] Trauma [] Long length of stay [] ICU visit [] Other: Relational/Emotional Strength [x] Patient feels connected with others/family/visitors/staff [] Distress [] Loneliness/isolation [] Abandonment Spirituality of Patient [x] Person of Leti [] Attends Nondenominational of their Leti [x] Believes in Prayer [] Reads Bible or Sikh materials [] There are Spiritual issues to be addressed 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 Interventions [x] Prayer [x] Active listening []x Non-anxious presence [] Spiritual/emotional support [] Crisis/trauma care [] Spiritual counseling [] Bereavement support [] Provided bereavement packet [] Provided Bible/devotional materials [] Provided toy/stuffed animal, coloring book to patient or family member [] Provided Communion [] Anointing/Levasy [] Salvation [x] Completed spiritual assessment [] Other: Impact on Illness or Injury [] Angry [] Fearful [] Anxious [] Often cries [] Exhaustion [] Unable to work [] Unable to attend cheondoism [] Unable to walk/stand [] Unable to read [] Unable to drive [] Unable to eat/drink [] Unable to sleep [] Unable to be with family [] Patient intubated [] Other: Summary Time spent with patient 10 min
[2021-04-06 10:49] LABS: Glucose Point of Care 133 mg/dL (70-110)
[2021-04-06] MEDS: spironolactone 25 mg Tablet 50 MG PO ×2 (10:49→21:30)
[2021-04-06] MEDS: ferrous sulfate EC 325 mg Tablet PO ×3 (10:50→21:29)
[2021-04-06] MEDS: lactulose oral liq 20 gm/30 mL UDC 30 GM PO ×3 (10:50→21:32)
[2021-04-06] MEDS: metOLazone 5 MG Tablet PO (10:50)
[2021-04-06] MEDS: pantoprazole DR 40 mg Tablet PO ×2 (10:50→21:29)
--- NOTE | 2021-04-06 11:41 | P.PN_ITS ---
Subjective Subjective: Interval history: Patient was seen this morning, she was up to the bedside commode by nursing staff, she continues complain of lower extremity edema, no chest pain, no shortness of breath Vitals/I&O/Wt Last Vital Signs Temp 98.2 F 04/06/21 11:02 Pulse 75 04/06/21 11:02 Resp 18 04/06/21 11:02 BP 117/58 04/06/21 11:02 Pulse Ox 96 04/06/21 11:02 04/05/21 04/06/21 04/06/21 22:59 06:59 14:59 Intake Total 290 / 650 240 / 240 Output Total 300 / 300 Balance -10 / 350 240 / 240 Weight last 48 hrs Weight 119.068 kg Weight 116.301 kg Weight 111.13 kg Physical Exam Const: COMMON NORMALS: no acute distress and patient oriented x3 Resp: COMMON NORMALS: normal respiratory effort, No retractions, No use of accessory muscles and clear to auscultation bilaterally AUSCULTATION: clear to auscultation bilaterally Cardio: COMMON NORMALS: regular rate, regular rhythm, S1 normal heart sound present and S2 normal heart sound present RATE: regular rate RHYTHM: regular rhythm HEART SOUNDS: S1 normal heart sound present and S2 normal heart sound present GI: COMMON NORMALS: Normal to inspection, nondistended, normoactive bowel sounds present and Soft to palpation INSPECTION: Yes Anasarca and Yes abdominal distension PALPATION: Yes Soft to palpation Extremity: NARRATIVE EXTREMITY EXAM: 3+ pitting edema bilateral Neuro: COMMON NORMALS: patient oriented x3 Psych: COMMON NORMALS: mental status grossly normal Skin: NARRATIVE SKIN EXAM: Multiple macular nodular throughout lower extremities, chest and abdomen rash Data : 04/06/21 05:47 04/06/21 05:47 Micro: Microbiology 04/05/21 10:36 Blood Culture - Preliminary Blood NEGATIVE TO DATE 04/05/21 10:32 Blood Culture - Preliminary Blood NEGATIVE TO DATE A&P Assessment and plan (1) Lower extremity edema: Status: Acute (2) Cirrhosis: Status: Chronic (3) Insulin dependent type 2 diabetes mellitus: Status: Chronic (4) Sleep apnea: Status: Acute Qualifiers: Sleep apnea type: unspecified type Qualified Code(s): G47.30 - Sleep apnea, unspecified (5) Hypothyroid: Status: Chronic (6) Hypertension: Status: Chronic (7) Anemia: Status: Acute (8) Portal hypertension due to obstruction of extrahepatic portal vein: Status: Acute (9) Esophageal varices: Status: Acute (10) Thrombocytopenia: Status: Acute Bilateral Lower extremity edema Etiology likely secondary to CHF, type unknown, but likely diastolic CHF, and a component related to her liver cirrhosis and hypoalbuminemia countinue Bumex to 1 mg every 8 hours Continue metalazone Continue spironolactone 50 mg twice daily Given abdominal distention will order ultrasound of the abdomen pelvis to evalua te for ascites Monitor creatinine, monitor potassium She does have erythema on bilateral shins, no fevers, no significant leukocytosis, pro-Ronnie within normal limits, CRP within normal limits, hold off on antibiotics Venous ultrasound negative for DVT Keep legs elevated Cardiac echocardiogram shows ejection fraction 55 to 60%, no regional wall motion abnormalities Fluid restriction Daily weight PT consult Acute on Chronic stage 3 kidney disease Baseline creatinine around 1.2-1.4 Creatinine slightly increased to 1.6 Component of hepatorenal, cardiorenal Monitor u/o Renal dosing Liver cirrhosis with hepatic encephalopathy / Esophageal varies / portal hypertension Trend LFTs Check ammonia Continue Xifaxan, lactulose Anemia, macrocytic, B12, folate, iron studies Thrombocytopenia, likely secondary liver failure, continue to monitor, anticoagulation contraindicated Additional Medical Problems Diabetes mellitus, insulin sliding scale, glargine 10 units at bedtime Hypertension Hyperlipidemia Hypothyroidism Obstructive sleep apnea DVT ppx SCDs only due to hx of esophageal varices Plan for today, continue diuresis, monitor urine output Attestations Medical Necessity Statement*: patient requires hospitalization for bilateral lower extremity edema Coding Level of Care Code Acute 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
[2021-04-06 17:11] LABS: Glucose Point of Care 200 mg/dL (70-110)
[2021-04-06] MEDS: cefTRIAXone 1,000 MG in sodium chloride 0.9% (plus) 50 ML 100 MG IV (18:14)
[2021-04-06 21:15] LABS: Glucose Point of Care 159 mg/dL (70-110)
[2021-04-06] MEDS: insulin glargine 100 units/1 mL 10 UNIT SUBCUT (21:31)
[2021-04-07] VITALS (8 sets, daily range): BP systolic 100–117; BP diastolic 56–65; PULSE 74–83; RESP 17–19; TEMP 36.8–37.2; O2SAT 92–95
[2021-04-07] MEDS: HYDROcodone-acetaminophen 5-325 mg Tablet 1 TAB PO ×2 (00:34→12:38)
[2021-04-07] MEDS: levothyroxine 88 mcg Tablet PO (05:34)
[2021-04-07] MEDS: bumetanide 0.25 mg/mL SDV 4 mL 1 MG IV ×3 (05:42→22:15)
[2021-04-07 05:57] LABS: Basophils # 0.1 10^3/uL (0.0-0.1); Basophils % 1.2 %; Eosinophils # 2.2 10^3/uL (0.0-0.8); Eosinophils % 24.4 %; Hematocrit 28.6 % (37.0-47.0); Hemoglobin 9.1 g/dL (11.5-15.3); Lymphocytes # 1.2 10^3/uL (0.8-4.8); Lymphocytes % 13.3 %; Mean Corpuscular HGB Conc 31.8 g/dL (30.0-36.0); Mean Corpuscular Hemoglobin 33.8 pg (28.0-34.0); Mean Corpuscular Volume 106.3 fL (81-99); Mean Platelet Volume 9.3 fL (7.4-10.4); Monocytes % 11.7 %; Neutrophils # 4.31 10^3/uL (1.8-7.7); Neutrophils % 48.4 %; Nucleated Red Blood Cells % 0 %; Platelet Count 120 10^3/cmm (130-400); Red Blood Count 2.69 10^6/uL (4.1-5.3); Red Cell Distribution Width 15.9 % (12.1-15.1); White Blood Count 8.9 10^3/uL (4.0-10.0)
[2021-04-07 06:07] LABS: INR 1.26 (0.8-1.2)
[2021-04-07 06:17] LABS: Glucose Point of Care 146 mg/dL (70-110)
[2021-04-07 06:24] LABS: Alanine Aminotransferase 30 U/L (0-33); Albumin Level 2.8 g/dL (3.5-5.2); Alkaline Phosphatase 285 IU/L (35-105); Anion Gap 15.8 (5-19); Aspartate Amino Transferase 35 U/L (0-32); Blood Urea Nitrogen 44 mg/dL (8-23); Calcium 8.7 mg/dL (8.5-10.5); Carbon Dioxide 27 mmol/L (22-29); Chloride 100 mmol/L (98-107); Globulin 3.1 g/dL (1.3-4.6); Glomerular Filtration Rate 34.9 mL/min (90-130); Glucose 130 mg/dL (65-115); Magnesium 2.4 mg/dL (1.7-2.3); NT Pro B Type Natriuretic Pept 641 pg/mL (0-125); Osmolality Calculated 301 mOsm/kg (285-295); Phosphorus 3.7 mg/dL (2.5-4.5); Potassium 3.8 mmol/L (3.5-5.1); Sodium 139 mmol/L (136-145); Total Protein 5.9 g/dL (6.6-8.7)
[2021-04-07] MEDS: ferrous sulfate EC 325 mg Tablet PO ×3 (08:19→19:53)
[2021-04-07] MEDS: metOLazone 5 MG Tablet PO (08:19)
[2021-04-07] MEDS: spironolactone 25 mg Tablet 50 MG PO ×2 (08:19→19:52)
[2021-04-07] MEDS: pantoprazole DR 40 mg Tablet PO ×2 (08:19→19:53)
[2021-04-07] MEDS: lactulose oral liq 20 gm/30 mL UDC 30 GM PO ×3 (08:21→19:54)
[2021-04-07 11:12] LABS: Glucose Point of Care 208 mg/dL (70-110)
--- NOTE | 2021-04-07 12:04 | P.PN_ITS ---
Subjective Subjective: Interval history: Patient was seen this morning, denies chest pain, no shortness of breath, no lightheadedness or dizziness, still has bilateral extremity edema, but improving Vitals/I&O/Wt Last Vital Signs Temp 98.4 F 04/07/21 11:37 Pulse 79 04/07/21 11:37 Resp 18 04/07/21 11:37 BP 101/60 04/07/21 11:37 Pulse Ox 92 04/07/21 11:37 04/06/21 04/07/21 04/07/21 22:59 06:59 14:59 Intake Total 50 / 530 400 / 930 Output Total 500 / 500 550 / 1050 250 / 250 Balance -450 / 30 -150 / -120 -250 / -250 Weight last 48 hrs Weight 116.936 kg Weight 119.068 kg Physical Exam Const: COMMON NORMALS: no acute distress and patient oriented x3 Resp: COMMON NORMALS: normal respiratory effort, No use of accessory muscles and clear to auscultation bilaterally AUSCULTATION: clear to auscultation bilaterally Cardio: COMMON NORMALS: regular rate, regular rhythm, S1 normal heart sound present and S2 normal heart sound present RATE: regular rate RHYTHM: regular rhythm HEART SOUNDS: S1 normal heart sound present and S2 normal heart sound present GI: COMMON NORMALS: Normal to inspection, nondistended, normoactive bowel sounds present, Soft to palpation and non-tender INSPECTION: Yes Anasarca PALPATION: Yes Soft to palpation Extremity: NARRATIVE EXTREMITY EXAM: 2+ pitting edema bilaterally Neuro: COMMON NORMALS: patient oriented x3 Psych: COMMON NORMALS: mental status grossly normal Data : 04/07/21 05:22 04/07/21 05:22 Micro: Microbiology 04/05/21 09:45 Urine Culture - Final Urine,Clean Catch 04/05/21 10:36 Blood Culture - Preliminary Blood NEGATIVE TO DATE 04/05/21 10:32 Blood Culture - Preliminary Blood NEGATIVE TO DATE A&P Assessment and plan (1) Lower extremity edema: Status: Acute (2) Cirrhosis: Status: Chronic (3) Insulin dependent type 2 diabetes mellitus: Status: Chronic (4) Sleep apnea: Status: Acute Qualifiers: Sleep apnea type: unspecified type Qualified Code(s): G47.30 - Sleep apnea, unspecified (5) Hypothyroid: Status: Chronic (6) Hypertension: Status: Chronic (7) Anemia: Status: Acute (8) Portal hypertension due to obstruction of extrahepatic portal vein: Status: Acute (9) Esophageal varices: Status: Acute (10) Thrombocytopenia: Status: Acute Bilateral Lower extremity edema Etiology likely secondary to CHF, type unknown, but likely diastolic CHF, and a component related to her liver cirrhosis and hypoalbuminemia countinue Bumex to 1 mg every 8 hours Continue metalazone Continue spironolactone 50 mg twice daily cr 1.5, k 3.8 Ultrasound of the abdomen unremarkable for ascites Monitor creatinine, monitor potassium She does have erythema on bilateral shins, no fevers, no significant leukocytosis, pro-Ronnie within normal limits, CRP within normal limits, hold off on antibiotics Venous ultrasound negative for DVT Keep legs elevated Cardiac echocardiogram shows ejection fraction 55 to 60%, no regional wall motion abnormalities Fluid restriction Daily weight PT consult Acute on Chronic stage 3 kidney disease Baseline creatinine around 1.2-1.4 Creatinine slightly increased to 1.5 Component of hepatorenal, cardiorenal Monitor u/o Renal dosing Liver cirrhosis with hepatic encephalopathy / Esophageal varies / portal hypertension Trend LFTs Check ammonia Continue Xifaxan, lactulose Anemia, macrocytic, B12, folate, iron studies Thrombocytopenia, likely secondary liver failure, continue to monitor, anticoagulation contraindicated Additional Medical Problems Diabetes mellitus, insulin sliding scale, glargine 10 units at bedtime Hypertension Hyperlipidemia Hypothyroidism Obstructive sleep apnea DVT ppx SCDs only due to hx of esophageal varices Plan for today, continue diuresis, monitor urine output, PT OT Attestations Medical Necessity Statement*: Patient requires hospitalization for bilateral extremity edema secondary to CHF, cirrhosis Coding Level of Care Code Acute Inspector Type for [facility] Diagnoses Lower extremity edema R60.0 Cirrhosis K74.60 Insulin dependent type 2 diabetes mellitus E11.9; Z79.4 Sleep apnea G47.30 Sleep apnea type: unspecified type Hypothyroid E03.9 Hypertension I10 Anemia D64.9 Portal hypertension due to obstruction of extrahepatic portal vein K76.6; I81 Esophageal varices I85.00 Thrombocytopenia D69.6
[2021-04-07 17:03] LABS: Glucose Point of Care 202 mg/dL (70-110)
[2021-04-07] MEDS: diphenhydrAMINE 25 mg Capsule PO (17:18)
[2021-04-07 19:53] LABS: Glucose Point of Care 159 mg/dL (70-110)
[2021-04-07] MEDS: insulin glargine 100 units/1 mL 10 UNIT SUBCUT (20:03)
[2021-04-08] VITALS (8 sets, daily range): BP systolic 92–113; BP diastolic 54–78; PULSE 58–140; RESP 16–18; TEMP 36.6–37; O2SAT 93–97
[2021-04-08] MEDS: levothyroxine 88 mcg Tablet PO (05:23)
[2021-04-08] MEDS: bumetanide 0.25 mg/mL SDV 4 mL 1 MG IV (05:24)
[2021-04-08 05:35] LABS: Basophils # 0.1 10^3/uL (0.0-0.1); Basophils % 1.1 %; Eosinophils # 2.2 10^3/uL (0.0-0.8); Hemoglobin 9.4 g/dL (11.5-15.3); Lymphocytes % 13.4 %; Mean Corpuscular HGB Conc 32.4 g/dL (30.0-36.0); Mean Corpuscular Hemoglobin 34.7 pg (28.0-34.0); Mean Platelet Volume 9.5 fL (7.4-10.4); Monocytes # 0.9 10^3/uL (0.2-0.9); Monocytes % 11.4 %; Neutrophils # 3.25 10^3/uL (1.8-7.7); Neutrophils % 43.4 %; Nucleated Red Blood Cells % 0 %; Platelet Count 120 10^3/cmm (130-400); Red Blood Count 2.71 10^6/uL (4.1-5.3); Red Cell Distribution Width 15.9 % (12.1-15.1); White Blood Count 7.5 10^3/uL (4.0-10.0)
[2021-04-08 05:46] LABS: INR 1.31 (0.8-1.2)
[2021-04-08 06:05] LABS: Alanine Aminotransferase 32 U/L (0-33); Albumin Level 2.6 g/dL (3.5-5.2); Alkaline Phosphatase 301 IU/L (35-105); Anion Gap 15.5 (5-19); Aspartate Amino Transferase 38 U/L (0-32); Blood Urea Nitrogen 47 mg/dL (8-23); Calcium 8.5 mg/dL (8.5-10.5); Carbon Dioxide 27 mmol/L (22-29); Chloride 99 mmol/L (98-107); Globulin 3.1 g/dL (1.3-4.6); Glomerular Filtration Rate 32.3 mL/min (90-130); Glucose 104 mg/dL (65-115); Magnesium 2.2 mg/dL (1.7-2.3); NT Pro B Type Natriuretic Pept 684 pg/mL (0-125); Osmolality Calculated 299 mOsm/kg (285-295); Phosphorus 3.6 mg/dL (2.5-4.5); Potassium 3.5 mmol/L (3.5-5.1); Sodium 138 mmol/L (136-145); Total Bilirubin 1.1 mg/dL (0.15-1.2); Total Protein 5.7 g/dL (6.6-8.7)
[2021-04-08 07:03] LABS: Glucose Point of Care 121 mg/dL (70-110)
[2021-04-08 08:00] LABS: Miscellaneous Test See Scanned Lab Rpt
[2021-04-08] MEDS: metOLazone 5 MG Tablet PO (08:10)
[2021-04-08] MEDS: ferrous sulfate EC 325 mg Tablet PO ×3 (08:10→20:57)
[2021-04-08] MEDS: spironolactone 25 mg Tablet 50 MG PO ×2 (08:11→20:57)
[2021-04-08] MEDS: pantoprazole DR 40 mg Tablet PO ×2 (08:11→20:58)
[2021-04-08] MEDS: lactulose oral liq 20 gm/30 mL UDC 30 GM PO ×3 (08:14→21:06)
--- NOTE | 2021-04-08 09:00 | PC.SOCIAL ---
*IMM UPDATE* Gave patient IMM update. Provided her copy of page 2. Verbalized understanding. Initialed, dated, timed and placed in chart.
[2021-04-08] MEDS: potassium chloride ER 20 mEq Tablet 40 MEQ PO (10:20)
[2021-04-08 11:06] LABS: Glucose Point of Care 224 mg/dL (70-110)
[2021-04-08] MEDS: HYDROcodone-acetaminophen 5-325 mg Tablet 1 TAB PO (11:27)
--- NOTE | 2021-04-08 12:23 | P.PN_ITS ---
Subjective Subjective: Interval history: Patient was seen this morning, she denies any chest pain, no shortness of breath, continues to have mild lower extremity edema Vitals/I&O/Wt Last Vital Signs Temp 97.8 F 04/08/21 11:12 Pulse 67 04/08/21 11:12 Resp 17 04/08/21 11:12 BP 92/56 04/08/21 11:12 Pulse Ox 97 04/08/21 11:12 04/07/21 04/08/21 04/08/21 22:59 06:59 14:59 Intake Total 250 / 250 480 / 480 Output Total 400 / 650 Balance -150 / -400 480 / 480 Weight last 48 hrs Weight 124.936 kg Weight 116.936 kg Physical Exam Const: COMMON NORMALS: no acute distress and patient oriented x3 Resp: COMMON NORMALS: normal respiratory effort, No retractions, No use of accessory muscles and clear to auscultation bilaterally AUSCULTATION: clear to auscultation bilaterally Cardio: COMMON NORMALS: regular rate, regular rhythm, S1 normal heart sound present and S2 normal heart sound present RATE: regular rate RHYTHM: regular rhythm HEART SOUNDS: S1 normal heart sound present and S2 normal heart sound present GI: COMMON NORMALS: Normal to inspection, nondistended, normoactive bowel sounds present, Soft to palpation and non-tender INSPECTION: Yes Anasarca PALPATION: Yes Soft to palpation Extremity: OTHER: 2+ pitting edema bilaterally Neuro: COMMON NORMALS: patient oriented x3 Psych: COMMON NORMALS: mental status grossly normal Skin: NARRATIVE SKIN EXAM: Multiple macular nodular throughout lower extremities, chest and abdomen rash Data : 04/08/21 04:36 04/08/21 04:36 A&P Assessment and plan (1) Lower extremity edema: Status: Acute (2) Cirrhosis: Status: Chronic (3) Insulin dependent type 2 diabetes mellitus: Status: Chronic (4) Sleep apnea: Status: Acute Qualifiers: Sleep apnea type: unspecified type Qualified Code(s): G47.30 - Sleep apnea, unspecified (5) Hypothyroid: Status: Chronic (6) Hypertension: Status: Chronic (7) Anemia: Status: Acute (8) Portal hypertension due to obstruction of extrahepatic portal vein: Status: Acute (9) Esophageal varices: Status: Acute (10) Thrombocytopenia: Status: Acute Bilateral Lower extremity edema Etiology likely secondary to CHF, diastolic CHF, and a component related to her liver cirrhosis and hypoalbuminemia Change Bumex to 1 mg every 12 hours Continue metalazone 5 mg daily Continue spironolactone 50 mg twice daily We will add midodrine 5mg tid for blood pressure support with diuresis cr 1.6, k 3.5 Ultrasound of the abdomen unremarkable for ascites Monitor creatinine, monitor potassium She does have erythema on bilateral shins, no fevers, no significant leukocytosis, pro-Ronnie within normal limits, CRP within normal limits, hold off on antibiotics Venous ultrasound negative for DVT Keep legs elevated Cardiac echocardiogram shows ejection fraction 55 to 60%, no regional wall motion abnormalities Fluid restriction Daily weight PT consult Acute on Chronic stage 3 kidney disease Baseline creatinine around 1.2-1.4 Creatinine slightly increased to 1.6 Component of hepatorenal, cardiorenal Monitor u/o Renal dosing Liver cirrhosis with hepatic encephalopathy / Esophageal varies / portal hypertension Trend LFTs Check ammonia Continue Xifaxan, lactulose Anemia, macrocytic, B12, folate, iron studies Thrombocytopenia, likely secondary liver failure, continue to monitor, anticoagulation contraindicated Additional Medical Problems Diabetes mellitus, insulin sliding scale, glargine 10 units at bedtime Hypertension Hyperlipidemia Hypothyroidism Obstructive sleep apnea DVT ppx SCDs only due to hx of esophageal varices Plan for today, continue diuresis, monitor urine output, PT OT, hopefully can discharge in the next 24 hours Attestations Medical Necessity Statement*: Patient requires hospitalization for bilateral extremity edema secondary CHF Coding Level of Care Code Acute 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
[2021-04-08] MEDS: midodrine 5 mg TABLET PO ×3 (12:51→20:57)
[2021-04-08] MEDS: diphenhydrAMINE 25 mg Capsule PO ×2 (13:19→21:11)
[2021-04-08 16:32] LABS: Glucose Point of Care 203 mg/dL (70-110)
[2021-04-08 20:47] LABS: Glucose Point of Care 184 mg/dL (70-110)
[2021-04-08] MEDS: insulin glargine 100 units/1 mL 10 UNIT SUBCUT (20:58)
[2021-04-09] VITALS (9 sets, daily range): BP systolic 96–130; BP diastolic 52–68; PULSE 58–76; RESP 16–18; TEMP 36.4–36.8; O2SAT 76–96; BMI 40.1
[2021-04-09] MEDS: levothyroxine 88 mcg Tablet PO (05:41)
[2021-04-09 05:45] LABS: Basophils # 0.1 10^3/uL (0.0-0.1); Basophils % 1.1 %; Eosinophils # 3.4 10^3/uL (0.0-0.8); Eosinophils % 34.9 %; Hematocrit 30.2 % (37.0-47.0); Hemoglobin 9.7 g/dL (11.5-15.3); Lymphocytes # 1.1 10^3/uL (0.8-4.8); Lymphocytes % 11.5 %; Mean Corpuscular HGB Conc 32.1 g/dL (30.0-36.0); Mean Corpuscular Hemoglobin 34.9 pg (28.0-34.0); Mean Corpuscular Volume 108.6 fL (81-99); Mean Platelet Volume 9.3 fL (7.4-10.4); Monocytes # 1.1 10^3/uL (0.2-0.9); Monocytes % 11.7 %; Neutrophils # 3.86 10^3/uL (1.8-7.7); Nucleated Red Blood Cells % 0 %; Platelet Count 128 10^3/cmm (130-400); Red Blood Count 2.78 10^6/uL (4.1-5.3); White Blood Count 9.7 10^3/uL (4.0-10.0)
[2021-04-09 06:12] LABS: Alanine Aminotransferase 35 U/L (0-33); Albumin Level 2.8 g/dL (3.5-5.2); Alkaline Phosphatase 310 IU/L (35-105); Anion Gap 16.2 (5-19); Aspartate Amino Transferase 45 U/L (0-32); Blood Urea Nitrogen 49 mg/dL (8-23); Calcium 8.6 mg/dL (8.5-10.5); Carbon Dioxide 26 mmol/L (22-29); Chloride 100 mmol/L (98-107); Globulin 3.1 g/dL (1.3-4.6); Glomerular Filtration Rate 30.2 mL/min (90-130); Glucose 106 mg/dL (65-115); Magnesium 2.3 mg/dL (1.7-2.3); NT Pro B Type Natriuretic Pept 633 pg/mL (0-125); Osmolality Calculated 299 mOsm/kg (285-295); Phosphorus 3.6 mg/dL (2.5-4.5); Potassium 4.2 mmol/L (3.5-5.1); Sodium 138 mmol/L (136-145); Total Protein 5.9 g/dL (6.6-8.7)
[2021-04-09 06:27] LABS: Glucose Point of Care 125 mg/dL (70-110)
[2021-04-09] MEDS: lactulose oral liq 20 gm/30 mL UDC 30 GM PO ×3 (09:23→20:45)
[2021-04-09] MEDS: diphenhydrAMINE 25 mg Capsule PO ×2 (09:24→20:44)
[2021-04-09] MEDS: midodrine 5 mg TABLET 10 MG PO ×3 (09:24→20:43)
[2021-04-09] MEDS: ferrous sulfate EC 325 mg Tablet PO ×3 (09:25→20:43)
[2021-04-09] MEDS: pantoprazole DR 40 mg Tablet PO ×2 (09:25→20:44)
[2021-04-09] MEDS: spironolactone 25 mg Tablet 50 MG PO ×2 (09:25→20:43)
[2021-04-09] MEDS: metOLazone 5 MG Tablet PO (09:25)
[2021-04-09 11:02] LABS: Glucose Point of Care 281 mg/dL (70-110)
--- NOTE | 2021-04-09 13:17 | PM.PN ---
Subjective Subjective: Interval history: Patient was seen this morning, she tells me that she does not have any complaints, her breathing is improved, her lower extremity edema has improved, but persists to some degree, her only complaint was not being allowed ice chips overnight Vitals/I&O/Wt Last Vital Signs Temp 97.8 F 04/09/21 11:27 Pulse 58 L 04/09/21 11:27 Resp 17 04/09/21 11:27 BP 107/61 04/09/21 11:27 Pulse Ox 94 04/09/21 11:27 04/08/21 04/09/21 04/09/21 22:59 06:59 14:59 Intake Total 700 / 1740 960 / 960 Output Total 1000 / 1800 100 / 1900 Balance -300 / -60 -100 / -160 960 / 960 Weight last 48 hrs Weight 116.12 kg Weight 116.528 kg Weight 124.936 kg Physical Exam Const: COMMON NORMALS: no acute distress and patient oriented x3 Resp: COMMON NORMALS: normal respiratory effort, No retractions, No use of accessory muscles and clear to auscultation bilaterally AUSCULTATION: clear to auscultation bilaterally Cardio: COMMON NORMALS: regular rate, regular rhythm, S1 normal heart sound present and S2 normal heart sound present RATE: regular rate RHYTHM: regular rhythm HEART SOUNDS: S1 normal heart sound present and S2 normal heart sound present GI: COMMON NORMALS: Normal to inspection, nondistended, normoactive bowel sounds present, Soft to palpation and non-tender PALPATION: Yes Soft to palpation Extremity: NARRATIVE EXTREMITY EXAM: 1+ edema Neuro: COMMON NORMALS: patient oriented x3 Psych: COMMON NORMALS: mental status grossly normal Data : 04/09/21 04:47 04/09/21 04:47 A&P Assessment and plan (1) Lower extremity edema: Status: Acute (2) Cirrhosis: Status: Chronic (3) Insulin dependent type 2 diabetes mellitus: Status: Chronic (4) Sleep apnea: Status: Acute Qualifiers: Sleep apnea type: unspecified type Qualified Code(s): G47.30 - Sleep apnea, unspecified (5) Hypothyroid: Status: Chronic (6) Hypertension: Status: Chronic (7) Anemia: Status: Acute (8) Portal hypertension due to obstruction of extrahepatic portal vein: Status: Acute (9) Esophageal varices: Status: Acute (10) Thrombocytopenia: Status: Acute Bilateral Lower extremity edema Etiology likely secondary to CHF, diastolic CHF, and a component related to her liver cirrhosis and hypoalbuminemia Bumex to 1 mg every 12 hours Continue metalazone 5 mg daily Continue spironolactone 50 mg twice daily We will add midodrine 5mg tid for blood pressure support with diuresis So far for a 4500 cc urine output, however anasarca significantly improved, lower extremity edema improved, currently 1+ cr 1., k 4.2 Ultrasound of the abdomen unremarkable for ascites Monitor creatinine, monitor potassium She does have erythema on bilateral shins, no fevers, no significant leukocytosis, pro-Ronnie within normal limits, CRP within normal limits, hold off on antibiotics Venous ultrasound negative for DVT Keep legs elevated Cardiac echocardiogram shows ejection fraction 55 to 60%, no regional wall motion abnormalities Fluid restriction Daily weight PT consult Acute on Chronic stage 3 kidney disease Baseline creatinine around 1.2-1.4 Creatinine slightly increased to 1.6 Component of hepatorenal, cardiorenal Monitor u/o Renal dosing Liver cirrhosis with hepatic encephalopathy / Esophageal varies / portal hypertension Trend LFTs Check ammonia Continue Xifaxan, lactulose Anemia, macrocytic, B12, folate, iron studies Thrombocytopenia, likely secondary liver failure, continue to monitor, anticoagulation contraindicated Additional Medical Problems Diabetes mellitus, insulin sliding scale, glargine 10 units at bedtime Hypertension Hyperlipidemia Hypothyroidism Obstructive sleep apnea DVT ppx SCDs only due to hx of esophageal varices Plan for today, continue diuresis, monitor urine output, PT OT, hopefully can discharge in the next 24 hours Attestations Medical Necessity Statement*: Patient requires hospitalization for bilateral extremity edema Coding Level of Care Code Acute 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
[2021-04-09 16:56] LABS: Glucose Point of Care 166 mg/dL (70-110)
[2021-04-09] MEDS: bumetanide 0.25 mg/mL SDV 4 mL 1 MG IV (17:12)
--- NOTE | 2021-04-09 19:58 | PC.NURSE ---
Pt noted to have low urine output throughout shift. Physician notified and bladder scan performed showing approximately 100 mL PVR.
[2021-04-09] MEDS: insulin glargine 100 units/1 mL 10 UNIT SUBCUT (20:54)
[2021-04-09 20:58] LABS: Glucose Point of Care 134 mg/dL (70-110)
[2021-04-10] MEDS: midodrine 5 mg TABLET 10 MG PO ×2 (03:13→10:00)
[2021-04-10 04:00] VITALS: BP 90/48; PULSE 54; RESP 16; TEMP 36.7; O2SAT 97
[2021-04-10] MEDS: levothyroxine 88 mcg Tablet PO (06:01)
[2021-04-10 06:08] LABS: Basophils # 0.1 10^3/uL (0.0-0.1); Basophils % 1.4 %; Eosinophils # 4.1 10^3/uL (0.0-0.8); Eosinophils % 40.6 %; Hemoglobin 9.9 g/dL (11.5-15.3); Lymphocytes % 10.1 %; Mean Corpuscular HGB Conc 31.9 g/dL (30.0-36.0); Mean Corpuscular Hemoglobin 34.9 pg (28.0-34.0); Mean Corpuscular Volume 109.2 fL (81-99); Mean Platelet Volume 9.3 fL (7.4-10.4); Monocytes # 1.1 10^3/uL (0.2-0.9); Monocytes % 10.5 %; Neutrophils # 3.73 10^3/uL (1.8-7.7); Neutrophils % 36.7 %; Nucleated Red Blood Cells % 0 %; Platelet Count 142 10^3/cmm (130-400); Red Blood Count 2.84 10^6/uL (4.1-5.3); Red Cell Distribution Width 16.1 % (12.1-15.1); White Blood Count 10.1 10^3/uL (4.0-10.0)
[2021-04-10 06:38] LABS: Alanine Aminotransferase 37 U/L (0-33); Albumin Level 2.9 g/dL (3.5-5.2); Alkaline Phosphatase 320 IU/L (35-105); Anion Gap 15.2 (5-19); Aspartate Amino Transferase 52 U/L (0-32); Blood Urea Nitrogen 51 mg/dL (8-23); Calcium 8.8 mg/dL (8.5-10.5); Carbon Dioxide 28 mmol/L (22-29); Chloride 101 mmol/L (98-107); Globulin 3.3 g/dL (1.3-4.6); Glucose 150 mg/dL (65-115); Magnesium 2.6 mg/dL (1.7-2.3); NT Pro B Type Natriuretic Pept 648 pg/mL (0-125); Osmolality Calculated 307 mOsm/kg (285-295); Phosphorus 3.7 mg/dL (2.5-4.5); Potassium 4.2 mmol/L (3.5-5.1); Sodium 140 mmol/L (136-145); Total Protein 6.2 g/dL (6.6-8.7)
[2021-04-10 06:55] LABS: Glucose Point of Care 154 mg/dL (70-110)
[2021-04-10 08:40] VITALS: BP 91/57; PULSE 60; RESP 15; TEMP 36.5; O2SAT 96
[2021-04-10] MEDS: metOLazone 5 MG Tablet PO (10:00)
[2021-04-10] MEDS: pantoprazole DR 40 mg Tablet PO (10:00)
[2021-04-10] MEDS: ferrous sulfate EC 325 mg Tablet PO (10:00)
[2021-04-10] MEDS: spironolactone 25 mg Tablet 50 MG PO (10:00)
[2021-04-10] MEDS: lactulose oral liq 20 gm/30 mL UDC 30 GM PO (10:01)
--- NOTE | 2021-04-10 10:33 | P.DS_ITS ---
Discharge Providers Date of Admission: 04/05/21 15:07 Date of Discharge: April 10, 2021 Attending Provider at Admission: Jonathan Sullivan Attending Provider at Discharge: Dom Stone Primary Care Provider: Josafat Robertson MD Diagnoses at Discharge Discharge Diagnosis (1) Lower extremity edema: Status: Acute (2) Cirrhosis: Status: Chronic (3) Insulin dependent type 2 diabetes mellitus: Status: Chronic (4) Sleep apnea: Status: Acute Qualifiers: Sleep apnea type: unspecified type Qualified Code(s): G47.30 - Sleep apnea, unspecified (5) Hypothyroid: Status: Chronic (6) Hypertension: Status: Chronic (7) Anemia: Status: Acute (8) Portal hypertension due to obstruction of extrahepatic portal vein: Status: Acute (9) Esophageal varices: Status: Acute (10) Thrombocytopenia: Status: Acute Reason for Visit Reason for Visit: EDEMA Hospital Course Hospital Course Pleasant 65-year-old lady with DM2, HTN, hypothyroidism, GRETTA, chronic kidney disease stage III, liver cirrhosis and history of hepatic encephalopathy, chronic bilateral lower extremity edema and venous stasis, presented with worsened edema, and diastolic congestive heart failure exacerbation. Was t reated with IV bumetanide, continued with metolazone. Potassium replacement was held as potassium was good while in the hospital. Troponin was noted moderately elevated 42-40.3-38, without described chest pain, no evidence of acute [place] on EKG. TTE showed normal ejection fraction, no R WMA. Thickened aortic valve with mild AAS, mean gradient 15 mmHg. Mild TVR. Mild pulmonary hypertension. Venous duplex lower extremities was negative for DVT. Abdominal ultrasound did not show any ascites. She tolerated diuresis well for the most part, but renal function did worsen today with creatinine rise up to 2. She is given a dose of albumin. Will resume on oral diuretics. Please reassess renal function, potassium level in 3-4 days. She does have still persistent lower extremity edema, although better compared to presentation. 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 Alternatively inability to tolerate further diuresis in case of persistent/recurrent CHF symptoms may portend poorer prognosis. Persistent lower extremity edema and dermatitis also related to venous stasis. Faint erythema noted, symmetrical, persistent, currently without sign of infection. She is asked to follow-up with cardiology. She was also previously following with hepatology in [place]. Please coordinate additional follow-up with formal service waiter in [place] or somewhere closer. Depending on renal function on reassessment, consider referral to nephrology given chronic kidney disease, underlying liver cirrhosis, diastolic congestive heart failure. Please continue follow-up regarding chronic conditions including anemia. Thrombocytopenia noted in the hospital transiently has improved. Physical Exam Narrative: EXAM NARRATIVE: States has not yet worked with physical therapy, says that they came to see her, but she has not come back later as her breakfast tray had just arrived. No pain or discomfort. Const: COMMON NORMALS: no acute distress and patient oriented x3 HENMT: COMMON NORMALS: oropharynx normal Neck/C-Spine: COMMON NORMALS: no JVD Resp: COMMON NORMALS: normal respiratory effort and clear to auscultation bilaterally AUSCULTATION: clear to auscultation bilaterally Cardio: COMMON NORMALS: no JVD, regular rhythm, S1 normal heart sound present, S2 normal heart sound present and No murmurs present (Cardio) RHYTHM: regular rhythm HEART SOUNDS: S1 normal heart sound present and S2 normal heart sound present GI: COMMON NORMALS: Normal to inspection, nondistended, normoactive bowel sounds present, Soft to palpation and non-tender PALPATION: Yes Soft to pa lpation Extremity: COMMON NORMALS: no joint enlargement GENERAL: Yes edema (2+) Neuro: COMMON NORMALS: patient oriented x3 and moves all extremities Skin: OTHER: Faint equal erythema bilateral LE below knees. No wounds. Discharge Data Data Completed and Pending: Completed Studies During Hospitalization Category Date Time Status XR chest 1V george ble [id number] Stat Exams 04/04/21 14:23 Completed CV echo complete* [id number] Routine Ultrasound 04/05/21 08:44 [place] [id number] Urgent Ultrasound 04/04/21 18:19 Completed [place] abdomen limite d [id number] Routine Ultrasound 04/06/21 06:00 Completed Pending at discharge Category Date Time Status Blood Culture Sta t Lab 04/05/21 10:36 Results Complete Blood Co unt w/Auto AM LABS Lab 04/11/21 04:00 Ordered Comprehensive Met abolic Panel AM LA BS Lab 04/11/21 04:00 Ordered Immunochemical Fe ladonna OCB Routine Lab 04/05/21 15:07 Uncollected Magnesium AM LABS Lab 04/11/21 04:00 Ordered NT Pro B Type [place] riuretic Pept QAM Lab 04/11/21 06:00 Ordered Phosphorus AM LAB S Lab 04/11/21 04:00 Ordered Labs from last 24 hours 04/10/21 04/10/21 04/10/21 06:44 05:15 05:15 WBC 10.1 H RBC 2.84 L Hgb 9.9 L Hct 31.0 L MCV 109.2 H MCH 34.9 H MCHC 31.9 RDW 16.1 H Plt Count 142 MPV 9.3 Neut % (Auto) 36.7 Lymph % (Auto) 10.1 Smith % (Auto) 10.5 Eos % (Auto) 40.6 Baso % (Auto) 1.4 Neut # (Auto) 3.73 Lymph # (Auto) 1.0 Smith # (Auto) 1.1 H Eos # (Auto) 4.1 H Baso # (Auto) 0.1 Nucleated RBC % (a uto) 0 Nucleated RBCs # 0.0 Sodium 140 Potassium 4.2 Chloride 101 Carbon Dioxide 28 Anion Gap 15.2 BUN 51 H Creatinine 2.0 H GFR Calculation 25.0 L Glucose 150 H POC Glucose 154 H Calculated Osmolal ity 307 H Calcium 8.8 Phosphorus 3.7 Magnesium 2.6 H Total Bilirubin 1.0 AST 52 H ALT 37 H Alkaline Phosphata se 320 H NT-Pro-B Natriuret Pep 648 H Total Protein 6.2 L Albumin 2.9 L Globulin 3.3 04/09/21 04/09/21 04/09/21 19:34 16:37 10:46 WBC RBC Hgb Hct MCV MCH MCHC RDW Plt Count MPV Neut % (Auto) Lymph % (Auto) Smith % (Auto) Eos % (Auto) Baso % (Auto) Neut # (Auto) Lymph # (Auto) Smith # (Auto) Eos # (Auto) Baso # (Auto) Nucleated RBC % (a uto) Nucleated RBCs # Sodium Potassium Chloride Carbon Dioxide Anion Gap BUN Creatinine GFR Calculation Glucose POC Glucose 134 H 166 H 281 H Calculated Osmolal ity Calcium Phosphorus Magnesium Total Bilirubin AST ALT Alkaline Phosphata se NT-Pro-B Natriuret Pep Total Protein Albumin Globulin Vitals: Last Vital Signs Temp 97.4 F L 04/10/21 08:45 Pulse 81 04/10/21 08:45 Resp 18 04/10/21 08:45 BP 108/69 04/10/21 08:45 Pulse Ox 96 04/10/21 08:45 Discharge Plan Discharge Patient Disposition: Xfer [facility] Condition: Stable Prescriptions: New midodrine 5 mg Tablet 10 mg PO BID Qty: 60 RF: 0 Continued docusate sodium 100 mg capsule 100 mg PO BID@ RF: 0 tramadol 50 mg tablet 50 mg PO Q8H PRN (Reason: pain) RF: 0 bumetanide 1 mg tablet 1 mg PO BID@ RF: 0 nystatin 100,000 unit/gram cream 1 applic topical BID RF: 0 spironolactone 50 mg tablet 50 mg PO BID@, RF: 0 lidocaine 5 % adhesive patch,medicated 1 patch topical DAILY Qty: 30 RF: 0 levothyroxine 88 mcg Tablet 88 mcg PO DAILY@06 RF: 0 lactulose 10 gram/15 mL Solution 40 ml PO QID PRN (Reason: Constipation) RF: 0 ondansetron HCl [Zofran] 4 mg tablet 4 mg PO QID PRN (Reason: Nausea) RF: 0 insulin lispro [Humalog KwikPen Insulin] 100 unit/mL Insulin Pen See Rx Instructions .ROUTE .COMPLEX RF: 0 insulin lispro [Humalog KwikPen Insulin] 100 unit/mL insulin pen See Rx Instructions SUBCUT .COMPLEX RF: 0 metolazone 5 mg Tablet 5 mg PO DAILY@0800 RF: 0 magnesium oxide [MagOx] 400 mg (241.3 mg magnesium) tablet 400 mg PO DAILY@0800 RF: 0 pantoprazole [Protonix] 40 mg tablet,delayed release (DR/EC) 40 mg PO BID@ RF: 0 ferrous sulfate 325 mg (65 mg iron) tablet 325 mg PO TID@,, RF: 0 Xifaxan 550 mg tablet 550 mg PO BID@, RF: 0 Changed Lantus U-100 Insulin 100 unit/mL solution 10 unit SUBCUT BEDTIME Qty: 0 RF: 0 Discontinued potassium chloride 20 mEq tablet extended release 80 meq PO DAILY@0800 RF: 0 No Action (DME) OneTouch Ultra Blue Test Strip Strip See Rx Instructions .Route RF: 0 (DME) lancets [OneTouch UltraSoft Lancets] Misc See Rx Instructions .Route RF: 0 Discharge Orders: Discharge Order (Routine); Ordered 04/10/21 Ordered By: Dom Stone Referrals: Yolande Franklin FNP [Nurse Practitioner] - 1 week ([facility]) Josafat Robertson MD [Primary Care Provider] - 4-7 days Discharge Diet: Cardiac and Diabetic Discharge Activity: Increase activity as tolerated and As per PT/OT instructions Patient Instructions: Fall Prevention (GEN), Opioid Safety Activity Restrictions/Additional Instructions: Please continue diuresis. Please recheck kidney function in 3 days due to acute kidney injury on chronic kidney disease. Consider referral to nephrology for follow-up of chronic kidney disease in the setting of liver cirrhosis, CHF. Please recheck potassium level, for now potassium supplementation has been held as potassium level has been good in the hospital even with IV diuretics. She is asked to follow up with cardiology. Please consider referral to formal service waiter for follow-up of liver cirrhosis. Previously following w hepatology in [facility]. Please continue taking lactulose with target 2-3 soft bowel movements per day to prevent ammonia build up. Discharge Attestations Time Spent in Discharge Care*: greater than 30 min Status at Discharge: Cognitive status at discharge: cognitively intact , Behavioral status at discharge: cooperative , Quality Metrics Clinical Quality Measures During this hospital stay, did patient experience: None Coding Level of Care Code Acute [facility] note Diagnoses Lower extremity edema R60.0 Cirrhosis K74.60 Insulin dependent type 2 diabetes mellitus E11.9; Z79.4 Sleep apnea G47.30 Sleep apnea type: unspecified type Hypothyroid E03.9 Hypertension I10 Anemia D64.9 Portal hypertension due to obstruction of extrahepatic portal vein K76.6; I81 Esophageal varices I85.00 Thrombocytopenia D69.6
--- NOTE | 2021-04-10 10:58 | PC.SOCIAL ---
IMM UPDATE Gave patient IMM update. Provided her with copy of page 2. Verbalized understanding. 04/10/21 @ 1020 Initialed, dated, timed and placed in chart.
[2021-04-10] MEDS: diphenhydrAMINE 25 mg Capsule PO (11:17)
[2021-04-10 11:36] VITALS: BP 107/65; PULSE 59; RESP 16; TEMP 36.5; O2SAT 97
[2021-04-10 12:22] LABS: Glucose Point of Care 234 mg/dL (70-110)
--- NOTE | 2021-04-10 14:49 | PC.NURSE ---
discharge packet for [facility] given to patient's . patient taken to private vehicle via wheelchair by staff and transported patient to [facility]. Report called to NAVYA Wolfe.
[2021-04-10 14:50] VITALS: BP 107/65; PULSE 59; RESP 16; TEMP 36.5; O2SAT 97
== END 2021-04-10 14:51 | disposition skilled nursing facility (03) | DRG 291 ==
LOC: ER 18:00 → MEDSURG 20:41
PROVIDERS: Family Medicine; Physician Assistant; Admitting Provider Hospitalist; Emergency Provider Family Medicine; PCP Family Medicine; Visit Provider Internal Medicine
DX: I13.0 Hypertensive heart and chronic kidney disease with heart failure and stage 1 through stage 4 chronic kidney disease, or unspecified chronic kidney disease (principal); I50.31 Acute diastolic (congestive) heart failure; I81 Portal vein thrombosis; I85.10 Secondary esophageal varices without bleeding; Z68.41 Body mass index [BMI] 40.0-44.9, adult; K76.6 Portal hypertension; N17.9 Acute kidney failure, unspecified; N18.30 Chronic kidney disease, stage 3 unspecified; E11.22 Type 2 diabetes mellitus with diabetic chronic kidney disease; E03.9 Hypothyroidism, unspecified; G47.33 Obstructive sleep apnea (adult) (pediatric); K74.60 Unspecified cirrhosis of liver; K72.10 Chronic hepatic failure without coma; K72.90 Hepatic failure, unspecified without coma; I87.8 Other specified disorders of veins; Z87.442 Personal history of urinary calculi; E66.09 Other obesity due to excess calories; Z87.891 Personal history of nicotine dependence; Z79.4 Long term (current) use of insulin; D63.1 Anemia in chronic kidney disease; E88.09 Other disorders of plasma-protein metabolism, not elsewhere classified; D69.59 Other secondary thrombocytopenia
CPT/HCPCS: 36415; 36416; 71045; 76705; 80053; 80500; 81001; 82140; 82607; 82728; 82746; 82962; 83540; 83735; 83880; 84100; 84145; 84484; 85025; 85045; 85610; 85651; 86140; 87040; 87086; 88184; 88185; 93005; 93306; 93970; 96372; 96374; 97116; 97161; 97165; 97530; 97535; 99285; G0378; J0696; J1815 ×2; J1940; J3490; P9047

== ENCOUNTER → 2021-04-14 11:09 | Outpatient (BNVA) | payer OTHER, SELFPAY | PROVIDERS: PCP Nurse Practitioner; Visit Provider Nurse Practitioner | DX: E11.22 Type 2 diabetes mellitus with diabetic chronic kidney disease (principal); N18.30 Chronic kidney disease, stage 3 unspecified; D64.9 Anemia, unspecified | CPT/HCPCS: 80048; 85025 ==

== ENCOUNTER 2021-05-15 22:33 | Inpatient (IN) | payer OTHER, MEDICARE, SELFPAY ==
[2021-05-15 22:36] VITALS: BP 74/33; PULSE 62; RESP 22; TEMP 35; O2SAT 96; BMI 39.7
[2021-05-15 22:57] LABS: Basophils % 0.9 %; Eosinophils # 0.2 10^3/uL (0.0-0.8); Eosinophils % 4.2 %; Hematocrit 29.9 % (37.0-47.0); Hemoglobin 9.4 g/dL (11.5-15.3); Lymphocytes # 0.5 10^3/uL (0.8-4.8); Mean Corpuscular HGB Conc 31.4 g/dL (30.0-36.0); Mean Corpuscular Hemoglobin 35.3 pg (28.0-34.0); Mean Corpuscular Volume 112.4 fL (81-99); Mean Platelet Volume 10.2 fL (7.4-10.4); Monocytes # 0.4 10^3/uL (0.2-0.9); Monocytes % 7.8 %; Neutrophils # 3.36 10^3/uL (1.8-7.7); Neutrophils % 74.4 %; Nucleated Red Blood Cells % 0 %; Platelet Count 85 10^3/cmm (130-400); Red Blood Count 2.66 10^6/uL (4.1-5.3); Red Cell Distribution Width 16.7 % (12.1-15.1); White Blood Count 4.5 10^3/uL (4.0-10.0)
[2021-05-15] MEDS: sodium chloride 0.9% 1,000 ML 999 ML IV (23:01)
[2021-05-15] MEDS: pantoprazole 40 mg SDV 80 MG IVP (23:01)
--- NOTE | 2021-05-15 23:03 | CTR_ITS ---
PROCEDURE INFORMATION: Exam: CT Abdomen And Pelvis With Contrast Exam date and time: 05/15/2021 11:03 PM Age: 65 years old Clinical indication: Abdominal pain; Generalized; Prior surgery; Surgery date: 6+ months; Surgery type: Colon, gb, hernia; Patient HX: C/O abd pain, distention and rectal bleeding TECHNIQUE: Imaging protocol: Computed tomography of the abdomen and pelvis with contrast. Radiation optimization: All CT scans at this facility use at least one of these dose optimization techniques: automated exposure control; mA and/or kV adjustment per patient size (includes targeted exams where dose is matched to clinical indication); or iterative reconstruction. Contrast material: VISI 320; Contrast volume: 95 ml; Contrast route: INTRAVENOUS (IV); COMPARISON: CT abdomen pelvis wo con [id number] 05/25/2020 4:56 PM RADIATION DOSE METRICS: Total DLP (mGy-cm): 1715.94 FINDINGS: Heart: Calcifications are seen in the mitral valve annulus. Liver: Normal. No mass. Gallbladder and bile ducts: Status post cholecystectomy. Pancreas: Normal. No ductal dilation. Spleen: Punctate calcifications are seen within the spleen compatible with calcified granulomas. Adrenal glands: Normal. No mass. Kidneys and ureters: There are 3 punctate densities seen within the right kidney, the largest measuring 3 mm compatible with small nonobstructing renal calculi. Stomach and bowel: Diverticula are present on the sigmoid colon. There are no inflammatory changes seen to suggest diverticulitis. Appendix: Status post appendectomy. Intraperitoneal space: Unremarkable. No free air. No significant fluid collection. Vasculature: Calcifications are present the coronary arteries. Lymph nodes: Unremarkable. No enlarged lymph nodes. Urinary bladder: Unremarkable as visualized. Reproductive: Unremarkable as visualized. Bones/joints: There is a 5 4 mm anterior spondylolisthesis of L5 on S1 likely secondary to degenerative disc disease at this level and bilateral pars interarticularis defects. There are compression fractures of T7, T9, T11 and L1 vertebral bodies appearing new compared with 05/25/2020. Soft tissues: Unremarkable. CT/CT abdomen pelvis w con* [id number] IMPRESSION: 1. Nonobstructing right renal calculi, the largest measuring 3 mm. 2. Diverticulosis of the sigmoid colon 3. There are new compression fractures of T7, T9, T11 and L1 vertebral bodies compared with 05/25/2020. COMMENTS: Consistent with the [employer]'s Incidental Findings Committee white paper (J Am Nabila Radiol 2018): Any incidental renal lesion less than 1 cm or classified as too small to characterize, or any incidental cystic renal lesion characterized as simple-appearing, is likely benign. No follow-up imaging is recommended for these lesions per consensus recommendations based on imaging criteria. Radiation Dose CTDIVOL = (mGy): DLP = 1715.94 (mGy-cm)
[2021-05-15 23:04] VITALS: BP 66/40; PULSE 61; RESP 16; O2SAT 96
--- NOTE | 2021-05-15 23:06 | W.ED.ABDPA2 ---
HPI - Abdominal Pain General: Chief Complaint: Abdominal Pain Stated Complaint: POSSIBLE GI BLEED Time Seen by Provider: 05/15/21 23:02 History of Present Illness: HPI narrative: 65-year-old female presents emergency room with bright red blood per rectum abdominal pain and distention. She is from [facility] arrival her blood pressure initially 80/40 she was given 250 of normal saline in route. She has a history of cirrhosis.Reviewing her chart she is also chronically anemic. She answers a few questions and complains of severe abdominal pain pain with even light percussion. No bowel sounds noted. MD elicited complaint: abdominal pain Onset (ago): hour(s) Pain Consistency: constant Location: Diffuse Severity: severe Quality: cramping Radiation: none Migration to: no migration Exacerbating factors: eating Relieving factors: nothing Associated Symptoms: Reports bloating, GI cramping, dyspepsia, hematochezia, nausea and poor appetite; Denies belching, change in bowel habits, change in stool character, chills, coffee ground emesis, constipation, dysuria, excessive flatus, fever(s), heartburn, hematuria, hematemesis, fecal incontinence, loose stools, melena, syncope and vomiting Review of Systems General: Reports: ROS unobtainable due to mental status Const: Denies: fever(s) or chills Card: Denies: syncope GI: Reports: nausea, bloating, GI cramping and hematochezia; Denies: vomiting, hematemesis, coffee ground emesis, heartburn, constipation, belching, excessive flatus, fecal incontinence, change in bowel habits, change in stool character or melena : Denies: dysuria or hematuria PFSH ED PFSH: Medical History Anemia Cirrhosis 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 Esophageal varices Hydronephrosis Hypertension Hypothyroid Insulin dependent type 2 diabetes mellitus Nephrolithiasis Obesity Portal hypertension due to obstruction of extrahepatic portal vein Sleep apnea Surgical History H/O hernia repair H/O lithotripsy History of cholecystectomy History of oophorectomy, unilateral Family History Mother Lung disease Father Cardiovascular disease Denies family history of Diabetes Cancer Social History Smoking and tobacco status: former smoker Caregiver/support person: Yes Lives independently: No Housing: Assisted Living Facility Marital status: Marital status details: Dayne Current occupational status: retired Physical Exam Const: COMMON NORMALS: no acute distress GENERAL APPEARANCE: cooperative and comfortable HENMT: COMMON NORMALS: normocephalic, atraumatic and hearing grossly normal bilaterally HEAD & SCALP: normocephalic and atraumatic Neck/C-Spine: COMMON NORMALS: no JVD Resp: COMMON NORMALS: normal respiratory effort, No retractions, No use of accessory muscles and clear to auscultation bilaterally AUSCULTATION: clear to auscultation bilaterally Cardio: COMMON NORMALS: no JVD, regular rate, regular rhythm and No murmurs present (Cardio) RATE: regular rate RHYTHM: regular rhythm GI: AUSCULTATION: Yes Hypoactive bowel sounds present PALPATION: Yes Tenderness to palpation present (GI), No Guarding due to palpation present (GI) and Yes Hepatomegaly present Extremity: COMMON NORMALS: normal to inspection, capillary refill normal, no clubbing, cyanosis or edema, no calf tenderness and no pedal edema Skin: COMMON NORMALS: no rashes or lesions noted GENERAL SKIN EXAM: no rashes or lesions noted Course Vital Signs: Vital signs: Vital Signs Temperature 95.0 F L 05/15/21 22:36 Pulse Rate 72 05/16/21 00:21 Respiratory Rate 26 H 05/16/21 00:21 Blood Pressure 105/53 05/16/21 00:21 Pulse Oximetry 97 05/16/21 00:21 MDM - Abdominal Pain MDM Narrative: Medical decision making narrative: Acute renal failure with hyperkalemia. Hyperkalemia treated in the ER with bicarb calcium gluconate insulin and Kayexalate. Admit discussed Dr. Duval orders are written consult nephrology. She is chronically anemic and thrombocytopenic. Her anemia is at her baseline her thrombocytopenia slightly worsened. I believe she is mostly volume contracted which also accounts for her marked elevation in ammonia level I would expect that to improve with fluid hydration Lab Data: Labs: Lab Results 05/15/21 05/15/21 05/15/21 Range/Units 00:15 22:49 22:49 WBC 4.5 (4.0-10.0) 10^3/ uL RBC 2.66 L (4.1-5.3) 10^6/u L Hgb 9.4 L (11.5-15.3) g/dL Hct 29.9 L (37.0-47.0) % MCV 112.4 H (81-99) fL MCH 35.3 H (28.0-34.0) pg MCHC 31.4 (30.0-36.0) g/dL RDW 16.7 H (12.1-15.1) % Plt Count 85 L (130-400) 10^3/c mm MPV 10.2 (7.4-10.4) fL Neut % (Auto) 74.4 % Lymph % (Auto) 12.0 % [place] % (Auto) 7.8 % Eos % (Auto) 4.2 % Baso % (Auto) 0.9 % Neut # (Auto) 3.36 (1.8-7.7) 10^3/u L Lymph # (Auto) 0.5 L (0.8-4.8) 10^3/u L [place] # (Auto) 0.4 (0.2-0.9) 10^3/u L Eos # (Auto) 0.2 (0.0-0.8) 10^3/u L Baso # (Auto) 0.0 (0.0-0.1) 10^3/u L Nucleated RBC % (a uto) 0 % Nucleated RBCs # 0.0 /100WBC PT 16.30 H (12.1-14.9) SECO NDS INR 1.27 H (0.8-1.2) APTT 36.0 (23.9-36.7) SECO NDS Specimen Type Arterial Sample Site Radial, right ABG pH 7.28 L (7.35-7.45) ABG pCO2 38.1 (35-45) mmHg ABG pO2 97.8 (80.0-100.0) mmH g ABG HCO3 18.0 L (22-26) mmol/L ABG O2 Saturation 97.1 ABG Base Excess -8.1 L (-2.0-2.0) mmol/ L Waqar Test Pos A-a O2 Gradient 0.5 L (5-10) mmHg Hematocrit 30.9 L (37-47) % Hgb O2 Saturation 95.0 (95-100) % Carboxyhemoglobin 1.1 (0.4-20.1) %THgb Methemoglobin 0.9 (0.4-1.5) % Total Hemoglobin 10.1 L (12-16) g/dL Sodium 143.0 (131-143) mmol/L Potassium 6.8 H (3.5-5.0) mmol/L Glucose 215.0 H (70-115) mg/dL Ionized Calcium 1.2 (1.1-1.4) mmol/L O2 Delivery Device Room air FiO2 21.0 % Certified Veterinary Technician ID Harkr Chloride (98-107) mmol/L Carbon Dioxide (22-29) mmol/L Anion Gap (5-19) BUN (8-23) mg/dL Creatinine (0.5-0.9) mg/dL GFR Calculation (90-130) mL/min POC Glucose (70-110) mg/dL Calculated Osmolal ity (285-295) mOsm/k g Lactate (0.5-2.2) mmol/L Calcium (8.5-10.5) mg/dL Magnesium (1.7-2.3) mg/dL Total Bilirubin (0.15-1.2) mg/dL AST (0-32) U/L ALT (0-33) U/L Alkaline Phosphata se (35-105) IU/L Ammonia (11-51) umol/L Total Protein (6.6-8.7) g/dL Albumin (3.5-5.2) g/dL Globulin (1.3-4.6) g/dL Blood Type Rho(D) Type Antibody Screen 05/15/21 05/15/21 05/15/21 Range/Units 22:49 22:54 23:14 WBC (4.0-10.0) 10^3/ uL RBC (4.1-5.3) 10^6/u L Hgb (11.5-15.3) g/dL Hct (37.0-47.0) % MCV (81-99) fL MCH (28.0-34.0) pg MCHC (30.0-36.0) g/dL RDW (12.1-15.1) % Plt Count (130-400) 10^3/c mm MPV (7.4-10.4) fL Neut % (Auto) % Lymph % (Auto) % [place] % (Auto) % Eos % (Auto) % Baso % (Auto) % Neut # (Auto) (1.8-7.7) 10^3/u L Lymph # (Auto) (0.8-4.8) 10^3/u L [place] # (Auto) (0.2-0.9) 10^3/u L Eos # (Auto) (0.0-0.8) 10^3/u L Baso # (Auto) (0.0-0.1) 10^3/u L Nucleated RBC % (a uto) % Nucleated RBCs # /100WBC PT (12.1-14.9) SECO NDS INR (0.8-1.2) APTT (23.9-36.7) SECO NDS Specimen Type Sample Site ABG pH (7.35-7.45) ABG pCO2 (35-45) mmHg ABG pO2 (80.0-100.0) mmH g ABG HCO3 (22-26) mmol/L ABG O2 Saturation ABG Base Excess (-2.0-2.0) mmol/ L Waqar Test A-a O2 Gradient (5-10) mmHg Hematocrit (37-47) % Hgb O2 Saturation (95-100) % Carboxyhemoglobin (0.4-20.1) %THgb Methemoglobin (0.4-1.5) % Total Hemoglobin (12-16) g/dL Sodium 138 (131-143) mmol/L Potassium Not Reportable (3.5-5.0) mmol/L Glucose 97 (70-115) mg/dL Ionized Calcium (1.1-1.4) mmol/L O2 Delivery Device FiO2 % Certified Veterinary Technician ID Chloride 106 (98-107) mmol/L Carbon Dioxide 13 L (22-29) mmol/L Anion Gap 26.4 H (5-19) BUN 64 H (8-23) mg/dL Creatinine 5.2 H (0.5-0.9) mg/dL GFR Calculation 8.3 L (90-130) mL/min POC Glucose (70-110) mg/dL Calculated Osmolal ity 304 H (285-295) mOsm/k g Lactate 2.0 (0.5-2.2) mmol/L Calcium 8.3 L (8.5-10.5) mg/dL Magnesium (1.7-2.3) mg/dL Total Bilirubin 0.6 (0.15-1.2) mg/dL AST 44 H (0-32) U/L ALT 36 H (0-33) U/L Alkaline Phosphata se 328 H (35-105) IU/L Ammonia (11-51) umol/L Total Protein 6.2 L (6.6-8.7) g/dL Albumin 3.1 L (3.5-5.2) g/dL Globulin 3.1 (1.3-4.6) g/dL Blood Type A Positive Rho(D) Type Positive / 4+ Antibody Screen Positive 05/15/21 05/15/21 05/15/21 Range/Units 23:14 23:45 23:46 WBC (4.0-10.0) 10^3/ uL RBC (4.1-5.3) 10^6/u L Hgb (11.5-15.3) g/dL Hct (37.0-47.0) % MCV (81-99) fL MCH (28.0-34.0) pg MCHC (30.0-36.0) g/dL RDW (12.1-15.1) % Plt Count (130-400) 10^3/c mm MPV (7.4-10.4) fL Neut % (Auto) % Lymph % (Auto) % [place] % (Auto) % Eos % (Auto) % Baso % (Auto) % Neut # (Auto) (1.8-7.7) 10^3/u L Lymph # (Auto) (0.8-4.8) 10^3/u L [place] # (Auto) (0.2-0.9) 10^3/u L Eos # (Auto) (0.0-0.8) 10^3/u L Baso # (Auto) (0.0-0.1) 10^3/u L Nucleated RBC % (a uto) % Nucleated RBCs # /100WBC PT (12.1-14.9) SECO NDS INR (0.8-1.2) APTT (23.9-36.7) SECO NDS Specimen Type Sample Site ABG pH (7.35-7.45) ABG pCO2 (35-45) mmHg ABG pO2 (80.0-100.0) mmH g ABG HCO3 (22-26) mmol/L ABG O2 Saturation ABG Base Excess (-2.0-2.0) mmol/ L Waqar Test A-a O2 Gradient (5-10) mmHg Hematocrit (37-47) % Hgb O2 Saturation (95-100) % Carboxyhemoglobin (0.4-20.1) %THgb Methemoglobin (0.4-1.5) % Total Hemoglobin (12-16) g/dL Sodium (131-143) mmol/L Potassium 6.9 H* (3.5-5.0) mmol/L Glucose (70-115) mg/dL Ionized Calcium (1.1-1.4) mmol/L O2 Delivery Device FiO2 % Certified Veterinary Technician ID Chloride (98-107) mmol/L Carbon Dioxide (22-29) mmol/L Anion Gap (5-19) BUN (8-23) mg/dL Creatinine (0.5-0.9) mg/dL GFR Calculation (90-130) mL/min POC Glucose 90 (70-110) mg/dL Calculated Osmolal ity (285-295) mOsm/k g Lactate (0.5-2.2) mmol/L Calcium (8.5-10.5) mg/dL Magnesium 3.6 H (1.7-2.3) mg/dL Total Bilirubin (0.15-1.2) mg/dL AST (0-32) U/L ALT (0-33) U/L Alkaline Phosphata se (35-105) IU/L Ammonia 451 H (11-51) umol/L Total Protein (6.6-8.7) g/dL Albumin (3.5-5.2) g/dL Globulin (1.3-4.6) g/dL Blood Type Rho(D) Type Antibody Screen Discharge Plan Discharge Patient Disposition: Admitted As Inpatient Clinical Impression: Acute renal failure, Portal hypertension due to obstruction of extrahepatic portal vein, Hypertension, Insulin dependent type 2 diabetes mellitus, 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, Acute hyperkalemia, Acute hepatic encephalopathy Condition: Stable Prescriptions: No Action furosemide [Lasix] 40 mg tablet See Rx Instructions PO .COMPLEX Qty: 60 RF: 2 docusate sodium 100 mg capsule 100 mg PO BID@08,20 RF: 0 tramadol 50 mg tablet 50 mg PO Q8H PRN (Reason: pain) RF: 0 nystatin 100,000 unit/gram cream 1 applic topical BID RF: 0 (DME) OneTouch Ultra Blue Test Strip Strip See Rx Instructions .Route RF: 0 (DME) lancets [OneTouch UltraSoft Lancets] Misc See Rx Instructions .Route RF: 0 spironolactone 50 mg tablet 50 mg PO BID@08,20 RF: 0 lidocaine 5 % adhesive patch,medicated 1 patch topical DAILY Qty: 30 RF: 0 levothyroxine 88 mcg Tablet 88 mcg PO DAILY@06 RF: 0 lactulose 10 gram/15 mL Solution 40 ml PO QID PRN (Reason: Constipation) RF: 0 ondansetron HCl [Zofran] 4 mg tablet 4 mg PO QID PRN (Reason: Nausea) RF: 0 insulin lispro [Humalog KwikPen Insulin] 100 unit/mL Insulin Pen See Rx Instructions .ROUTE .COMPLEX RF: 0 insulin lispro [Humalog KwikPen Insulin] 100 unit/mL insulin pen See Rx Instructions SUBCUT .COMPLEX RF: 0 metolazone 5 mg Tablet 5 mg PO DAILY@0800 RF: 0 magnesium oxide [MagOx] 400 mg (241.3 mg magnesium) tablet 400 mg PO DAILY@0800 RF: 0 pantoprazole [Protonix] 40 mg tablet,delayed release (DR/EC) 40 mg PO BID@08,20 RF: 0 Xifaxan 550 mg tablet 550 mg PO BID@08,20 RF: 0 Lantus U-100 Insulin 100 unit/mL solution 10 unit SUBCUT BEDTIME Qty: 0 RF: 0 Referrals: Allen Myers FNP-C [Primary Care Provider] - Coding Level of Care Code ED Assisted Living Nursing Director for Leeroy Rolon
[2021-05-15 23:26] LABS: INR 1.27 (0.8-1.2)
[2021-05-15] MEDS: iodixanol 320 mg/mL 100mL Btl IV (23:36)
[2021-05-15 23:37] VITALS: BP 94/61; PULSE 66; RESP 18; O2SAT 97
[2021-05-15 23:38] LABS: Alanine Aminotransferase 36 U/L (0-33); Albumin Level 3.1 g/dL (3.5-5.2); Alkaline Phosphatase 328 IU/L (35-105); Anion Gap 26.4 (5-19); Aspartate Amino Transferase 44 U/L (0-32); Blood Urea Nitrogen 64 mg/dL (8-23); Calcium 8.3 mg/dL (8.5-10.5); Carbon Dioxide 13 mmol/L (22-29); Chloride 106 mmol/L (98-107); Globulin 3.1 g/dL (1.3-4.6); Glomerular Filtration Rate 8.3 mL/min (90-130); Glucose 97 mg/dL (65-115); Osmolality Calculated 304 mOsm/kg (285-295); Sodium 138 mmol/L (136-145); Total Bilirubin 0.6 mg/dL (0.15-1.2); Total Protein 6.2 g/dL (6.6-8.7)
[2021-05-15 23:40] LABS: Ammonia 451 umol/L (11-51)
[2021-05-15 23:42] VITALS: BP 118/60; PULSE 67; RESP 19; O2SAT 97
--- NOTE | 2021-05-15 23:42 | ECG_ITS ---
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 Measurements Intervals [place] Rate: 72 P: 67 IN: 181 QRS: -3 QRSD: 118 T: 40 QT: 431 QTc: 472 Interpretive Statements SINUS RHYTHM WITH SINUS ARRHYTHMIA LOW QRS VOLTAGE IN PRECORDIAL LEADS [QRS DEFLECTION < 1.0 mV IN CHEST LEADS] POSSIBLE RIGHT VENTRICULAR CONDUCTION DELAY [RSR (QR) IN V1/V2] Compared to ECG 04/04/2021 17:03:45 Low QRS voltage now present Ventricular premature complex(es) no longer present Electronically Signed On 05-16-2021 22:12:19 CDT by Imelda Peraza M.D. [id number]
[2021-05-15 23:48] LABS: Glucose Point of Care 90 mg/dL (70-110)
[2021-05-15] MEDS: calcium gluconate 0.1 gm/mL 10% SDV 10mL 2 GM IVP (23:48)
[2021-05-15 23:53] VITALS: BP 115/57; PULSE 62; RESP 24; O2SAT 97
[2021-05-16] VITALS (211 sets, daily range): BP systolic 67–140; BP diastolic 34–79; PULSE 65–143; RESP 10–37; TEMP 35.7–36.4; O2SAT 82–98
--- NOTE | 2021-05-16 | SCC_ITS ---
Procedure Done: 1. Placement of tunneled 16 [place] 31 cm HemoSplit hemodialysis catheter into the right internal jugular vein. 2. Placement of triple-lumen central venous catheter into the right internal jugular vein. 22.4 seconds of fluoroscopic guidance, for a cumulative dose of 4.49 mGy, was provided to Dr. Hodge by the radiology department. C-arm images of the chest were saved for the patient's permanent record. AARON
[2021-05-16] MEDS: sodium chloride 0.9% 1,000 ML 999 ML IV (00:08)
[2021-05-16] MEDS: dextrose 50% syringe 50 mL IVP ×2 (00:09→06:55)
[2021-05-16] MEDS: sodium bicarbonate 8.4% 1 mEq/mL 50mL Syr 100 MEQ IVP (00:11)
[2021-05-16] MEDS: insulin regular-human 100 units/1 mL 10 UNIT IVP (00:12)
[2021-05-16] MEDS: sodium bicarbonate 150 MEQ in dextrose 5% 1,000 ML 100 MEQ IV (00:17)
[2021-05-16] MEDS: sodium polystyrene sulfonate 15 gm/60 mL Btl 30 GM PR (00:18)
[2021-05-16 00:20] LABS: Magnesium 3.6 mg/dL (1.7-2.3)
[2021-05-16 00:22] LABS: Potassium 6.9 mmol/L (3.5-5.1)
[2021-05-16 00:26] LABS: ABG PCO2 38.1 mmHg (35-45); ABG PH Result 7.28 (7.35-7.45); Alveolar-Arterial Oxygen Gradi 0.5 mmHg (5-10); Arterial Blood Gas Hematocrit 30.9 % (37-47); Base Excess ABG -8.1 mmol/L (-2.0-2.0); Blood Gas Allen Test Pos; Blood Gas Operator Identificat HARKR; Blood Gas Sample Site Radial, right; Blood Gas Sample Type Arterial; Carboxyhemoglobin 1.1 %THgb (0.4-20.1); Ionized Calcium Level - ABG 1.2 mmol/L (1.1-1.4); Methemoglobin 0.9 % (0.4-1.5); Oxygen Device ROOM AIR; Oxygen Saturation ABG 97.1; PO2 ABG 97.8 mmHg (80.0-100.0); Potassium Level - ABG 6.8 mmol/L (3.5-5.0); Total Hemoglobin 10.1 g/dL (12-16)
--- NOTE | 2021-05-16 00:54 | P.CONIM_ITS ---
Providers/Reason For Consult Consulting Physician/Specialty*: Khalida Thornton DO, telenephrology Reason for Consult*: ZANA, hyperkalemia, metabolic acidosis Primary Care Provider: RENAN Purvis History of Present Illness History of Present Illness Sharon Kwan is a 65 year old female presented from [facility] with CC of BRBPR. Discharged 04/10/21 after hospitalization for CHF. Discharge serum Cr 1.0 mg/dL. Discharge medications included spironolactone, bumex, metolazone. Seen in ER. Leon at bedside. Meds/Allergies Home Medications and Allergies Home Medications Medication Instructions Recorded Confirmed Last Taken Type insulin lispro [Humalog KwikPen See Rx Instructions .ROUTE .COMPLEX 05/25/20 05/05/21 Unknown History Insulin] lactulose 40 ml PO QID PRN 05/25/20 05/05/21 05/25/20 History levothyroxine 88 mcg PO DAILY@06 05/25/20 05/05/21 04/04/21 History ondansetron HCl [Zofran] 4 mg PO QID PRN 05/25/20 05/05/21 Unknown History blood sugar diagnostic 03/28/21 05/05/21 Unknown History docusate sodium 100 mg capsule 100 mg PO BID@03/28/21 05/05/21 04/04/21 History insulin lispro 100 unit/mL See Rx Instructions SUBCUT .COMPLEX 03/28/21 05/05/21 04/04/21 History subcutaneous pen lancets 03/28/21 05/05/21 Unknown History lidocaine 5 % topical patch 1 patch TOPICAL DAILY #30 ea 03/28/21 05/05/21 04/04/21 Rx nystatin 100,000 unit/gram topical 1 applic TOPICAL BID 03/28/21 05/05/21 Unknown History cream spironolactone 50 mg tablet 50 mg PO BID@,03/28/21 05/05/21 04/04/21 History tramadol 50 mg tablet 50 mg PO Q8H PRN 03/28/21 05/05/21 Unknown History Xifaxan 550 mg PO BID@08,20 04/04/21 05/05/21 04/04/21 History magnesium oxide [MagOx] 400 mg PO DAILY@0800 06/05/05/21 04/04/21 History metolazone 5 mg PO DAILY@0800 04/04/21 05/05/21 04/04/21 History pantoprazole [Protonix] 40 mg PO BID@,20 04/04/21 05/05/21 04/04/21 History Lantus U-100 Insulin 10 unit SUBCUT BEDTIME #0 ml 04/10/21 05/05/21 04/03/21 Rx furosemide 40 mg tablet See Rx Instructions PO .COMPLEX 05/05/21 05/05/21 Unknown Rx #60 tab Allergies Allergy/AdvReac Type Severity Reaction Status Date / Time prednisone Allergy Unknown Verified 04/21/21 10:30 steroids Allergy Unknown Uncoded 04/21/21 10:30 Current Medications Current Medications Generic Name Dose Route Start Last Admin Trade Name Freq PRN Reason Stop Dose Admin Norepinephrine Bitartrate 4 mg 254 mls @ 0 mls/hr 05/15/21 23:00 05/15/21 23:02 / Dextrose IV 10 mls/hr .Q0M GRETCHEN 10 mls/hr Administration Protocol Per Protocol Sodium Bicarbonate 150 meq/ 1,150 mls @ 100 mls/hr 05/15/21 23:45 05/16/21 00:17 Dextrose IV 100 mls/hr .[id number] GRETCHEN Administration PFSH Acute PFSH: Medical History Anemia Cirrhosis 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 Esophageal varices Hydronephrosis Hypertension Hypothyroid Insulin dependent type 2 diabetes mellitus Nephrolithiasis Obesity Portal hypertension due to obstruction of extrahepatic portal vein Sleep apnea Surgical History H/O hernia repair H/O lithotripsy History of cholecystectomy History of oophorectomy, unilateral Family History Mother Lung disease Father Cardiovascular disease Denies family history of Diabetes Cancer Social History Smoking and tobacco status: former smoker Caregiver/support person: Yes Lives independently: No Housing: Assisted Living Facility Marital status: Marital status details: Dayne Current occupational status: retired Vitals/I&O/Wt Last Vital Signs Temp 95.0 F L 05/15/21 22:36 Pulse 72 05/16/21 00:21 Resp 26 H 05/16/21 00:21 BP 105/53 05/16/21 00:21 Pulse Ox 97 05/16/21 00:21 05/15/21 05/15/21 05/16/21 14:59 22:59 06:59 Intake Total 1000 / 1000 Balance 1000 / 1000 Weight last 48 hrs Weight 115.212 kg Data Labs: Other Labs: Ca 8.3 Imaging^: CT Abd/Pel: Radiologist's impression: 3 punctate kidney stones right kidney, no hydronephrosis ABG^: ABG Interpretation 1: My Interpretation: combination primary metabolic acidosis and respiratory acidosis A&P Additional A&P Information Impression: 1. Acute kidney injury, presented hypotensive, likely prerenal + possible ischemic ATN, possible hepatorenal syndrome 2. Increased anion gap metabolic acidosis 3. Hyperkalemia due to ZANA, use of spironolactone, acidemia 4. History of CHF 5. History of cirrhosis 6. Anemia, Hb stable from discharge in March, reported lower GI bleed Recommend: Hold diuretics. Hydrate with NaHCO3. Has received NSS 2 liters, D50, insulin, calcium gluconate, kayexylate. Repeat K now and Q4h. Place rodriguez catheter Consult Attestations Medical Necessity Statement: see above Time Spent in Patient Care: 16 - 35 minutes Coding Level of Care Code Acute Civil Division Deputy Sheriff for Leeroy Rolon
[2021-05-16 02:01] LABS: Anion Gap 26.5 (5-19); Blood Urea Nitrogen 69 mg/dL (8-23); Calcium 8.3 mg/dL (8.5-10.5); Carbon Dioxide 15 mmol/L (22-29); Chloride 108 mmol/L (98-107); Creatine Phosphokinase 100 U/L (26-192); Glomerular Filtration Rate 8.3 mL/min (90-130); Glucose 138 mg/dL (65-115); Osmolality Calculated 318 mOsm/kg (285-295); Sodium 143 mmol/L (136-145)
[2021-05-16 02:06] LABS: Potassium 6.5 mmol/L (3.5-5.1)
[2021-05-16 03:51] LABS: Creatinine Urine, Random 149 mg/dL (28-217); Urine Random Sodium 25 mmol/L
[2021-05-16] MEDS: sodium chloride 0.9% 1,000 ML 150 ML IV (03:55)
--- NOTE | 2021-05-16 04:01 | PC.NURSE ---
Patient arrived to ICU from ER at 0328.
--- NOTE | 2021-05-16 04:53 | PC.NURSE ---
Dr. Vela called and ordered a stat BMP, this nurse tenzin blood and sent down to lab. Continue care.
[2021-05-16 05:04] LABS: Anion Gap 25.6 (5-19); Blood Urea Nitrogen 63 mg/dL (8-23); Calcium 8.2 mg/dL (8.5-10.5); Carbon Dioxide 15 mmol/L (22-29); Chloride 106 mmol/L (98-107); Glomerular Filtration Rate 8.9 mL/min (90-130); Glucose 144 mg/dL (65-115); Osmolality Calculated 311 mOsm/kg (285-295); Sodium 140 mmol/L (136-145)
[2021-05-16 05:07] LABS: Potassium 6.6 mmol/L (3.5-5.1)
--- NOTE | 2021-05-16 06:12 | PC.NURSE ---
Received Orders from Dr. Vela for 1 amp of D50, 10u IVP Regular Insulin, and 15grams of Kayexolate PO. Continue care.
[2021-05-16] MEDS: insulin regular-human 10 UNIT in SYRINGE 1 EACH IVP (06:55)
[2021-05-16] MEDS: sodium polystyrene sulfonate 15 gm/60 mL Btl PO (06:55)
[2021-05-16 07:15] LABS: Basophils % 0.5 %; Eosinophils # 0.2 10^3/uL (0.0-0.8); Eosinophils % 3.7 %; Hematocrit 31.4 % (37.0-47.0); Hemoglobin 9.5 g/dL (11.5-15.3); Lymphocytes # 0.6 10^3/uL (0.8-4.8); Lymphocytes % 10.3 %; Mean Corpuscular HGB Conc 30.3 g/dL (30.0-36.0); Mean Corpuscular Hemoglobin 34.5 pg (28.0-34.0); Mean Corpuscular Volume 114.2 fL (81-99); Mean Platelet Volume 10.9 fL (7.4-10.4); Monocytes # 0.4 10^3/uL (0.2-0.9); Monocytes % 7.3 %; Neutrophils # 4.53 10^3/uL (1.8-7.7); Neutrophils % 76.8 %; Nucleated Red Blood Cells % 0 %; Platelet Count 115 10^3/cmm (130-400); Red Blood Count 2.75 10^6/uL (4.1-5.3); Red Cell Distribution Width 16.8 % (12.1-15.1); White Blood Count 5.9 10^3/uL (4.0-10.0)
[2021-05-16 07:26] LABS: Alanine Aminotransferase 38 U/L (0-33); Alkaline Phosphatase 315 IU/L (35-105); Aspartate Amino Transferase 46 U/L (0-32); Blood Urea Nitrogen 63 mg/dL (8-23); Calcium 8.1 mg/dL (8.5-10.5); Carbon Dioxide 15 mmol/L (22-29); Chloride 106 mmol/L (98-107); Glomerular Filtration Rate 8.9 mL/min (90-130); Glucose 170 mg/dL (65-115); Osmolality Calculated 312 mOsm/kg (285-295); Sodium 140 mmol/L (136-145); Total Bilirubin 0.8 mg/dL (0.15-1.2)
[2021-05-16 07:29] LABS: Anion Gap 25.6 (5-19); Potassium 6.6 mmol/L (3.5-5.1)
[2021-05-16 07:50] LABS: Glucose Point of Care 212 mg/dL (70-110)
--- NOTE | 2021-05-16 08:27 | PC.NURSE ---
0700 right abd. quad tender to palpation.
[2021-05-16] MEDS: cefTRIAXone 1,000 MG in sodium chloride 0.9% (plus) 50 ML 100 MG IV ×2 (08:35→13:59)
[2021-05-16] MEDS: pantoprazole 40 MG in sodium chloride 0.9% (plus) 100 ML 20 MG IV ×2 (08:36→13:19)
[2021-05-16] MEDS: octreotide 500 MCG in sodium chloride 0.9% (100 ml) 100 ML 10.1 MCG IV (09:10)
--- NOTE | 2021-05-16 09:18 | P.HP_ITS ---
Providers/Chief Complaint Admitting Physician: Jonathan Sullivan Primary Care Provider: GARRET Purvis-C Chief Complaint: POSSIBLE GI BLEED History of Present Illness Sharon Kwan is a 65 year old female who presented to the hospital from [facility] care with history of blood in stool, and abdominal discomfort. Further history is not really obtainable from patient. This history was confirmed with . Patient herself has significant hepatic encephalopathy and confusion prevents elaborate history. She is able to report to me that she has had some vomiting, and that her abdomen hurts. Nurses in the ICU report no significant bright red blood per stool since admission but does complain of abdominal discomfort. No history of fever. No history of hem atemesis. Review of Systems General: Reports: ROS unobtainable due to mental status (patient with hepatic encephalopathy) Medications/Allergies Home Medications Medication Instructions Recorded Confirmed Last Taken Type insulin lispro [Humalog KwikPen See Rx Instructions .ROUTE .COMPLEX 05/25/20 05/05/21 Unknown History Insulin] lactulose 40 ml PO QID PRN 05/25/20 05/05/21 05/25/20 History levothyroxine 88 mcg PO DAILY@06 05/25/20 05/05/21 04/04/21 History ondansetron HCl [Zofran] 4 mg PO QID PRN 05/25/20 05/05/21 Unknown History blood sugar diagnostic 03/28/21 05/05/21 Unknown History docusate sodium 100 mg capsule 100 mg PO BID@08,20 03/28/21 05/05/21 04/04/21 History insulin lispro 100 unit/mL See Rx Instructions SUBCUT .COMPLEX 03/28/21 05/05/21 04/04/21 History subcutaneous pen lancets 03/28/21 05/05/21 Unknown History lidocaine 5 % topical patch 1 patch TOPICAL DAILY #30 ea 03/28/21 05/05/21 04/04/21 Rx nystatin 100,000 unit/gram topical 1 applic TOPICAL BID 03/28/21 05/05/21 Unknown History cream spironolactone 50 mg tablet 50 mg PO BID@08,20 03/28/21 05/05/21 04/04/21 History tramadol 50 mg tablet 50 mg PO Q8H PRN 03/28/21 05/05/21 Unknown History Xifaxan 550 mg PO BID@08,20 04/04/21 05/05/21 04/04/21 History magnesium oxide [MagOx] 400 mg PO DAILY@0800 04/04/21 05/05/21 04/04/21 History metolazone 5 mg PO DAILY@0800 04/04/21 05/05/21 04/04/21 History pantoprazole [Protonix] 40 mg PO BID@04/04/21 05/05/21 04/04/21 History Lantus U-100 Insulin 10 unit SUBCUT BEDTIME #0 ml 04/10/21 05/05/21 04/03/21 Rx furosemide 40 mg tablet See Rx Instructions PO .COMPLEX 05/05/21 05/05/21 Unknown Rx #60 tab Allergies Allergy/AdvReac Type Severity Reaction Status Date / Time prednisone Allergy Unknown Verified 04/21/21 10:30 steroids Allergy Unknown Uncoded 04/21/21 10:30 PFSH Acute PFSH: Medical History (Updated 05/16/21 @ 09:32 by Momo Barnett MD) Anemia Cirrhosis 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 Esophageal varices Hydronephrosis Hypertension Hypothyroid Insulin dependent type 2 diabetes mellitus Nephrolithiasis Obesity Portal hypertension due to obstruction of extrahepatic portal vein Sleep apnea Surgical History H/O hernia repair H/O lithotripsy History of cholecystectomy History of oophorectomy, unilateral Family History Mother Lung disease Father Cardiovascular disease Denies family history of Diabetes Cancer Social History Smoking and tobacco status: former smoker Caregiver/support person: Yes Lives independently: No Housing: Assisted Living Facility Marital status: Marital status details: Dayne Current occupational status: retired Vitals/I&O/Wt Last Vital Signs Temp 97.6 F 05/16/21 08:20 Pulse 79 05/16/21 08:20 Resp 24 H 05/16/21 08:20 BP 91/47 05/16/21 08:20 Pulse Ox 97 05/16/21 08:20 05/15/21 05/16/2105/16/21 22:59 06:59 14:59 Intake Total 2065 Balance 2065 Weight last 48 hrs Weight 125.758 kg Weight 125.758 kg Weight 115.212 kg Physical Exam Narrative: EXAM NARRATIVE: General exam is a confused female, with complaints of some abdominal discomfort. Neck supple no lymphadenopathy or thyromegaly Cardiovascular regular rate and rhythm without murmur Lungs clear Abdomen is slightly distended more so on the right side. Bowel sounds are noted. Extremities no cyanosis clubbing. 3+ edema noted. Neurologic: No obvious focal deficits. Somewhat sleepy, confusion noted. Urinary Catheter Management^: Bryant: Cath Placed During This Visit: yes Reason for Continuing Indwelling Catheter: Accurate Measurement of Urinary Output in Critically Ill Patients Urinary Catheter Date of Insertion: 05/16/21 Urinary Catheter Time of Insertion: 02:25 Data : 05/16/21 06:35 05/16/21 06:35 Other data: I do not see any significant ascites on CT scan. Nonobstructing renal calculi. Lactate 2.0 Calcium 8.1 AST and ALT 44, 36. Alk phos 328, ammonia 451 Magnesium 3.6 Albumin 3.1 Urinalysis not obtained A&P Assessment and plan (1) Acute renal failure: Associated with significant metabolic acidosis Bicarbonate and IV fluids Close follow-up of electrolytes Associated with significant hyperkalemia which has been treated with calcium gluconate, insulin and glucose, and now bicarb drip. Note that insulin and glucose were given after the last potassium. Status: Acute (2) Acute hepatic encephalopathy: IV fluids currently. Continue rifaximin. Lactulose will be initiated after renal function is improving secondary to intravascular volume deficit. Status: Acute (3) Acute hyperkalemia: Calcium gluconate, insulin plus glucose, Kayexalate given. Nephrology on board Recheck BMP at 1100, and treat as appropriate Surgery consult for temporary dialysis, central line Status: Acute (4) GI bleed: Patient with history of bright red blood in stool. Doubt variceal bleed at this point as no hematemesis and hemoglobin has not decreased significantly but must still be considered as patient had previous variceal bleed with hemorrhagic shock in the past. Octreotide drip Rocephin 2 g IV every 24 hours. No ascites to obtain sample of currently. Protonix drip Status: Acute (5) Anemia: Currently hemoglobin has been stable since admission. Repeat later in the afternoon Status: Chronic (6) Cirrhosis: Followed at [facility]. Secondary to renal failure this complicates patient's status greatly Discussed with in depth CODE STATUS. He reports patient would never want to be on a ventilator ever again as she has had this in the past. He also reports no CPR is the desire currently. However, she continues to want other aggressive care. Status: Acute (7) Portal vein thrombosis: Past diagnosis. Not eligible for anticoagulation secondary to history of varices with hemorrhagic shock in the past. 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 On norepinephrine currently. Obtain blood cultures. Broad- spectrum antibiotics. Past echo preserved EF, mild aortic stenosis. Limited code. No CPR, no intubation SCDs for DVT prophylaxis Attestations Medical Necessity Statement*: Needs continued hospital stay for GI bleeding, renal failure Critical Care Time: Critical Care Time (min): 54 Other Attestations: The high probability of a clinically significant, sudden or life threatening deterioration of the patient's [renal, hepatic, vascular] system(s) required my full and direct attention, intervention and personal management. The critical care time is as shown. 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
--- NOTE | 2021-05-16 09:45 | XR_ITS ---
WS: [id number] XR abdomen 1V* 25415 REASON FOR EXAM: adnominal pain FINDINGS: Diagnostic quality limited by obesity. No free air or retroperitoneal air. Unremarkable bowel gas pattern. No mass or significant calcification. Multiple surgical clips in the left epigastric region and left lower quadrant. XR/XR abdomen 1V* [id number] IMPRESSION: No acute abnormality.
--- NOTE | 2021-05-16 10:07 | PC.NURSE ---
dany graham and catherine in. will arouse but very drowsy.
--- NOTE | 2021-05-16 10:08 | PM.CONSULT ---
Providers/Reason For Consult Consulting Physician/Specialty*: General Surgery Eron Hodge MD Reason for Consult*: Requesting hemodialysis catheter placement and central line placement. Attending Physician: Momo Barnett MD Primary Care Provider: RENAN Purvis History of Present Illness History of Present Illness Sharon Kwan is a 65 year old female admitted from an assisted living facility with reports of GI bleeding. The patient apparently has not had any evidence of bleeding since being admitted but was found to be in renal failure and has hepatic encephalopathy with a history of cirrhosis. The patient is currently on a norepinephrine drip. The hospitalist team has requested placement of a dialysis catheter in addition to a central line placement. Review of Systems General: Reports: ROS unobtainable due to mental status Meds/Allergies Home Medications and Allergies Home Medications Medication Instructions Recorded Confirmed Last Taken Type insulin lispro [Humalog KwikPen See Rx Instructions .ROUTE .COMPLEX 05/25/20 05/05/21 Unknown History Insulin] lactulose 40 ml PO QID PRN 05/25/20 05/05/21 05/25/20 History levothyroxine 88 mcg PO DAILY@06 05/25/20 05/05/21 04/04/21 History ondansetron HCl [Zofran] 4 mg PO QID PRN 05/25/20 05/05/21 Unknown History blood sugar diagnostic 03/28/21 05/05/21 Unknown History docusate sodium 100 mg capsule 100 mg PO BID@,03/28/21 05/05/21 04/04/21 History insulin lispro 100 unit/mL See Rx Instructions SUBCUT .COMPLEX 03/28/21 05/05/21 04/04/21 History subcutaneous pen lancets 03/28/21 05/05/21 Unknown History lidocaine 5 % topical patch 1 patch TOPICAL DAILY #30 ea 03/28/21 05/05/21 04/04/21 Rx nystatin 100,000 unit/gram topical 1 applic TOPICAL BID 03/28/21 05/05/21 Unknown History cream spironolactone 50 mg tablet 50 mg PO BID@,03/28/21 05/05/21 04/04/21 History tramadol 50 mg tablet 50 mg PO Q8H PRN 03/28/21 05/05/21 Unknown History Xifaxan 550 mg PO BID@04/04/21 05/05/21 04/04/21 History magnesium oxide [MagOx] 400 mg PO DAILY@79904/04/21 05/05/21 04/04/21 History metolazone 5 mg PO DAILY@79904/04/21 05/05/21 04/04/21 History pantoprazole [Protonix] 40 mg PO BID@04/04/21 05/05/21 04/04/21 History Lantus U-100 Insulin 10 unit SUBCUT BEDTIME #0 ml 04/10/21 05/05/21 04/03/21 Rx furosemide 40 mg tablet See Rx Instructions PO .COMPLEX 05/05/21 05/05/21 Unknown Rx #60 tab Allergies Allergy/AdvReac Type Severity Reaction Status Date / Time prednisone Allergy Unknown Verified 04/21/21 10:30 steroids Allergy Unknown Uncoded 04/21/21 10:30 Current Medications Current Medications Generic Name Dose Route Start Last Admin Trade Name Freq PRN Reason Stop Dose Admin Norepinephrine Bitartrate 4 mg 254 mls @ 0 mls/hr 05/15/21 23:00 05/16/21 08:50 / Dextrose IV 12 mls/hr .Q0M GRETCHEN 12 mls/hr Titration Protocol Per Protocol Sodium Bicarbonate 150 meq/ 1,150 mls @ 100 mls/hr 05/15/21 23:45 05/16/21 00:17 Dextrose IV 100 mls/hr .[id number] GRETCHEN Administration Sodium Chloride 1,000 mls @ 100 mls/hr 05/16/21 03:43 05/16/21 03:55 Sodium Chloride 0.9% IV 150 mls/hr .Q10H GRETCHEN Administration Pantoprazole Sodium 40 mg/ 100 mls @ 20 mls/hr 05/16/21 08:30 05/16/21 08:36 Sodium Chloride IV 8 mg/hr .Q5H GRETCHEN 20 mls/hr Administration 8 MG/HR Octreotide Acetate 500 mcg/ 101 mls @ 10.1 mls/hr 05/16/21 09:00 05/16/21 09:10 Sodium Chloride IV 50 mcg/hr .Q10H GRETCHEN 10.1 mls/hr Administration 50 MCG/HR PFSH Acute PFSH: Medical History (Updated 05/16/21 @ 09:32 by Momo Barnett MD) Anemia Cirrhosis 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 Esophageal varices Hydronephrosis Hypertension Hypothyroid Insulin dependent type 2 diabetes mellitus Nephrolithiasis Obesity Portal hypertension due to obstruction of extrahepatic portal vein Sleep apnea Surgical History H/O hernia repair H/O lithotripsy History of cholecystectomy History of oophorectomy, unilateral Family History Mother Lung disease Father Cardiovascular disease Denies family history of Diabetes Cancer Social History Smoking and tobacco status: former smoker Caregiver/support person: Yes Lives independently: No Housing: Assisted Living Facility Marital status: Marital status details: Dayne Current occupational status: retired Vitals/I&O/Wt Last Vital Signs Temp 97.6 F 05/16/21 08:20 Pulse 79 05/16/21 08:20 Resp 24 H 05/16/21 08:20 BP 91/47 05/16/21 08:20 Pulse Ox 97 05/16/21 08:20 05/15/21 05/16/21 05/16/21 22:59 06:59 14:59 Intake Total 2065 / 2065 82 / 82 Balance 2065 / 2065 82 / 82 Weight last 48 hrs Weight 277 lb 3.983 oz Weight 277 lb 4 oz Weight 254 lb Physical Exam Narrative: EXAM NARRATIVE: The patient was encountered in her room in the intensive care unit. She is arousable but is confused and cannot answer questions intelligently. The pupils seem equal. No carotid bruits are heard. The lungs are clear anteriorly. The heart is regular but there is a systolic murmur seemingly best heard on the right side of the sternum. The clavicles are palpable bilaterally. The abdomen is morbidly obese. The extremities reveal some mild to moderate edema. Urinary Catheter Management^: Bryant: Cath Placed During This Visit: yes Reason for Continuing Indwelling Catheter: Accurate Measurement of Urinary Output in Critically Ill Patients Urinary Catheter Date of Insertion: 05/16/21 Urinary Catheter Time of Insertion: 02:25 A&P Assessment and plan (1) Acute renal failure: The patient's has been counseled by Dr. Barnett from the hospitalist service regarding placement of a hemodialysis catheter and a central venous catheter. The patient is a limited resuscitation patient but the is agreeable to proceeding with attempted placement of both catheters. I have notified the operating room that this is somewhat of an urgency and we will try to get this done as soon as they have a room that opens up. Status: Acute (2) Acute hyperkalemia: Status: Acute (3) Acute hepatic encephalopathy: Status: Acute Consult Attestations Medical Necessity Statement: See admitting service's notation. Coding Level of Care Code Acute [employer]ler for [facility] Fwd Diagnoses Acute renal failure N17.9 Acute hyperkalemia E87.5 Acute hepatic encephalopathy K72.00
[2021-05-16 11:02] LABS: Lipase 75 U/L (13-60)
--- NOTE | 2021-05-16 11:15 | SC_ITS ---
WS: [id number] INTRAOPERATIVE TECHNIQUE: 2 Spot fluoroscopic images for intraoperative purposes. FLUOROSCOPY TIME: 22.4 seconds CLINICAL INFORMATION: DIALYSIS CATH COMPARISON: None. FINDINGS: Fluoroscopy used for intraoperative purposes. Right IJ catheter with tip in the distal SVC. Dual lume n dialysis catheter traverses the right ventricle with tip off the [id number]. SC/C-arm FL for CVA [id number] IMPRESSION: Images obtained for intraoperative purposes.
--- NOTE | 2021-05-16 11:17 | P.ANESASSM_ITS ---
Pre-Anesthetic Assessment Pre-Anesthetic Assessment: Height/Weight: Height 1.7 m Weight 125.758 kg Temp Pulse Resp BP Pulse Ox 97.6 F 75 18 89/60 96 05/16/21 08:20 05/16/21 10:15 05/16/21 10:15 05/16/21 10:15 05/16/21 10:15 Preop Diagnosis: renal failure Proposed Procedure: Operation Date: 05/16/21 12:00 Proposed Procedures p Dialysis Catheter Insertion(Not Applicable) - Eron Hodge MD s Central Line Placement(Not Applicable) - Eron Hodge MD Was Beta Coleman taken within 24 hours: N/A Was Clonidine taken within 24 hours: N/A Last intake: more than 12 hours Social: Social History: No tobacco Exam: Pre-Anes Outpt Exam: alert Airway: MP: 3 Dentition: Partials Pulmonary: Pulmonary: None reported CV/HEM: CV/HEM: None reported : Comments: acute renal failure Hepatic: Comments: hepatic encephalopathy GI: Comments: abdominal pain GI bleed Metabolic: Metabolic: DM and Morbid obesity Musc/skel: Musc/skel: None reported Neuropsych: Neuropsych: None reported Anesthetic Plan: ASA status: 4E Anesthesia: Anesthesia Evaluation and MAC Risk of > 500 ml blood loss (7ml/kg in children): No Meds/Allergies Current Medications: Current Medications Generic Name Dose Route Start Last Admin Trade Name Freq PRN Reason Stop Dose Admin Norepinephrine Bit artrate 4 mg 254 mls @ 0 mls/h r 05/15/21 23:00 05/16/21 08:50 / Dextrose IV 12 mls/hr .Q0M GRETCHEN 12 mls/hr Titration Protocol Per Protocol Pantoprazole Sodiu m 40 mg/ 100 mls @ 20 mls/ hr 05/16/21 08:30 05/16/21 08:36 Sodium Chloride IV 8 mg/hr .Q5H GRETCHEN 20 mls/hr Administration 8 MG/HR Octreotide Acetate 500 mcg/ 101 mls @ 10.1 ml s/hr 05/16/21 09:00 05/16/21 09:10 Sodium Chloride IV 50 mcg/hr .Q10H GRETCHEN 10.1 mls/hr Administration 50 MCG/HR PFSH Anesthesia PFSH: Medical History (Updated 05/16/21 @ 09:32 by Momo Barnett MD) Anemia Cirrhosis 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 Esophageal varices Hydronephrosis Hypertension Hypothyroid Insulin dependent type 2 diabetes mellitus Nephrolithiasis Obesity Portal hypertension due to obstruction of extrahepatic portal vein Sleep apnea Surgical History H/O hernia repair H/O lithotripsy History of cholecystectomy History of oophorectomy, unilateral Family History Mother Lung disease Father Cardiovascular disease Denies family history of Diabetes Cancer Social History Smoking and tobacco status: former smoker Caregiver/support person: Yes Lives independently: No Housing: Assisted Living Facility Marital status: Marital status details: [place] Current occupational status: retired Data Anesthesia CBC & Chem 7: 05/16/21 06:35 05/16/21 06:35 Other Labs: Laboratory Results - last 48 hr 05/15/21 05/15/21 05/15/21 00:15 22:49 22:49 WBC 4.5 RBC 2.66 L Hgb 9.4 L Hct 29.9 L MCV 112.4 H MCH 35.3 H MCHC 31.4 RDW 16.7 H Plt Count 85 L MPV 10.2 Neut % (Auto) 74.4 Lymph % (Auto) 12.0 [place] % (Auto) 7.8 Eos % (Auto) 4.2 Baso % (Auto) 0.9 Neut # (Auto) 3.36 Lymph # (Auto) 0.5 L [place] # (Auto) 0.4 Eos # (Auto) 0.2 Baso # (Auto) 0.0 Nucleated RBC % (auto) 0 Nucleated RBCs # 0.0 PT 16.30 H INR 1.27 H APTT 36.0 Specimen Type Arterial Sample Site Radial, right ABG pH 7.28 L ABG pCO2 38.1 ABG pO2 97.8 ABG HCO3 18.0 L ABG O2 Saturation 97.1 ABG Base Excess -8.1 L Waqar Test Pos A-a O2 Gradient 0.5 L Hematocrit 30.9 L Hgb O2 Saturation 95.0 Carboxyhemoglobin 1.1 Methemoglobin 0.9 Total Hemoglobin 10.1 L Sodium 143.0 Potassium 6.8 H Glucose 215.0 H Ionized Calcium 1.2 O2 Delivery Device Room air FiO2 21.0 Public Relations Account Executive ID Harkr Chloride Carbon Dioxide Anion Gap BUN Creatinine GFR Calculation POC Glucose Calculated Osmolality Lactate Calcium Magnesium Total Bilirubin AST ALT Alkaline Phosphatase Ammonia Creatine Kinase Total Protein Albumin Globulin Lipase Urine Color Urine Appearance Urine pH Ur Specific [place] Urine Protein Urine Glucose (UA) Urine Ketones Urine Blood Urine Nitrate Urine Bilirubin Prot Sulfosalicylic Acd Urine Urobilinogen Ur Leukocyte Esterase Urine RBC Urine WBC Ur Squamous Epith Cells Ur Transition Epith Cell Ur Renal Epithelial Cell Calcium Oxalate Crystal Uric Acid Crystals Triple Phos Crystals Other Crystals Amorphous Sediment Urine Bacteria Hyaline Casts Fine Granular Casts Coarse Granular Casts RBC Casts Other Casts Urine Mucus Urine Trichomonas Urine Yeast Urine Sperm Ur Oval Fat Bodies Ur Random Sodium Urine Creatinine Blood Type Rho(D) Type Antibody Screen Antibody Identification Antigen Identification 05/15/21 05/15/21 05/15/21 22:49 22:54 23:14 WBC RBC Hgb Hct MCV MCH MCHC RDW Plt Count MPV Neut % (Auto) Lymph % (Auto) [place] % (Auto) Eos % (Auto) Baso % (Auto) Neut # (Auto) Lymph # (Auto) [place] # (Auto) Eos # (Auto) Baso # (Auto) Nucleated RBC % (auto) Nucleated RBCs # PT INR APTT Specimen Type Sample Site ABG pH ABG pCO2 ABG pO2 ABG HCO3 ABG O2 Saturation ABG Base Excess Waqar Test A-a O2 Gradient Hematocrit Hgb O2 Saturation Carboxyhemoglobin Methemoglobin Total Hemoglobin Sodium 138 Potassium Not Reportable Glucose 97 Ionized Calcium O2 Delivery Device FiO2 Public Relations Account Executive ID Chloride 106 Carbon Dioxide 13 L Anion Gap 26.4 H BUN 64 H Creatinine 5.2 H GFR Calculation 8.3 L POC Glucose Calculated Osmolality 304 H Lactate 2.0 Calcium 8.3 L Magnesium Total Bilirubin 0.6 AST 44 H ALT 36 H Alkaline Phosphatase 328 H Ammonia Creatine Kinase Total Protein 6.2 L Albumin 3.1 L Globulin 3.1 Lipase Urine Color Urine Appearance Urine pH Ur Specific [place] Urine Protein Urine Glucose (UA) Urine Ketones Urine Blood Urine Nitrate Urine Bilirubin Prot Sulfosalicylic Acd Urine Urobilinogen Ur Leukocyte Esterase Urine RBC Urine WBC Ur Squamous Epith Cells Ur Transition Epith Cell Ur Renal Epithelial Cell Calcium Oxalate Crystal Uric Acid Crystals Triple Phos Crystals Other Crystals Amorphous Sediment Urine Bacteria Hyaline Casts Fine Granular Casts Coarse Granular Casts RBC Casts Other Casts Urine Mucus Urine Trichomonas Urine Yeast Urine Sperm Ur Oval Fat Bodies Ur Random Sodium Urine Creatinine Blood Type A Positive Rho(D) Type Positive / 4+ Antibody Screen Positive Antibody Identification Anti-K Antigen Identification K Antigen - POSITIVE 05/15/21 05/15/21 05/15/21 23:14 23:45 23:46 WBC RBC Hgb Hct MCV MCH MCHC RDW Plt Count MPV Neut % (Auto) Lymph % (Auto) [place] % (Auto) Eos % (Auto) Baso % (Auto) Neut # (Auto) Lymph # (Auto) [place] # (Auto) Eos # (Auto) Baso # (Auto) Nucleated RBC % (auto) Nucleated RBCs # PT INR APTT Specimen Type Sample Site ABG pH ABG pCO2 ABG pO2 ABG HCO3 ABG O2 Saturation ABG Base Excess Waqar Test A-a O2 Gradient Hematocrit Hgb O2 Saturation Carboxyhemoglobin Methemoglobin Total Hemoglobin Sodium Potassium 6.9 H* Glucose Ionized Calcium O2 Delivery Device FiO2 Public Relations Account Executive ID Chloride Carbon Dioxide Anion Gap BUN Creatinine GFR Calculation POC Glucose 90 Calculated Osmolality Lactate Calcium Magnesium 3.6 H Total Bilirubin AST ALT Alkaline Phosphatase Ammonia 451 H Creatine Kinase Total Protein Albumin Globulin Lipase Urine Color Urine Appearance Urine pH Ur Specific [place] Urine Protein Urine Glucose (UA) Urine Ketones Urine Blood Urine Nitrate Urine Bilirubin Prot Sulfosalicylic Acd Urine Urobilinogen Ur Leukocyte Esterase Urine RBC Urine WBC Ur Squamous Epith Cells Ur Transition Epith Cell Ur Renal Epithelial Cell Calcium Oxalate Crystal Uric Acid Crystals Triple Phos Crystals Other Crystals Amorphous Sediment Urine Bacteria Hyaline Casts Fine Granular Casts Coarse Granular Casts RBC Casts Other Casts Urine Mucus Urine Trichomonas Urine Yeast Urine Sperm Ur Oval Fat Bodies Ur Random Sodium Urine Creatinine Blood Type Rho(D) Type Antibody Screen Antibody Identification Antigen Identification 05/16/21 05/16/21 05/16/21 01:18 02:22 02:22 WBC RBC Hgb Hct MCV MCH MCHC RDW Plt Count MPV Neut % (Auto) Lymph % (Auto) [place] % (Auto) Eos % (Auto) Baso % (Auto) Neut # (Auto) Lymph # (Auto) [place] # (Auto) Eos # (Auto) Baso # (Auto) Nucleated RBC % (auto) Nucleated RBCs # PT INR APTT Specimen Type Sample Site ABG pH ABG pCO2 ABG pO2 ABG HCO3 ABG O2 Saturation ABG Base Excess Waqar Test A-a O2 Gradient Hematocrit Hgb O2 Saturation Carboxyhemoglobin Methemoglobin Total Hemoglobin Sodium 143 Potassium 6.5 H* Glucose 138 H Ionized Calcium O2 Delivery Device FiO2 Public Relations Account Executive ID Chloride 108 H Carbon Dioxide 15 L Anion Gap 26.5 H BUN 69 H Creatinine 5.2 H GFR Calculation 8.3 L POC Glucose Calculated Osmolality 318 H Lactate Calcium 8.3 L Magnesium Total Bilirubin AST ALT Alkaline Phosphatase Ammonia Creatine Kinase 100 Total Protein Albumin Globulin Lipase Urine Color Cancelled Urine Appearance Cancelled Urine pH Cancelled Ur Specific [place] Cancelled Urine Protein Cancelled Urine Glucose (UA) Cancelled Urine Ketones Cancelled Urine Blood Cancelled Urine Nitrate Cancelled Urine Bilirubin Cancelled Prot Sulfosalicylic Acd Cancelled Urine Urobilinogen Cancelled Ur Leukocyte Esterase Cancelled Urine RBC Cancelled Urine WBC Cancelled Ur Squamous Epith Cells Cancelled Ur Transition Epith Cell Cancelled Ur Renal Epithelial Cell Cancelled Calcium Oxalate Crystal Cancelled Uric Acid Crystals Cancelled Triple Phos Crystals Cancelled Other Crystals Cancelled Amorphous Sediment Cancelled Urine Bacteria Cancelled Hyaline Casts Cancelled Fine Granular Casts Cancelled Coarse Granular Casts Cancelled RBC Casts Cancelled Other Casts Cancelled Urine Mucus Cancelled Urine Trichomonas Cancelled Urine Yeast Cancelled Urine Sperm Cancelled Ur Oval Fat Bodies Cancelled Ur Random Sodium Urine Creatinine 149 Blood Type Rho(D) Type Antibody Screen Antibody Identification Antigen Identification 05/16/21 05/16/21 05/16/21 02:22 04:30 04:30 WBC RBC Hgb Hct MCV MCH MCHC RDW Plt Count MPV Neut % (Auto) Lymph % (Auto) [place] % (Auto) Eos % (Auto) Baso % (Auto) Neut # (Auto) Lymph # (Auto) [place] # (Auto) Eos # (Auto) Baso # (Auto) Nucleated RBC % (auto) Nucleated RBCs # PT INR APTT Specimen Type Sample Site ABG pH ABG pCO2 ABG pO2 ABG HCO3 ABG O2 Saturation ABG Base Excess Waqar Test A-a O2 Gradient Hematocrit Hgb O2 Saturation Carboxyhemoglobin Methemoglobin Total Hemoglobin Sodium 140 Potassium 6.6 H* Glucose 144 H Ionized Calcium O2 Delivery Device FiO2 Public Relations Account Executive ID Chloride 106 Carbon Dioxide 15 L Anion Gap 25.6 H BUN 63 H Creatinine 4.9 H GFR Calculation 8.9 L POC Glucose Calculated Osmolality 311 H Lactate Calcium 8.2 L Magnesium Total Bilirubin AST ALT Alkaline Phosphatase Ammonia Creatine Kinase Total Protein Albumin Globulin Lipase 75 H Urine Color Urine Appearance Urine pH Ur Specific [place] Urine Protein Urine Glucose (UA) Urine Ketones Urine Blood Urine Nitrate Urine Bilirubin Prot Sulfosalicylic Acd Urine Urobilinogen Ur Leukocyte Esterase Urine RBC Urine WBC Ur Squamous Epith Cells Ur Transition Epith Cell Ur Renal Epithelial Cell Calcium Oxalate Crystal Uric Acid Crystals Triple Phos Crystals Other Crystals Amorphous Sediment Urine Bacteria Hyaline Casts Fine Granular Casts Coarse Granular Casts RBC Casts Other Casts Urine Mucus Urine Trichomonas Urine Yeast Urine Sperm Ur Oval Fat Bodies Ur Random Sodium 25 Urine Creatinine Blood Type Rho(D) Type Antibody Screen Antibody Identification Antigen Identification 05/16/21 05/16/21 05/16/21 06:35 06:35 07:32 WBC 5.9 RBC 2.75 L Hgb 9.5 L Hct 31.4 L MCV 114.2 H MCH 34.5 H MCHC 30.3 RDW 16.8 H Plt Count 115 L MPV 10.9 H Neut % (Auto) 76.8 Lymph % (Auto) 10.3 [place] % (Auto) 7.3 Eos % (Auto) 3.7 Baso % (Auto) 0.5 Neut # (Auto) 4.53 Lymph # (Auto) 0.6 L [place] # (Auto) 0.4 Eos # (Auto) 0.2 Baso # (Auto) 0.0 Nucleated RBC % (auto) 0 Nucleated RBCs # 0.0 PT INR APTT Specimen Type Sample Site ABG pH ABG pCO2 ABG pO2 ABG HCO3 ABG O2 Saturation ABG Base Excess Waqar Test A-a O2 Gradient Hematocrit Hgb O2 Saturation Carboxyhemoglobin Methemoglobin Total Hemoglobin Sodium 140 Potassium 6.6 H* Glucose 170 H Ionized Calcium O2 Delivery Device FiO2 Public Relations Account Executive ID Chloride 106 Carbon Dioxide 15 L Anion Gap 25.6 H BUN 63 H Creatinine 4.9 H GFR Calculation 8.9 L POC Glucose 212 H Calculated Osmolality 312 H Lactate Calcium 8.1 L Magnesium Total Bilirubin 0.8 AST 46 H ALT 38 H Alkaline Phosphatase 315 H Ammonia Creatine Kinase Total Protein 6.0 L Albumin 3.0 L Globulin 3.0 Lipase Urine Color Urine Appearance Urine pH Ur Specific [place] Urine Protein Urine Glucose (UA) Urine Ketones Urine Blood Urine Nitrate Urine Bilirubin Prot Sulfosalicylic Acd Urine Urobilinogen Ur Leukocyte Esterase Urine RBC Urine WBC Ur Squamous Epith Cells Ur Transition Epith Cell Ur Renal Epithelial Cell Calcium Oxalate Crystal Uric Acid Crystals Triple Phos Crystals Other Crystals Amorphous Sediment Urine Bacteria Hyaline Casts Fine Granular Casts Coarse Granular Casts RBC Casts Other Casts Urine Mucus Urine Trichomonas Urine Yeast Urine Sperm Ur Oval Fat Bodies Ur Random Sodium Urine Creatinine Blood Type Rho(D) Type Antibody Screen Antibody Identification Antigen Identification Cardiac Studies: No Data to Display
--- NOTE | 2021-05-16 11:38 | PC.NURSE ---
1135 to or on gtts.
--- NOTE | 2021-05-16 11:39 | PC.NURSE ---
depending on how soon dialysis is done after hemodialysis is done, that additional antibiotic is given
--- NOTE | 2021-05-16 12:27 | P.OP_ITS ---
Operative Report Date of procedure: May 16, 2021 Pre-op Diagnosis: Renal failure, requiring central venous access. Post-op diagnosis: same Procedure Done: 1. Placement of tunneled 16 [place] 31 cm HemoSplit hemodialysis catheter into the right internal jugular vein. 2. Placement of triple-lumen central venous catheter into the right internal jugular vein. Pathology: none sent Surgeon: Eron Hodge Anesthesia: MAC Estimated blood loss (mL): 25 Complications: None. Condition: stable Disposition: ICU Procedure: The patient was brought to the operating room and was placed in a supine position on the operating room table. A monitored anesthetic was induced. The right side of the neck and chest were prepped and draped in a sterile fashion. Intraoperative ultrasound was used to find the right internal jugular vein as evidenced by its size and compressibility. 1% lidocaine was used for local anesthetic on the neck and the right internal jugular vein was accessed with a needle and syringe on the first pass as evidenced by the return of dark nonpulsatile blood. The guidewire was easily passed down the needle and the needle was removed. The C-arm was positioned and showed the guidewire extending down the vena cava. A 16 [place] 31 cm HemoSplit long-term dialysis catheter was then placed on the right side of the chest and measured so the subcutaneous cuff would be in an appropriate location in the subcutaneous tunnel. A combination of 1% lidocaine and 0.5% bupivacaine with 1 to 200,000 parts epinephrine was used to anesthetize a subcutaneous tract from the right chest wall to the right side of the neck over the top of the clavicle. An small incision was made on the chest wall at the proposed exit point of the small incision was also made adjacent to the guidewire on the right side of the neck. The HemoSplit catheter was then tunneled from the small incision on the chest to the small incision on the right side of the neck using the passer provided in the kit. Small to medium sized dilators were then placed over the guidewire to dilate the skin opening in the subcutaneous tissue. The introducer and sheath were then passed over the guidewire easily into the right internal jugular vein. The guidewire introducer were removed and the arms of the HemoSplit dialysis catheter were easily passed down the sheath which was then torn away. The C-arm was once again positioned and showed good placement of the dialysis catheter tip in the vena cava/right atrium. Both ports were aspirated and flushed with hep flush solution. Both ports showed excellent flow and were then filled with concentrated hep flush solution. The catheter was sewn in place at the skin on the chest with some sutures of 2-0 Prolene. The small incision on the right side of the neck was closed with an inverted suture of 4-0 Vicryl. Attention was then directed to placement of the triple-lumen central venous catheter. The right subclavian vein was accessed with a needle and syringe on the first pass as evidenced by the return of dark nonpulsatile blood. The J- wire was passed down the needle but eventually met resistance. Under fluoroscopy it could be seen that the wire was kinking in the vein. Despite multiple accesses of the vein and attempts to pass the J-wire I never could get the J-wire all the way to the innominate area. For this reason, the decision was made to place the triple-lumen superiorly in the right internal jugular vein above the entrance point of the dialysis catheter. Once again the intraoperative ultrasound was used to find the right internal jugular vein and the right internal jugular vein was accessed above the dialysis catheter access point on the first pass with a needle and syringe. The J-wire was passed down the needle and the needle was removed. A small incision was made at the skin at the entrance point of the J-wire and the dilator was passed over the wire into the internal jugular vein. The dilator was then removed and the triple-lumen catheter was easily passed over the wire which was then removed. All ports aspirated well and were flushed with hep flush solution. The triple-lumen was sewn in place on the right side of the neck with some interrupted sutures of 3-0 silk. Dressings were placed over both sites and the patient was eventually taken to the intensive care unit in stable condition postoperatively.
[2021-05-16] MEDS: heparin, porcine 1,000 unit/mL INJ 10 mL 10000 UNIT IRRIGATION (12:49)
--- NOTE | 2021-05-16 12:53 | XR_ITS ---
WS: [id number] CHEST XRAY TECHNIQUE: Portable chest. CLINICAL INFORMATION: Status post central line and hemodialysis catheter placement COMPARISON: None. FINDINGS: Right IJ catheter with tip in the distal SVC. Right dual-lumen hemodialysis catheters with tips in the right atrium and RA/IVC confluence Heart: Cardiomegaly. Shallow inspiration. Lungs: Mild pulmonary vascular congestion. No focal pneumonia or significant pleural fluid. No pneumo thorax. Bones: Normal visualized bony structures. XR/XR chest 1V portable [id number] IMPRESSION: 1. No pneumothorax. 2. Right IJ catheter with tip in the distal SVC. Right dual-lumen hemodialysis catheters with tips in the right atrium and RA/IVC confluence
[2021-05-16 13:37] LABS: Glucose Point of Care 174 mg/dL (70-110)
--- NOTE | 2021-05-16 13:44 | PC.CHAP ---
Pastoral Care Encounter/Spiritual Assessment Type of Contact [] Declined software security architect visit [] Patient/Family/Request visit [] Outpatient visit [] Follow-up visit [] Physician referral [] Code/Alert [] Routine visit [] Staff referral [] Actively dying [] Patient sleeping [] Family support [] [] Out of room [] Palliative care [] [] Receiving care in room [] Pre-surgical visit [] Trauma [] Long length of stay [] ICU visit [] Other: Relational/Emotional Strength [] Patient feels connected with others/family/visitors/staff [] Distress [] Loneliness/isolation [] Abandonment Spirituality of Patient []x Person of Leti [] Attends Gnosticism of their Leti [] Believes in Prayer [] Reads Bible or Judaism materials [] There are Spiritual issues to be addressed Ground Hand Interventions [x] Prayer [] Active listening [] Non-anxious presence [] Spiritual/emotional support [] Crisis/trauma care [] Spiritual counseling [] Bereavement support [] Provided bereavement packet [] Provided Bible/devotional materials [] Provided toy/stuffed animal, coloring book to patient or family member [] Provided Communion [] Anointing/[place] [] Salvation [] Completed spiritual assessment [] Other: Impact on Illness or Injury [] Angry [] Fearful [] Anxious [] Often cries [] Exhaustion [] Unable to work [] Unable to attend confucianism [] Unable to walk/stand [] Unable to read [] Unable to drive [] Unable to eat/drink [] Unable to sleep [] Unable to be with family [] Patient intubated [] Other: Summary have to pray out side of doors now Time spent with patient
--- NOTE | 2021-05-16 14:32 | PC.NURSE ---
Urine Specimen Urine collected for UA and sent to lab by a supervisor plastering at 14:25. Will continue to monitor.
[2021-05-16 14:45] LABS: Bilirubin Urine 1+ (Negative); Blood Urine 3+ (Negative); Glucose Urine UA Trace (Normal); Ketones Urine Negative (Negative); Nitrate Urine Negative (Negative); Protein Urine 3+ (Negative); Urine Appearance Cloudy (CLEAR); Urine Color Dark Yellow (Yellow); Urobilinogen Urine Norm (Negative); pH Urine 5 (5-7)
[2021-05-16 14:46] LABS: Add Urine Microscopic? YES; Leukocyte Esterase Urine 2+ (Negative)
[2021-05-16 14:47] LABS: Add Urine Culture? Yes; Bacteria Urine 2+ /hpf; Squamous Epithelial Cell Urine 0-4 /hpf (0-5); WBC Urine TOO NUMEROUS TO CNT /hpf (0-5)
[2021-05-16 15:08] LABS: Anion Gap 27.2 (5-19); Blood Urea Nitrogen 68 mg/dL (8-23); Carbon Dioxide 15 mmol/L (22-29); Chloride 105 mmol/L (98-107); Glomerular Filtration Rate 8.1 mL/min (90-130); Glucose 151 mg/dL (65-115); Osmolality Calculated 315 mOsm/kg (285-295); Potassium 6.2 mmol/L (3.5-5.1); Sodium 141 mmol/L (136-145)
--- NOTE | 2021-05-16 15:45 | PC.NURSE ---
1120: to or for hemodialysis cath and cvl
--- NOTE | 2021-05-16 15:46 | PC.NURSE ---
1240 recd from o.r. with cvl and hemodialysis catheters in [place]
--- NOTE | 2021-05-16 16:16 | PC.NURSE ---
blood pressure up and down. dr. menezes was notified and norepinephrine titrated to 30 mcg.
[2021-05-16 16:29] LABS: Hematocrit 29.2 % (37.0-47.0); Hemoglobin 9.3 g/dL (11.5-15.3)
--- NOTE | 2021-05-16 16:46 | ANE.PACU2 ---
Inpatient post-anesthesia follow up: Airway intact: Yes Vital signs: Temperature 96.2 F Pulse Rate [Monito r] 62 Pulse Rate 76 Respiratory Rate 16 Blood Pressure [Ri ght Arm] 74/33 Blood Pressure 95/56 Pulse Oximetry 97 Oxygen Delivery Me thod Room Air Oxygen Flow Rate Fraction of Inspir ed Oxygen Hydration adequate: Yes Nausea and vomiting: No Pain level: 2 Mental status: Baseline
[2021-05-16] MEDS: heparin, porcine 1,000 unit/mL INJ 10 mL HE (17:25)
[2021-05-16 18:14] LABS: Glucose Point of Care 147 mg/dL (70-110)
[2021-05-16] MEDS: vancomycin 1,000 MG in sodium chloride 0.9% 250 ML 250 MG IV ×2 (18:19→18:42)
[2021-05-16] MEDS: pantoprazole 40 mg SDV IVP (18:21)
--- NOTE | 2021-05-16 19:22 | PC.HD ---
Patient hypotensive prior to treatment, on Levophed gtt at 20 mcg/min. Cath with new dressing from OR today, gauze under opsite with serosanguinous drainage visible, new surgical dressing left in place PRODUCTION GEAR CUTTER giving albumin at start of treatment but said no additional albumin ordered. She contacted Dr Barnett and rec'd instructions to increase Levophed if needed for hypotension.
--- NOTE | 2021-05-16 19:23 | PC.NURSE ---
1650 norepinephrin was scanned at this time but apparently not saved. after it was infused and zero added wouldnt let me enter time hung.
--- NOTE | 2021-05-16 19:35 | PC.HD ---
Dr Barnett in during tx and 250ml NS bolus given per his order. Dr Zelaya was given a condition update, aware of hypotension and Levophed gtt and NS bolus. Pt remained asymptomatic throughout treatment
[2021-05-16 20:13] LABS: Glucose Point of Care 135 mg/dL (70-110)
[2021-05-16] MEDS: norepinephrine 8 MG in dextrose 5 % 500 ML 80.01 MG IV (20:19)
--- NOTE | 2021-05-16 20:19 | PC.NURSE ---
MAR Update; New levo gtt bag initiated. 8MG/250mL concentration. Bag scanned, but shows incorrect mcg initiated. Gtt initiated at 12mcg/min (22.5mL/hr.) in concentration to match previous recent levo gtt running.
--- NOTE | 2021-05-16 20:31 | PC.NURSE ---
MAR Update; New levo gtt bag initiated. 8MG/500mL concentration. Bag scanned, but shows incorrect mcg initiated. Gtt initiated at 30mcg/min (80/hr.) in 8/500 concentration, to match previous recent levo gtt running during dayshift. MD Juan Antonio notified of continued need for increased rate of gtt.
--- NOTE | 2021-05-16 20:46 | PC.NURSE ---
New orders; New orders received to obtain STAT H&H lab draw, and initiate Vasopressin gtt per protocol. Orders to start decreasing Levo gtt as tolerated. MD Juan Antonio also gave orders that we will transfuse if Hgb results less that 7. Orders placed in chart as indicated.
[2021-05-16 21:29] LABS: Hematocrit 27.1 % (37.0-47.0); Hemoglobin 8.8 g/dL (11.5-15.3)
[2021-05-17] VITALS (180 sets, daily range): BP systolic 86–132; BP diastolic 42–86; PULSE 58–79; RESP 7–37; TEMP 36.4–37.2; O2SAT 90–96
[2021-05-17] MEDS: morphine 4 mg/mL SDV 1 mL 2 MG IVP (04:03)
[2021-05-17 04:40] LABS: Basophils % 0.8 %; Eosinophils # 0.4 10^3/uL (0.0-0.8); Hematocrit 25.3 % (37.0-47.0); Lymphocytes # 0.7 10^3/uL (0.8-4.8); Lymphocytes % 13.4 %; Mean Corpuscular HGB Conc 31.6 g/dL (30.0-36.0); Mean Corpuscular Hemoglobin 34.8 pg (28.0-34.0); Mean Platelet Volume 10.5 fL (7.4-10.4); Monocytes # 0.9 10^3/uL (0.2-0.9); Monocytes % 16.1 %; Neutrophils # 3.22 10^3/uL (1.8-7.7); Neutrophils % 60.9 %; Nucleated Red Blood Cells % 0 %; Platelet Count 64 10^3/cmm (130-400); Red Cell Distribution Width 16.4 % (12.1-15.1); White Blood Count 5.3 10^3/uL (4.0-10.0)
[2021-05-17 04:57] LABS: Alanine Aminotransferase 27 U/L (0-33); Albumin Level 3.5 g/dL (3.5-5.2); Alkaline Phosphatase 245 IU/L (35-105); Anion Gap 21.9 (5-19); Aspartate Amino Transferase 35 U/L (0-32); Blood Urea Nitrogen 43 mg/dL (8-23); Carbon Dioxide 22 mmol/L (22-29); Chloride 100 mmol/L (98-107); Globulin 2.7 g/dL (1.3-4.6); Glomerular Filtration Rate 12.3 mL/min (90-130); Glucose 152 mg/dL (65-115); Osmolality Calculated 302 mOsm/kg (285-295); Potassium 4.9 mmol/L (3.5-5.1); Sodium 139 mmol/L (136-145); Total Bilirubin 0.8 mg/dL (0.15-1.2); Total Protein 6.2 g/dL (6.6-8.7)
[2021-05-17 05:22] LABS: Ammonia 42 umol/L (11-51)
[2021-05-17] MEDS: pantoprazole 40 mg SDV IVP ×2 (05:23→18:03)
[2021-05-17 08:50] LABS: Glucose Point of Care 176 mg/dL (70-110)
--- NOTE | 2021-05-17 10:01 | PC.CHAP ---
Pastoral Care Encounter/Spiritual Assessment Type of Contact [] Declined clarification operator visit [] Patient/Family/Request visit [] Outpatient visit [] Follow-up visit [] Physician referral [] Code/Alert [x] Routine visit [] Staff referral [] Actively dying [] Patient sleeping [] Family support [] [] Out of room [] Palliative care [] [x] Receiving care in room [] Pre-surgical visit [] Trauma [] Long length of stay [x] ICU visit [] Other: Relational/Emotional Strength [] Patient feels connected with others/family/visitors/staff [] Distress [] Loneliness/isolation [] Abandonment Spirituality of Patient [] Person of Leti [] Attends Scientology of their Leti [] Believes in Prayer [] Reads Bible or Christianity materials [] There are Spiritual issues to be addressed Activities Specialist Interventions [x] Prayer [] Active listening [] Non-anxious presence [] Spiritual/emotional support [] Crisis/trauma care [] Spiritual counseling [] Bereavement support [] Provided bereavement packet [] Provided Bible/devotional materials [] Provided toy/stuffed animal, coloring book to patient or family member [] Provided Communion [] Anointing/[place] [] Salvation [x] Completed spiritual assessment [] Other: Impact on Illness or Injury [] Angry [] Fearful [] Anxious [] Often cries [] Exhaustion [] Unable to work [] Unable to attend nondenominational [] Unable to walk/stand [] Unable to read [] Unable to drive [] Unable to eat/drink [] Unable to sleep [] Unable to be with family [] Patient intubated [] Other: Summary Time spent with patient
--- NOTE | 2021-05-17 11:50 | PM.PN ---
Subjective Subjective: Interval history: She remains very confused today. Dialysis went reasonably well yesterday although pressor needs transiently increased and have since come down again. Her urine output is minimal still. Vitals/I&O/Wt Last Vital Signs Temp 97.6 F 05/17/21 07:00 Pulse 70 05/17/21 10:45 Resp 15 05/17/21 10:45 BP 98/53 05/17/21 10:45 Pulse Ox 95 05/17/21 10:00 05/16/21 05/17/21 05/17/21 22:59 06:59 14:59 Intake Total 1424.375 / 2803.508 232.636 / 3036.144 184.226 / 184.226 Output Total 50 / 59 Balance 1415.375 / 2794.508 182.636 / 2977.144 184.226 / 184.226 Weight last 48 hrs Weight 129.241 kg Weight 128.8 kg Weight 125.758 kg Weight 125.758 kg Weight 115.212 kg Physical Exam Narrative: EXAM NARRATIVE: Constitutional: Confused HEENT: Wet mucosa, no jvp, non icteric Lungs: Bilaterally clear without discernible wheeze, rales in all lung zones CVS: S1 S2, no murmurs Abdo: Soft, BS ok Ext 4: 2-3+ edema, peripheral perfusion with no cyanosis Neurological: Grossly non-focal Urinary Catheter Management^: Bryant: Cath Placed During This Visit: yes Reason for Continuing Indwelling Catheter: Accurate Measurement of Urinary Output in Critically Ill Patients Urinary Catheter Date of Insertion: 05/16/21 Urinary Catheter Time of Insertion: 02:25 Data : 05/17/21 04:20 05/17/21 04:20 Micro: Microbiology 05/16/21 14:20 Blood Culture - Preliminary Blood SPECIMEN COLLECTED 05/16/21 14:23 Blood Culture - Preliminary Blood SPECIMEN COLLECTED A&P Additional A&P Information 1. Oligoanuric renal failure Appears to be hepatorenal physiology that has likely resulted in ATN Dialysis was performed emergently yesterday for critical hyperkalemia and acidosis. No acute indication for dialysis today, she does display some hypervolemia, however, she is breathing comfortably with nasal cannula. Chemically she looks well balanced. She remains overtly altered, there is the possibility of uremia contributing to this, however, I would have expected some improvement after dialysis yesterday. As she remains oliguric, I would anticipate needing to perform dialysis tomorrow. I will order dialysis after I see her tomorrow morning. Dose medication for GFR less than 15 Avoid usual nephrotoxic agents. 2. Confusion Chief diagnosis remains hepatic encephalopathy with possible contribution from uremia Currently receiving lactulose, rifaximin. Ammonia levels have vastly improved 3. Shock Unclear etiology, at least in part secondary to liver failure and decreased metabolism of nitric oxide causing distributive shock. Currently being treated with broad-spectrum antibiotics including Primaxin, cultures so far negative. Recent echo looked reasonable. 4. Chemistry following dialysis yesterday, chemistry looks much more balanced. Continue to monitor the renal function and serum chemistry closely. 5. Anemia Hemoglobin levels drifting down to 8 g/dL from baseline in the high 9 range. Maynor Zelaya MD Nephrology [phone] Patient seen and examined via telemedicine, with the assistance of the bedside RN > 25 min spent in evaluation and mgmt of patient Attestations Medical Necessity Statement*: Eval for ZANA Coding Level of Care Code Acute Vocational Counselor for Leeroy Rolon
[2021-05-17 12:10] LABS: Glucose Point of Care 151 mg/dL (70-110)
[2021-05-17 13:08] LABS: Hematocrit 24.3 % (37.0-47.0); Hemoglobin 7.6 g/dL (11.5-15.3)
--- NOTE | 2021-05-17 14:32 | P.PN_ITS ---
Subjective Subjective: Interval history: Sharon was difficult to arouse, would say a few words and then go back to sleep this morning. Blood pressures have drifted up and pressor has been decreased. Medications: Reviewed: Yes Vitals/I&O/Wt Last Vital Signs Temp 97.6 F 05/17/21 07:00 Pulse 69 05/17/21 14:00 Resp 22 H 05/17/21 14:00 BP 105/48 05/17/21 14:00 Pulse Ox 90 05/17/21 14:00 05/16/21 05/17/21 05/17/21 22:59 06:59 14:59 Intake Total 1424.375 / 2803.508 232.636 / 3036.144 284.226 / 284.226 Output Total 50 200 / 200 Balance 1415.375 / 2794.508 182.636 / 2977.144 84.226 / 84.226 Weight last 48 hrs Weight 129.241 kg Weight 128.8 kg Weight 125.758 kg Weight 125.758 kg Weight 115.212 kg Physical Exam Narrative: EXAM NARRATIVE: General exam is a confused female, sleepy Neck supple no lymphadenopathy or thyromegaly Cardiovascular regular rate and rhythm without murmur Lungs clear Abdomen is slightly distended. Bowel sounds are noted. Extremities no cyanosis clubbing. 3+ edema noted. Neurologic: No obvious focal deficits. Sleepy and hard to awaken. Urinary Catheter Management^: Bryant: Cath Placed During This Visit: yes Reason for Continuing Indwelling Catheter: Accurate Measurement of Urinary Output in Critically Ill Patients Urinary Catheter Date of Insertion: 05/16/21 Urinary Catheter Time of Insertion: 02:25 Data : 05/17/21 12:55 05/17/21 04:20 Micro: Microbiology 05/16/21 14:20 Blood Culture - Preliminary Blood SPECIMEN COLLECTED 05/16/21 14:23 Blood Culture - Preliminary Blood SPECIMEN COLLECTED A&P Assessment and plan (1) Acute renal failure: Associated with significant metabolic acidosis. Improved with dialysis. IV fluids now held Hyperkalemia resolved Urine output has not picked up. May require hemodialysis tomorrow. I have been in discussion with who reports he would like to to continue to treat her, and have her decide regarding dialysis long-term if needed. Associated with significant hyperkalemia which had been treated with calcium gluconate, insulin and glucose, and bicarb drip on admission Continue albumin Status: Acute (2) Acute hepatic encephalopathy: Continue rifaximin when she is able to take p.o. Initiate lactulose enemas today as blood pressure has stabilized. Status: Acute (3) Acute hyperkalemia: Resolved with dialysis Status: Acute (4) GI bleed: Patient with history of bright red blood in stool. She has had no visible bleeding since entering the hospital. Hemoglobin has drifted down, but with fluid administration. Likely much of this is delusional. Change Protonix to 40 mg twice daily Continue Rocephin secondary to cirrhosis with concern of GI bleed. Note that she did not have any ascites to obtain a sample of. Status: Acute (5) Anemia: Hemoglobin 7.6. Decreased from admission. Repeat tomorrow. Much of this may be delusional. Status: Chronic (6) Cirrhosis: Followed at [place]. Secondary to renal failure this complicates patient's status greatly Discussed with in depth CODE STATUS. He reports patient would never want to be on a ventilator ever again as she has had this in the past. He also reports no CPR is the desire currently. However, she continues to want other aggressive care. I discussed with him transfer to [place] today again, and he currently wants her managed here. He realizes we do not have all of the resources at [place] dialysis considering her underlying liver disease but he is worried about her overall quality of life at this time as well. Status: Acute (7) Portal vein thrombosis: Past diagnosis. Not eligible for anticoagulation secondary to history of varices with hemorrhagic shock in the past. 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 Wean norepinephrine as tolerated.. Blood cultures pending. Vi nue broad-spectrum IV antibiotics. Past echo demonstrated only mild aortic stenosis. Probable UTI. Urine culture pending. Initiated Primaxin yesterday. Limited code. 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
[2021-05-17] MEDS: lactulose oral liq 20 gm/30 mL UDC 200 GM PR ×2 (15:38→20:48)
[2021-05-17 17:42] LABS: Glucose Point of Care 169 mg/dL (70-110)
[2021-05-17] MEDS: vancomycin 1,000 MG in sodium chloride 0.9% 250 ML 250 MG IV (18:04)
[2021-05-17] MEDS: lanolin oint 7 gm 1 APPLIC TOPICAL (18:11)
[2021-05-17 20:29] LABS: Glucose Point of Care 148 mg/dL (70-110)
[2021-05-18] VITALS (274 sets, daily range): BP systolic 69–141; BP diastolic 32–96; PULSE 0–93; RESP 12–32; TEMP 36.9; O2SAT 84–97
[2021-05-18] MEDS: norepinephrine 8 MG in dextrose 5 % 500 ML 22.86 MG IV (04:26)
[2021-05-18] MEDS: pantoprazole 40 mg SDV IVP ×2 (04:52→18:23)
[2021-05-18 05:24] LABS: Basophils % 0.6 %; Eosinophils # 0.4 10^3/uL (0.0-0.8); Eosinophils % 6.4 %; Hematocrit 25.7 % (37.0-47.0); Lymphocytes # 0.8 10^3/uL (0.8-4.8); Lymphocytes % 12.7 %; Mean Corpuscular HGB Conc 31.1 g/dL (30.0-36.0); Mean Corpuscular Hemoglobin 34.8 pg (28.0-34.0); Mean Corpuscular Volume 111.7 fL (81-99); Mean Platelet Volume 10.9 fL (7.4-10.4); Monocytes # 0.8 10^3/uL (0.2-0.9); Monocytes % 12.5 %; Neutrophils # 4.16 10^3/uL (1.8-7.7); Nucleated Red Blood Cells % 0 %; Platelet Count 68 10^3/cmm (130-400); Red Cell Distribution Width 16.4 % (12.1-15.1); White Blood Count 6.2 10^3/uL (4.0-10.0)
[2021-05-18] MEDS: levothyroxine 88 mcg Tablet PO (05:25)
[2021-05-18 05:50] LABS: Alanine Aminotransferase 21 U/L (0-33); Albumin Level 3.6 g/dL (3.5-5.2); Alkaline Phosphatase 237 IU/L (35-105); Aspartate Amino Transferase 30 U/L (0-32); Blood Urea Nitrogen 52 mg/dL (8-23); Calcium 8.5 mg/dL (8.5-10.5); Carbon Dioxide 21 mmol/L (22-29); Chloride 101 mmol/L (98-107); Globulin 2.8 g/dL (1.3-4.6); Glomerular Filtration Rate 11.6 mL/min (90-130); Glucose 146 mg/dL (65-115); Osmolality Calculated 303 mOsm/kg (285-295); Sodium 138 mmol/L (136-145); Total Bilirubin 0.9 mg/dL (0.15-1.2); Total Protein 6.4 g/dL (6.6-8.7)
--- NOTE | 2021-05-18 06:04 | PC.NURSE ---
Patient has seedy mucous BM this shift, no other significant findings thus shift.
--- NOTE | 2021-05-18 07:46 | PC.NURSE ---
dr. menezes in. right ac, previous iv site leaking
--- NOTE | 2021-05-18 09:08 | PC.CHAP ---
Pastoral Care Encounter/Spiritual Assessment Type of Contact [] Declined molding machine tender visit [] Patient/Family/Request visit [] Outpatient visit [] Follow-up visit [] Physician referral [] Code/Alert [x] Routine visit [] Staff referral [] Actively dying [] Patient sleeping [] Family support [] [] Out of room [] Palliative care [] [x] Receiving care in room [] Pre-surgical visit [] Trauma [] Long length of stay [x] ICU visit [] Other: Relational/Emotional Strength [] Patient feels connected with others/family/visitors/staff [] Distress [] Loneliness/isolation [] Abandonment Spirituality of Patient [] Person of Leti [] Attends Orthodox of their Leti [] Believes in Prayer [] Reads Bible or Catholic materials [] There are Spiritual issues to be addressed Joint Supervisor Interventions [x] Prayer [] Active listening [] Non-anxious presence [] Spiritual/emotional support [] Crisis/trauma care [] Spiritual counseling [] Bereavement support [] Provided bereavement packet [] Provided Bible/devotional materials [] Provided toy/stuffed animal, coloring book to patient or family member [] Provided Communion [] Anointing/[place] [] Salvation [x] Completed spiritual assessment [] Other: Impact on Illness or Injury [] Angry [] Fearful [] Anxious [] Often cries [] Exhaustion [] Unable to work [] Unable to attend buddhist [] Unable to walk/stand [] Unable to read [] Unable to drive [] Unable to eat/drink [] Unable to sleep [] Unable to be with family [] Patient intubated [] Other: Summary Time spent with patient
[2021-05-18 09:29] LABS: Glucose Point of Care 155 mg/dL (70-110)
[2021-05-18] MEDS: lactulose oral liq 20 gm/30 mL UDC PO ×3 (09:37→21:09)
[2021-05-18 11:31] LABS: Glucose Point of Care 162 mg/dL (70-110)
--- NOTE | 2021-05-18 12:15 | PM.PN ---
Subjective Subjective: Interval history: Sharon reports she feels better. She is alert this morning. Denies any significant abdominal pain this morning. Medications: Reviewed: Yes Vitals/I&O/Wt Last Vital Signs Temp 98.9 F 05/17/21 15:00 Pulse 66 05/18/21 10:30 Resp 18 05/18/21 10:30 BP 108/54 05/18/21 10:30 Pulse Ox 91 05/18/21 10:25 05/17/21 05/18/21 05/18/21 22:59 06:59 14:59 Intake Total 450 / 734.226 200 / 934.226 314.68 / 314.68 Output Total 200 / 400 Balance 450 / 534.226 0 / 534.226 314.68 / 314.68 Weight last 48 hrs Weight 129.241 kg Weight 128.8 kg Physical Exam Narrative: EXAM NARRATIVE: General exam much more alert, and conversive Neck supple no lymphadenopathy or thyromegaly Cardiovascular regular rate and rhythm without murmur Lungs clear Abdomen is slightly distended. Bowel sounds are noted. Extremities no cyanosis clubbing. 3+ edema noted. Neurologic: No obvious focal deficits. Urinary Catheter Management^: Bryant: Cath Placed During This Visit: yes Reason for Continuing Indwelling Catheter: Accurate Measurement of Urinary Output in Critically Ill Patients Urinary Catheter Date of Insertion: 05/16/21 Urinary Catheter Time of Insertion: 02:25 Data : 05/18/21 04:42 05/18/21 04:42 Micro: Microbiology 05/16/21 14:25 Urine Culture - Preliminary Urine,Clean Catch 05/16/21 14:20 Blood Culture - Preliminary Blood NEGATIVE TO DATE 05/16/21 14:23 Blood Culture - Preliminary Blood NEGATIVE TO DATE A&P Assessment and plan (1) Acute renal failure: Associated with significant metabolic acidosis. Improved with dialysis. IV fluids now held Hyperkalemia resolved Urine output has not picked up significantly. May require hemodialysis today. I have been in discussion with who reports he would like to to continue to treat her, and have her decide regarding dialysis long-term if needed. Associated with significant hyperkalemia which had been treated with calcium gluconate, insulin and glucose, and bicarb drip on admission Continue albumin Status: Acute (2) Acute hepatic encephalopathy: Continue rifaximin Change lactulose to p.o. Status: Acute (3) Acute hyperkalemia: Resolved with dialysis Status: Acute (4) GI bleed: Patient with history of bright red blood in stool. She has had no visible bleeding since entering the hospital. Hemoglobin has drifted down, but with fluid administration. Likely much of this is delusional. Currently stable. Change Protonix to 40 mg twice daily Continue Rocephin secondary to cirrhosis with concern of GI bleed. Note that she did not have any ascites to obtain a sample of. Status: Acute (5) Anemia: Hemoglobin 8.0, stable Status: Chronic (6) Cirrhosis: Followed at [place]. Secondary to renal failure this complicates patient's status greatly Continue albumin currently, and this cirrhotic patient with hypotension. Discussed with in depth CODE STATUS. He reports patient would never want to be on a ventilator ever again as she has had this in the past. He also reports no CPR is the desire currently. However, she continues to want other aggressive care. I discussed with him transfer to [place] today again, and he currently wants her managed here. He realizes we do not have all of the resources at [place] dialysis considering her underlying liver disease but he is worried about her overall quality of life at this time as well. Status: Acute (7) Portal vein thrombosis: Past diagnosis. Not eligible for anticoagulation secondary to history of varices with hemorrhagic shock in the past. 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 Wean norepinephrine and vasopressin off as tolerated. Blood cultures pending. Continue broad-spectrum IV antibiotics. Past echo demonstrated only mild aortic stenosis. Probable UTI. Urine culture pending. Initiated Primaxin yesterday. Limited code. No CPR, no intubation SCDs for DVT prophylaxis Attestations Medical Necessity Statement*: ICU stay secondary to hypotension requiring pressors. Critical Care Time: The high probability of a clinically significant, sudden or life threatening deterioration of the patient's [vascular, hepatic, encephalopathy/neuro] system(s) required my full and direct attention, intervention and personal management. The critical care time is as shown. This time is in addition to time spent performing any reported procedures but includes the following: [x] Data and vital sign review and interpretation [x] Patient assessment, examination and intervention [x] Documentation [x] Medication orders and management Critical Care Time (min): 33 Coding Level of Care Code Acute Electronic Masking System Operator for [facility] Fwd Diagnoses Acute renal failure N17.9 Acute hepatic encephalopathy K72.00 Acute hyperkalemia E87.5 GI bleed K92.2 Anemia D64.9 Cirrhosis K74.60 Portal vein thrombosis I81 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
--- NOTE | 2021-05-18 14:04 | PC.NURSE ---
having a difficult time getting a temp ax or oral.
[2021-05-18] MEDS: FUROsemide 10 mg/mL SDV 10mL 80 MG IVP (14:21)
--- NOTE | 2021-05-18 15:43 | P.PN_ITS ---
Subjective Subjective: Interval history: Ms. Kwan is much more lucid today. Jovial, chatty, quite funny. She still has significant lower extremity edema. Minimal urine output over the last 24 hours. She is breathing quite comfortably on nasal cannula oxygen. No uremic symptoms. Medications: Reviewed: Yes Vitals/I&O/Wt Last Vital Signs Temp 98.9 F 05/17/21 15:00 Pulse 93 05/18/21 14:00 Resp 29 H 05/18/21 14:00 BP 101/60 05/18/21 14:00 Pulse Ox 93 05/18/21 14:00 05/18/21 05/18/21 05/18/21 06:59 14:59 22:59 Intake Total 200 / 934.226 554.68 / 554.68 Output Total 200 / 400 Balance 0 / 534.226 554.68 / 554.68 Weight last 48 hrs Weight 129.241 kg Weight 128.8 kg Physical Exam Narrative: EXAM NARRATIVE: Constitutional: Confused HEENT: Wet mucosa, no jvp, non icteric Lungs: Bilaterally clear without discernible wheeze, rales in all lung zones CVS: S1 S2, no murmurs Abdo: Soft, BS ok Ext 4: 2-3+ edema, peripheral perfusion with no cyanosis Neurological: Grossly non-focal Urinary Catheter Management^: Bryant: Cath Placed During This Visit: yes Reason for Continuing Indwelling Catheter: Accurate Measurement of Urinary Output in Critically Ill Patients Urinary Catheter Date of Insertion: 05/16/21 Urinary Catheter Time of Insertion: 02:25 Data : 05/18/21 04:42 05/18/21 04:42 Micro: Microbiology 05/16/21 14:25 Urine Culture - Preliminary Urine,Clean Catch 05/16/21 14:20 Blood Culture - Preliminary Blood NEGATIVE TO DATE 05/16/21 14:23 Blood Culture - Preliminary Blood NEGATIVE TO DATE A&P Additional A&P Information 1. Oligoanuric renal failure Appears to be hepatorenal physiology that has likely resulted in ATN Dialysis was performed emergently Sunday but not since while we await recovery As she remains oliguric, I anticipate dialyzing her tomorrow, however, I will give her high-dose Lasix today. If her urine output really improves, we can hold dialysis tomorrow. Dialysis nurse is aware. I will order dialysis after I see her tomorrow morning. Dose medication for GFR less than 15 Avoid usual nephrotoxic agents. 2. Confusion Much better today Chief diagnosis remains hepatic encephalopathy with possible contribution from uremia Currently receiving lactulose, rifaximin. Ammonia levels have vastly improved 3. Shock Unclear etiology, at least in part secondary to liver failure and decreased metabolism of nitric oxide causing distributive shock. Currently being treated with broad-spectrum antibiotics including Primaxin, cultures so far negative. Recent echo looked reasonable. Off Vasopressin and on Levo at 6 4. Chemistry following dialysis yesterday, chemistry looks much more balanced. Continue to monitor the renal function and serum chemistry closely. 5. Anemia Hemoglobin levels drifting down to 8 g/dL from baseline in the high 9 range. Maynor Zelaya MD Nephrology [phone] D/w at bedside Patient seen and examined via telemedicine, with the assistance of the bedside RN > 25 min spent in evaluation and mgmt of patient Attestations Medical Necessity Statement*: Eval for renal failure Coding Level of Care Code Acute Medical Radiation Therapist for Leeroy Rolon
[2021-05-18 17:34] LABS: Glucose Point of Care 146 mg/dL (70-110)
[2021-05-18 21:02] LABS: Glucose Point of Care 168 mg/dL (70-110)
--- NOTE | 2021-05-18 22:00 | PC.NURSE ---
New orders received; Patient becoming extremely restless and agitated. Has thrown tv remote, ice and water cups, and other objects off of bedside table. Patient reoriented to current time and place. Patient continues to be agitated towards nursing and RT staff. RN remained at bedside, until pt became calm temporarily again. MD notified. New orders received from Dr. Romano, and meds administered per MD recommendations. Monitoring.
[2021-05-18] MEDS: haloperidol inj 5 mg/mL INJ 1 mL 1 MG IVP (22:19)
[2021-05-19] VITALS (134 sets, daily range): BP systolic 77–127; BP diastolic 36–79; PULSE 0–81; RESP 11–35; TEMP 35.4–37.1; O2SAT 86–100
[2021-05-19] MEDS: norepinephrine 8 MG in dextrose 5 % 500 ML 22.86 MG IV (04:22)
[2021-05-19] MEDS: lactulose oral liq 20 gm/30 mL UDC PO ×4 (04:22→22:43)
[2021-05-19] MEDS: pantoprazole 40 mg SDV IVP ×2 (04:22→17:56)
[2021-05-19 05:02] LABS: Basophils % 0.4 %; Eosinophils # 0.3 10^3/uL (0.0-0.8); Eosinophils % 4.1 %; Hematocrit 23.4 % (37.0-47.0); Hemoglobin 7.2 g/dL (11.5-15.3); Lymphocytes # 0.4 10^3/uL (0.8-4.8); Lymphocytes % 5.3 %; Mean Corpuscular HGB Conc 30.8 g/dL (30.0-36.0); Mean Corpuscular Hemoglobin 34.4 pg (28.0-34.0); Mean Platelet Volume 10.7 fL (7.4-10.4); Monocytes # 0.8 10^3/uL (0.2-0.9); Monocytes % 9.5 %; Neutrophils # 6.37 10^3/uL (1.8-7.7); Neutrophils % 79.2 %; Nucleated Red Blood Cells % 0 %; Platelet Count 55 10^3/cmm (130-400); Red Blood Count 2.09 10^6/uL (4.1-5.3); Red Cell Distribution Width 16.4 % (12.1-15.1)
[2021-05-19 05:55] LABS: Alanine Aminotransferase 16 U/L (0-33); Alkaline Phosphatase 214 IU/L (35-105); Anion Gap 23.5 (5-19); Aspartate Amino Transferase 26 U/L (0-32); Blood Urea Nitrogen 57 mg/dL (8-23); Calcium 8.8 mg/dL (8.5-10.5); Carbon Dioxide 20 mmol/L (22-29); Chloride 99 mmol/L (98-107); Globulin 2.4 g/dL (1.3-4.6); Glomerular Filtration Rate 10.6 mL/min (90-130); Glucose 120 mg/dL (65-115); Osmolality Calculated 303 mOsm/kg (285-295); Potassium 4.5 mmol/L (3.5-5.1); Sodium 138 mmol/L (136-145); Total Bilirubin 0.9 mg/dL (0.15-1.2); Total Protein 6.4 g/dL (6.6-8.7)
[2021-05-19] MEDS: levothyroxine 88 mcg Tablet PO (06:17)
--- NOTE | 2021-05-19 07:14 | P.PN_ITS ---
Subjective Subjective: Interval history: No complaints, on levophed at 6 mcg, minimal urine output Medications: Reviewed: Yes Vitals/I&O/Wt Last Vital Signs Temp 98.7 F 05/19/21 04:10 Pulse 78 05/19/21 06:10 Resp 22 H 05/19/21 06:10 BP 100/67 05/19/21 06:10 Pulse Ox 93 05/19/21 06:10 05/18/21 05/19/21 05/19/21 22:59 06:59 14:59 Intake Total 803.46 / 1358.14 8 / 2015.14 Output Total 100 / 100 25 / 125 Balance 703.46 / 1258.14 633 / 1891.14 Weight last 48 hrs Weight 131.529 kg Physical Exam Const: COMMON NORMALS: no acute distress GENERAL APPEARANCE: cooperative Neck/C-Spine: OTHER: right IJ dialysis catheter Extremity: GENERAL: Yes edema Urinary Catheter Management^: Bryant: Cath Placed During This Visit: yes Reason for Continuing Indwelling Catheter: Accurate Measurement of Urinary Output in Critically Ill Patients Urinary Catheter Date of Insertion: 05/16/21 Urinary Catheter Time of Insertion: 02:25 Data : 05/19/21 04:19 05/19/21 04:19 Micro: Microbiology 05/16/21 14:25 Urine Culture - Preliminary Urine,Clean Catch A&P Additional A&P Information 1. Acute kidney injury, essentially anuric, no response to IV lasix yesterday 2. Cirrhosis 3. Anemia Plan: HD today, consider transfusion pRBC. Poor long-term dialysis candidate Attestations Medical Necessity Statement*: see above Time Spent in Patient Care: 16 - 35 minutes Coding Level of Care Code Acute Mountain Services Manager for Leeroy Rolon
--- NOTE | 2021-05-19 08:00 | PC.NURSE ---
SCD order noted. None in room noted.
[2021-05-19 08:34] LABS: Glucose Point of Care 138 mg/dL (70-110)
--- NOTE | 2021-05-19 09:14 | PC.CHAP ---
Pastoral Care Encounter/Spiritual Assessment Type of Contact [] Declined acid maker visit [] Patient/Family/Request visit [] Outpatient visit [] Follow-up visit [] Physician referral [] Code/Alert [x] Routine visit [] Staff referral [] Actively dying [] Patient sleeping [] Family support [] [] Out of room [] Palliative care [] [] Receiving care in room [] Pre-surgical visit [] Trauma [] Long length of stay [x] ICU visit [x] Other: setting up .. breakfast... Relational/Emotional Strength [] Patient feels connected with others/family/visitors/staff [] Distress [] Loneliness/isolation [] Abandonment Spirituality of Patient [] Person of Leti [] Attends Mandaen of their Leti [] Believes in Prayer [] Reads Bible or Baptist materials [] There are Spiritual issues to be addressed Racebook Writer Interventions [x] Prayer [] Active listening [] Non-anxious presence [] Spiritual/emotional support [] Crisis/trauma care [] Spiritual counseling [] Bereavement support [] Provided bereavement packet [] Provided Bible/devotional materials [] Provided toy/stuffed animal, coloring book to patient or family member [] Provided Communion [] Anointing/[place] [] Salvation [x] Completed spiritual assessment [] Other: Impact on Illness or Injury [] Angry [] Fearful [] Anxious [] Often cries [] Exhaustion [] Unable to work [] Unable to attend jainism [] Unable to walk/stand [] Unable to read [] Unable to drive [] Unable to eat/drink [] Unable to sleep [] Unable to be with family [] Patient intubated [] Other: Summary Time spent with patient
--- NOTE | 2021-05-19 09:54 | PC.SOCIAL ---
IMM update Pg. 2of IMM Updated and reviewed with patient who verbalized understanding. Copy provided.
[2021-05-19 12:19] LABS: Glucose Point of Care 177 mg/dL (70-110)
--- NOTE | 2021-05-19 15:34 | P.PN_ITS ---
Subjective Subjective: Interval history: Sharon reports she is doing okay this morning. Denies any pain. Medications: Reviewed: Yes Vitals/I&O/Wt Last Vital Signs Temp 98.7 F 05/19/21 04:10 Pulse 78 05/19/21 06:10 Resp 22 H 05/19/21 06:10 BP 100/67 05/19/21 06:10 Pulse Ox 93 05/19/21 06:10 05/19/21 05/19/21 05/19/21 06:59 14:59 22:59 Intake Total 658 / 2015.14 278.181 / 278.181 Output Total Balance 633 / 1891.14 278.181 / 278.181 Weight last 48 hrs Weight 131.529 kg Physical Exam Narrative: EXAM NARRATIVE: General exam much more alert, and conversive Neck supple no lymphadenopathy or thyromegaly Cardiovascular regular rate and rhythm without murmur Lungs clear Abdomen is slightly distended. Bowel sounds are noted. Extremities no cyanosis clubbing. 2+ edema noted. Neurologic: No obvious focal deficits. Urinary Catheter Management^: Bryant: Cath Placed During This Visit: yes Reason for Continuing Indwelling Catheter: Accurate Measurement of Urinary Output in Critically Ill Patients Urinary Catheter Date of Insertion: 05/16/21 Urinary Catheter Time of Insertion: 02:25 Data : 05/19/21 04:19 05/19/21 04:19 A&P Assessment and plan (1) Acute renal failure: Associated with significant metabolic acidosis on admission. Improved with dialysis. Hyperkalemia resolved Urine output has not picked up significantly. Hemodialysis today. I have been in discussion with who reports he would like to to continue to treat her, and have her decide regarding dialysis long-term if needed. Associated with significant hyperkalemia which had been treated with calcium gluconate, insulin and glucose, and bicarb drip on admission Continue albumin Status: Acute (2) Acute hepatic encephalopathy: Continue rifaximin Change lactulose to p.o. Status: Acute (3) Acute hyperkalemia: Resolved with dialysis Status: Acute (4) GI bleed: Patient with history of bright red blood in stool. She has had no visible bleeding since entering the hospital. Hemoglobin has drifted down to 7.2. 1 unit of packed red blood cells today with dialysis. Change Protonix to 40 mg twice daily Continue Rocephin secondary to cirrhosis with concern of GI bleed. Note that she did not have any ascites to obtain a sample of. Status: Acute (5) Anemia: Hemoglobin 8.0, stable Status: Chronic (6) Cirrhosis: Followed at [facility]. Secondary to renal failure this complicates patient's status greatly Continue albumin currently, and this cirrhotic patient with hypotension. Discussed with in depth CODE STATUS. He reports patient would never w ant to be on a ventilator ever again as she has had this in the past. He also reports no CPR is the desire currently. However, she continues to want other aggressive care. I discussed with him transfer to [facility] today again, and he currently wants her managed here. He realizes we do not have all of the resources at [facility] dialysis considering her underlying liver disease but he is worried about her overall quality of life at this time as well. Status: Acute (7) Portal vein thrombosis: Past diagnosis. Not eligible for anticoagulation secondary to history of varices with hemorrhagic shock in the past. 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 Norepinephrine has been able to be weaned off this morning. Blood cultures negative to date. Vancomycin was discontinued yesterday. Continue Primaxin. Past echo demonstrated only mild aortic stenosis. Probable UTI. Urine culture preliminary negative. If final is negative could consider discontinuing Primaxin as well. Limited code. No CPR, no intubation SCDs for DVT prophylaxis Attestations Medical Necessity Statement*: Needs continued hospital stay secondary to acute kidney injury requiring dialysis. Critical Care Time: The high probability of a clinically significant, sudden or life threatening deterioration of the patient's [renal, hepatic] system(s) required my full and direct attention, intervention and personal management. The critical care time is as shown. 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
--- NOTE | 2021-05-19 16:00 | PC.NURSE ---
Dialysis nurse, here, dialysis in progress.
--- NOTE | 2021-05-19 16:33 | PC.NURSE ---
[facility] collected and sent to lab.
[2021-05-19 17:40] LABS: Glucose Point of Care 142 mg/dL (70-110)
--- NOTE | 2021-05-19 17:53 | PC.NURSE ---
IV antibiotic: Imipenem-Cilastiatin which ids due at 1800 held until HD completed.
--- NOTE | 2021-05-19 19:15 | PC.NURSE ---
Report given to Troy. ANDERSON.
--- NOTE | 2021-05-19 19:33 | PC.NURSE ---
Shift summary: Pt pleasantly confused. She is cooperative. She has rested with her eyes closed for the majority of the day. She has Levophed still infusing, started the day at 6mcg/min, at end of this shift it was at 15mcg/min due to hemodialysis. NEt HD output 1988ml today. One unit of PRBC infused in during dialysis,. HGb 7.2 prior. Her was in to visit today. Her urine output 15ml.
[2021-05-19] MEDS: norepinephrine 8 MG in dextrose 5 % 500 ML 57.15 MG IV (21:48)
[2021-05-19 22:43] LABS: Glucose Point of Care 138 mg/dL (70-110)
--- NOTE | 2021-05-19 23:16 | PC.NURSE ---
Pt on COVID R/O precautions
[2021-05-19] MEDS: haloperidol inj 5 mg/mL INJ 1 mL 1 MG IVP (23:34)
[2021-05-20] VITALS (46 sets, daily range): BP systolic 70–127; BP diastolic 39–80; PULSE 44–66; RESP 14–31; TEMP 36.6–36.9; O2SAT 87–98; BMI 43.6
[2021-05-20] MEDS: lactulose oral liq 20 gm/30 mL UDC PO ×2 (03:56→10:23)
[2021-05-20 04:19] LABS: Basophils % 0.3 %; Eosinophils # 0.4 10^3/uL (0.0-0.8); Eosinophils % 2.6 %; Hematocrit 24.2 % (37.0-47.0); Hemoglobin 7.6 g/dL (11.5-15.3); Lymphocytes # 0.6 10^3/uL (0.8-4.8); Lymphocytes % 4.1 %; Mean Corpuscular HGB Conc 31.4 g/dL (30.0-36.0); Mean Corpuscular Volume 105.2 fL (81-99); Mean Platelet Volume 11.1 fL (7.4-10.4); Monocytes # 1.3 10^3/uL (0.2-0.9); Monocytes % 9.6 %; Neutrophils # 10.92 10^3/uL (1.8-7.7); Neutrophils % 82.3 %; Nucleated Red Blood Cells % 0.2 %; Platelet Count 68 10^3/cmm (130-400); Red Cell Distribution Width 18.6 % (12.1-15.1); White Blood Count 13.3 10^3/uL (4.0-10.0)
[2021-05-20 04:36] LABS: Alanine Aminotransferase 15 U/L (0-33); Albumin Level 4.6 g/dL (3.5-5.2); Alkaline Phosphatase 210 IU/L (35-105); Aspartate Amino Transferase 26 U/L (0-32); Blood Urea Nitrogen 33 mg/dL (8-23); Calcium 8.8 mg/dL (8.5-10.5); Carbon Dioxide 23 mmol/L (22-29); Chloride 96 mmol/L (98-107); Globulin 2.1 g/dL (1.3-4.6); Glomerular Filtration Rate 15.1 mL/min (90-130); Glucose 127 mg/dL (65-115); Osmolality Calculated 287 mOsm/kg (285-295); Sodium 134 mmol/L (136-145); Total Protein 6.7 g/dL (6.6-8.7)
[2021-05-20] MEDS: pantoprazole 40 mg SDV IVP (05:43)
[2021-05-20] MEDS: levothyroxine 88 mcg Tablet PO (05:47)
[2021-05-20] MEDS: norepinephrine 8 MG in dextrose 5 % 500 ML 49.53 MG IV (09:02)
--- NOTE | 2021-05-20 10:43 | PC.NURSE ---
Central line dressing change Dressing changed using central line kit, Sorbaview contour shield dressing applied.
[2021-05-20 11:47] LABS: Glucose Point of Care 156 mg/dL (70-110)
[2021-05-20 11:47] LABS: Glucose Point of Care 166 mg/dL (70-110)
--- NOTE | 2021-05-20 12:55 | PC.NURSE ---
Levophed Titration Decreasing Levophed drip per patient tolerance. Dr. Barnett stated MAP should stay above 60; however, temporary MAP a little below 60 is permissible for weaning.
--- NOTE | 2021-05-20 13:55 | PM.PN ---
Subjective Subjective: Interval history: Sharon was conversive but confused this morning. Medications: Reviewed: Yes Vitals/I&O/Wt Last Vital Signs Temp 97.8 F 05/20/21 12:00 Pulse 62 05/20/21 13:45 Resp 15 05/20/21 13:45 BP 118/59 05/20/21 13:45 Pulse Ox 93 05/20/21 13:45 05/19/21 05/20/21 05/20/21 22:59 06:59 14:59 Intake Total 1087.528 / 1958.000 100 / 2058.000 1010.187 / 1010.187 Output Total 2703 / 2703 50 / 50 Balance -1615.472 / -745.000 100 / -645.000 960.187 / 960.187 Weight last 48 hrs Weight 126.4 kg Weight 126.4 kg Weight 131.529 kg Physical Exam Narrative: EXAM NARRATIVE: General exam conversive but confused. No significant urine output noted. Neck supple no lymphadenopathy or thyromegaly Cardiovascular regular rate and rhythm without murmur Lungs clear Abdomen is slightly distended. Bowel sounds are noted. Extremities no cyanosis clubbing. 2+ edema noted. Neurologic: No obvious focal deficits. Urinary Catheter Management^: Bryant: Cath Placed During This Visit: yes Reason for Continuing Indwelling Catheter: Accurate Measurement of Urinary Output in Critically Ill Patients Urinary Catheter Date of Insertion: 05/16/21 Urinary Catheter Time of Insertion: 02:25 Data : 05/20/21 03:48 05/20/21 03:48 Micro: Microbiology 05/16/21 14:25 Urine Culture - Final Urine,Clean Catch A&P Assessment and plan (1) Acute renal failure: Associated with significant metabolic acidosis on admission. Improved with dialysis. Hyperkalemia resolved Urine output has not improved whatsoever. I have had repetitive discussions with the . He has reported since the beginning that he did not believe long-term dialysis is anything the patient would have wanted. Patient herself has some confusion and cannot relate her wishes adequately regarding this. She has been in a nursing facility for several years, and her quality of life has decreased significantly. After my conversation with the patient's today, he believed it would be best to discontinue dialysis and proceed towards comfort measures as this is what Sharon would have wanted in this situation considering her multiple comorbidities. We will proceed with comfort measures, comfort orders Status: Acute (2) Acute hepatic encephalopathy: Proceed to comfort measures Status: Acute (3) Acute hyperkalemia: Resolved with dialysis Status: Acute (4) GI bleed: Changed to comfort measures, no further transfusion Status: Acute (5) Anemia: Changed to comfort, no further lab Status: Chronic (6) Cirrhosis: Followed at [facility]. Patient has been moved to comfort measures Status: Acute (7) Portal vein thrombosis: Past diagnosis. Not eligible for anticoagulation secondary to history of varices with hemorrhagic shock in the past. 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 Will take off norepinephrine Probable UTI. Discontinue IV antibiotics Progress to comfort measures, moved to second floor Attestations Medical Necessity Statement*: Needs continued hospitalization for providing end-of-life care, while attempting to find suitable environment for this. 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
--- NOTE | 2021-05-20 15:26 | PM.PN ---
Subjective Subjective: Interval history: She is comfortable. No urine output since last few days. Dialyzed yesterday. Lasix ineffective. Mild global edema. No other overt uremic Sx. Medications: Reviewed: Yes Vitals/I&O/Wt Last Vital Signs Temp 97.8 F 05/20/21 12:00 Pulse 56 L 05/20/21 15:00 Resp 17 05/20/21 15:00 BP 97/54 05/20/21 15:00 Pulse Ox 93 05/20/21 15:00 05/20/21 05/20/21 05/20/21 06:59 14:59 22:59 Intake Total 100 / 2058.000 1028.080 / 1028.080 Output Total 50 / 50 Balance 100 / -645.000 978.080 / 978.080 Weight last 48 hrs Weight 126.4 kg Weight 126.4 kg Weight 131.529 kg Physical Exam Narrative: EXAM NARRATIVE: Constitutional: Confused HEENT: Wet mucosa, no jvp, non icteric Lungs: Bilaterally clear without discernible wheeze, rales in all lung zones CVS: S1 S2, no murmurs Abdo: Soft, BS ok Ext 4: 2-3+ edema, peripheral perfusion with no cyanosis Neurological: Grossly non-focal Urinary Catheter Management^: Bryant: Cath Placed During This Visit: yes Reason for Continuing Indwelling Catheter: Accurate Measurement of Urinary Output in Critically Ill Patients Urinary Catheter Date of Insertion: 05/16/21 Urinary Catheter Time of Insertion: 02:25 Data : 05/20/21 03:48 05/20/21 03:48 Micro: Microbiology 05/16/21 14:25 Urine Culture - Final Urine,Clean Catch A&P Additional A&P Information Oligoanuric renal failure Appears to be hepatorenal physiology that has likely resulted in ATN No further dialysis as she is moving towards comfort care now As she is moving to comfort measures I will follow peripherally at this time Maynor Zelaya MD Nephrology [phone] D/w at bedside Patient seen and examined via telemedicine, with the assistance of the bedside RN > 25 min spent in evaluation and mgmt of patient Attestations Medical Necessity Statement*: Eval fpor ZANA Coding Level of Care Code Acute Icu Registered Nurse for [facility] Ольга
--- NOTE | 2021-05-20 16:25 | PC.NURSE ---
Report Report faxed to [employer]. Report further called and received by Shawnee Adrian RN
--- NOTE | 2021-05-20 17:10 | PC.NURSE ---
Transfer pt transferred to [place] [id number] via bed. pt belongings accounted for and with pt. , Dayne Kwan, was contacted by phone call and a voicemail was left detailing the transfer to new location.
[2021-05-21 03:23] VITALS: BP 76/42; PULSE 50; RESP 20; O2SAT 98
[2021-05-21 08:00] VITALS: BP 69/42; PULSE 122; RESP 22; TEMP 37.1; O2SAT 97
--- NOTE | 2021-05-21 09:46 | P.PN_ITS ---
Subjective Subjective: Interval history: No acute interval events, comfortable at rest. Medications: Reviewed: Yes Vitals/I&O/Wt Last Vital Signs Temp 98.8 F 05/21/21 08:00 Pulse 122 H 05/21/21 08:00 Resp 22 H 05/21/21 08:00 BP 69/42 05/21/21 08:00 Pulse Ox 97 05/21/21 08:00 05/20/21 05/21/21 05/21/21 22:59 06:59 14:59 Intake Total 120 / 1148.080 60 / 1208.080 60 / 60 Output Total 125 / 175 50 / 225 Balance -5 / 973.080 10 / 983.080 60 / 60 Weight last 48 hrs Weight 128.004 kg Weight 126.4 kg Weight 126.4 kg Physical Exam Narrative: EXAM NARRATIVE: Not examined for patient comfort Urinary Catheter Management^: Bryant: Cath Placed During This Visit: yes Reason for Continuing Indwelling Catheter: Hospice/Comfort/Palliative Care Urinary Catheter Date of Insertion: 05/16/21 Urinary Catheter Time of Insertion: 02:25 Data : 05/20/21 03:48 05/20/21 03:48 A&P Assessment and plan (1) Acute renal failure: No further dialysis since now proceeded to comfort measures Status: Acute (2) Acute hepatic encephalopathy: Proceed to comfort measures Status: Acute (3) Acute hyperkalemia: Resolved with dialysis Status: Acute (4) GI bleed: Changed to comfort measures, no further transfusion Status: Acute (5) Anemia: Changed to comfort, no further lab Status: Chronic (6) Cirrhosis: Followed at [facility]. Patient has been moved to comfort measures Status: Acute (7) Portal vein thrombosis: Past diagnosis. Not eligible for anticoagulation secondary to history of varices with hemorrhagic shock in the past. 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 Will take off norepinephrine Probable UTI. 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
[2021-05-21 10:31] LABS: Glucose Point of Care 114 mg/dL (70-110)
--- NOTE | 2021-05-21 14:51 | PC.SOCIAL ---
IMM Updated Updated pt/family on Pg 2 IMM. No questions voiced. Provided pt a copy. Initialed, dated, & timed copy in chart.
[2021-05-21 17:14] LABS: Glucose Point of Care 118 mg/dL (70-110)
[2021-05-21 20:00] VITALS: BP 76/44; PULSE 44; RESP 16; O2SAT 98
[2021-05-22 02:24] VITALS: BP 86/48; PULSE 46; RESP 16; O2SAT 99
[2021-05-22 08:00] VITALS: BP 89/49; PULSE 49; RESP 22; O2SAT 98
[2021-05-22 09:04] VITALS: RESP 26
[2021-05-22] MEDS: morphine 4 mg/mL SDV 1 mL IVP (09:04)
[2021-05-22 11:56] LABS: Coronavirus Test Green County Not Detected
--- NOTE | 2021-05-22 12:20 | PC.NURSE ---
called to room to assess patient, patient found to have no pulse or respirations by JUSTIN Campbell second verify by this nurse. TOD 1158. Dayne and Dr. Suarez notified.
--- NOTE | 2021-05-22 13:53 | PM.DDS ---
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: Reason for Visit Reason for Visit: POSSIBLE GI BLEED Summary Date and Time of Date of : 05/22/21 Time of : 11:55 Summary Summary: This is a with a past medical history of liver cirrhosis, esophageal varices, hypoalbuminemia, chronic kidney stage III, hepatorenal syndrome, hepatic encephalopathy, portal hypertension, anemia, thrombocytopenia, hypertension, hyperlipidemia, hypothyroidism, GRETTA, insulin-dependent type 2 diabetes mellitus who presents to [facility] from [facility] due to concerns for bright red blood per rectum, abdominal pain, abdominal distention, hypotension Patient was admitted to [facility] due to GI bleed, hepatic encephalopathy, acute renal failure, shock. For her GI bleed secondary to liver cirrhosis, history of variceal bleed, and hemorrhagic shock in the past. She was started on a Protonix drip, octreotide drip, receiving antibiotic therapy. Given her acute renal failure, oligoanuric renal failure, secondary to ATN and hepatorenal syndrome, aftera trial of IV fluids and bicarbonate, she had a dialysis catheter placed, for inpatient dialysis due to critical hyperkalemia and acidosis, urine output remains lackluster. She continued to have significant hip static encephalopathy with treatment of lactulose and rifaximin. Shock multifactorial related to acute renal failure, GI bleed, liver failure, receiving treatment as above including broad-spectrum antibiotic therapy, including pressor therapy. Patient continued to have episodes of hepatic encephalopathy, episodes of confusion, multifactorial related to liver cirrhosis and uremia, and metabolic. After discussion with patient's family members, including her , decision was made to pursue comfort care and discontinue dialysis which was more along with patient's wishes, patient was started on comfort care, she on 05/22/2021 at 11:55 AM Additional Data Confirmation of as documented by pronouncing clinician: no pulse Family: contacted Additional persons at bedside: nursing staff Attending/PCP notified?: Attending notified Was code activated?: No Advance directives?: No Discharge Plan Discharge Patient Disposition: Condition: Stable Prescriptions: No Action docusate sodium 100 mg capsule 100 mg PO BID@,20 RF: 0 tramadol 50 mg tablet 50 mg PO Q8H PRN (Reason: pain) RF: 0 nystatin 100,000 unit/gram cream 1 applic topical BID@, RF: 0 (DME) OneTouch Ultra Blue Test Strip Strip See Rx Instructions .Route RF: 0 (DME) lancets [OneTouch UltraSoft Lancets] Misc See Rx Instructions .Route RF: 0 spironolactone 50 mg tablet 50 mg PO BID@, RF: 0 levothyroxine 88 mcg Tablet 88 mcg PO DAILY@06 RF: 0 lactulose 10 gram/15 mL Solution 40 ml PO QID PRN (Reason: Constipation) RF: 0 ondansetron HCl [Zofran] 4 mg tablet 4 mg PO QID PRN (Reason: Nausea And Vomiting) RF: 0 insulin lispro [Humalog KwikPen Insulin] 100 unit/mL Insulin Pen See Rx Instructions .ROUTE .COMPLEX RF: 0 insulin lispro [Humalog KwikPen Insulin] 100 unit/mL insulin pen See Rx Instructions SUBCUT .COMPLEX RF: 0 metolazone 5 mg Tablet 5 mg PO DAILY@0800 RF: 0 magnesium oxide [MagOx] 400 mg (241.3 mg magnesium) tablet 400 mg PO DAILY@0800 RF: 0 pantoprazole [Protonix] 40 mg tablet,delayed release (DR/EC) 40 mg PO BID@,20 RF: 0 Xifaxan 550 mg tablet 550 mg PO BID@,20 RF: 0 Entresto 24-26 mg Tablet 1 tab PO BID@,20 RF: 0 Triple Antibiotic 3.5mg-400 unit- 5,000 unit/gram Ointment See Rx Instructions .ROUTE .COMPLEX RF: 0 lidocaine HCl 2 % Jelly See Rx Instructions .ROUTE .COMPLEX RF: 0 Triad Wound Dressing Paste See Rx Instructions .ROUTE .COMPLEX RF: 0 lactulose 10 gram/15 mL Solution 40 ml PO BID PRN (Reason: Constipation) RF: 0 lactulose 10 gram/15 mL Solution See Rx Instructions .ROUTE .COMPLEX RF: 0 Lantus Solostar U-100 Insulin 100 unit/mL (3 mL) Insulin Pen 10 unit SUBCUT DAILY@20 RF: 0 Sterile Water Imani Irrig See Rx Instructions .ROUTE .COMPLEX RF: 0 Lasix 40 mg tablet 40 mg PO DAILY@08 RF: 0 lidocaine 5 % adhesive patch,medicated See Rx Instructions .ROUTE .COMPLEX RF: 0 Referrals: Allen Myers FNP-C [Primary Care Provider] - Patient Instructions: Opioid Safety DS Attestations Time Spent in /Discharge Care*: greater than 30 min Quality - AMI: AMI present?: No Quality - Stroke: CVA present?: No Symptom Onset Unknown: No Quality - VTE: VTE present?: No Deep Vein Thrombosis/Pulmonary Embolism Present on Admission: No Coding Level of Care Code Acute Acoustic Intelligence Specialist for [facility] Fwd Diagnoses Acute renal failure N17.9 Acute hepatic encephalopathy K72.00 Acute hyperkalemia E87.5 GI bleed K92.2 Anemia D64.9 Cirrhosis K74.60 Portal vein thrombosis I81 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
--- NOTE | 2021-05-22 15:50 | PC.NURSE ---
MTS contacted at 1230 and pt was placed in the morgue at 1400.
--- NOTE | 2021-05-22 18:53 | PC.NURSE ---
Saul here to bead picker the pt. MTS notified that pt would be going to the home prior to being released. They have not yet reached out to the family.
== END 2021-05-22 12:15 | disposition expired | DRG 673 ==
LOC: ER 05-16 01:48 → ICU 05-16 06:41 → MEDSURG 05-20 16:56
PROVIDERS: Internal Medicine; Nurse Practitioner Family; Student in an Organized Health Care Education/Training Program; Surgery; Admitting Provider Hospitalist; Emergency Provider Family Medicine; PCP Nurse Practitioner; Visit Provider Family Medicine
PROC: 0JH63XZ Insertion of Tunneled Vascular Access Device into Chest Subcutaneous Tissue and Fascia, Percutaneous Approach (ICD-10-PCS; principal; 2021-05-16 12:00)
PROC: 0JH63XZ Insertion of Tunneled Vascular Access Device into Chest Subcutaneous Tissue and Fascia, Percutaneous Approach (ICD-10-PCS; 2021-05-16 12:00)
DX: N17.0 Acute kidney failure with tubular necrosis (principal); K72.00 Acute and subacute hepatic failure without coma; K92.2 Gastrointestinal hemorrhage, unspecified; Z68.41 Body mass index [BMI] 40.0-44.9, adult; K76.6 Portal hypertension; E87.2 Acidosis; N39.0 Urinary tract infection, site not specified; K74.60 Unspecified cirrhosis of liver; E11.22 Type 2 diabetes mellitus with diabetic chronic kidney disease; I12.9 Hypertensive chronic kidney disease with stage 1 through stage 4 chronic kidney disease, or unspecified chronic kidney disease; N18.30 Chronic kidney disease, stage 3 unspecified; E03.9 Hypothyroidism, unspecified; Z87.442 Personal history of urinary calculi; E66.9 Obesity, unspecified; G47.30 Sleep apnea, unspecified; Z87.891 Personal history of nicotine dependence; E87.5 Hyperkalemia; D69.6 Thrombocytopenia, unspecified; Z86.718 Personal history of other venous thrombosis and embolism; I95.9 Hypotension, unspecified; D64.9 Anemia, unspecified; G47.33 Obstructive sleep apnea (adult) (pediatric); E78.5 Hyperlipidemia, unspecified; Z51.5 Encounter for palliative care
CPT/HCPCS: 36415; 36416; 36430; 36592; 36600; 51702; 71045; 74018; 74177; 77001; 80048; 80051; 80053; 80202; 80500; 81001; 82140; 82330; 82550; 82575; 82805; 82962; 83605; 83690; 83735; 84132; 84300; 85014; 85018; 85025; 85610; 85730; 86850; 86870; 86900; 86902; 86920; 87040; 87086; 87635; 90935; 93005; 96365; 96366; 96367; 96372; 96375; 99291; 99292; C1750; C9113; J0610; J0696; J0743; J1630; J1644; J1815; J1940; J2250; J2270; J2354; J2704; J3010; J3370; J3490; J7030; J7050; P9016; P9047; Q3014; Q9967